=== PATIENT | male | born 1975 | race Caucasian/White ===

== ENCOUNTER 2017-02-05 11:55 | Observation (INO) | payer MEDICARE ==
[~2017-02-05] VITALS: Ht 175.3 cm; Wt 83.9 kg
--- NOTE | ~2017-02-05 | HEMODYNAMI ---
PATIENT:SMITA ROMERO MEDICAL RECORD: [id number] : 73 LOCATION:[facility] [place] [address] [id number] ADMISSION DATE: 02/05/17 Generatedon:02/06/201711:06 Patient name: SMITA ROMERO Patient #: [id number] SSN: : 1975 Date of study: 02/06/2017 Page: Of Hemodynamic Procedure Report Patient Data Patient Demographics Procedure consent was obtained First Name: SMITA Gender: Male Last Name: NICK : 1975 [facility] Initial: E Age: 41 year(s) Patient #: [id number] Race: Additional ID: [id number] Contact details Address: [address] [place] [address] [facility] State: [place] City: [place] Zip code: [address] Past Medical History Allergies Allergen Reaction Date Comments Reported Iodine 01/18/2016 Iodine 02/06/2017 Admission Admission Data Admission Date: 02/05/2017 Admission Time: 14:55 Room #: 2116 Lab Results Lab Result Date: 02/06/2017 Lab Result Time: 0:00 Biochemistry Name Units Result Min Max BUN mg/dl 9 --(*---)-- 7 18 Creatinine mg/dl 0.9 --(-*--)-- 0.6 1.3 CBC Name Units Result Min Max Hemoglobin g/dl 15 --(-*--)-- 13.5 17.5 Procedure Procedure Types Cath Procedure Diagnostic Procedure LHC LHC w/Coronaries Miscellaneous Procedures Moderate Sedation up to 15 minutes Procedure Description Procedure Date Procedure Date: 02/06/2017 Procedure Start Time: 10:52 Procedure End Time: 11:04 Procedure Staff Name Function Ronaldo Mata MD Performing Physician Maria Del Carmen Castle RN Nurse Wenceslao Guerra RT Monitor Eric Lees RT Scrub Procedure Data Cath Procedure Fluoroscopy Diagnostic fluoroscopy Total fluoroscopy Time: 1.5 time: 1.5 min min Diagnostic fluoroscopy Total fluoroscopy dose: 346 dose: 346 mGy mGy Contrast Material Contrast Material Type Amount (ml) Isovue 300 60 Entry Location Entry Primary Successful Side Size Upsize Upsize Entry Closure Succes sful Closure Location (Fr) 1 (Fr) 2 (Fr) Remarks Device Remarks Femoral Right 5 Fr Exoseal artery Diagnostic catheters Device Type Used For End Catheter Placement Cordis 5Fr JL 4.0 Left Coronary Catheter (MP) Angiography Cordis 5Fr 3DRC Catheter Right Coronary (MP) Angiography Cordis 5Fr Pigtail LV Angiography Catheter (MP) Procedure Complications No complications Procedure Medications Medication Administration Route Dosage Versed I.V. 1 mg Fentanyl I.V. 50 mcg Versed I.V. 1 mg Fentanyl I.V. 50 mcg Oxygen NC 2 l/min Heparin Flush Bag added to field 2 bags (1000units/500ml NS) Lidocaine 2% added to field 20 Versed I.V. 1 mg Fentanyl I.V. 50 mcg Versed I.V. 1 mg Fentanyl I.V. 50 mcg Hemodynamics Rest HGB: 15 (g/dl) Heart Rate: 77 (bpm) Pressure Samples Time Site Value (mmHg) Purpose Heart Use Rate(bpm) 10:59 LV 146/-6,19 EDP 86 11:00 AO 143/90(116) Pullback 87 11:00 LV 154/-2,35 Pullback 87 Gradients Valve Time Site 1 Site 2 Mean SEP/DFP Peak To Heart Use (mmHg) (sec/min) Peak Rate (mmHg) (bpm) Aortic 11:00 LV AO 13 6 11 87 154/-2,35 143/90(116) Calculations Valve P-P Mean Valve Index Valve Source Name Gradient Area Flow (cm2) Aortic 11 13 11 13 Snapshots Pre Cath Intra NCS Post Cath Vital Signs Time Heart Resp SPO2 etCO2 [id number] NIBP (mmHg) Rhythm Pain Sedatio n Rate (ipm) (%) (mmHg) (mmHg) Status Level (bpm) 10:38:22 81 19 100 0 0 147/100(124) NSR 0 (11) 10(A) , No pain 10:42:38 81 17 100 0 0 145/103(117) NSR 0 (11) 10(A) , No pain 10:46:52 90 16 100 0 0 131/92(116) NSR 0 (11) 10(A) , No pain 10:51:02 95 16 100 0 0 131/100(115) NSR 0 (11) 10(A) , No pain 10:55:12 86 16 100 0 0 135/97(121) NSR 0 (11) 10(A) , No pain 10:59:22 80 16 100 0 0 141/95(111) NSR 0 (11) 10(A) , No pain 11:02:55 89 20 100 0 0 139/91(114) NSR 0 (11) 10(A) , No pain Medications Time Medication Route Dose Verified Delivered Reason Notes Effec tiveness by by 10:33:58 Oxygen NC 2 Ronaldo Maria Del Carmen Per l/min Adolfo Castle RN physician 10:34:38 Heparin Flush added 2 Ronaldo Ronaldo used for Bag to bags Adolfo Mata MD procedure (1000units/500ml field NS) 10:34:48 Lidocaine 2% added 20ml Ronaldo Ronaldo used for to vial Adolfo Mata MD procedure field 10:47:26 Versed I.V. 1 mg Ronaldo Maria Del Carmen for Adolfo Castle RN sedation 10:47:35 Fentanyl I.V. 50 Ronaldo Maria Del Carmen for mcg Adolfo Castle RN sedation 10:49:46 Versed I.V. 1 mg Ronaldo Maria Del Carmen for Adolfo Castle RN sedation 10:49:48 Fentanyl I.V. 50 Ronaldo Maria Del Carmen for mcg Adolfo Castle RN sedation 10:52:06 Versed I.V. 1 mg Ronaldo Maria Del Carmen for Adolfo Castle RN sedation 10:52:12 Fentanyl I.V. 50 Ronaldo Maria Del Carmen for mcg Adolfo Castle RN sedation 10:55:10 Versed I.V. 1 mg Ronaldo Maria Del Carmen for Adolfo Castle RN sedation 10:55:17 Fentanyl I.V. 50 Ronaldo Maria Del Carmen for mcg Adolfo Castle RN sedation Procedure Log Time Note 10:13:20 Eric WU(R) sent for patient. Start room use. 10:13:21 Time tracking: Regular hours 10:13:26 Plan of Care:Hemodynamics will remain stable., Cardiac rhythm will remain stable., Comfort level will be maintained., Respiratory function will remain adequate., Patient/ family verbilizes understanding of procedure., Procedure tolerated without complication., Recovers from procedure without complications.. 10:32:57 Patient received from PCU to CCL 1 Alert and oriented. Tansferred to table in Supine position. 10:33:00 Warm blankets applied, and maryanne hugger turned on for patient comfort. 10:33:01 Correct patient and procedure confirmed by team. 10:33:04 Signed procedure consent form obtained from guardian. 10:33:06 ECG and BP/O2 sat monitors applied to patient. 10:33:58 Oxygen 2 l/min NC was administered by Maria Del Carmen Castle RN; Per physician; 10:34:38 Heparin Flush Bag (1000units/500ml NS) 2 bags added to field was administered by Ronaldo Mata MD; used for procedure; 10:34:48 Lidocaine 2% 20ml vial added to field was administered by Ronaldo Mata MD; used for procedure; 10:37:13 Vital chart was started 10:43:00 Baseline sample Acquired. 10:43:03 Rhythm: sinus rhythm 10:43:04 Full Disclosure recording started 10:43:15 H&P Date Dictated: 02/06/2017 Within 30 days and on chart.. 10:43:17 Pre-procedure instructions explained to patient. 10:43:18 Pre-op teaching completed and patient verbalized understanding. 10:43:19 Family in patients room. 10:43:21 Patient NPO since Midnight. 10:43:28 Patient allergic to Iodine 10:43:32 Is the patient allergic to Iodine/contrast media? Yes. 10:43:34 Was the patient premedicated? Yes 10:43:38 Is patient on blood thinner?Yes 10:43:52 plavix was on 4-10 10:43:58 Patient diabetic? No. 10:43:59 ----Pre-sedation anethsthesia assessment.---- 10:44:01 Previous problem with sedation/anesthesia? No ? 10:44:03 Snore? Yes 10:44:04 Sleep apnea? No 10:44:07 Deviated septum? No 10:44:09 Opens mouth fully? Yes 10:44:10 Sticks out tongue? Yes 10:44:12 Airway obstruction? No ? 10:44:16 Dentures? Yes out 10:44:22 Pre procedure: right dorsailis pedis pulse 1+ Palpable, but thready & weak; easily obliterated 10:44:25 Patient pain scale 0/10 ?. 10:44:45 IV patent on arrival in left forearm with 0.9% NaCl at 10ml/hr. 10:45:09 Lab Result : Creatinine 0.9 mg/dl 10:45:09 Lab Result : BUN 9 mg/dl 10:45:09 Lab Result : Hemoglobin 15 g/dl 10:46:28 Lab results completed and on chart. 10:46:32 Right groin area was prepped with chlora-prep and draped in sterile fashion 10:46:33 Alarms reviewed by R. N. 10:46:33 Sharps counted by scrub and verified by R.N. 10:46:34 --------ALL STOP TIME OUT------ 10:46:34 Final Timeout: patient, procedure, and site verified with staff and physician. All members of the team are in agreement. 10:46:36 Right groin site verified by team. 10:46:40 Physical assessment completed. ASA score P 2 - A patient with mild systemic disease as per Ronaldo Mata MD. 10:46:44 Sedation plan: IV Moderate Sedation Versed, Fentanyl 10:46:52 Use device set Femoral Dx 10:46:53 Acist Syringe opened to sterile field. 10:46:53 Bag Decanter opened to sterile field. 10:46:54 Medline Cath Pack opened to sterile field. 10:46:54 Terumo 5Fr Buffalo Sheath opened to sterile field. 10:46:54 [facility] Collin 260cm J .035 wire opened to sterile field. 10:46:55 Acist Hand Control opened to sterile field. 10:46:56 Acist Manifold opened to sterile field. 10:46:56 Diagnostic Infinity 5Fr Multipack catheter opened to sterile field. 10:46:57 Tegaderm 4 x 4 opened to sterile field. 10:47:26 Versed 1 mg I.V. was administered by Maria Del Carmen Castle RN; for sedation; 10:47:35 Fentanyl 50 mcg I.V. was administered by Maria Del Carmen Castle RN; for sedation; 10:49:46 Versed 1 mg I.V. was administered by Maria Del Carmen Castle RN; for sedation; 10:49:48 Fentanyl 50 mcg I.V. was administered by Maria Del Carmen Castle RN; for sedation; 10:52:06 Versed 1 mg I.V. was administered by Maria Del Carmen Castle RN; for sedation; 10:52:12 Fentanyl 50 mcg I.V. was administered by Maria Del Carmen Castle RN; for sedation; 10:52:53 Procedure started. 10:52:58 Local anesthetic to right femoral artery with Lidocaine 2% by Ronaldo Mata MD.INITIAL ACCESS ONLY 10:53:07 A 5 Fr sheath was inserted into the Right Femoral artery 10:53:15 Zero performed for pressure channel P1 10:53:19 Zero performed for pressure channel P1 10:53:21 Zero performed for pressure channel P1 10:53:23 Zero performed for pressure channel P1 10:53:26 Zero performed for pressure channel P1 10:53:36 Zero performed for pressure channel P1 10:55:05 A Cordis 5Fr JL 4.0 Catheter (MP) was advanced over the wire and used for Left Coronary Angiography. 10:55:09 LCA angiography performed. 10:55:10 Versed 1 mg I.V. was administered by Maria Del Carmen Castle RN; for sedation; 10:55:17 Fentanyl 50 mcg I.V. was administered by Maria Del Carmen Castle RN; for sedation; 10:56:32 Catheter removed. 10:57:32 A Cordis 5Fr 3DRC Catheter (MP) was advanced over the wire and used for Right Coronary Angiography. 10:58:00 RCA angiography performed. 10:58:01 Catheter removed. 10:58:07 A Cordis 5Fr Pigtail Catheter (MP) was advanced over the wire and used for LV Angiography. 10:59:34 LV gram done using DENNEY 10:59:35 LV hemodynamics recorded. 10:59:40 Injector settings: Ml/sec: 10, Volume: 20, 11:00:06 EF : 50 % 11:00:23 Catheter removed. 11:00:30 Contrast amount:Isovue 300 60ml. 11:01:08 Sheath removed intact; hemostasis achieved with Exoseal to the Right Femoral artery. 11:01:11 Procedure ended.(Physican Out) 11:01:47 Procedure type changed to Cath procedure, Diagnostic procedure, LHC, LHC w/Coronaries, Miscellaneous Procedures, Moderate Sedation up to 15 minutes 11:01:54 Fluoroscopy time 01.50 minutes. 11:02:03 Flurop Dose total: 346 11:02:03 Fluoroscopy dose: 346 mGy 11:02:05 Sharps counted by scrub and verified by R.N. 11:02:06 Insertion/operative site no bleeding no hematoma. 11:02:08 Post-op/insertion site Right Femoral artery dressed using a 4 x 4 and Tegaderm. 11:02:12 Post right femoral artery:stable 11:02:14 Post Procedure Pulses reassessed and unchanged 11:02:21 Post procedure: right dorsailis pedis pulse 2+ Normal; easily identifiable; not easily obliterated. 11:02:25 Post procedure rhythm: sinus rhythm 11:02:31 Post procedure instruction explained to patient.Patient verbalizes understanding. 11:03:21 Cordis 5Fr Exoseal opened to sterile field. 11:03:44 Procedure and supply charges have been captured, reviewed, submitted and are correct. 11:03:49 Procedure Complication : No complications 11:03:52 Vital chart was stopped 11:03:52 See physician's report for complete and final results. 11:04:01 Report given to PCU. 11:04:06 Patient transfered to PCU with Bed. 11:04:08 Procedure ended. 11:04:08 Full Disclosure recording stopped 11:04:13 End room use (Document Last) Device Usage Item Name Manufacture Quantity Catalog Hospital Part Current Minimal Lo t# / Number Charge Number Stock Stock Serial# Code Acist Acist 1 30044 [id number] [id number] [id number] 20 Syringe [employer] Bag Microtek 1 2002S 543103 48982 078323 5 [employer] Medline Cardinal 1 [id number] 386503 50800 270957 5 Cath Pack Health Terumo 5Fr Terumo 1 [id number] 902736 946796 057402 [address] [facility] Collin 1 893190 929918 893652 191792 30 260cm J .035 wire Acist Hand Acist 1 67268 612109 967820 555869 5 Control [employer] Inc Acist Acist 1 41855 940899 565642 091707 5 Manifold [employer] Inc Diagnostic Cardinal 1 [id number] 468264 28346 369336 30 ePartnersity Health 5Fr Multipack catheter Tegaderm 4 3M 1 1626W 941104 876630 559864 5 x 4 Cordis 5Fr Cardinal 1 692575 5 JL 4.0 Health Catheter (MP) Cordis 5Fr Cardinal 1 141062 5 3DRC Health Catheter (MP) Cordis 5Fr Cardinal 1 238156 5 Pigtail Health Catheter (MP) Cordis 5Fr Cardinal 1 EX500 698234 671434 770602 10 [facility] Health Signature Audit [place] Stage Time Signature Unsigned Intra-Procedure 02/06/2017 Wenceslao Guerra 11:06:28 AM RT(R) Signatures Monitor : Wenceslao Guerra RT Signature : Date : Time : [place] [id number] [facility] [place] [address]
[~2017-02-05 11:55] MED LIST: BAYER CHEWABLE81 MG PO; PAXIL20 MG PO; PLAVIX75 MG PO; PRAVACHOL80 MG PO; PRINIVIL20 MG PO; TYLENOL W/CODEI1 TAB PO; WELLBUTRIN75 MG PO
[2017-02-05 12:54] LABS: BASOPHILS 0.3 % (0.0-2.0); EOSINOPHILS 2.6 % (0-7); HEMATOCRIT 42.9 % (42.0-54.0); IMMATURE GRANULOCYTES 0.3 % (0-5); LYMPHOCYTES 37.6 % (15-50); MCH 32.3 pg (26.0-34.0); MCV 92.5 fL (80.0-100.0); MEAN PLATELET VOLUME 10.1 fL (7.4-10.4); MONOCYTES 7.6 % (2-11); NEUTROPHILS 51.6 % (40-80); PLATELET COUNT 239 10x3/uL (130-400); RBC 4.64 10x6/uL (4.20-6.10); RDW 12.6 % (11.5-14.5)
[2017-02-05 13:15] LABS: ALBUMIN 3.5 g/dL (3.4-5.0); ALKALINE PHOSPHATASE 64 U/L (46-116); ALT (SGPT) 20 U/L (10-68); BILIRUBIN - TOTAL 0.33 mg/dL (0.2-1.3); CALC OSMOLALITY 282 mosm/kg (275-300); CALCIUM 8.4 mg/dL (8.5-10.1); CARBON DIOXIDE 26.7 mmol/L (21.0-32.0); CHLORIDE - SERUM 107 mmol/L (98-107); CREATININE - SERUM 0.9 mg/dL (0.6-1.3); GLUCOSE 113 mg/dL (74-106); POTASSIUM - SERUM 3.4 mmol/L (3.5-5.1); PROTEIN - SERUM 6.3 g/dL (6.4-8.2); SODIUM 142 mmol/L (136-145); UREA NITROGEN 9 mg/dL (7-18); eGFR NON AFRICAN AMERICAN > 90 mL/min (90-120)
[2017-02-05 13:28] LABS: CHOL - HDL RATIO 5.6 ratio (2.3-4.9); CHOLESTEROL, TOTAL 203 mg/dL (0-200); CKMB 1.9 U/L (0.0-3.6); CREATINE KINASE 102 UL (21-232); HDL CHOLESTEROL 36 mg/dL (32-96); LDL CHOLESTEROL 114 mg/dL (0-100); LDL-HDL RATIO 3.2 ratio (1.5-3.5); TRIGLYCERIDE 268 mg/dL (30-200); TROPONIN-I 0.034 ng/mL (0.000-0.060)
[2017-02-05 18:05] VITALS: BP 116/76; BMI 27.3
--- NOTE | 2017-02-05 18:28 | NUR ---
PATIENT ADMITTED FROM ER VIA WC. WARM AND DRY. MONITOR SHOWS SBRADY @ 56. LUNGS CLEAR WITHOUT WHEEZING. ASSESSMENT, MED REC, HISTORY DONE. WILL CONTINUE TO MONITOR.
[2017-02-05 19:00] VITALS: BP 119/76
--- NOTE | 2017-02-05 19:26 | NUR ---
RESUMED CARE OF PT, LYING IN BED RESPIRATIONS EVEN AND UNLABORED ON ROOM AIR. LEFT FOREARM SALINE LOCKED. 68 SR ON TELEMETRY. FAMILY AT BEDSIDE, PLAN OF CARE DISCUSSED. CALL LIGHT IN REACH. WILL CONTINUE TO MONITOR. SEE NURSE ASSESSMENT.
[2017-02-06] VITALS: BP 113/73
--- NOTE | 2017-02-06 02:57 | NUR ---
LYING IN BED WITH EYES CLOSED, CALL LIGHT IN REACH. WILL CONTINUE TO MONITOR.
[2017-02-06 04:00] VITALS: BP 122/75
--- NOTE | 2017-02-06 06:30 | NUR ---
NO CHANGES FROM PREVIOUS ASSESSMENT, CALL LIGHT IN REACH. SOLUMEDROL 125 IVP FOR IODINE ALLERGY.
--- NOTE | 2017-02-06 07:30 | NUR ---
RECEIVED PT IN BED AAOX4 RESP UNLABORED SKIN W/D COLOR WNL NAD NOTED WILL CONTINUE TO MONITOR
[2017-02-06 08:24] VITALS: BP 117/76
[2017-02-06 10:23] VITALS: Ht 175.3 cm; Wt 83.9 kg
--- NOTE | 2017-02-06 11:30 | NUR ---
FSBS 94
--- NOTE | 2017-02-06 14:45 | NUR ---
REVIEWED DISCHARGE INSTRUCTIONS WITH PT AND MOTHER BOTH STATE UNDERSTANDING COPY GIVEN TO PT DCD SALINE LOCK TO LFA WITH 16 GA IV CATHETER WITH TIP INTACT SITE FREE OF REDNESS OR EDEMA PT DISCHARGED HOME IN STABLE CONDITION LEFT UNIT WITH ALL PERSONAL BELONGINGS VIA W/C
--- NOTE | 2017-02-07 12:24 | OP ---
PATIENT NAME: SMITA ROMERO MEDICAL RECORD: [id number] :73 LOCATION:D. D.2116 ADMISSION DATE:02/05/17 SURGEON: DWIGHT HAN M.D. DATE OF OPERATION: 02/06/2017 Catheterization Report PROCEDURES PERFORMED: 1. Selective coronary angiography. 2. Left heart catheterization with ventriculogram. INDICATION: A 41-year-old gentleman, who presents with symptoms of worsening angina and a history of coronary artery disease. EQUIPMENT USED: A 5-Belizean JL4, Apolinar right, pigtail catheter. TECHNIQUE: A 5-Belizean sheath was inserted in retrograde fashion in the right common femoral artery. Next, selective coronary angiography was performed in standard 5-Belizean JL4 and Apolinar right. Left heart catheterization performed using pigtail catheter. CORONARY ANATOMY: 1. Left main: Left main trunk is moderate in caliber. It gives rise to the LAD and circumflex. It is angiographically normal. 2. LAD: This is a moderate caliber vessel extending to the apex. It has mild irregularities throughout its course, but nothing worse than 20%. 3. Circumflex: This vessel is moderate in caliber. The mid vessel has been stented. The stent is widely patent. There is no evidence of restenosis. 4. Right coronary artery: This vessel is moderate in caliber and dominant. The proximal mid vessel has been stented. The stents are widely patent without evidence of restenosis. 5. Left ventricle: Left ventricle is normal in size and function. No wall motion abnormalities are seen. Estimated ejection fraction is 50%. IMPRESSION: 1. Widely patent stents in the right coronary artery and circumflex without evidence of restenosis. 2. Normal left ventricular function. RECOMMENDATIONS: We will continue with medical management. TRANSINT:[id number] Voice Confirmation ID: [id number] DOCUMENT ID: [id number] DWIGHT HAN M.D. at 1224 CC: [id number] DICTATION DATE: 02/06/17 1110 SOFTWARE ENGINEER KERNEL: 02/06/17 1231 DIS IN 02/06/17 [place] [address] [place] [address]
== END 2017-02-06 14:45 | disposition home or self-care (01) ==
LOC: D.ER 11:55 → OBSVTIME 14:55 → D.M2 14:55
PROVIDERS: Family Medicine; ADMIT Internal Medicine Cardiovascular Disease
DX: R07.89 Other chest pain (principal); I25.110 Atherosclerotic heart disease of native coronary artery with unstable angina pectoris; Z95.5 Presence of coronary angioplasty implant and graft; I10 Essential (primary) hypertension; E78.5 Hyperlipidemia, unspecified

== ENCOUNTER 2017-02-21 13:30 | Emergency (ER) | payer MEDICARE | END 2017-02-21 17:30 | disposition left against medical advice (07) | LOC: D.ER 13:30 | DX: R10.30 Lower abdominal pain, unspecified (principal) ==

== ENCOUNTER 2017-02-27 07:40 | Emergency (ER) | payer MEDICARE ==
[2017-02-06 10:23] VITALS: BMI 27.3
[2017-02-27 08:40] LABS: BASOPHILS 0.2 % (0-2); EOSINOPHILS 1.9 % (0-7); HEMATOCRIT 47.4 % (42.0-54.0); HEMOGLOBIN 16.6 g/dL (13.5-17.5); IMMATURE GRANULOCYTES 0.3 % (0-5); LYMPHOCYTES 40.7 % (15-50); MCH 33.3 pg (26.0-34.0); MCV 95.2 fL (80.0-100.0); MEAN PLATELET VOLUME 10.3 fL (7.4-10.4); MONOCYTES 7.5 % (2-11); NEUTROPHILS 49.4 % (40-80); PLATELET COUNT 251 10x3/uL (130-400); RBC 4.98 10x6/uL (4.20-6.10); RDW 12.8 % (11.5-14.5); WBC 5.8 10x3/uL (4.8-10.8)
[2017-02-27 08:43] LABS: APPEARANCE CLEAR (CLEAR); BACTERIA FEW /hpf (NONE SEEN); BILIRUBIN NEGATIVE (NEGATIVE); COLOR YELLOW (YELLOW); EPITHELIAL CELLS 0-5 /hpf (0-5); GLUCOSE NEGATIVE (NEGATIVE); KETONE NEGATIVE (NEGATIVE); LEUKOCYTE ESTERASE TRACE (NEGATIVE); MUCUS >1+ /lpf (NONE SEEN); NITRITE NEGATIVE (NEGATIVE); PROTEIN NEGATIVE (NEGATIVE); SPECIFIC GRAVITY 1.015 (1.005-1.020); UROBILINOGEN NORMAL (NORMAL); WHITE CELLS - URINE 0-5 /hpf (0-5)
[2017-02-27 08:53] LABS: ALBUMIN 3.4 g/dL (3.4-5.0); ALKALINE PHOSPHATASE 69 U/L (46-116); BILIRUBIN - TOTAL 0.69 mg/dL (0.2-1.3); CALC OSMOLALITY 280 mosm/kg (275-300); CALCIUM 7.8 mg/dL (8.5-10.1); CARBON DIOXIDE 32.5 mmol/L (21.0-32.0); CHLORIDE - SERUM 106 mmol/L (98-107); CREATININE - SERUM 0.2 mg/dL (0.6-1.3); GLUCOSE 77 mg/dL (74-106); POTASSIUM - SERUM 3.8 mmol/L (3.5-5.1); PROTEIN - SERUM 6.8 g/dL (6.4-8.2); SODIUM 142 mmol/L (136-145); UREA NITROGEN 10 mg/dL (7-18); eGFR NON AFRICAN AMERICAN > 90 mL/min (90-120)
[2017-02-27 08:54] LABS: ALT (SGPT) 5 U/L (10-68)
== END 2017-02-27 10:40 | disposition home or self-care (01) ==
LOC: D.ER 07:40
PROVIDERS: Emergency Medicine
DX: N39.0 Urinary tract infection, site not specified (principal); I25.10 Atherosclerotic heart disease of native coronary artery without angina pectoris; I50.9 Heart failure, unspecified; I10 Essential (primary) hypertension

== ENCOUNTER 2017-07-13 13:10 | Emergency (ER) | payer MEDICARE | END 2017-07-13 17:31 | disposition home or self-care (01) | LOC: D.ER 13:10 | DX: R19.7 Diarrhea, unspecified (principal); R11.10 Vomiting, unspecified; I50.9 Heart failure, unspecified; I10 Essential (primary) hypertension; F17.200 Nicotine dependence, unspecified, uncomplicated ==

== ENCOUNTER 2017-09-13 13:51 | Emergency (ER) | payer MEDICARE ==
[2017-02-06 10:23] VITALS: BMI 27.3
[2017-09-13 14:14] LABS: BASOPHILS 0.3 % (0-2); EOSINOPHILS 5.7 % (0-7); HEMATOCRIT 44.6 % (42.0-54.0); HEMOGLOBIN 15.3 g/dL (13.5-17.5); IMMATURE GRANULOCYTES 0.1 % (0-5); LYMPHOCYTES 30.9 % (15-50); MCHC 34.3 g/dL (31.0-37.0); MCV 96.3 fL (80.0-100.0); MEAN PLATELET VOLUME 9.8 fL (7.4-10.4); MONOCYTES 8.8 % (2-11); NEUTROPHILS 54.2 % (40-80); PLATELET COUNT 248 10x3/uL (130-400); RBC 4.63 10x6/uL (4.20-6.10); RDW 12.8 % (11.5-14.5); WBC 8.8 10x3/uL (4.8-10.8)
[2017-09-13 14:30] LABS: ALBUMIN 3.8 g/dL (3.4-5.0); ALKALINE PHOSPHATASE 64 U/L (46-116); ALT (SGPT) 46 U/L (10-68); BILIRUBIN - TOTAL 0.44 mg/dL (0.2-1.3); CALC OSMOLALITY 281 mosm/kg (275-300); CALCIUM 8.9 mg/dL (8.5-10.1); CARBON DIOXIDE 29.7 mmol/L (21.0-32.0); CHLORIDE - SERUM 104 mmol/L (98-107); CREATININE - SERUM 0.9 mg/dL (0.6-1.3); GLUCOSE 108 mg/dL (74-106); POTASSIUM - SERUM 3.8 mmol/L (3.5-5.1); SODIUM 141 mmol/L (136-145); UREA NITROGEN 13 mg/dL (7-18); eGFR NON AFRICAN AMERICAN > 90 mL/min (90-120)
[2017-09-13 14:39] LABS: CHOL - HDL RATIO 5.3 ratio (2.3-4.9); CHOLESTEROL, TOTAL 205 mg/dL (0-200); CKMB 1.7 U/L (0.0-3.6); CREATINE KINASE 154 UL (21-232); HDL CHOLESTEROL 39 mg/dL (32-96); LDL CHOLESTEROL 136 mg/dL (0-100); LDL-HDL RATIO 3.5 ratio (1.5-3.5); TRIGLYCERIDE 153 mg/dL (30-200); TROPONIN-I 0.037 ng/mL (0.000-0.060)
== END 2017-09-13 16:00 | disposition home or self-care (01) ==
LOC: D.ER 13:51
PROVIDERS: Emergency Medicine
DX: I20.8 Other forms of angina pectoris (principal); R07.9 Chest pain, unspecified; F17.200 Nicotine dependence, unspecified, uncomplicated

== ENCOUNTER 2017-09-19 14:05 | Emergency (ER) | payer MEDICARE ==
[2017-02-06 10:23] VITALS: BMI 27.3
[2017-09-19 14:45] LABS: BASOPHILS 0.2 % (0-2); EOSINOPHILS 4.3 % (0-7); HEMATOCRIT 46.1 % (42.0-54.0); IMMATURE GRANULOCYTES 0.2 % (0-5); LYMPHOCYTES 28.2 % (15-50); MCH 33.2 pg (26.0-34.0); MCHC 34.7 g/dL (31.0-37.0); MCV 95.6 fL (80.0-100.0); MONOCYTES 9.1 % (2-11); PLATELET COUNT 269 10x3/uL (130-400); RBC 4.82 10x6/uL (4.20-6.10); RDW 12.6 % (11.5-14.5); WBC 9.2 10x3/uL (4.8-10.8)
[2017-09-19 15:01] LABS: ALBUMIN 3.9 g/dL (3.4-5.0); ALKALINE PHOSPHATASE 73 U/L (46-116); ALT (SGPT) 32 U/L (10-68); CALC OSMOLALITY 280 mosm/kg (275-300); CALCIUM 9.4 mg/dL (8.5-10.1); CARBON DIOXIDE 30.6 mmol/L (21.0-32.0); CHLORIDE - SERUM 104 mmol/L (98-107); GLUCOSE 93 mg/dL (74-106); POTASSIUM - SERUM 3.7 mmol/L (3.5-5.1); PROTEIN - SERUM 7.2 g/dL (6.4-8.2); SODIUM 141 mmol/L (136-145); UREA NITROGEN 13 mg/dL (7-18); eGFR NON AFRICAN AMERICAN 87 mL/min (90-120)
[2017-09-19 15:11] LABS: CHOL - HDL RATIO 5.4 ratio (2.3-4.9); CHOLESTEROL, TOTAL 217 mg/dL (0-200); CKMB 1.3 U/L (0.0-3.6); CREATINE KINASE 131 UL (21-232); HDL CHOLESTEROL 40 mg/dL (32-96); LDL CHOLESTEROL 131 mg/dL (0-100); LDL-HDL RATIO 3.3 ratio (1.5-3.5); TRIGLYCERIDE 232 mg/dL (30-200); TROPONIN-I 0.033 ng/mL (0.000-0.060)
== END 2017-09-19 17:59 | disposition home or self-care (01) ==
LOC: D.ER 14:05
PROVIDERS: Family Medicine
DX: R07.9 Chest pain, unspecified (principal); I10 Essential (primary) hypertension; I25.10 Atherosclerotic heart disease of native coronary artery without angina pectoris

== ENCOUNTER 2017-11-18 19:57 | Emergency (ER) | payer MEDICARE ==
[2017-02-06 10:23] VITALS: BMI 27.3
[2017-11-18 20:51] LABS: BASOPHILS 0.2 % (0-2); EOSINOPHILS 5.7 % (0-7); HEMATOCRIT 46.3 % (42.0-54.0); HEMOGLOBIN 16.4 g/dL (13.5-17.5); IMMATURE GRANULOCYTES 0.2 % (0-5); LYMPHOCYTES 37.3 % (15-50); MCH 33.3 pg (26.0-34.0); MCHC 35.4 g/dL (31.0-37.0); MCV 94.1 fL (80.0-100.0); MEAN PLATELET VOLUME 10.3 fL (7.4-10.4); MONOCYTES 8.1 % (2-11); NEUTROPHILS 48.5 % (40-80); PLATELET COUNT 245 10x3/uL (130-400); RBC 4.92 10x6/uL (4.20-6.10); RDW 12.4 % (11.5-14.5); WBC 10.3 10x3/uL (4.8-10.8)
[2017-11-18 21:09] LABS: ALBUMIN 4.2 g/dL (3.4-5.0); ALKALINE PHOSPHATASE 76 U/L (46-116); ALT (SGPT) 24 U/L (10-68); CALC OSMOLALITY 284 mosm/kg (275-300); CALCIUM 9.5 mg/dL (8.5-10.1); CARBON DIOXIDE 27.3 mmol/L (21.0-32.0); CHLORIDE - SERUM 103 mmol/L (98-107); GLUCOSE 94 mg/dL (74-106); POTASSIUM - SERUM 3.5 mmol/L (3.5-5.1); PROTEIN - SERUM 7.5 g/dL (6.4-8.2); SODIUM 142 mmol/L (136-145); UREA NITROGEN 19 mg/dL (7-18); eGFR NON AFRICAN AMERICAN 87 mL/min (90-120)
[2017-11-18 21:21] LABS: CKMB 1.4 U/L (0.0-3.6); CREATINE KINASE 141 UL (21-232); TROPONIN-I 0.039 ng/mL (0.000-0.060)
== END 2017-11-19 00:06 | disposition home or self-care (01) ==
LOC: D.ER 19:57
PROVIDERS: Emergency Medicine
DX: R07.9 Chest pain, unspecified (principal); Z86.79 Personal history of other diseases of the circulatory system; I10 Essential (primary) hypertension; F17.200 Nicotine dependence, unspecified, uncomplicated

== ENCOUNTER 2018-02-23 17:25 | Emergency (ER) | payer MEDICARE ==
[2017-02-06 10:23] VITALS: BMI 27.3
[2018-02-23 18:06] LABS: APPEARANCE CLEAR (CLEAR); BILIRUBIN NEGATIVE (NEGATIVE); COLOR YELLOW (YELLOW); GLUCOSE NEGATIVE (NEGATIVE); KETONE NEGATIVE (NEGATIVE); NITRITE NEGATIVE (NEGATIVE); PROTEIN TRACE mg/dL (NEGATIVE); SPECIFIC GRAVITY 1.025 (1.005-1.020); UROBILINOGEN NORMAL (NORMAL)
[2018-02-23 18:07] LABS: WHITE CELLS - URINE 0-5 /hpf (0-5)
[2018-02-23 18:23] LABS: BASOPHILS 0.4 % (0-2); EOSINOPHILS 6.5 % (0-7); HEMATOCRIT 46.4 % (42.0-54.0); IMMATURE GRANULOCYTES 0.2 % (0-5); LYMPHOCYTES 29.4 % (15-50); MCH 33.1 pg (26.0-34.0); MCHC 34.5 g/dL (31.0-37.0); MCV 96.1 fL (80.0-100.0); MONOCYTES 8.3 % (2-11); NEUTROPHILS 55.2 % (40-80); PLATELET COUNT 230 10x3/uL (130-400); RBC 4.83 10x6/uL (4.20-6.10); RDW 13.2 % (11.5-14.5); WBC 8.3 10x3/uL (4.8-10.8)
[2018-02-23 18:40] LABS: ALBUMIN 3.9 g/dL (3.4-5.0); ALKALINE PHOSPHATASE 68 U/L (46-116); ALT (SGPT) 38 U/L (10-68); CALC OSMOLALITY 285 mosm/kg (275-300); CALCIUM 8.7 mg/dL (8.5-10.1); CARBON DIOXIDE 27.5 mmol/L (21.0-32.0); CHLORIDE - SERUM 106 mmol/L (98-107); GLUCOSE 87 mg/dL (74-106); POTASSIUM - SERUM 3.9 mmol/L (3.5-5.1); PROTEIN - SERUM 7.4 g/dL (6.4-8.2); SODIUM 143 mmol/L (136-145); UREA NITROGEN 19 mg/dL (7-18); eGFR NON AFRICAN AMERICAN 87 mL/min (90-120)
[2018-02-23 19:36] LABS: UDS - AMPHET NEGATIVE QUAL (NEGATIVE); UDS - BARB NEGATIVE QUAL (NEGATIVE); UDS - BENZO NEGATIVE QUAL (NEGATIVE); UDS - COCAINE NEGATIVE QUAL (NEGATIVE); UDS - OPIATE NEGATIVE QUAL (NEGATIVE); UDS - PCP NEGATIVE QUAL (NEGATIVE); UDS - THC NEGATIVE QUAL (NEGATIVE)
== END 2018-02-23 21:11 | disposition short-term general hospital (02) ==
LOC: D.ER 17:25
PROVIDERS: Family Medicine
DX: R45.851 Suicidal ideations (principal); F32.9 Major depressive disorder, single episode, unspecified; F41.9 Anxiety disorder, unspecified; T14.91XA Suicide attempt, initial encounter; X78.9XXA Intentional self-harm by unspecified sharp object, initial encounter; Y93.89 Activity, other specified; Y92.019 Unspecified place in single-family (private) house as the place of occurrence of the external cause; I50.9 Heart failure, unspecified; I10 Essential (primary) hypertension

== ENCOUNTER → 2018-04-21 06:59 | Outpatient (CLI) | payer MEDICARE ==
[2017-02-06 10:23] VITALS: BMI 27.3
[~2018-04-21 06:59] MED LIST changes: +ASPIRIN81 MG PO; +INVEGA6 MG/BLIST PO; +PAXIL40 MG PO; +PROTONIX40 MG PO; +RANEXA500 MG PO; +TOPROL XL25 MG PO; +TRAZODONE HCL50 MG PO
== END | disposition home or self-care (01) ==
LOC: D.MRI 06:59
DX: M54.5 Low back pain (principal)

== ENCOUNTER 2018-05-23 15:48 | Observation (INO) | payer MEDICARE ==
[~2018-05-23] VITALS: Ht 175.3 cm; Wt 84.5 kg
[~2018-05-23 15:48] MED LIST changes: -ASPIRIN81 MG PO; -INVEGA6 MG/BLIST PO; -PAXIL40 MG PO; -PROTONIX40 MG PO; -RANEXA500 MG PO; -TOPROL XL25 MG PO; -TRAZODONE HCL50 MG PO
[2018-05-23] MEDS ORDERED: PAXIL40 MG PO (15:56)
[2018-05-23] MEDS ORDERED: TOPROL XL25 MG PO (15:56)
[2018-05-23] MEDS ORDERED: INVEGA6 MG/BLIST PO (15:56)
[2018-05-23] MEDS ORDERED: TRAZODONE HCL50 MG PO (15:57)
[2018-05-23 16:31] LABS: BASOPHILS 0.2 % (0-2); EOSINOPHILS 7.2 % (0-7); HEMATOCRIT 40.7 % (42.0-54.0); HEMOGLOBIN 14.7 g/dL (13.5-17.5); IMMATURE GRANULOCYTES 0.1 % (0-5); MCH 33.3 pg (26.0-34.0); MCHC 36.1 g/dL (31.0-37.0); MCV 92.3 fL (80.0-100.0); MEAN PLATELET VOLUME 9.8 fL (7.4-10.4); MONOCYTES 10.9 % (2-11); NEUTROPHILS 54.6 % (40-80); PLATELET COUNT 234 10x3/uL (130-400); RBC 4.41 10x6/uL (4.20-6.10); RDW 12.6 % (11.5-14.5); WBC 8.9 10x3/uL (4.8-10.8)
[2018-05-23 16:47] LABS: ALBUMIN 3.7 g/dL (3.4-5.0); ALKALINE PHOSPHATASE 65 U/L (46-116); ALT (SGPT) 21 U/L (10-68); BILIRUBIN - TOTAL 0.42 mg/dL (0.2-1.3); CALC OSMOLALITY 271 mosm/kg (275-300); CALCIUM 8.4 mg/dL (8.5-10.1); CARBON DIOXIDE 28.5 mmol/L (21.0-32.0); CHLORIDE - SERUM 104 mmol/L (98-107); CREATININE - SERUM 0.9 mg/dL (0.6-1.3); GLUCOSE 85 mg/dL (74-106); POTASSIUM - SERUM 3.5 mmol/L (3.5-5.1); PROTEIN - SERUM 6.7 g/dL (6.4-8.2); SODIUM 137 mmol/L (136-145); UREA NITROGEN 10 mg/dL (7-18); eGFR NON AFRICAN AMERICAN > 90 mL/min (90-120)
[2018-05-23 16:58] LABS: CKMB 1.2 U/L (0.0-3.6); TROPONIN-I < 0.017 ng/mL (0.000-0.060)
[2018-05-23 19:12] VITALS: BP 109/75
[2018-05-23 23:09] LABS: CKMB 1.2 U/L (0.0-3.6); CREATINE KINASE 99 UL (21-232); TROPONIN-I < 0.017 ng/mL (0.000-0.060)
[2018-05-24 04:00] VITALS: BP 102/64
[2018-05-24 04:38] VITALS: BP 108/69; Ht 175.3 cm; Wt 84.5 kg
[2018-05-24 05:51] LABS: CKMB 0.9 U/L (0.0-3.6); CREATINE KINASE 77 UL (21-232); TROPONIN-I < 0.017 ng/mL (0.000-0.060)
[2018-05-24 08:55] VITALS: BP 112/74
[2018-05-24 11:46] VITALS: BP 113/73
[2018-05-24 16:02] VITALS: BP 103/68
[2018-05-24 20:15] VITALS: BP 100/65
[2018-05-25 00:05] VITALS: BP 90/52
[2018-05-25 05:25] VITALS: BP 92/55
[2018-05-25 08:46] VITALS: BP 94/62
[2018-05-25] MEDS ORDERED: RANEXA500 MG PO (09:55)
[2018-05-25] MEDS ORDERED: ASPIRIN81 MG PO (09:55)
[2018-05-25] MEDS ORDERED: PROTONIX40 MG PO (09:56)
[2018-05-25 12:06] VITALS: BP 94/82
== END 2018-05-25 13:35 | disposition home or self-care (01) ==
LOC: D.ER 15:48 → OBSVTIME 18:11 → D.EDHOLD 18:11 → D.M2 19:31
PROVIDERS: Emergency Medicine
DX: I25.10 Atherosclerotic heart disease of native coronary artery without angina pectoris (principal); Z95.5 Presence of coronary angioplasty implant and graft; I25.2 Old myocardial infarction; I11.0 Hypertensive heart disease with heart failure; I50.9 Heart failure, unspecified; F17.213 Nicotine dependence, cigarettes, with withdrawal; F79 Unspecified intellectual disabilities

== ENCOUNTER 2019-04-04 12:54 | Emergency (ER) | payer MEDICARE ==
[~2019-04-04] VITALS: Ht 175.3 cm; Wt 89.1 kg
[~2019-04-04 12:54] MED LIST changes: +ASPIRIN81 MG PO; +INVEGA6 MG/BLIST PO; +PAXIL40 MG PO; +PROTONIX40 MG PO; +RANEXA500 MG PO; +TOPROL XL25 MG PO; +TRAZODONE HCL50 MG PO
[2019-04-04 12:58] VITALS: Ht 175.3 cm; Wt 89.1 kg
[2019-04-04] MEDS ORDERED: AUGMENTIN 875-11 TAB PO (13:09)
[2019-04-04] MEDS ORDERED: CLARITIN 10 MG10 MG PO (13:09)
[2019-04-04 13:21] VITALS: BP 136/89
== END 2019-04-04 13:21 | disposition home or self-care (01) ==
LOC: D.ER 12:54
DX: J01.90 Acute sinusitis, unspecified (principal); R05 Cough; R09.89 Other specified symptoms and signs involving the circulatory and respiratory systems

== ENCOUNTER 2019-07-12 08:41 | Outpatient (CLI) | payer MEDICARE ==
[~2019-07-12] VITALS: Ht 175.3 cm; Wt 81.8 kg
--- NOTE | ~2019-07-12 | HEMODYNAMI ---
PATIENT:SMITA ROMERO MEDICAL RECORD: [id number] : 73 LOCATION:[facility] ADMISSION DATE: 07/12/19 Generatedon:07/12/201911:24 Patient name: SMITA ROMERO Patient #: [id number] SSN: : 1975 Date of study: 07/12/2019 Page: Of Hemodynamic Procedure Report Patient Data Patient Demographics Procedure consent was obtained First Name: SMITA Gender: Male Last Name: NICK : 1975 Middle Initial: E Age: 43 year(s) Patient #: [id number] Race: Additional ID: [id number] Contact details Address: [address] [place] [address] [address] State: [place] City: [place] Zip code: [address] Past Medical History Allergies Allergen Reaction Date Comments Reported Iodine 01/18/2016 Iodine 02/06/2017 IV contrast dye 07/12/2019 Admission Admission Data Admission Date: 07/12/2019 Admission Time: 8:41 Arrival Date: 07/12/2019 Arrival Time: 0:00 Admit Source: Emergency Insurance Payor: Medicare, department Medicaid [facility] #: [id number] Height (in.): 68.9 BSA: 1.97 (m2) Height (cm.): 175 BMI: 26.45 (kg/m2) Weight (lbs.): 178.58 Weight (kg.): 81 Lab Results Lab Result Date: 07/12/2019 Lab Result Time: 0:00 Biochemistry Name Units Result Min Max BUN mg/dl 13 --(--*-)-- 7 18 Creatinine mg/dl 0.8 --(-*--)-- 0.6 1.3 eGFR ml/min 90 --(*---)-- 90 120 NONAFRICAN CBC Name Units Result Min Max Hematocrit % 45 --(*---)-- 42 54 Hemoglobin g/dl 16.5 --(--*-)-- 13.5 17.5 Procedure Procedure Types Cath Procedure Diagnostic Procedure [facility] w/Coronaries FFR/IVUS FFR Initial FFR Additional Sedation Charges Moderate Sedation up to 15 minutes PCI Procedure Coronary Stent Coronary Stent Initial Procedure Description Procedure Date Procedure Date: 07/12/2019 Procedure Start Time: 10:54 Procedure End Time: 11:18 Procedure Staff Name Function Donnie Chao MD Performing Physician Keith Santos RT Monitor Lauregretta De Leon RT Scrub Jo-Ann Pina RN Nurse Eric Lees RT Legal Manager Indication Angina CAD Procedure Data Cath Procedure Fluoroscopy Diagnostic fluoroscopy Total fluoroscopy Time: 5.5 time: 5.5 min min Diagnostic fluoroscopy Total fluoroscopy dose: 696 dose: 696 mGy mGy Contrast Material Contrast Material Type Amount (ml) Isovue 300 105 Entry Location Entry Primary Successful Side Size Upsize Upsize Entry Closure Succes sful Closure Location (Fr) 1 (Fr) 2 (Fr) Remarks Device Remarks Femoral Right 5 Fr 6 Fr Exoseal artery Short Estimated blood loss: 10 ml Diagnostic catheters Device Type Used For End Catheter Placement MULTIPACK Pigtail 5 Fr Procedure catheter MULTIPACK JL 4.0 5Fr Procedure catheter MULTIPACK 3DRC 5Fr Procedure catheter Procedure Complications No complications Procedure Medications Medication Administration Route Dosage Oxygen etCO2 Nasal cannula 2 l/min Lidocaine 2% added to field 20 Heparin Flush Bag added to field 2 bags (1000units/500ml NS) 0.9% NaCl I.V. 100 ml/hr Versed I.V. 2 mg Fentanyl I.V. 100 mcg Versed I.V. 2 mg Fentanyl I.V. 100 mcg Lopressor I.V. 5 mg Heparin Bolus I.V. 4000 units Integrilin (Bolus I.V. 7.3 ml 2mg/ml) Lopressor I.V. 5 mg Hemodynamics Rest BSA: 1.97 (m2) HGB: 16.5 (g/dl) O2 Consumption: Estimated: 255.26 (ml/min) O2 Co nsumption indexed: Estimated:129.57 (ml/min/m) Heart Rate: 92 (bpm) Snapshots Pre Cath Intra NCS Post Cath Vital Signs Time Heart Resp SPO2 etCO2 NIBP (mmHg) Rhythm Pain Sedation Rate (ipm) (%) (mmHg) Status Level (bpm) 10:49:57 87 20 100 33 138/98(119) NSR 0 (11) 10(A) , No pain 10:54:04 103 18 100 33 147/93(114) NSR 0 (11) 10(A) , No pain 10:58:16 105 16 100 37.6 141/83(102) NSR 0 (11) 10(A) , No pain 11:02:28 84 15 100 32.3 134/75(97) NSR 0 (11) 10(A) , No pain 11:06:36 81 13 100 33.8 123/89(102) NSR 0 (11) 10(A) , No pain 11:10:42 83 16 100 28.5 130/83(100) NSR 0 (11) 10(A) , No pain 11:14:50 81 13 100 35.3 132/90(108) NSR 0 (11) 10(A) , No pain Medications Time Medication Route Dose Verified Delivered Reason Notes Effectiveness by by 10:50:36 Oxygen etCO2 2 Donnie [place] used for Nasal l/min Jeremie Pina RN procedure cannula 10:50:44 Lidocaine 2% added 20ml Donnie Fields for local to vial Jeremie Chao MD anesthetic field 10:50:52 Heparin Flush added 2 Donnie Donnie used for Bag to bags Jeremie Chao MD procedure (1000units/500ml field NS) 10:51:02 0.9% NaCl I.V. 100 Donnie Buffie Per physician ml/hr Jeremie Pina RN 10:53:29 Versed I.V. 2 mg Donnie Buffie for sedation Jeremie Pina RN 10:53:35 Fentanyl I.V. 100 Donnie Buffie for sedation mcg Jeremie Pina RN 10:58:28 Versed I.V. 2 mg Donnie Buffie for sedation Jeremie Pina RN 10:58:32 Fentanyl I.V. 100 Donnie Buffie for sedation mcg Jeremie Pina RN 11:00:54 Lopressor I.V. 5 mg Donniesanto Stillie Per physician Jeremie Pina RN 11:04:28 Heparin Bolus I.V. 4000 Donnie Stillie for verif ied units Jeremie Pina RN anticoagulation with dr chao 11:06:15 Integrilin I.V. 7.3 Donnie Stillie for waste d (Bolus 2mg/ml) ml Jeremie Pina RN antiplatelet 2.7 ml therapy of vial 11:09:16 Lopressor I.V. 5 mg Donnie Busch Per physician Jeremie Pina flight controls engineer Log Time Note 10:21:39 Eric Lees RT(R) sent for patient. Start room use. 10:21:40 Time tracking: Regular hours (M-F 7:00 - 5:00) 10:21:44 Plan of Care:Hemodynamics will remain stable., Cardiac rhythm will remain stable., Comfort level will be maintained., Respiratory function will remain adequate., Patient/ family verbilizes understanding of procedure., Procedure tolerated without complication., Recovers from procedure without complications.. 10:21:50 Procedure Status Urgent Heart Cath (IP). 10:34:57 Patient allergic to IV contrast dye 10:37:38 Lab Result : BUN 13 mg/dl 10:37:38 Lab Result : Creatinine 0.8 mg/dl 10:37:38 Lab Result : Hemoglobin 16.5 g/dl 10:37:38 Lab Result : eGFR NONAFRICAN 90 ml/min 10:37:38 Lab Result : Hematocrit 45 % 10:40:25 ACC Patient presents with Unstable Angina CCS Anginal Class 4--Inability to carry out any physical activity w/o angina. Angina may occur at rest. 10:40:32 ACCPatient has been prescribed/administered the following anti-anginal medication within the last 2 weeks: Beta Og 10:42:44 Patient received from ED to CCL 1 Alert and oriented. Tansferred to table in Supine position. 10:42:46 Signed procedure consent form obtained from patient. 10:42:47 Warm blankets applied, and maryanne hugger turned on for patient comfort. 10:42:48 Correct patient and procedure confirmed by team. 10:42:55 ECG and BP/O2 sat monitors applied to patient. 10:48:56 Vital chart was started 10:48:57 Baseline sample Acquired. 10:48:59 Rhythm: sinus rhythm 10:49:01 Full Disclosure recording started 10:50:31 H&P Date Dictated: 07/12/2019 Within 30 days and on chart.. 10:50:32 Pre-procedure instructions explained to patient. 10:50:33 Pre-op teaching completed and patient verbalized understanding. 10:50:36 Oxygen 2 l/min etCO2 Nasal cannula was administered by Jo-Ann Pina RN; used for procedure; 10:50:36 Family in waiting room. 10:50:38 Patient NPO since Midnight. 10:50:44 Lidocaine 2% 20ml vial added to field was administered by Donnie Chao MD; for local anesthetic; 10:50:52 Heparin Flush Bag (1000units/500ml NS) 2 bags added to field was administered by Donnie Chao MD; used for procedure; 10:50:58 IV Extension Set opened to sterile field. 10:51:02 0.9% NaCl 100 ml/hr I.V. was administered by Jo-Ann Pina RN; Per physician; 10:51:06 Is the patient allergic to Iodine/contrast media? Yes. 10:51:07 Was the patient premedicated? Yes 10:51:07 Is patient on blood thinner?Yes 10:51:09 ACC The patient was administered the following blood thiners within the last 24 hours: ACCAspirin, ACCPlavix 10:51:11 Patient diabetic? No. 10:51:15 Previous problem with sedation/anesthesia? No ? 10:51:23 Snore? No 10:51:24 Sleep apnea? No 10:51:25 Deviated septum? No 10:51:26 Opens mouth fully? Yes 10:51:27 Sticks out tongue? Yes 10:51:28 Airway obstruction? No ? 10:51:29 Dentures? No ? 10:51:32 Pre procedure: right dorsailis pedis pulse 2+ Normal; easily identifiable; not easily obliterated 10:51:44 Patient pain scale 10/10 ?. 10:52:01 IV patent on arrival in left forearm with 0.9% NaCl at [facility]. 10:52:03 Lab results completed and on chart. 10:52:05 Right groin area was prepped with chlora-prep and draped in sterile fashion 10:52:06 Alarms reviewed by R. N. 10:52:07 Sharps counted by scrub and verified by R.N. 10:52:22 Use device set Femoral Dx 10:52:23 ACIST Syringe (00361) opened to sterile field. 10:52:23 Bag Decanter (2002) opened to sterile field. 10:52:24 Medline Cath Pack ([id number]) opened to sterile field. 10:52:24 ACIST Hand Control (76579) opened to sterile field. 10:52:25 ACIST Manifold (51858) opened to sterile field. 10:52:26 Tegaderm 4 x 4 (1626W) opened to sterile field. 10:52:29 EMERALD Guide Wire (041-938) opened to sterile field. 10:52:32 SHEATH 5FR [place] (TMV650) opened to sterile field. 10:52:33 DIAGNOSTIC Multipack 5Fr catheter set ([id number]) opened to sterile field. 10::39 Physician arrived 10::39 --------ALL STOP TIME OUT------ 10:52:40 Final Timeout: patient, procedure, and site verified with staff and physician. All members of the team are in agreement. 10:52:41 Right groin site verified by team. 10:52:45 Fire Safety Assessment: A--An alcohol-based skin anteseptic being used preoperatively., C--Open oxygen or nitrous oxide is being used., D--An ESU, laser, or fiber-optic light is being used. 10:52:48 Physical assessment completed. ASA score P 2 - A patient with mild systemic disease as per Donnie Chao MD. 10:52:51 1) 90+ Normal kidney functon but urine findings or structural abnormalities or genetic trait point to kidney disease. 10:52:53 Maximum allowable contrast dose (3.7 X eGFR X 0.75)250 ml. 10:52:56 Sedation plan: IV Moderate Sedation Medication:Versed, Fentanyl 10:53:29 Versed 2 mg I.V. was administered by Jo-Ann Pina RN; for sedation; 10:53:35 Fentanyl 100 mcg I.V. was administered by Jo-Ann Pina RN; for sedation; 10:54:38 Procedure started. 10:54:40 Local anesthetic to right femoral artery with Lidocaine 2% by Donnie Chao MD.INITIAL ACCESS ONLY 10:54:46 A 5 Fr sheath was inserted into the Right Femoral artery 10:55:21 Zero performed for pressure channel P1 10:55:39 A MULTIPACK Pigtail 5 Fr catheter was advanced over the wire and used for Procedure. 10:55:56 LV gram done using DENNEY 10:56:00 Injector settings: Ml/sec: 10, Volume: 20, 10:56:01 LV hemodynamics recorded. 10:56:05 EF : 50 % 10:56:06 Catheter exchanged over wire. 10:56:11 A MULTIPACK JL 4.0 5Fr catheter was advanced over the wire and used for Procedure. 10:57:18 LCA angiography performed. 10:58:28 Versed 2 mg I.V. was administered by Jo-Ann Pina RN; for sedation; 10:58:32 Fentanyl 100 mcg I.V. was administered by Jo-Ann Pina RN; for sedation; 10:59:31 Patient Weight : 178.58 lbs 10:59:37 Patient Height : 68.9 inches 10:59:39 Admit Source: Emergency department 10:59:43 Insurance Payor : Medicare, Medicaid 11:00:54 Lopressor 5 mg I.V. was administered by Jo-Ann Pina RN; Per physician; 11:02:08 Catheter exchanged over wire. 11:02:15 A MULTIPACK 3DRC 5Fr catheter was advanced over the wire and used for Procedure. 11:02:18 RCA angiography performed. 11:02:19 Catheter removed. 11:02:58 GUIDE 6FR 3DRC SH catheter ([id number]) opened to sterile field. 11:02:58 [place] Verrata Plus pressure wire (53548U) opened to sterile field. 11:02:59 INFLATOR Merit BasixCompak (NT0187) opened to sterile field. 11:03:00 SHEATH 6FR [place] (FTD338) opened to sterile field. 11:03:08 Sheath upsized to a 6 Fr Short. 11:03:25 6 Fr 3drc sh guide catheter was inserted over the wire 11:03:28 FFR/IFR wire advanced. 11:03:49 Wire advanced across lesion. 11:03:53 mRCA lesion measured at 0.88 with IFR 11:04:28 Heparin Bolus 4000 units I.V. was administered by Jo-Ann Pina RN; for anticoagulation; verified with dr chao 11:05:49 GUIDE 6FR XB 4.0 catheter ([id number]) opened to sterile field. 11:05:53 Place stent Inflation Number: 1 A COBRA RX 3.0 X 15 Stent was prepped and advanced across the Mid RCA . The stent was deployed at 17 CHARLIE for 0:10 (min:sec) . 11:06:13 Pre PCI Site: [place] mRCA has 75% stenosis. 11:06:15 Integrilin (Bolus 2mg/ml) 7.3 ml I.V. was administered by Jo-Ann Pina RN; for antiplatelet therapy; wasted 2.7 ml of vial 11:06:37 Inflation number: 2 The stent balloon was then re-inflated across the Mid RCA to 17 CHARLIE for 0:10 (min:sec) . 11:06:40 ACC Pre-intervention ALTHEA Flow is 3. 11:06:52 Inflation number: 3 The stent balloon was then re-inflated across the Mid RCA to 15 CHARLIE for 0:10 (min:sec) . 11:07:04 Post PCI Site: [place] mRCA has 0% stenosis. 11:07:07 ACC Post-intervention ALTHEA Flow is 3. 11:07:51 Stent catheter was removed intact over wire. 11:07:53 Wire removed. 11:07:53 Guide catheter removed. 11:07:59 6 Fr xb 4 guide catheter was inserted over the wire 11:08:30 ACCDominant side:Left 11:08:39 FFR/IFR wire advanced. 11:09:16 Lopressor 5 mg I.V. was administered by Jo-Ann Pina RN; Per physician; 11:09:44 Wire advanced across lesion. 11:10:34 mCirc lesion measured at 0.91 with IFR 11:10:46 Wire removed. 11:10:47 Guide catheter removed. 11:10:52 EXOSEAL 6Fr (EX600) opened to sterile field. 11:11:00 Sheath removed intact; hemostasis achieved with Exoseal to the Right Femoral artery. 11:11:02 Procedure ended.(Physican Out) 11:11:33 Fluoroscopy time 05.50 minutes. 11:11:48 Fluoroscopy dose: 696 mGy 11:11:48 Flurop Dose total: 696 11:11:55 Dose Area Product 55358 mGy/cm. 11:12:56 Contrast amount:Isovue 300 105ml. 11:12:59 Maximum allowable dose exceeded? No. 11:13:00 Sharps counted by scrub and verified by R.N. 11:13:41 Insertion/operative site no bleeding no hematoma. 11:13:46 Post-op/insertion site Right Femoral artery dressed using a 4 x 4 and Tegaderm. 11:13:50 Post right femoral artery:stable, soft, clean and dry 11:13:51 Post Procedure Pulses reassessed and unchanged 11:13:53 Post-procedure physical assessment completed. ASA score P 2 - A patient with mild systemic disease as per Donnie Chao MD. 11:13:55 Post procedure rhythm: unchanged. 11:13:58 Estimated blood loss: 10 ml 11:15:13 Post procedure instruction explained to patient.Patient verbalizes understanding. 11:15:20 Procedure type changed to Cath procedure, Diagnostic procedure, LHC, LHC w/Coronaries, FFR/IVUS, FFR Initial, FFR Additional, Sedation Charges, Moderate Sedation up to 15 minutes, PCI procedure, Coronary Stent, Coronary Stent Initial 11:15:24 ACT drawn and resulted at 282 seconds. (normal therapeutic range 180-240 seconds). 11:17:51 Procedure and supply charges have been captured, reviewed, submitted and are correct. 11:17:53 Procedure Complication : No complications 11:17:56 Vital chart was stopped 11:17:56 See physician's report for complete and final results. 11:17:58 Report given to Pre/Post Procedure Room. 11:18:01 Patient transfered to Pre/Post Procedure Room with Stretcher. 11:18:02 Procedure ended. 11:18:02 Full Disclosure recording stopped 11:18:08 ACC-PCI Only Patient was given prescriptions, or instructed by Donnie Chao MD to start/continue the following medications upon discharge: Aspirin, Plavix 11:18:09 End room use (Document Last) 11:20:17 Arrival Date: 07/12/2019 12:00:00 AM 11:21:03 Indication : Angina 11:21:07 Indication : CAD Intervention Summary Intervention Notes Time ActionType Lesion and Equipment Action# Pressure Duration Attributes Used 11:05:53 Place stent Mid RCA COBRA RX 1 17 00:10 3.0 X 15 Stent 11:06:37 Reinflate Mid RCA COBRA RX 2 17 00:10 stent 3.0 X 15 balloon Stent 11:06:52 Reinflate Mid RCA COBRA RX 3 15 00:10 stent 3.0 X 15 balloon Stent Device Usage Item Name Manufacture Quantity Catalog Hospital Part Current Minimal Lot# / Number Charge Number Stock Stock Serial# Code IV [facility] Hospira 37185-07 [id number] 50535 [id number] 5 Set ACIST Syringe Acist 1 89747 885253 122085 841210 20 (79025) Medical Systems Inc Bag Decanter Microtek 1 2001S 940635 07574 210805 5 (2001S) Medical Inc. Medline Cath Medline 1 [id number] 698870 00519 419523 5 Pack ([id number]) ACIST Hand Acist 1 67424 568252 096511 983970 5 Control Medical (35475) Systems Inc ACIST Manifold Acist 1 27883 263088 726256 051835 5 (08801) Medical Systems Inc Tegaderm 4 x 4 3M 1 1626W 951905 815540 219390 5 (1626W) EMERALD Guide Cardinal 1 502-455 567182 929104 869411 5 Wire (502-455) Health SHEATH 5FR Terumo 1 UPU351 016566 144262 519762 5 [place] (KAS353) DIAGNOSTIC Cardinal 1 BG6937 610589 08039 793372 30 Multipack 5Fr Health catheter set (LK5284) MULTIPACK Cardinal 1 263380 5 Pigtail 5 Fr Health catheter MULTIPACK JL Cardinal 1 210324 5 4.0 5Fr Health catheter MULTIPACK 3DRC Cardinal 1 277805 5 5Fr catheter Health GUIDE 6FR 3DRC Medtronic 1 [id number] 398277 978801 762231 1 SH catheter ([id number]) [place] 1 32931B 845932 739515101 844429 5 Verrata Plus pressure wire (19164L) INFLATOR Merit Merit 1 UI5334 939409 903270 268531 15 BasixCompak Medical (UG4532) SHEATH 6FR Terumo 1 UQR496 556411 283734 653352 40 [place] (ERZ744) COBRA RX 3.0 X Celonova 1 228-70-50201 194677 [id number] 244790 6 [id number] 15 stent Biosciences (343-18-79619) EXOSEAL 6Fr Cardinal 1 EX600 489722 034506 593058 10 (EX600) Health GUIDE 6FR XB Cardinal 1 87785651 095083 708333 194320 2 4.0 catheter Health ([id number]) Signature Audit [place] [facility] Time Signature Unsigned Intra-Procedure 07/12/2019 Keith Akinser 11:24:01 AM RT(R) Signatures Performing Physician : Signature : Donnie Chao MD Date : Time : Monitor : Keith Santos RT Signature : Date : Time : Nurse : Jo-Ann Pina RN Signature : Date : Time : [place] [id number] [place] [address]
[~2019-07-12 08:41] MED LIST changes: +AUGMENTIN 875-11 TAB PO; +CLARITIN 10 MG10 MG PO
[2019-07-12 08:43] VITALS: Ht 175.3 cm; Wt 81.8 kg
[2019-07-12] MEDS ORDERED: NITROSTAT0.4 MG SL (08:45)
[2019-07-12 09:16] LABS: APTT 32.5 SECONDS (22.8-39.4); BASOPHILS 0.5 % (0-2); EOSINOPHILS 4.8 % (0-7); HEMOGLOBIN 16.5 g/dL (13.5-17.5); IMMATURE GRANULOCYTES 0.2 % (0-5); INR 0.99 (0.85-1.17); MCH 33.2 pg (26.0-34.0); MCHC 36.7 g/dL (31.0-37.0); MCV 90.5 fL (80.0-100.0); MEAN PLATELET VOLUME 9.9 fL (7.4-10.4); MONOCYTES 10.2 % (2-11); NEUTROPHILS 43.3 % (40-80); PLATELET COUNT 227 10x3/uL (130-400); PROTIME 12.6 SECONDS (11.6-15.0); RBC 4.97 10x6/uL (4.20-6.10); RDW 12.5 % (11.5-14.5); WBC 6.2 10x3/uL (4.8-10.8)
[2019-07-12 09:21] LABS: ALKALINE PHOSPHATASE 66 U/L (46-116); ALT (SGPT) 21 U/L (10-68); BILIRUBIN - TOTAL 0.68 mg/dL (0.2-1.3); CALC OSMOLALITY 278 mosm/kg (275-300); CALCIUM 8.7 mg/dL (8.5-10.1); CHLORIDE - SERUM 105 mmol/L (98-107); CREATININE - SERUM 0.8 mg/dL (0.6-1.3); GLUCOSE 93 mg/dL (74-106); POTASSIUM - SERUM 4.2 mmol/L (3.5-5.1); PROTEIN - SERUM 7.4 g/dL (6.4-8.2); SODIUM 140 mmol/L (136-145); UREA NITROGEN 13 mg/dL (7-18); eGFR NON AFRICAN AMERICAN > 90 mL/min (90-120)
[2019-07-12 09:32] LABS: CREATINE KINASE 98 UL (21-232)
[2019-07-12 09:36] LABS: TROPONIN-I < 0.017 ng/mL (0.000-0.060)
[2019-07-12 10:30] VITALS: BP 126/85
--- NOTE | 2019-07-12 11:49 | NUR ---
DR CORTEZ HAS ROUNDED. PT DENIES ANY C/O. DRESSING CDI, VSS. RESP WITH EASE.
--- NOTE | 2019-07-12 12:53 | NUR ---
1205 PT DENIES ANY C/O. DRESSING IS CDI, PEDAL PULSES PALPABLE. VSS, CALL LIGHT IN REACH. HOB IS FLAT.
--- NOTE | 2019-07-12 12:54 | NUR ---
1215 NSR, RATE IS 68, BP IS 117/86. DRESSING CDI RIGHT GROIN, PEDAL PULSES PALPABLE. PT ALERT AND DENIES ANY C/O.
--- NOTE | 2019-07-12 12:55 | NUR ---
1245 FAMILY AT BEDSIDE, SANDWICH AND PO FLUIDS SERVED. PT IS ALERT AND DENIES ANY C/O. DRESSING CDI, PULSES PALPABLE. NSR, RATE 72.
[2019-07-12] MEDS ORDERED: PLAVIX75 MG PO (12:58)
--- NOTE | 2019-07-12 13:11 | NUR ---
PT LLOYD SANDWICH WITH NO C/O NAUSEA. DRESSING IS CDI, PEDAL PULSES PALPABLE. VSS. HOB IS FLAT, VSS.
--- NOTE | 2019-07-12 13:55 | NUR ---
DRESSING CDI, PEDAL PULSES PALPABLE. PT IS ALERT AND DENIES ANY C/O. VSS, FAMILY AT BEDSIDE, CALL LIGHT IN REACH.
--- NOTE | 2019-07-12 14:16 | NUR ---
HOB IS FLAT, DRESSING CDI, PEDAL PULSES PALPABLE. PT IS ALERT AND DENIES ANY C/O. FAMILY AT BEDSIDE. VSS, CALL LIGHT IN REACH.
--- NOTE | 2019-07-12 14:48 | NUR ---
PLAVIX PRESCRIPTION CALLED IN TO [facility] ON [facility] PER PT REQUEST. PT AND PT'S MOTHER VERBALIZE UNDERSTADING TO PICK THIS MED UP AND PT TO START IT TOMORROW. HOB ELEVATED AND DRESSING REMAINS CDI.
--- NOTE | 2019-07-12 14:56 | NUR ---
DC INSTRUCTIONS REVIEWED WITH PT AND HIS MOTHER WHO BOTH VERBALIZE UNDERSTANDING. DRESSING REMAINS CDI RIGHT GROIN, PEDAL PULSES PALPABLE. PT ALERT AND DENIES ANY C/O. PT AND MOTHER VERBALIZE UNDERSTADNING TO INSTALLATION ENGINEER PLAVIX PRESCRIPTION AND PT TO START THIS MEDICATION TOMORROW.
--- NOTE | 2019-07-12 15:22 | NUR ---
IV HS BEEN DC'D WITH CATH INTACT AND PT DRESSING FOR DC WITH ASSIST. PT IS ALERT AND DENIES ANY C/O. DRESSING CDI TO RIGHT GROIN, PEDAL PULSES PALPABLE.
--- NOTE | 2019-07-12 16:22 | NUR ---
1540 PT ESCORTED TO WHEELCHAIR TO [facility] FOR RIDE HOME. PT'S MOTHER IS WITH HIM. PT HAS ALL PERSONAL BELONGINGS AND DC INSTRUCTIONS AT TIME OF DC TO HOME. PT IS ALERT AND DENIES ANY C/O.
--- NOTE | 2019-07-13 10:10 | CN ---
PATIENT NAME:SMITA ROMERO MEDICAL RECORD: [id number] : 73 LOCATION:D.CAT ADMIT DATE: ACCOUNT: [id number] CONSULTING PHYSICIAN: CARLTON CORTEZ MD REFERRING PHYSICIAN: CARLTON CORTEZ MD DATE OF CONSULTATION: 07/12/2019 ADMITTING DIAGNOSES: 1. Unstable angina. 2. Coronary artery disease. 3. Previous percutaneous transluminal coronary angioplasty stent. 4. Hypertension. 5. Gastroesophageal reflux disease. 6. Hyperlipidemia. 7. Family history of coronary artery disease. HISTORY OF PRESENT ILLNESS: Mr. Romero presents with unstable anginal symptomatology, started having chest discomfort this morning, quite severe. He has had multiple sublingual nitros, discomfort resolves; however, it is back now, it is worsening, it is 6/10. He has taken his metoprolol this morning along with multiple sublingual nitros. His heart rates in the 60s. Systolic blood pressure is 110-120, His troponin is normal. His EKG is with no acute ST-T abnormalities. PHYSICAL EXAMINATION: CONSTITUTIONAL/GENERAL APPEARANCE: Well nourished, well developed, appears stated age. EYES: Lids and conjunctivae noninjected. No discharge. No pallor. ENT: Lips within normal limit. No cyanosis. No pallor. NECK: Carotid arteries, bilateral normal upstroke. No bruits. No thrills. No jugular venous pressure or distention. CERVICAL LYMPH NODES: Nontender. Nonenlarged. THYROID: Not enlarged. No nodules. CARDIOVASCULAR: Precordial exam, nondisplaced. No heaves or pericardial thrills. Rate and rhythm, regular. Heart sounds, normal S1, normal S2. No S3, no gallop, no rub. Systolic murmur, not heard. Diastolic murmur, not heard. RESPIRATORY: Respiratory effort, unlabored. Normal curvature. No thoracic deformity. No chest wall tenderness. Percussion, resonant. Auscultation, clear. No wheezes, no rales, no rhonchi. ABDOMEN: Soft, nondistended, nontender. No abdominal pain, no vomiting and normal appetite. MUSCULOSKELETAL: No joint tenderness, normal gait, normal tone. SKIN: Warm and dry. OVERALL IMPRESSION: Continued angina, worsening actually after multiple sublingual nitros, just like that of his previous angina. Last cardiac intervention was 2 years ago. He has a high likelihood of this progressing to acute coronary syndrome, non-Q-wave myocardial infarction, especially with the escalating pain just like that of his previous angina. We will proceed with coronary angiography. Further care depends upon findings of the angiography. TRANSINT:[id number] Voice Confirmation ID: [id number] DOCUMENT ID: [id number] CONSULT REPORT [id number] SMITA ROMERO JEFFREY MD at 1010 CC: [id number] DICTATION DATE: 07/12/19 1013 TOOL LAPPER HAND: 07/12/19 1154 DEP CLI 07/12/19 [facility] [address] [place] [address]
--- NOTE | 2019-07-13 10:10 | OP ---
PATIENT NAME: SMITA ROMERO MEDICAL RECORD: [id number] :73 LOCATION:D.CAT ADMISSION DATE: SURGEON: CARLTON CORTEZ MD DATE OF OPERATION: 07/12/2019 PROCEDURES: 1. PTCA stent RCA. 2. IFR RCA. 3. IFR left circumflex. 4. Left heart catheterization. 5. Selective coronary angiography. 6. Left ventriculogram. INDICATION: Unstable angina. PROCEDURE IN DETAIL: After informed consent was obtained and after a detailed description of risks, benefits as well as alternative therapies, the patient elected to proceed with angiogram and angioplasty. The right femoral area was prepped and draped in normal sterile fashion. Right femoral artery was cannulated via modified Seldinger technique with placement of 6-Chinese sheath. All catheters exchanged through this sheath. FINDINGS: The left ventriculogram was performed in standard 30-degree DENNEY view reveals preserved ejection fraction at 50%. SELECTIVE CORONARY ANGIOGRAPHY: 1. Left main is with no significant angiographic disease. 2. Left anterior descending has moderate irregularities, but no flow-limiting stenosis. 3. The left circumflex has previously placed stent, questionable area of in-stent restenosis; however, IFR was normal. 4. Right coronary artery has previously placed stent. There is an area of at least 70% in-stent restenosis in the proximal mid vessel. IFR was abnormal at 0.88. PTCA STENT OF THE RCA: The stent used was a 3.0 x 15 mm Cobra. Result was 0% residual stenosis. OVERALL IMPRESSION: Successful percutaneous transluminal coronary angioplasty stent of the right coronary artery going from 70% initial stenosis to 0% residual. TRANSINT:[id number] Voice Confirmation ID: [id number] DOCUMENT ID: [id number] CARLTON CORTEZ MD at 1010 CC: [id number] DICTATION DATE: 07/12/19 1146 7TH GRADE TEACHER: 07/12/19 1226 [facility] CLI 07/12/19 [place] [id number]
== END 2019-07-12 15:40 | disposition home or self-care (01) ==
LOC: D.ER 08:41 → D.CATH 08:41 → EDSTATUS 14:15 → D.CATH 15:40
PROVIDERS: Family Medicine; ATTEND Internal Medicine Interventional Cardiology
DX: I25.110 Atherosclerotic heart disease of native coronary artery with unstable angina pectoris (principal); I10 Essential (primary) hypertension; K21.9 Gastro-esophageal reflux disease without esophagitis; E78.5 Hyperlipidemia, unspecified

== ENCOUNTER 2019-11-07 15:44 | Emergency (ER) | payer MEDICARE, MEDICAID ==
[~2019-11-07] VITALS: Ht 175.3 cm; Wt 81.8 kg
[~2019-11-07 15:44] MED LIST changes: +NITROSTAT0.4 MG SL
[2019-11-07 15:57] VITALS: Ht 175.3 cm; Wt 81.8 kg
[2019-11-07 16:32] LABS: APPEARANCE CLEAR (CLEAR); BILIRUBIN NEGATIVE (NEGATIVE); COLOR YELLOW (YELLOW); GLUCOSE NEGATIVE (NEGATIVE); KETONE NEGATIVE (NEGATIVE); NITRITE NEGATIVE (NEGATIVE); PROTEIN NEGATIVE (NEGATIVE); UROBILINOGEN NORMAL (NORMAL)
[2019-11-07 16:35] LABS: UDS - AMPHET NEGATIVE QUAL (NEGATIVE); UDS - BARB NEGATIVE QUAL (NEGATIVE); UDS - BENZO NEGATIVE QUAL (NEGATIVE); UDS - COCAINE NEGATIVE QUAL (NEGATIVE); UDS - OPIATE NEGATIVE QUAL (NEGATIVE); UDS - PCP NEGATIVE QUAL (NEGATIVE); UDS - THC NEGATIVE QUAL (NEGATIVE)
--- NOTE | 2019-11-07 17:35 | NUR ---
According to the Suicide Assessment screen the patient requires a 1:1 observation. Suicide flyer provided as well as a safety plan.
[2019-11-07 17:36] LABS: BASOPHILS 0.4 % (0-2); EOSINOPHILS 7.1 % (0-7); HEMOGLOBIN 15.6 g/dL (13.5-17.5); IMMATURE GRANULOCYTES 0.2 % (0-5); LYMPHOCYTES 31.5 % (15-50); MCH 33.7 pg (26.0-34.0); MCHC 35.5 g/dL (31.0-37.0); MEAN PLATELET VOLUME 9.4 fL (7.4-10.4); MONOCYTES 9.1 % (2-11); NEUTROPHILS 51.7 % (40-80); RBC 4.63 10x6/uL (4.20-6.10); RDW 12.4 % (11.5-14.5); WBC 9.3 10x3/uL (4.8-10.8)
[2019-11-07 17:41] LABS: PLATELET COUNT 281 10x3/uL (130-400)
[2019-11-07 17:47] LABS: CALC OSMOLALITY 279 mosm/kg (275-300); CALCIUM 8.7 mg/dL (8.5-10.1); CARBON DIOXIDE 30.5 mmol/L (21.0-32.0); CHLORIDE - SERUM 102 mmol/L (98-107); CREATININE - SERUM 0.9 mg/dL (0.6-1.3); GLUCOSE 104 mg/dL (74-106); POTASSIUM - SERUM 3.6 mmol/L (3.5-5.1); SODIUM 140 mmol/L (136-145); UREA NITROGEN 15 mg/dL (7-18); eGFR NON AFRICAN AMERICAN > 90 mL/min (90-120)
[2019-11-07 17:52] LABS: ALBUMIN 3.7 g/dL (3.4-5.0); ALKALINE PHOSPHATASE 63 U/L (46-116); ALT (SGPT) 28 U/L (10-68); BILIRUBIN - TOTAL 0.28 mg/dL (0.2-1.3); MAGNESIUM - SERUM 2.1 mg/dL (1.8-2.4); PROTEIN - SERUM 6.9 g/dL (6.4-8.2)
[2019-11-07 20:54] VITALS: BP 132/84
== END 2019-11-07 21:01 ==
LOC: D.ER 15:44
PROVIDERS: Emergency Medicine
DX: R45.851 Suicidal ideations (principal); R44.0 Auditory hallucinations; Z91.14 Patient's other noncompliance with medication regimen; F20.9 Schizophrenia, unspecified; I10 Essential (primary) hypertension; E78.5 Hyperlipidemia, unspecified; Z72.0 Tobacco use; K21.9 Gastro-esophageal reflux disease without esophagitis

== ENCOUNTER 2019-11-23 09:15 | Emergency (ER) | payer MEDICARE, MEDICAID ==
[~2019-11-23] VITALS: Ht 175.3 cm; Wt 81.8 kg
[2019-11-23 09:18] VITALS: Ht 175.3 cm; Wt 81.8 kg
[2019-11-23 09:39] LABS: BASOPHILS 0.4 % (0-2); EOSINOPHILS 1.6 % (0-7); HEMATOCRIT 44.5 % (42.0-54.0); HEMOGLOBIN 15.4 g/dL (13.5-17.5); IMMATURE GRANULOCYTES 0.1 % (0-5); LYMPHOCYTES 21.3 % (15-50); MCH 33.1 pg (26.0-34.0); MCHC 34.6 g/dL (31.0-37.0); MCV 95.7 fL (80.0-100.0); MEAN PLATELET VOLUME 9.5 fL (7.4-10.4); MONOCYTES 4.8 % (2-11); NEUTROPHILS 71.8 % (40-80); PLATELET COUNT 287 10x3/uL (130-400); RBC 4.65 10x6/uL (4.20-6.10); RDW 12.4 % (11.5-14.5); WBC 8.1 10x3/uL (4.8-10.8)
[2019-11-23 09:54] LABS: CALC OSMOLALITY 287 mosm/kg (275-300); CALCIUM 8.9 mg/dL (8.5-10.1); CARBON DIOXIDE 28.5 mmol/L (21.0-32.0); CHLORIDE - SERUM 106 mmol/L (98-107); CREATININE - SERUM 0.8 mg/dL (0.6-1.3); GLUCOSE 101 mg/dL (74-106); POTASSIUM - SERUM 4.4 mmol/L (3.5-5.1); SODIUM 144 mmol/L (136-145); UREA NITROGEN 16 mg/dL (7-18); eGFR NON AFRICAN AMERICAN > 90 mL/min (90-120)
[2019-11-23 10:00] LABS: ALKALINE PHOSPHATASE 63 U/L (30-120); ALT (SGPT) 28 U/L (10-68); AMYLASE - SERUM 25 U/L (25-115); BILIRUBIN - TOTAL 0.52 mg/dL (0.2-1.3); LIPASE 64 U/L (73-393); PROTEIN - SERUM 7.7 g/dL (6.4-8.2)
[2019-11-23 11:43] LABS: APPEARANCE HAZY (CLEAR); BILIRUBIN NEGATIVE (NEGATIVE); COLOR YELLOW (YELLOW); GLUCOSE NEGATIVE (NEGATIVE); KETONE SMALL mg/dL (NEGATIVE); NITRITE NEGATIVE (NEGATIVE); PROTEIN TRACE mg/dL (NEGATIVE); UROBILINOGEN NORMAL (NORMAL)
[2019-11-23 11:45] LABS: BACTERIA FEW /hpf (NEGATIVE); EPITHELIAL CELLS 0-5 /hpf (0-5); MUCUS >1+ /lpf (NONE SEEN); RED CELLS - URINE 0-5 /hpf (0-5); SPERMATOZOA PRESENT /hpf (NONE SEEN); WHITE CELLS - URINE 0-5 /hpf (NEGATIVE)
[2019-11-23] MEDS ORDERED: ZOFRAN ODT4 MG/UDTAB PO (12:10)
[2019-11-23 12:24] VITALS: BP 129/88
== END 2019-11-23 12:24 | disposition home or self-care (01) ==
LOC: D.ER 09:15
PROVIDERS: Family Medicine
DX: R11.10 Vomiting, unspecified (principal); I10 Essential (primary) hypertension; E78.5 Hyperlipidemia, unspecified; Z72.0 Tobacco use; K21.9 Gastro-esophageal reflux disease without esophagitis; R51 Headache

== ENCOUNTER 2020-01-06 08:49 | Emergency (ER) | payer MEDICARE, MEDICAID ==
[~2020-01-06] VITALS: Ht 175.3 cm; Wt 81.8 kg
[~2020-01-06 08:49] MED LIST changes: +ZOFRAN ODT4 MG/UDTAB PO
[2020-01-06 08:52] VITALS: Ht 175.3 cm; Wt 81.8 kg
--- NOTE | 2020-01-06 09:10 | NUR ---
According to the suicide assessment the patient rates low for suicide. At this time he does not need a 1:1 observation. Provide suicide resource flyer.
[2020-01-06 09:24] LABS: HEMATOCRIT 45.2 % (42.0-54.0); HEMOGLOBIN 16.1 g/dL (13.5-17.5); MCHC 35.6 g/dL (31.0-37.0); MCV 92.6 fL (80.0-100.0); MEAN PLATELET VOLUME 9.7 fL (7.4-10.4); PLATELET COUNT 229 10x3/uL (130-400); RBC 4.88 10x6/uL (4.20-6.10); RDW 12.5 % (11.5-14.5); WBC 6.3 10x3/uL (4.8-10.8)
[2020-01-06 09:34] LABS: CALC OSMOLALITY 272 mosm/kg (275-300); CALCIUM 8.8 mg/dL (8.5-10.1); CHLORIDE - SERUM 102 mmol/L (98-107); GLUCOSE 107 mg/dL (74-106); POTASSIUM - SERUM 3.9 mmol/L (3.5-5.1); SODIUM 136 mmol/L (136-145); UREA NITROGEN 15 mg/dL (7-18); eGFR NON AFRICAN AMERICAN 86 mL/min (90-120)
[2020-01-06 09:39] LABS: AMORPHOUS SEDIMENT <1+ /lpf (NONE SEEN); BACTERIA FEW /hpf (NEGATIVE); BILIRUBIN NEGATIVE (NEGATIVE); EPITHELIAL CELLS RARE /hpf (0-5); GLUCOSE NEGATIVE (NEGATIVE); HYALINE CAST RARE /lpf (NONE SEEN); KETONE MODERATE mg/dL (NEGATIVE); NITRITE NEGATIVE (NEGATIVE); RED CELLS - URINE 0-5 /hpf (0-5); UROBILINOGEN 4 mg/dL (NORMAL); WHITE CELLS - URINE RARE /hpf (NEGATIVE)
[2020-01-06 09:43] LABS: ALKALINE PHOSPHATASE 63 U/L (30-120); ALT (SGPT) 28 U/L (10-68); AMYLASE - SERUM 29 U/L (25-115); BILIRUBIN - TOTAL 0.55 mg/dL (0.2-1.3); LIPASE 72 U/L (73-393); PROTEIN - SERUM 7.6 g/dL (6.4-8.2); TROPONIN-I 0.034 ng/mL (0.000-0.060)
[2020-01-06 09:52] LABS: ANISOCYTOSIS OCC; EOSINOPHILS 1 % (0-7); LYMPHOCYTES 21 % (15-50); MONOCYTES 17 % (2-11); NEUTROPHILS 59 % (40-80); PLATELET ESTIMATE NORMAL
[2020-01-06] MEDS ORDERED: NORVASC5 MG PO (10:26)
[2020-01-06] MEDS ORDERED: HALDOL5 MG PO (10:27)
[2020-01-06] MEDS ORDERED: TOFRANIL25 MG PO (10:27)
[2020-01-06] MEDS ORDERED: BENZTROPINE MESY2 MG PO (10:27)
[2020-01-06] MEDS ORDERED: PRAVACHOL40 MG PO (10:28)
[2020-01-06] MEDS ORDERED: TAMIFLU75 MG PO (10:33)
[2020-01-06] MEDS ORDERED: PHENERGAN25 M1 PO (10:33)
[2020-01-06 11:54] VITALS: BP 118/81
== END 2020-01-06 12:00 | disposition home or self-care (01) ==
LOC: D.ER 08:49
PROVIDERS: Emergency Medicine
DX: E86.0 Dehydration (principal); J09.X2 Influenza due to identified novel influenza A virus with other respiratory manifestations; I10 Essential (primary) hypertension; Z95.5 Presence of coronary angioplasty implant and graft; E78.5 Hyperlipidemia, unspecified; K21.9 Gastro-esophageal reflux disease without esophagitis

== ENCOUNTER 2020-02-19 18:33 | Emergency (ER) | payer MEDICARE, MEDICAID ==
[~2020-02-19] VITALS: Ht 175.3 cm; Wt 102.3 kg
[~2020-02-19 18:33] MED LIST changes: +BENZTROPINE MESY2 MG PO; +HALDOL5 MG PO; +NORVASC5 MG PO; +PHENERGAN25 M1 PO; +PRAVACHOL40 MG PO; +TAMIFLU75 MG PO; +TOFRANIL25 MG PO
[2020-02-19 18:41] VITALS: Ht 175.3 cm; Wt 102.3 kg
[2020-02-19 19:01] LABS: BILIRUBIN NEGATIVE (NEGATIVE); GLUCOSE NEGATIVE (NEGATIVE); KETONE NEGATIVE (NEGATIVE); NITRITE NEGATIVE (NEGATIVE); SPECIFIC GRAVITY 1.015 (1.005-1.020); UROBILINOGEN NORMAL (NORMAL)
[2020-02-19 19:05] LABS: UDS - AMPHET NEGATIVE QUAL (NEGATIVE); UDS - BARB NEGATIVE QUAL (NEGATIVE); UDS - BENZO NEGATIVE QUAL (NEGATIVE); UDS - COCAINE NEGATIVE QUAL (NEGATIVE); UDS - OPIATE NEGATIVE QUAL (NEGATIVE); UDS - PCP NEGATIVE QUAL (NEGATIVE); UDS - THC NEGATIVE QUAL (NEGATIVE)
[2020-02-19 19:06] LABS: AMORPHOUS SEDIMENT >1+ /lpf (NONE SEEN); BACTERIA MODERATE /hpf (NEGATIVE); EPITHELIAL CELLS NSEEN /hpf (0-5); RED CELLS - URINE NONE SEEN /hpf (0-5); WHITE CELLS - URINE 0-5 /hpf (NEGATIVE)
[2020-02-19 19:06] LABS: BASOPHILS 0.6 % (0-2); EOSINOPHILS 4.2 % (0-7); HEMATOCRIT 44.4 % (42.0-54.0); HEMOGLOBIN 15.2 g/dL (13.5-17.5); IMMATURE GRANULOCYTES 0.1 % (0-5); LYMPHOCYTES 38.7 % (15-50); MCH 32.3 pg (26.0-34.0); MCHC 34.2 g/dL (31.0-37.0); MCV 94.3 fL (80.0-100.0); MEAN PLATELET VOLUME 9.4 fL (7.4-10.4); NEUTROPHILS 47.4 % (40-80); RBC 4.71 10x6/uL (4.20-6.10); RDW 12.7 % (11.5-14.5)
[2020-02-19 19:09] LABS: PLATELET COUNT 304 10x3/uL (130-400)
[2020-02-19 19:14] LABS: CALC OSMOLALITY 279 mosm/kg (275-300); CALCIUM 9.3 mg/dL (8.5-10.1); CARBON DIOXIDE 30.1 mmol/L (21.0-32.0); CHLORIDE - SERUM 104 mmol/L (98-107); GLUCOSE 93 mg/dL (74-106); POTASSIUM - SERUM 3.4 mmol/L (3.5-5.1); SODIUM 141 mmol/L (136-145); UREA NITROGEN 10 mg/dL (7-18); eGFR NON AFRICAN AMERICAN 86 mL/min (90-120)
[2020-02-19 19:19] LABS: ALBUMIN 3.6 g/dL (3.4-5.0); ALKALINE PHOSPHATASE 68 U/L (30-120); ALT (SGPT) 28 U/L (10-68); BILIRUBIN - TOTAL 0.29 mg/dL (0.2-1.3); PROTEIN - SERUM 7.2 g/dL (6.4-8.2)
--- NOTE | 2020-02-19 19:19 | NUR ---
NOTIFIED CHARGE NURSE AND ATTENDING OF ASSESSMENT RESULTS. DR. ROSS NOTIFIED OF BEHAVIOR AND ASSESSMENT RESULTS. PT IS A LOW RISK PER DR. ROSS. DR. ROSS STATES TO GIVE PT RESOURCES AT TIME OF DISCHARGE. NO FURTHER ORDERS AT THIS TIME. RESOURCES REVIEWED WITH PT AND HE VERBALIZED UNDERSTANDING.
[2020-02-19] MEDS ORDERED: BAYER CHEWABLE81 MG PO (19:57)
[2020-02-19] MEDS ORDERED: PAXIL20 MG PO (19:58)
[2020-02-19] MEDS ORDERED: INVEGA 3 MG ER T3 MG (19:58)
[2020-02-19] MEDS ORDERED: TRAZODONE HCL150 MG PO (19:58)
[2020-02-19] MEDS ORDERED: LOPRESSOR25 MG PO (19:59)
[2020-02-19 20:22] VITALS: BP 142/95
== END 2020-02-19 22:59 ==
LOC: D.ER 18:33
PROVIDERS: Emergency Medicine
DX: R45.851 Suicidal ideations (principal); Z91.14 Patient's other noncompliance with medication regimen; I10 Essential (primary) hypertension; K21.9 Gastro-esophageal reflux disease without esophagitis; Z72.0 Tobacco use; R44.0 Auditory hallucinations

== ENCOUNTER 2020-03-10 17:43 | Emergency (ER) | payer MEDICARE, MEDICAID ==
[~2020-03-10] VITALS: Ht 175.3 cm; Wt 84.5 kg
[~2020-03-10 17:43] MED LIST changes: +INVEGA 3 MG ER T3 MG; +LOPRESSOR25 MG PO; +TRAZODONE HCL150 MG PO
[2020-03-10 17:48] VITALS: Ht 175.3 cm; Wt 84.5 kg
[2020-03-10 18:38] LABS: BASOPHILS 0.2 % (0-2); EOSINOPHILS 0.6 % (0-7); HEMATOCRIT 47.1 % (42.0-54.0); HEMOGLOBIN 16.1 g/dL (13.5-17.5); IMMATURE GRANULOCYTES 0.2 % (0-5); LYMPHOCYTES 16.8 % (15-50); MCH 31.7 pg (26.0-34.0); MCHC 34.2 g/dL (31.0-37.0); MCV 92.7 fL (80.0-100.0); MEAN PLATELET VOLUME 9.6 fL (7.4-10.4); MONOCYTES 12.6 % (2-11); NEUTROPHILS 69.6 % (40-80); PLATELET COUNT 310 10x3/uL (130-400); RBC 5.08 10x6/uL (4.20-6.10); WBC 12.3 10x3/uL (4.8-10.8)
[2020-03-10 18:39] LABS: UDS - AMPHET NEGATIVE QUAL (NEGATIVE); UDS - BARB NEGATIVE QUAL (NEGATIVE); UDS - BENZO NEGATIVE QUAL (NEGATIVE); UDS - COCAINE NEGATIVE QUAL (NEGATIVE); UDS - OPIATE NEGATIVE QUAL (NEGATIVE); UDS - PCP NEGATIVE QUAL (NEGATIVE); UDS - THC NEGATIVE QUAL (NEGATIVE)
[2020-03-10 18:41] LABS: BILIRUBIN NEGATIVE (NEGATIVE); GLUCOSE NEGATIVE (NEGATIVE); KETONE MODERATE mg/dL (NEGATIVE); NITRITE NEGATIVE (NEGATIVE); RED CELLS - URINE 0-5 /hpf (0-5); SPECIFIC GRAVITY 1.025 (1.005-1.020); UROBILINOGEN NORMAL (NORMAL)
[2020-03-10 18:42] LABS: BACTERIA MODERATE /hpf (NEGATIVE)
[2020-03-10 18:45] LABS: CALC OSMOLALITY 279 mosm/kg (275-300); CALCIUM 9.2 mg/dL (8.5-10.1); CARBON DIOXIDE 26.4 mmol/L (21.0-32.0); CHLORIDE - SERUM 104 mmol/L (98-107); GLUCOSE 100 mg/dL (74-106); POTASSIUM - SERUM 3.4 mmol/L (3.5-5.1); SODIUM 140 mmol/L (136-145); UREA NITROGEN 16 mg/dL (7-18); eGFR NON AFRICAN AMERICAN 86 mL/min (90-120)
[2020-03-10 18:52] LABS: ALBUMIN 4.2 g/dL (3.4-5.0); ALKALINE PHOSPHATASE 77 U/L (30-120); ALT (SGPT) 23 U/L (10-68); AMYLASE - SERUM 20 U/L (25-115); BILIRUBIN - TOTAL 0.52 mg/dL (0.2-1.3); LIPASE 50 U/L (73-393); PROTEIN - SERUM 7.9 g/dL (6.4-8.2)
[2020-03-10] MEDS ORDERED: OMNICEF300 MG PO (20:26)
[2020-03-10 20:48] VITALS: BP 147/97
== END 2020-03-10 20:48 | disposition home or self-care (01) ==
LOC: D.ER 17:43
PROVIDERS: Family Medicine
DX: N39.0 Urinary tract infection, site not specified (principal); I10 Essential (primary) hypertension; K21.9 Gastro-esophageal reflux disease without esophagitis; Z72.0 Tobacco use; R30.0 Dysuria; R33.9 Retention of urine, unspecified; R19.7 Diarrhea, unspecified

== ENCOUNTER 2020-03-12 00:27 | Inpatient (IN) | payer MEDICARE, MEDICAID ==
--- NOTE | 2020-03-11 23:30 | NUR ---
INSERTED WASHBURN CATHETOR PER T.O FOR ACCURATE I/O. PT TOLERATED WELL WITH NO C/O OF PAIN OR S/S OF PAIN. 18F WASHBURN CATHEOTOR WAS INSERTED AND YELLOW URINE DRAINIG. SEQURED WASHBURN TO UPPER LEG AND HUNG BELOW BLADDER TO GRAVITY. VSS. BED LEFT LOW,SIDE RAISLX2,CALL LIGHT WITHIN REACH.
[2020-03-12] VITALS (17 sets, daily range): BP systolic 117–149; BP diastolic 71–108; BMI 27.0
[~2020-03-12] VITALS: Ht 175.3 cm; Wt 81.5 kg
[~2020-03-12 00:27] MED LIST changes: +OMNICEF300 MG PO
[2020-03-12 01:01] LABS: CALC OSMOLALITY 284 mosm/kg (275-300); CALCIUM 8.6 mg/dL (8.5-10.1); CARBON DIOXIDE 23.3 mmol/L (21.0-32.0); CHLORIDE - SERUM 106 mmol/L (98-107); CREATININE - SERUM 1.1 mg/dL (0.6-1.3); GLUCOSE 123 mg/dL (74-106); POTASSIUM - SERUM 4.2 mmol/L (3.5-5.1); SODIUM 142 mmol/L (136-145); UREA NITROGEN 15 mg/dL (7-18); eGFR NON AFRICAN AMERICAN 77 mL/min (90-120)
[2020-03-12 01:02] LABS: BASOPHILS 0.1 % (0-2); EOSINOPHILS 0.1 % (0-7); HEMATOCRIT 46.6 % (42.0-54.0); IMMATURE GRANULOCYTES 0.2 % (0-5); MCH 31.6 pg (26.0-34.0); MCHC 34.3 g/dL (31.0-37.0); MCV 91.9 fL (80.0-100.0); MEAN PLATELET VOLUME 9.7 fL (7.4-10.4); MONOCYTES 10.9 % (2-11); NEUTROPHILS 77.7 % (40-80); PLATELET COUNT 309 10x3/uL (130-400); RBC 5.07 10x6/uL (4.20-6.10); RDW 13.2 % (11.5-14.5); WBC 14.8 10x3/uL (4.8-10.8)
[2020-03-12 01:07] LABS: ALBUMIN 4.2 g/dL (3.4-5.0); ALKALINE PHOSPHATASE 78 U/L (30-120); ALT (SGPT) 36 U/L (10-68); BILIRUBIN - TOTAL 0.61 mg/dL (0.2-1.3); PROTEIN - SERUM 7.9 g/dL (6.4-8.2)
--- NOTE | 2020-03-12 01:37 | NUR ---
PT STATES HE IS UNABLE TO PRODUCE URINE OR STOOL AT THIS TIME.
[2020-03-12 02:40] LABS: BILIRUBIN NEGATIVE (NEGATIVE); GLUCOSE NEGATIVE (NEGATIVE); KETONE LARGE mg/dL (NEGATIVE); NITRITE NEGATIVE (NEGATIVE); SPECIFIC GRAVITY 1.025 (1.005-1.020); UROBILINOGEN NORMAL (NORMAL)
[2020-03-12 02:41] LABS: RED CELLS - URINE 0-5 /hpf (0-5); WHITE CELLS - URINE 0-5 /hpf (NEGATIVE)
[2020-03-12] MEDS ORDERED: ZPAK PO (05:37)
--- NOTE | 2020-03-12 06:00 | NUR ---
AT 0545 IN PATIENT ROOM. WASHBURN CATHETER REMOVED WITH [facility] INTACT. EXPLAINED TO PT HE WOULD BE DISCHARGED AND INQUIRED HOW HE WOULD BE GOING HOME. PT STATES HE WOULD NEED TO TAKE A CAB BUT HAD NO MONEY. COULD NOT FURNISH CONTACT INFORMATION TO GET IN TOUCH WITH NEXT OF KIN. EXPLAINED TO PT I WOULD BE BACK IN WITH DISCHARGE PAPERWORK. EXPLAINED I WOULD ASSIST HIM IN GETTING DRESSED AND HE SHOULD STAY IN THE BED UNTIL I RETURNED. RETURNED TO PT ROOM AT 0600 TO FIND PT LAYING ON LEFT SIDE IN FLOOR BY DOOR. PT HAD RETRIEVED PANTS THAT WERE ON CHAIR AND HAD PANTS AROUND ANKLES. P/W LACERATION TO LEFT EYE BROW AND ALSO C/O RIGHT KNEE PAIN. DENIES LOSS OF CONSCIOUSNESS.
--- NOTE | 2020-03-12 07:00 | NUR ---
ADULT PROTECTIVE SERVICES CONTACTED ABOUT POSSIBLE PATIENT NEGLECT AT THE REQUEST OF DR. LOERA. INFORMATION GIVEN TO CLINICAL PSYCHIATRIST "NATY." CLINICAL PSYCHIATRIST STATED CASE NUMBERS WERE NOT ASSIGNED UNTIL CASE WAS INVESTIGATED AND COULD NOT GIVE CASE NUMBER AT THIS TIME.
--- NOTE | 2020-03-12 07:15 | NUR ---
PT RESTING SUPINE IN BED, BED ALARM ATTACHED TO GOWN , SIDE RAILS UP X 2. LEFT EYE SWOLLEN . CALL LIGHT IN REACH OF PT.
--- NOTE | 2020-03-12 07:40 | NUR ---
ENTERED PT ROOM TO FIND PATIENT IN FLOOR. PT HAD LOWERED SIDE RAIL AND REMOVED BED ALARM. PT ASSISTED BACK INTO BED. PT DENIES NEW FROM FALL. BED ALARM REATTACHED, SIDE RAILS UP X2. PT TRANSPORTED TO CT AT THIS TIME AND UPON RETURN FROM CT IS BEING PLACED IN ROOM 17 ACROSS FROM NURSES STATION DUE TO PT NOT BEING COMPLIANT WITH STAYING IN THE BED.
--- NOTE | 2020-03-12 07:52 | NUR ---
PT RETURNED FROM CT AT THIS TIME. SIDERAILS UPX2. BED ALARM ATTACHED TO PATIENT. PT IN EYESITE OF NURSES STATION. RESPIRATIONS ARE EVEN AND UNLABORED. WILL CONTINUE TO MONITOR.
--- NOTE | 2020-03-12 08:15 | NUR ---
PT LAYING IN BED. RESPIRATIONS ARE EVEN AND UNLABORED. SIDERAILS UP X2, BED ALARM ATTACHED. PT IN EYESITE OF NURSES STATION. WILL CONTINUE TO MONITOR.
--- NOTE | 2020-03-12 08:30 | NUR ---
PT LAYING IN BED. RESPIRATIONS ARE EVEN AND UNLABORED. NO DISTRESS NOTED. SIDERAILS UP X2, BED ALARM ATTACHED TO PATIENT. PT IN DIRECT EYESITE OF NURSES STATION. WILL CONTINUE TO MONITOR.
--- NOTE | 2020-03-12 08:44 | NUR ---
PT LAYING IN BED. RESPIRATIONS ARE EVEN AND UNLABORED. NO DISTRESS NOTED. PT SIDE RAILS UP X2, BED ALARM ATTACHED TO PATIENT. WILL CONTINUE TO MONITOR. PT IN DIRECT EYESITE OF NURSES STATION.
--- NOTE | 2020-03-12 09:00 | NUR ---
PT LAYING IN BED. RESPIRATIONS ARE EVEN AND UNLABORED. NO DISTRESS NOTED. PT SIDERAILS UP X2 AND BED ALARM ATTACHED TO PATIENT. PT IN DIRECT EYESITE OF NURSES STATION. WILL CONTINUE TO MONITOR.
--- NOTE | 2020-03-12 09:15 | NUR ---
PT LAYING IN BED. RESPIRATIONS ARE EVEN AND UNLABORED. NO DISTRESS NOTED. BED ALARM ATTACHED TO PATIENT. SIDERAILS UP X2. PT IN DIRECT EYESITE OF NURSES STATION.
--- NOTE | 2020-03-12 09:34 | NUR ---
PT LAYING IN BED. RESPIRATIONS ARE EVEN AND UNLABORED. NO DISTRESS NOTED. BED ALARM ATTACHED TO PATIENT. PT IN DIRECT EYESITE OF NURSES STATION. WILL CONTINUE TO MONITOR.
--- NOTE | 2020-03-12 09:57 | NUR ---
PT LAYING IN BED. RESPIRATIONS ARE EVEN AND UNLABORED. NO DISTRESS NOTED. PT BED ALARM ATTACHED TO PATIENT, AND SIDERAILS UP X2. PT IN DIRECT EYESITE OF NURSES STATION. WILL CONTINUE TO MONITOR.
--- NOTE | 2020-03-12 10:06 | NUR ---
PT ATTEMPTING TO SIT UP IN BED, BUT IS EASILY REDIRECTED TO LAY DOWN. BED ALARM ATTACHED TO PATIENT, SIDE RAILS UP X2.
[2020-03-12 12:39] LABS: CKMB 9.3 U/L (0.0-3.6)
[2020-03-12 12:40] LABS: CREATINE KINASE 5614 UL (21-232)
[2020-03-12 12:41] LABS: TROPONIN-I 0.142 ng/mL (0.000-0.060)
--- NOTE | 2020-03-12 14:10 | NUR ---
1030 PT ARRIVED IN ICU VIA STRECHER FROM ED AFTER REPORT RECIEVED,, PT IS SOMEWHAT LETHARGIC BUT APPROPRIATE IN RESPONSES.. THERE IS A LACERATION ABOVE HIS LEFT EYE ... EDGES ARE APPROXIMATED WITH DURABOND.. A COMPLETE CHG BATH GIVEN WHILE PATIENT IS ON STRECHER THEN PATIENT ABLE TO MOVE SELF TO ICU BED.. THERE IS A SALINE LOCK LEFT FOREARM.. PT PLACED IN CONTACT ISOLATION FOR REPORTS OF BEDBUGS SEEN ON PATIENT IN THE ED..HR IS SR WITH PVCs 1100 DR MALDONADO IN TO SEE PATIENT UPDATE IS GIVEN.. 1130 DR VELASQUEZ IN TO SEE PATIENT.. UPDATE GIVEN..PATIENT REMAINS LETHARGIC BUT EASILY ROUSED.. 1230 WITHOUT CHANGES.. LAB DRAWN.. 1300 TROPONIN LEVEL 0.142 CALLED.. IV FLUID HUNG PER E DEC 1399 DR MALDONADO IN UNIT AND UPDATED ON TROPONIN AND EKG PT CONITNUES WITH PVCs.. CONSULT ORDERED AND CARDIOLOGY CALLED ..DR HERNANDEZ HAS CALLED AND UPDATE GIVEN TO MILAGROS WHO IS LISTED CONTACT ON ED FACESHEET.. PAPERS AND 1400
--- NOTE | 2020-03-12 15:35 | NUR ---
1500 RATE CHANGE ON PIV FLUID TO 100CC
--- NOTE | 2020-03-12 17:50 | NUR ---
1600 INCONTINENT OF URINE.. PARTIAL BATH AND LINEN CHANGE DONE.. PT REMAINS UNCHANGED DR MALDONADO PAGED FOR BP.. PT STATES HE IS NOT HUNGRY FOR DINNER 1744 DR MALDONADO CALLED AGAIN .. ORDERS RECIEVED TO RESTART HOME BP MEDS..
--- NOTE | 2020-03-12 18:29 | NUR ---
1820 BP MEDS GIVEN WITH SIPS H2O SWALLOWED WITHOUT DIFFICULTY
[2020-03-12 18:40] LABS: CKMB 6.3 U/L (0.0-3.6)
[2020-03-12 18:43] LABS: CREATINE KINASE 4751 UL (21-232); TROPONIN-I 0.128 ng/mL (0.000-0.060)
--- NOTE | 2020-03-12 20:20 | NUR ---
RECIVED REPORT FROM JR TEAGUE. PT IS RESTING IN BED WITH EYES CLOSED. WHEN CALLING HIS NAME A COUPLE TIMES HE OPENS EYES AND LOOKS AT ME. HE DOES NOT VERBALY RESPONDE WHEN ASKED ANY QUESTION. HE ONLY WOULD OPEN EYES FOR A FEW SECONDS THEN CLOSE THEM AGAIN. HIS VITAL SIGNS ARE STABLE. HR IS NS C OCCASIONAL PVC'S. CARDIOLOGY IS AWARE OF THIS. WILL PERFORM FULL ASSESSMENT AND DOC IN FLOW SHEET. BED IS LOW,SIDE RAILSX2,CALL LIGHT WITHIN REACH. BED ALARM IS ON.[facility]
--- NOTE | 2020-03-12 22:00 | NUR ---
TALKED WITH ABOUT PT STATUS. HE T.O TO GET HEAD CT WITHOUT IF HIS CONDITION DETERIATES. AND IF BP STAYS ABOVE 150/95 TO CONSULT CARDIOLOGY. T.O READ BACK CORRECT.
--- NOTE | 2020-03-12 22:50 | NUR ---
PT IS RESTING IN BED WITH EYES CLOSED. WHEN CALLING NAME HE OPENS EYES, I ASK HIM IF HE WILL TALK TO ME AND HE SAYS"YEAA". HE FALLOWS COMMANDS TO SQUEEZ MY HANDS AND MOVE LEGS&FEET. I ASKED HIM IF HE WAS IN ANY PAIN HE VOICED"NO". VSS. PERFORMING RE-ASSESSMENT AND WILL DOC IN FLOW SHEET. BED IS LOW,SIDE RAILSX2,CALL LIGHT WITHIN REACH. BED ALARM IS ON
[2020-03-12 23:58] LABS: CKMB 3.7 U/L (0.0-3.6)
[2020-03-13] VITALS (22 sets, daily range): BP systolic 108–175; BP diastolic 70–112; Ht 175.3 cm; Wt 81.5 kg
[2020-03-13] LABS: CREATINE KINASE 3474 UL (21-232); TROPONIN-I 0.129 ng/mL (0.000-0.060)
--- NOTE | 2020-03-13 02:00 | NUR ---
PT IS RESTING IN BED WITH EYES CLOSED. VSS. BED IS LOW,SIDE RAILSX2,CALL LIGHT WITHIN REACH. BED ALARM IS ON
--- NOTE | 2020-03-13 04:06 | NUR ---
PT IS RESTING IN BED WITH EYES CLOSED. VSS. BED IS LOW,SIDE RAILSX2,CALL LIGHT WITHIN RECH. WILL CONTINUE TO MONITOR
[2020-03-13 06:11] LABS: BASOPHILS 0.3 % (0-2); EOSINOPHILS 1.6 % (0-7); HEMOGLOBIN 13.9 g/dL (13.5-17.5); IMMATURE GRANULOCYTES 0.2 % (0-5); LYMPHOCYTES 17.6 % (15-50); MCH 31.5 pg (26.0-34.0); MCHC 33.1 g/dL (31.0-37.0); MEAN PLATELET VOLUME 9.9 fL (7.4-10.4); MONOCYTES 10.3 % (2-11); PLATELET COUNT 249 10x3/uL (130-400); RBC 4.41 10x6/uL (4.20-6.10); RDW 13.2 % (11.5-14.5)
[2020-03-13 06:34] LABS: MCV 95.2 fL (80.0-100.0)
[2020-03-13 06:46] LABS: ALKALINE PHOSPHATASE 61 U/L (30-120); ALT (SGPT) 32 U/L (10-68); BILIRUBIN - TOTAL 1.06 mg/dL (0.2-1.3); CALCIUM 8.1 mg/dL (8.5-10.1); CARBON DIOXIDE 23.3 mmol/L (21.0-32.0); CHLORIDE - SERUM 107 mmol/L (98-107); CKMB 1.9 U/L (0.0-3.6); PROTEIN - SERUM 6.1 g/dL (6.4-8.2); SODIUM 141 mmol/L (136-145)
[2020-03-13 06:51] LABS: ALBUMIN 3.1 g/dL (3.4-5.0); CALC OSMOLALITY 277 mosm/kg (275-300); CREATINE KINASE 2394 UL (21-232); CREATININE - SERUM 0.8 mg/dL (0.6-1.3); GLUCOSE 70 mg/dL (74-106); POTASSIUM - SERUM 3.3 mmol/L (3.5-5.1); TROPONIN-I 0.089 ng/mL (0.000-0.060); UREA NITROGEN 9 mg/dL (7-18); eGFR NON AFRICAN AMERICAN > 90 mL/min (90-120)
--- NOTE | 2020-03-13 08:11 | NUR ---
0700 BEDSIDE REPORT RECEIVED FROM YOLIE RN RESTING QUIETLY WITH EYES CLOSED STATES HE KNOWS HE IS IN THE HOSPITAL SERUM POTASSIUM 3.3 INITIATED K+ REPLACEMENT PER ELECTROLYTE PROTOCOL ASSESSMENT COMPLETE REMAINS NPO PER ORDER BED ALARM ON PT ROOM CLOSE TO NURSING STATION
--- NOTE | 2020-03-13 10:06 | NUR ---
0900 REPOSITIONED IN BED FALLS BACK TO SLEEP
--- NOTE | 2020-03-13 10:45 | NUR ---
1030 DR DAN ROUNDING ON PATIENT
--- NOTE | 2020-03-13 13:21 | CN ---
PATIENT NAME:SMITA ROMERO MEDICAL RECORD: [id number] : 73 LOCATION:[facility].2304 ADMIT DATE: 03/12/20 ACCOUNT: [id number] CONSULTING PHYSICIAN: ALBINA ROSS MD REFERRING PHYSICIAN: LUIS ALBERTO CUELLO MD DATE OF CONSULTATION: 03/12/2020 IDENTIFYING DATA: The patient is 44 years old and he is admitted to the hospital secondary to mental status changes. CHIEF COMPLAINT: Flank pain. HISTORY OF PRESENT ILLNESS: The patient presented to the Emergency Room quite confused. He was diagnosed with a urinary tract infection, but said he did not have the money to buy his antibiotic. He has been admitted to the hospital and actually has fallen and fractured his left orbit. He currently is quite sedated and not providing any useful information. Given his list of medications, it is clear that he is likely suffering from a chronic mental illness. The pharmacology is consistent with schizophrenia, although that is purely a provisional diagnosis at this time. ASSESSMENT: Schizophrenia. PLAN: The patient will have his neuroleptics held at this point. He is sedated and not responsive. He is not capable of caring for himself and should not be allowed to leave the hospital against medical advice at this point. I will reassess him tomorrow and make further determinations and initiate a pharmacologic regimen. In the interim, supportive care is appropriate and I will order p.r.n. Geodon and Ativan in the event that he becomes awake and agitated between now and when I can see him again. TRANSINT:[id number] Voice Confirmation ID: [id number] DOCUMENT ID: [id number] ALBINA ROSS MD at 1321 CC: [id number] DICTATION DATE: 03/12/20 1117 GENERAL PARTNER: 03/12/20 1238 ADM IN [facility] [address] [place] [address]
--- NOTE | 2020-03-13 13:35 | NUR ---
1200 [facility] COMPLETE ORDERED SERUM POTASSIUM FOR 1400
--- NOTE | 2020-03-13 17:34 | MORECARE ---
CASE MANAGEMENT DISCHARGE SUMMARY PATIENT: SMITA ROMERO UNIT: [id number] ADM DATE: 03/12/20 AGE: 44 : 73 SEX: M ROOM/BED: D.2304 AUTHOR: MARY ALCOCER PHYSICIAN: REFERRING PHYSICIAN: LUIS ALBERTO CUELLO MD DATE OF SERVICE: 03/13/20 Discharge Plan Patient Name: SMITA ROMERO [facility] [facility] 1975 Planned Disposition: Anticipated Discharge Date: Discharge Date: Expected LOS: Initial Reviewer: [email or web address] Initial Review Date: 03/12/2020 Generated: 03/13/20 6:33 pm Comments DCP- Discharge Planning Updated by [email or web address]: Joanne Mckeon on 03/13/20 4:[address] Patient resting when CM rounded. CM will come back later for d/c planning assessment. CM will continue to follow and assist as needed with discharge planning/ needs. DCPIA - Discharge Planning Initial Assessment Updated by [email or web address]: Joanne Mckeon on 03/13/20 5:28 pm * Is the patient Alert and Oriented? No * How many steps to enter\exit or inside your home? Patient Name: SMITA ROMERO Page [id number] at 1734 All edits/amendments must be made on the electronic document DICTATION DATE: 03/13/201733 PUSHER RUNNER: FADY 03/13/20 1734 RPT#: [id number] DC DATE: STATUS: ADM IN [facility] [address] [place] [address] END OF REPORT
--- NOTE | 2020-03-13 19:00 | NUR ---
REPORT RECEIVED. PT RESTING IN BED, DISORIENTED TO TIME AND SITUATION. REORIENTED NEEDED. PIV IN LT FOREARM, SEE IV FLOWSHEET. WILL CONTINUE TO MONITOR.
--- NOTE | 2020-03-13 21:00 | NUR ---
PT RESTING IN BED, LETHARGIC AT THIS TIME
--- NOTE | 2020-03-13 23:00 | NUR ---
REASSESSMENT COMPLETED, SEE FLOWSHEET
[2020-03-14] VITALS (20 sets, daily range): BP systolic 104–159; BP diastolic 63–104
--- NOTE | 2020-03-14 01:00 | NUR ---
PT RESTING IN BED, NO ACUTE DISTRESS NOTED.
--- NOTE | 2020-03-14 03:00 | NUR ---
REASSESSMENT COMPLETED, SEE FLOWSHEET. PT STILL LETHARGIC
--- NOTE | 2020-03-14 05:00 | NUR ---
PT RESTING IN BED, NO ACUTE DISTRESS NOTED.
--- NOTE | 2020-03-14 13:18 | PN ---
PATIENT:SMITA ROMERO MEDICAL RECORD: [id number] LOCATION:[facility].230 ADMISSION DATE: 03/12/20 PROGRESS NOTE DATE OF SERVICE: 03/13/2020 SUBJECTIVE: The patient's case was discussed with staff. He has no new complaint. OBJECTIVE: The patient is delusional, but cooperative. He denies that he would seek to harm himself. He is much more alert and awake. ASSESSMENT: Schizophrenia. PLAN: The patient will be given Zyprexa for its antipsychotic effects. I recommend inpatient psychiatric care at [facility] once medically stabilized. He is agreeable to this and has been a patient there in the past. TRANSINT:[id number] Voice Confirmation ID: [id number] DOCUMENT ID: [id number] ALBINA ROSS MD at 1318 CC: [id number] DICTATION DATE: 03/13/20 1510 FAMILY PARTNER: 03/13/20 2213 ADM IN [facility] [address] [place] [address]
--- NOTE | 2020-03-14 13:41 | NUR ---
0700 BEDSIDE REPORT RECEIVED FROM SUELLEN RUFFIN RN AWAKE AND ALERT WITH CONFUSION TO TIME AND SITUATION ORIENTED PT ASSESSMENT COMPLETE
--- NOTE | 2020-03-14 13:55 | NUR ---
0900 APPETITE GOOD LARGE INCONTINENT LOOSE BM NOTED CHG BATH COMPLETE D/C WASHBURN DTV
--- NOTE | 2020-03-14 14:01 | NUR ---
1100 PT UP IN CHAIR WITH CALL LIGHT, URINAL, AND WATER ON TRAY WITHIN REACH WATCHING TV INSTRUCTED WHERE THE NURSE CALL BUTTON AND TO NOT GET OUT OF BED
--- NOTE | 2020-03-14 14:13 | NUR ---
1200 FOUND SITTING DOWN ON ON FLOOR IN ROOM ASSESSED FOR INJURIES DENIES SHE IS HURT
--- NOTE | 2020-03-14 14:15 | NUR ---
1230 STATED HE WAS GOING TO GET A SODA ASSIST X 2 TO WALK PATIENT BACK TO BED NOTIFIED DR DNA. BRODY NOTIFIED ASSISTANT CREDIT MANAGER JESSE. MAKE UNSUCCESSFUL ATTEMPTS TO NOTIFY HIS MOTHER WHOM HE RESIDES WITH.
--- NOTE | 2020-03-14 14:18 | NUR ---
1300 REPEATED TRYS TO CCONTACT HIS MOTHER BED ALASHERRI GOES OFF. FOUND PATIENT SITTING UP ON BEDSIDE ASSISTED TO SUPINE REORIENTED PATIENT TO CALL LIGHT
--- NOTE | 2020-03-14 14:21 | NUR ---
1301 EKG DONE NOTIFIED ANN MARIE. NEW ORDER FOR ECHO NOTED
--- NOTE | 2020-03-14 16:38 | NUR ---
1400 ATIVAN PO GIVEN
--- NOTE | 2020-03-14 16:39 | NUR ---
1511 GEODON 20 MG IM GIVEN FOR AGITATION, UNCOOPERATIVE
--- NOTE | 2020-03-14 16:41 | NUR ---
1606 CALLED SULLY JESUS WITH CARDIOLOGY HEART RATE UP TO 134 BP 163/104
--- NOTE | 2020-03-14 17:19 | NUR ---
1645 LANOXIN 0.5MG IV GIVEN STARTED CARDIZEM GTT AT 5GM/HOUR
--- NOTE | 2020-03-14 17:22 | NUR ---
1700 SITTING UP IN BED EATING DINNER HEART RATE DROPPED TO 97
--- NOTE | 2020-03-14 17:25 | NUR ---
1705 REINSERTED WASHBURN CLEAR YELLOW DRAINAGE NOTED
[2020-03-15] VITALS (22 sets, daily range): BP systolic 110–155; BP diastolic 70–101
--- NOTE | 2020-03-15 07:15 | NUR ---
REPORT RECEIVED. ON CONTACT PRECAUTIONS FOR BED BUGS. PT IS CONFUSED. HE HAS A WASHBURN. PIV WITH NS AND CARDIZEM INFUSING. PT IS IN SOFT WRIST RESTRAINTS. VSS. WILL CONTINUE TO MONITOR.
--- NOTE | 2020-03-15 07:32 | NUR ---
Nutrition follow-up: Diet: REgular Per nurse pt is eating 100% of meals +BM-loose Wt: 189# RDN following.
--- NOTE | 2020-03-15 09:45 | NUR ---
PT RESTING QUIETLY. AM MEDS GIVEN WITH NO PROBLEMS PER ZAHIDA MARTINEZ. VSS. WILL CONTINUE TO MONITOR.
--- NOTE | 2020-03-15 11:30 | NUR ---
PT RESTING QUIETLY. VSS. WILL CONTINUE TO MONITOR.
--- NOTE | 2020-03-15 13:35 | PN ---
PATIENT:SMITA ROMERO MEDICAL RECORD: [id number] LOCATION:[facility].230 ADMISSION DATE: 03/12/20 PROGRESS NOTE DATE OF SERVICE: 03/14/2020 SUBJECTIVE: The patient's case was discussed with staff. He has no new complaint. OBJECTIVE: The patient is delusional and disorganized. He denies that he would want to harm himself or others. ASSESSMENT: Schizophrenia. PLAN: Current medicines have been reviewed. I am going to start him on Depakote for mood stabilization. He will be monitored for clinical changes associated with its use. He is unable to support his weight and walk for reasons that are unclear. There is no obvious neurologic reason for this and my suspicion is that it is psychiatric in nature. Once medically stabilized, cleared from medical and neurologic standpoint, I still think it is appropriate for him to be transitioned to inpatient psychiatric care. TRANSINT:[id number] Voice Confirmation ID: [id number] DOCUMENT ID: [id number] ALBINA ROSS MD at 1335 CC: [id number] DICTATION DATE: 03/14/20 1532 SMALL MACHINE BINDERY OPERATOR: 03/15/20 0011 ADM IN [facility] [address] [place] [address]
--- NOTE | 2020-03-15 13:44 | NUR ---
IV RESITED TO LEFT HAND. FLUIDS AND CARDIZEM RESTARTED. PT IN RESTRAINTS.
--- NOTE | 2020-03-15 15:01 | NUR ---
OT NOTE: PT NOW IN RESTRAINTS.. REMAINS VERY CONFUSED. NURSING REPORTS SEVERAL FALLS DURING FRONT END LOADER DRIVER. WILL ASSESS PT AT LATER DATE WHEN CONFUSION IMPROVES. TYLER PUGA, OTR/L
--- NOTE | 2020-03-15 19:00 | NUR ---
ASSESSMENT COMPLETED.SEE FLOWSHEETS FOR ALL FINDINGS. PT AWAKE AND ALERT TO NAME, CONFUSED TO PLACE, TIME AND SITUATION. REORIENTED. CONT AFIB ON MONITOR, WITH HR AT 92BPM. LUNG SOUNDS DIMINISHED TO LLB, UNLABORED ON 2L VIA NC. PPP. HOB UP. SIDE RAILS UP. CONT ISOLATION PER PROTOCOL. CALL LIGHT IN REACH. CONT TO MONITOR.
--- NOTE | 2020-03-15 19:15 | MORECARE ---
CASE MANAGEMENT DISCHARGE SUMMARY PATIENT: SMITA ROMERO UNIT: [id number] ADM DATE: 03/12/20 AGE: 44 : 73 SEX: M ROOM/BED: D.2304 AUTHOR: MARY ALCOCER PHYSICIAN: REFERRING PHYSICIAN: LUIS ALBERTO CUELLO MD DATE OF SERVICE: 03/15/20 Discharge Plan Patient Name: SMITA ROMERO [facility] : 1975 Planned Disposition: Psych facility Anticipated Discharge Date: Discharge Date: Expected LOS: Initial Reviewer: [email or web address] Initial Review Date: 03/12/2020 Generated: 03/15/20 8:15 pm DCP- Discharge Planning Updated by HANNA: Joanne Mckeon on 03/13/20 4:[address] Patient resting when CM rounded. CM will come back later for d/c planning assessment. CM will continue to follow and assist as needed with discharge planning/ needs. DCPIA - Discharge Planning Initial Assessment Updated by HANNA: Joanne Mckeon on 03/13/20 5:28 pm * Is the patient Alert and Oriented? No * How many steps to enter\exit or inside your home? Last DP export: 03/13/20 4:34 p Patient Name: SMITA ROMERO Page [id number] at 191 All edits/amendments must be made on the electronic document DICTATION DATE: 03/15/201914 TENON MACHINE OPERATOR: FADY 03/15/201914 RPT#: [id number] DC DATE: STATUS: ADM IN [facility] [address] [place] [address] END OF REPORT
--- NOTE | 2020-03-15 19:22 | MORECARE ---
CASE MANAGEMENT DISCHARGE SUMMARY PATIENT: SMITA ROMERO UNIT: [id number] ADM DATE: 03/12/20 AGE: 44 : 73 SEX: M ROOM/BED: D.2304 AUTHOR: MARY ALCOCER PHYSICIAN: REFERRING PHYSICIAN: LUIS ALBERTO CUELLO MD DATE OF SERVICE: 03/15/20 Discharge Plan Patient Name: SMITA ROMERO Facility: [facility]:[place] : 1975 Planned Disposition: Psych facility Anticipated Discharge Date: Discharge Date: Expected LOS: Initial Reviewer: [email or web address] Initial Review Date: 03/12/2020 Generated: 03/15/20 8:21 pm DCP- Discharge Planning Updated by [email or web address]: Joanne Mckeon on 03/13/20 4:[address] Patient resting when CM rounded. CM will come back later for d/c planning assessment. CM will continue to follow and assist as needed with discharge planning/ needs. DCPIA - Discharge Planning Initial Assessment Updated by [email or web address]: Joanne Mckeon on 03/15/20 7:17 pm * Is the patient Alert and Oriented? No * How many steps to enter\exit or inside your home? * PCP Clayton Byrd CNP * [facility] * Preadmission Environment Home with Family * ADLs Independent * Equipment None * List name and contact numbers for known caregivers / representatives who currently or will assist patient after discharge: Lillian Romero - mother - [phone] Aiyana Martinez - girlfriend - [phone] * Verbal permission to speak to the caregivers and representatives has been obtained from the patient. Yes * Community resources currently utilized None * Additional services required to return to the preadmission environment? No * Can the patient safely return to the preadmission environment? Yes * Has this patient been hospitalized within the prior 30 days at any hospital? No Last DP export: 03/15/20 6:15 p Patient Name: SMITA ROMERO Page 14876 at 1922 All edits/amendments must be made on the electronic document DICTATION DATE: 03/15/201920 SPONGE HOOKER: DM 03/15/201920 RPT#: [id number] DC DATE: STATUS: ADM IN [facility] [address] [place] [address] END OF REPORT
--- NOTE | 2020-03-15 19:40 | MORECARE ---
CASE MANAGEMENT DISCHARGE SUMMARY PATIENT: SMITA ROMERO UNIT: [id number] ADM DATE: 03/12/20 AGE: 44 : 73 SEX: M ROOM/BED: D.2304 AUTHOR: LEODAN,DOC PHYSICIAN: REFERRING PHYSICIAN: LUIS ALBERTO CUELLO MD DATE OF SERVICE: 03/15/20 Discharge Plan Patient Name: SMITA ROMERO Facility: [facility]:[place] : 1975 Planned Disposition: Psych facility Anticipated Discharge Date: Discharge Date: Expected LOS: Initial Reviewer: [email or web address] Initial Review Date: 03/12/2020 Generated: 03/15/20 8:40 pm Comments DCP- Discharge Planning Updated by [email or web address]: Joanne Mckeon on 03/15/20 6:[address] Patient Name: SMITA ROMERO Admission Status: ER Accout number: [id number] Admission Date: 03-12-2020 : 1975 Admission Diagnosis:METABOLIC ENCEPHALOPATHY Attending: LUIS ALBERTO CUELLO Current LOS: 3 Anticipated DC Date: Planned Disposition: Psych facility Primary Insurance: [facility] [employer] Discharge Planning Comments: CM met with patient at bedside after explaining CM role and obtaining verbal consent. Patient lives at home with his mother (Lillian) where he is independent with his care and plans to return there upon discharge. Patient is difficult to speak with he doesn't talk in sentences just a word at a time. CM called and spoke with patient's mother Lillian. Lillian stated that the patient lives with her CM discussed availability / needs of home health and medical equipment. Patient doesn't have any medical equipment or home health services. [facility] has been notified and has called wanting to speak to patient Agatha [phone] and fax records [phone]. CM will continue to follow and assist as needed with discharge planning / needs. Production Assembly Operator: Joanne Mckeon Appended by Joanne Mckeon on 03/15/2020 19:37 CDT: [facility] is recommending inpatient psych when medically stable DCP- Discharge Planning Updated by [email or web address]: Joanne Mckeon on 03/13/20 4:[address] Patient resting when CM rounded. CM will come back later for d/c planning assessment. CM will continue to follow and assist as needed with discharge planning/ needs. DCPIA - Discharge Planning Initial Assessment Updated by [email or web address]: Joanne Mckeon on 03/15/20 7:17 pm * Is the patient Alert and Oriented? No * How many steps to enter\exit or inside your home? * PCP Clayton Byrd, HAT FORMING MACHINE OPERATOR * [facility] * Preadmission Environment Home with Family * ADLs Independent * Equipment None * List name and contact numbers for known caregivers / representatives who currently or will assist patient after discharge: Lillian Romero - mother - [phone] Aiyana Martinez - girlfriend - [phone] * Verbal permission to speak to the caregivers and representatives has been obtained from the patient. Yes * Community resources currently utilized None * Additional services required to return to the preadmission environment? No * Can the patient safely return to the preadmission environment? Yes * Has this patient been hospitalized within the prior 30 days at any hospital? No External Providers External Provider: OTHER-OTHER Next Contact Date: Service Request Date: Service Type: Resolution: Reviewer: Comments: Last DP export: 03/15/20 6:22 p Patient Name: SMITA ROMERO Page 62476 at 1940 All edits/amendments must be made on the electronic document DICTATION DATE: 03/15/201939 RADIO FREQUENCY ENGINEER: FADY 03/15/201939 RPT#: [id number] DC DATE: STATUS: ADM IN [facility] [address] [place] [address] END OF REPORT
--- NOTE | 2020-03-15 21:00 | NUR ---
SCHEDULED MEDS GIVEN PER ORDER. PT LLOYD WELL. NO SIGN OF DISTRESS. VSS.
--- NOTE | 2020-03-15 23:00 | NUR ---
REASSESSMENT COMPLETED. SEE FLOWSHEETS. NO ACUTE CHANGES NOTED IN PT'S STATUS AT THIS TIME. VSS. NO NEEDS COMPLAINTS. CPOC.
[2020-03-16] VITALS (13 sets, daily range): BP systolic 91–120; BP diastolic 57–83
--- NOTE | 2020-03-16 01:00 | NUR ---
PT RESTING QUIELTY WITHOUT DISTRESS. VSS
--- NOTE | 2020-03-16 03:00 | NUR ---
REASSESSMENT COMPLETED. SEE FLOWSHEETS FOR ALL FINDINGS. NO ACUTE CHANGES NOTED IN PT'S STATUS AT THIS TIME. VSS. CPOC.
[2020-03-16 04:15] LABS: BASOPHILS 0.3 % (0-2); EOSINOPHILS 4.3 % (0-7); HEMATOCRIT 41.6 % (42.0-54.0); HEMOGLOBIN 14.4 g/dL (13.5-17.5); IMMATURE GRANULOCYTES 0.3 % (0-5); LYMPHOCYTES 31.3 % (15-50); MCH 31.9 pg (26.0-34.0); MCHC 34.6 g/dL (31.0-37.0); MCV 92.2 fL (80.0-100.0); NEUTROPHILS 53.8 % (40-80); PLATELET COUNT 266 10x3/uL (130-400); RBC 4.51 10x6/uL (4.20-6.10); RDW 12.6 % (11.5-14.5); WBC 7.3 10x3/uL (4.8-10.8)
--- NOTE | 2020-03-16 04:15 | NUR ---
I&O COMPLETED TO CHART.
[2020-03-16 04:42] LABS: CALC OSMOLALITY 276 mosm/kg (275-300); CALCIUM 8.5 mg/dL (8.5-10.1); CARBON DIOXIDE 26.3 mmol/L (21.0-32.0); CHLORIDE - SERUM 106 mmol/L (98-107); CREATININE - SERUM 0.7 mg/dL (0.6-1.3); GLUCOSE 87 mg/dL (74-106); POTASSIUM - SERUM 3.6 mmol/L (3.5-5.1); SODIUM 139 mmol/L (136-145); UREA NITROGEN 12 mg/dL (7-18); eGFR NON AFRICAN AMERICAN > 90 mL/min (90-120)
--- NOTE | 2020-03-16 05:00 | NUR ---
PT TRYING TO GET OOB, REORIENTED. CONT SOFT WRIST RESTRAINTS FOR PT'S STAFETY. CONT TO MONITOR.
--- NOTE | 2020-03-16 08:04 | EC ---
PATIENT:SMITA ROMERO DATE OF SERVICE: 03/12/20 SEX: M MEDICAL RECORD: [id number] DATE OF : [birth year] LOCATION:[facility] D230 AGE OF PATIENT: 44 ADMISSION DATE: 03/12/20 REFERRING PHYSICIAN: INTERPRETING PHYSICIAN: NIYA KAUR MD ECHOCARDIOGRAM REPORT ECHO CHARGES 4 ECHO COMPLETE Date: 03/14/20 CLINICAL DIAGNOSIS: A-FIB ECHOCARDIOGRAPHIC MEASUREMENTS (adult normal given) AC root (d.<3.7cm) 3.9 cm LV Septum d (<1.2 cm> 1.4 cm Valve Excursion 2.4 cm LV Septum (systole) 2.2 cm Left Atria (s.<4.0cm> 3.3 cm LVPW d(<1.2cm) 1.3 cm RV (d.<2.3cm) 1.7 cm LVPW (sytole) 1.7 cm LV diastole(<5.6CM) 5.9 cm MV E-F(>70mm/sec) cm LV systole 4.2 cm LVOT Diameter 2.1 cm MV exc.(>10mm) cm Est.ejection fraction (50-75%) % DOPPLER: LVIT cm/sec A 56.0 cm/sec E 68.0 cm/sec LA cm/sec RVSP mmHg LVOT 90.0 cm/sec AOP1/2T m/s Asc. Ao 123 cm/sec RVOT 87.0 cm/sec RA cm/sec PA 94.0 cm/sec AV Gradient Peak 6.1 mmHg AV Mean 3.2 mmHg AV Area 2.3 cm MV Gradient Peak 2.5 mmHg MV Mean 1.4 mmHg MV Area cm COMMENTS: Rigger Apprentice: Shelly DUNAWAYOE Manager Mba: 3 Dr. Robledo TAPE# PACS Pericardial Effusion N DATE OF SERVICE: Adequate 2D, color flow imaging, spectral Doppler, and M-Mode LVH is present. LV internal dimension is mildly dilated at 5.9 cm. LV global hypokinetic with reduced EF, estimated EF 40% to 45%. Aortic valve is tricuspid. No evidence of stenosis by Doppler interrogation. Left atrium is normal at 3.3 cm. Mitral valve shows no prolapse. Mild MR. Right-sided chambers are grossly normal. Trace TR. ECHOCARDIOGRAM REPORT [id number] SMITA ROMERO TRANSINT:[id number] Voice Confirmation ID: [id number] DOCUMENT ID: [id number] NIYA KAUR MD at 0804 CC: [id number] DICTATION DATE: 03/14/201626 FIBERGLASS BOAT ASSEMBLY SUPERVISOR: 03/15/20 0150 ADM IN [facility] [address] [place] [address]
[2020-03-16] MEDS ORDERED: CARDIZEM60 MG PO (12:32)
--- NOTE | 2020-03-16 12:49 | MORECARE ---
CASE MANAGEMENT DISCHARGE SUMMARY PATIENT: SMITA ROMERO UNIT: [id number] ADM DATE: 03/12/20 AGE: 44 : [birth year] SEX: M ROOM/BED: D.2304 AUTHOR: LEODAN,DOC PHYSICIAN: REFERRING PHYSICIAN: LUIS ALBERTO CUELLO MD DATE OF SERVICE: 03/16/20 Discharge Plan Patient Name: SMITA ROMERO Facility: [facility]:[place] : 1975 Planned Disposition: Psych facility Anticipated Discharge Date: Discharge Date: Expected LOS: Initial Reviewer: [id number] Initial Review Date: 03/12/2020 Generated: 03/16/20 1:48 pm Comments DCP- Discharge Planning Updated by [email or web address]: Joselin Parker on 03/16/20 11:[address] Patient Name: SMITA ORMERO Admission Status: ER Accout number: [id number] Admission Date: 03-12-2020 : 1975 Admission Diagnosis:METABOLIC ENCEPHALOPATHY Attending: LUIS ALBERTO CUELLO Current LOS: 4 Anticipated DC Date: Planned Disposition: Psych facility Primary Insurance: [facility] MEDICARE SOLUTIONS Discharge Planning Comments: REFERRAL FAXED TO [facility] AT FAX [phone], I SPOKE WITH CASIMIRO AT [phone] WITH [facility] ADMIT. WAITING SUPERVISOR FORMING AND TEMPERING BACK TO SEE IF THEY ARE GOING TO ACCEPT PATIENT. Product Manufacturing Professional: Joselin Parker DCP- Discharge Planning Updated by [email or web address]: Joanne Mckeon on 03/15/20 6:[address] Patient Name: SMITA ROMERO Admission Status: ER Accout number: [id number] Admission Date: 03-12-2020 : 1975 Admission Diagnosis:METABOLIC ENCEPHALOPATHY Attending: LUIS ALBERTO CUELLO Current LOS: 3 Anticipated DC Date: Planned Disposition: Psych facility Primary Insurance: [facility] MEDICARE SOLUTIONS Discharge Planning Comments: CM met with patient at bedside after explaining CM role and obtaining verbal consent. Patient lives at home with his mother (Lillian) where he is independent with his care and plans to return there upon discharge. Patient is difficult to speak with he doesn't talk in sentences just a word at a time. CM called and spoke with patient's mother Lillian. Lillian stated that the patient lives with her CM discussed availability / needs of home health and medical equipment. Patient doesn't have any medical equipment or home health services. [facility] has been notified and has called wanting to speak to patient Agatha [phone] and fax records [phone]. CM will continue to follow and assist as needed with discharge planning / needs. Product Manufacturing Professional: Joanne Mckeon Appended by Joanne Mckeon on 03/15/2020 19:37 CDT: Salma is recommending inpatient psych when medically stable DCP- Discharge Planning Updated by [email or web address]: Joanne Mckeon on 03/13/20 4:[address] Patient resting when CM rounded. CM will come back later for d/c planning assessment. CM will continue to follow and assist as needed with discharge planning/ needs. DCPIA - Discharge Planning Initial Assessment Updated by [email or web address]: Joanne Mckeon on 03/15/20 7:17 pm * Is the patient Alert and Oriented? No * How many steps to enter\exit or inside your home? * PCP Clayton Byrd CNP * [facility] * Preadmission Environment Home with Family * ADLs Independent * Equipment None * List name and contact numbers for known caregivers / representatives who currently or will assist patient after discharge: Lillian Romero - mother - [phone] Aiyana Martinez - girlfriend - [phone] * Verbal permission to speak to the caregivers and representatives has been obtained from the patient. Yes * Community resources currently utilized None * Additional services required to return to the preadmission environment? No * Can the patient safely return to the preadmission environment? Yes * Has this patient been hospitalized within the prior 30 days at any hospital? No External Providers External Provider: [facility] (Inpt Adult Psych) Next Contact Date: Service Request Date: Service Type: Resolution: Reviewer: Comments: Last DP export: 03/15/20 6:40 p Patient Name: SMITA ROMERO Page 72370 at 1240 All edits/amendments must be made on the electronic document DICTATION DATE: 03/16/20 6215 BEAM PRESS OPERATOR: FADY 03/16/20 1249 RPT#: [id number] DC DATE: STATUS: ADM IN [facility] [address] [place] [address] END OF REPORT
--- NOTE | 2020-03-16 14:01 | PN ---
PATIENT:SMITA ROMERO MEDICAL RECORD: [id number] LOCATION:[facility].230 ADMISSION DATE: 03/12/20 PROGRESS NOTE DATE OF SERVICE: 03/15/2020 SUBJECTIVE: The patient's case was discussed with staff. He has no new complaint. OBJECTIVE: The patient seems somewhat worse today. He is very disorganized and has been pulling his IV out. ASSESSMENT: Schizophrenia. PLAN: Current psychoactive medicines have been reviewed and will be maintained. Long-term prognosis is guarded. TRANSINT:[id number] Voice Confirmation ID: [id number] DOCUMENT ID: [id number] ALBINA ROSS MD at 1401 CC: [id number] DICTATION DATE: 03/15/20 1515 SCIENCE INTERPRETER: 03/16/20 0105 ADM IN [place] [id number] [place] [id number]
--- NOTE | 2020-03-16 14:19 | MORECARE ---
CASE MANAGEMENT DISCHARGE SUMMARY PATIENT: SMITA ROMERO UNIT: [id number] ADM DATE: 03/12/20 AGE: 44 : [birth year] SEX: M ROOM/BED: D.2304 AUTHOR: LEODAN,DOC PHYSICIAN: REFERRING PHYSICIAN: LUIS ALBERTO CUELLO MD DATE OF SERVICE: 03/16/20 Discharge Plan Patient Name: SMITA ROMERO Facility: [facility]:[place] : 1975 Planned Disposition: Psych facility Anticipated Discharge Date: Discharge Date: Expected LOS: Initial Reviewer: [id number] Initial Review Date: 03/12/2020 Generated: 03/16/20 3:18 pm Comments DCP- Discharge Planning Updated by [email or web address]: Joselin Parker on 03/16/20 11:[address] Patient Name: SMITA ROMERO Admission Status: ER Accout number: [id number] Admission Date: 03-12-2020 : 1975 Admission Diagnosis:METABOLIC ENCEPHALOPATHY Attending: LUIS ALBERTO CUELLO Current LOS: 4 Anticipated DC Date: Planned Disposition: Psych facility Primary Insurance: [facility] MEDICARE SOLUTIONS Discharge Planning Comments: REFERRAL FAXED TO [facility] AT FAX [phone], I SPOKE WITH CASIMIRO AT [phone] WITH [facility] ADMIT. WAITING BOUFFANT CURTAIN MACHINE TENDER BACK TO SEE IF THEY ARE GOING TO ACCEPT PATIENT. Appeals Referee: Joselin Parker DCP- Discharge Planning Updated by [email or web address]: Joanne Mckeon on 03/15/20 6:[address] Patient Name: SMITA ROMERO Admission Status: ER Accout number: [id number] Admission Date: 03-12-2020 : 1975 Admission Diagnosis:METABOLIC ENCEPHALOPATHY Attending: LUIS ALBERTO CUELLO Current LOS: 3 Anticipated DC Date: Planned Disposition: Psych facility Primary Insurance: [facility] MEDIC[facility] SOLUTIONS Discharge Planning Comments: CM met with patient at bedside after explaining CM role and obtaining verbal consent. Patient lives at home with his mother (Lillian) where he is independent with his care and plans to return there upon discharge. Patient is difficult to speak with he doesn't talk in sentences just a word at a time. CM called and spoke with patient's mother Lillian. Lillian stated that the patient lives with her CM discussed availability / needs of home health and medical equipment. Patient doesn't have any medical equipment or home health services. [facility] has been notified and has called wanting to speak to patient Agatha [phone] and fax records [phone]. CM will continue to follow and assist as needed with discharge planning / needs. Appeals Referee: Joanne Mckeon Appended by Joanne Mckeon on 03/15/2020 19:37 CDT: Salma is recommending inpatient psych when medically stable DCP- Discharge Planning Updated by [email or web address]: Joanne Mckeon on 03/13/20 4:[address] Patient resting when CM rounded. CM will come back later for d/c planning assessment. CM will continue to follow and assist as needed with discharge planning/ needs. DCPIA - Discharge Planning Initial Assessment Updated by [email or web address]: Joanne Mckeon on 03/15/20 7:17 pm * Is the patient Alert and Oriented? No * How many steps to enter\exit or inside your home? * PCP Clayton Byrd CNP * [facility] * Preadmission Environment Home with Family * ADLs Independent * Equipment None * List name and contact numbers for known caregivers / representatives who currently or will assist patient after discharge: Lillian Romero - mother - [phone] Aiyana Martinez - girlfriend - [phone] * Verbal permission to speak to the caregivers and representatives has been obtained from the patient. Yes * Community resources currently utilized None * Additional services required to return to the preadmission environment? No * Can the patient safely return to the preadmission environment? Yes * Has this patient been hospitalized within the prior 30 days at any hospital? No External Providers External Provider: [facility] Next Contact Date: Service Request Date: Service Type: Resolution: Reviewer: Comments: Last DP export: 03/16/20 11:49 a Patient Name: SMITA ROMERO Page 66434 at 1419 All edits/amendments must be made on the electronic document DICTATION DATE: 03/16/201417 CENTREX RADIO OPERATOR: FADY 03/16/201417 RPT#: [id number] DC DATE: STATUS: ADM IN [facility] [address] [place] [address] END OF REPORT
--- NOTE | 2020-03-16 14:27 | MORECARE ---
CASE MANAGEMENT DISCHARGE SUMMARY PATIENT: SMITA ROMERO UNIT: [id number] ADM DATE: 03/12/20 AGE: 44 : [birth year] SEX: M ROOM/BED: D.2304 AUTHOR: LEODANDOC PHYSICIAN: REFERRING PHYSICIAN: LUIS ALBERTO CUELLO MD DATE OF SERVICE: 03/16/20 Discharge Plan Patient Name: SMITA ROMERO [facility] [facility] 1975 Planned Disposition: Psych facility Anticipated Discharge Date: Discharge Date: Expected LOS: Initial Reviewer: [id number] Initial Review Date: 03/12/2020 Generated: 03/16/20 3:27 pm Comments DCP- Discharge Planning Updated by [email or web address]: Joselin Parker on 03/16/20 1:[address] Patient Name: SMITA ROMERO Admission Status: ER Accout number: [id number] Admission Date: 03-12-2020 : 1975 Admission Diagnosis:METABOLIC ENCEPHALOPATHY Attending: LUIS ALBERTO CULELO Current LOS: 4 Anticipated DC Date: Planned Disposition: Psych facility Primary Insurance: [facility] MEDICARE SOLUTIONS Discharge Planning Comments: I SPOKE WITH CASIMIRO AT [facility] AND THEY HAVE DECLINCED PATIENT FOR ADMISSION. I CALLED [facility] AND THEY ARE NOW WORKIN ON FINDING PLACEMENT. I CALLED CHANEL HANNA AND LET HER KNOW. Fabrication And Assembly Supervisor: Joselin Parker DCP- Discharge Planning Updated by [id number]: Joselin Parker on 03/16/20 11:[address] Patient Name: SMITA ROMERO Admission Status: ER Accout number: [id number] Admission Date: 03-12-2020 : 1975 Admission Diagnosis:METABOLIC ENCEPHALOPATHY Attending: LUIS ALBERTO CUELLO Current LOS: 4 Anticipated DC Date: Planned Disposition: Psych facility Primary Insurance: [facility] MEDICARE SOLUTIONS Discharge Planning Comments: REFERRAL FAXED TO [facility] AT FAX [phone], I SPOKE WITH CASIMIRO AT [phone] WITH [facility] ADMIT. WAITING MANAGER APPLICATION BACK TO SEE IF THEY ARE GOING TO ACCEPT PATIENT. Fabrication And Assembly Supervisor: Joselin Parker DCP- Discharge Planning Updated by [email or web address]: Joanne Mckeon on 03/15/20 6:[address] Patient Name: SMITA ROMERO Admission Status: ER Accout number: [id number] Admission Date: 03-12-2020 : 1975 Admission Diagnosis:METABOLIC ENCEPHALOPATHY Attending: LUIS ALBERTO CUELLO Current LOS: 3 Anticipated DC Date: Planned Disposition: Psych facility Primary Insurance: [facility] MEDICARE SOLUTIONS Discharge Planning Comments: CM met with patient at bedside after explaining CM role and obtaining verbal consent. Patient lives at home with his mother (Lillian) where he is independent with his care and plans to return there upon discharge. Patient is difficult to speak with he doesn't talk in sentences just a word at a time. CM called and spoke with patient's mother Lillian. Lillian stated that the patient lives with her CM discussed availability / needs of home health and medical equipment. Patient doesn't have any medical equipment or home health services. [facility] has been [facility] and has called wanting to speak to patient Agatha [phone] and fax records [phone]. CM will continue to follow and assist as needed with discharge planning / needs. Fabrication And Assembly Supervisor: Joanne Mckeon Appended by Joanne Mckeon on 03/15/2020 19:37 CDT: Salma is recommending inpatient psych when medically stable DCP- Discharge Planning Updated by [email or web address]: Joanne Mckeon on 03/13/20 4:[address] Patient resting when CM rounded. CM will come back later for d/c planning assessment. CM will continue to follow and assist as needed with discharge planning/ needs. DCPIA - Discharge Planning Initial Assessment Updated by [email or web address]: Joanne Mckeon on 03/15/20 7:17 pm * Is the patient Alert and Oriented? No * How many steps to enter\exit or inside your home? * PCP Clayton Byrd CNP * [facility] * Preadmission Environment Home with Family * ADLs Independent * Equipment None * List name and contact numbers for known caregivers / representatives who currently or will assist patient after discharge: Lillian Romero - mother - [phone] Aiyana Martinez - girlfriend - [phone] * Verbal permission to speak to the caregivers and representatives has been obtained from the patient. Yes * Community resources currently utilized None * Additional services required to return to the preadmission environment? No * Can the patient safely return to the preadmission environment? Yes * Has this patient been hospitalized within the prior 30 days at any hospital? No Last DP export: 03/16/20 1:19 p Patient Name: SMITA ROMERO Page 62678 at 1427 All edits/amendments must be made on the electronic document DICTATION DATE: 03/16/201426 CHILD CARE CENTER ADMINISTRATOR: FADY 03/16/201426 RPT#: [id number] DC DATE: STATUS: ADM IN [facility] [address] [place] [address] END OF REPORT
[2020-03-17] VITALS (7 sets, daily range): BP systolic 118–141; BP diastolic 69–97
[2020-03-17 03:45] LABS: BASOPHILS 0.2 % (0-2); EOSINOPHILS 1.6 % (0-7); HEMATOCRIT 44.7 % (42.0-54.0); HEMOGLOBIN 15.8 g/dL (13.5-17.5); IMMATURE GRANULOCYTES 0.3 % (0-5); LYMPHOCYTES 11.2 % (15-50); MCH 31.9 pg (26.0-34.0); MCHC 35.3 g/dL (31.0-37.0); MEAN PLATELET VOLUME 9.4 fL (7.4-10.4); MONOCYTES 8.6 % (2-11); NEUTROPHILS 78.1 % (40-80); PLATELET COUNT 284 10x3/uL (130-400); RBC 4.96 10x6/uL (4.20-6.10); RDW 12.4 % (11.5-14.5)
[2020-03-17 03:59] LABS: MCV 90.1 fL (80.0-100.0)
[2020-03-17 04:04] LABS: CALC OSMOLALITY 279 mosm/kg (275-300); CALCIUM 9.1 mg/dL (8.5-10.1); CARBON DIOXIDE 28.4 mmol/L (21.0-32.0); CHLORIDE - SERUM 102 mmol/L (98-107); GLUCOSE 101 mg/dL (74-106); POTASSIUM - SERUM 3.8 mmol/L (3.5-5.1); SODIUM 140 mmol/L (136-145); UREA NITROGEN 14 mg/dL (7-18)
[2020-03-17 04:23] LABS: CREATININE - SERUM 0.9 mg/dL (0.6-1.3); eGFR NON AFRICAN AMERICAN > 90 mL/min (90-120)
--- NOTE | 2020-03-17 09:29 | NUR ---
Nutrition follow-up: Pt eating breakfast; visitor at bedside. Pt requesting assistance with O@ sensor on finger. Nurse notified Diet: Regular PO intake 100% of most meals Labs reviewed WT: 189# RDN following.
--- NOTE | 2020-03-17 16:21 | MORECARE ---
CASE MANAGEMENT DISCHARGE SUMMARY PATIENT: SMITA ROMERO UNIT: [id number] ADM DATE: 03/12/20 AGE: 44 : [birth year] SEX: M ROOM/BED: D.2304 AUTHOR: LEODANDOC PHYSICIAN: REFERRING PHYSICIAN: LUIS ALBERTO CUELLO MD DATE OF SERVICE: 03/17/20 Discharge Plan Patient Name: SMITA ROMERO [facility] : 1975 Planned Disposition: Psych facility Anticipated Discharge Date: Discharge Date: Expected LOS: Initial Reviewer: [id number] Initial Review Date: 03/12/2020 Generated: 03/17/20 5:20 pm Comments DCP- Discharge Planning Updated by [email or web address]: Joselin Parker on 03/16/20 1:[address] Patient Name: SMITA ROMERO Admission Status: ER Accout number: [id number] Admission Date: 03-12-2020 : 1975 Admission Diagnosis:METABOLIC ENCEPHALOPATHY Attending: LUIS ALBERTO CUELLO Current LOS: 4 Anticipated DC Date: Planned Disposition: Psych facility Primary Insurance: [facility] MEDICARE SOLUTIONS Discharge Planning Comments: I SPOKE WITH CASIMIRO AT [facility] AND THEY HAVE DECLINCED PATIENT FOR ADMISSION. I CALLED [facility] AND THEY ARE NOW WORKIN ON FINDING PLACEMENT. I CALLED CHANEL HANNA AND LET HER KNOW. Branch Operations Coordinator: Joselin Parker DCP- Discharge Planning Updated by [email or web address]: Joselin Parker on 03/16/20 11:[address] Patient Name: SMITA ROMERO Admission Status: ER Accout number: [id number] Admission Date: 03-12-2020 : 1975 Admission Diagnosis:METABOLIC ENCEPHALOPATHY Attending: LUIS ALBERTO CUELLO Current LOS: 4 Anticipated DC Date: Planned Disposition: Psych facility Primary Insurance: [facility] MEDICARE SOLUTIONS Discharge Planning Comments: REFERRAL FAXED TO [facility] AT FAX [phone], I SPOKE WITH CASIMIRO AT [phone] WITH [facility] ADMIT. WAITING REGIONAL EHS MANAGER BACK TO SEE IF THEY ARE GOING TO ACCEPT PATIENT. Branch Operations Coordinator: Joselin Parker DCP- Discharge Planning Updated by [email or web address]: Joanne Mckeon on 03/15/20 6:[address] Patient Name: SMITA ROMERO Admission Status: ER Accout number: [id number] Admission Date: 03-12-2020 : 1975 Admission Diagnosis:METABOLIC ENCEPHALOPATHY Attending: LUIS ALBERTO CUELLO Current LOS: 3 Anticipated DC Date: Planned Disposition: Psych facility Primary Insurance: [facility] MEDICARE SOLUTIONS Discharge Planning Comments: CM met with patient at bedside after explaining CM role and obtaining verbal consent. Patient lives at home with his mother (Lillian) where he is independent with his care and plans to return there upon discharge. Patient is difficult to speak with he doesn't talk in sentences just a word at a time. CM called and spoke with patient's mother Lillian. Lillian stated that the patient lives with her CM discussed availability / needs of home health and medical equipment. Patient doesn't have any medical equipment or home health services. [facility] has been notified and has called wanting to speak to patient Agatha [phone] and fax records [phone]. CM will continue to follow and assist as needed with discharge planning / needs. Branch Operations Coordinator: Joanne Mckeon Appended by Joanne Mckeon on 03/15/2020 19:37 CDT: Salma is recommending inpatient psych when medically stable DCP- Discharge Planning Updated by [email or web address]: Joanne Mckeon on 03/13/20 4:[address] Patient resting when CM rounded. CM will come back later for d/c planning assessment. CM will continue to follow and assist as needed with discharge planning/ needs. DCPIA - Discharge Planning Initial Assessment Updated by [email or web address]: Joanne Mckeon on 03/15/20 7:17 pm * Is the patient Alert and Oriented? No * How many steps to enter\exit or inside your home? * PCP Clayton Byrd CNP * [facility] * Preadmission Environment Home with Family * ADLs Independent * Equipment None * List name and contact numbers for known caregivers / representatives who currently or will assist patient after discharge: Lillian Romero - mother - [phone] Aiyana Martinez - girlfriend - [phone] * Verbal permission to speak to the caregivers and representatives has been obtained from the patient. Yes * Community resources currently utilized None * Additional services required to return to the preadmission environment? No * Can the patient safely return to the preadmission environment? Yes * Has this patient been hospitalized within the prior 30 days at any hospital? No External Providers External Provider: [facility] Next Contact Date: Service Request Date: Service Type: Resolution: Reviewer: Comments: Last DP export: 03/16/20 1:27 p Patient Name: SMITA ROMERO Page 85104 at 1621 All edits/amendments must be made on the electronic document DICTATION DATE: 03/17/201619 CREDIT REVIEW MANAGER: DM 03/17/201619 RPT#: [id number] DC DATE: STATUS: ADM IN [facility] [address] [place] [address] END OF REPORT
--- NOTE | 2020-03-17 19:21 | NUR ---
REPORT RECEIVED AND ROUNDING COMPLETE. PATIENT LAYING IN BED, ALERT AND CONFUSED, UNSURE OF PLACE, TIME AND SITUATION. PATIENT HAS RECENT FALLS, BED ALARM IS ON AND FUNCTIONING CORRECTLY. PATIENT HAS A LEFT HAND WITH FLUIDS RUNNING, PIV SHOWS NO S/SX OF INFILRATION OR INFECTION. PATIENT HAS A WASHBURN CATH WITH SCAT AMOUNT OF URINE ON BAG. PATIENT IS ON ISO FOR BED BUGS AND NEEDS A BATH BUT REFUSES AT THIS TIME. PATIENT SHOWS NO S/SX OF DISTRESS, CALL LIGHT WITHIN REACH AND BED IN LOWEST LOCKED POSTITON.
--- NOTE | 2020-03-17 21:00 | NUR ---
PATIENT LAYING IN BED IN LOW FOWLERS, ABLE TO TAKE MEDS WHOLE WITH NO PROBLEMS. ASKED TO SIT ON BED TORRES BUT UNABLE TO HAVE A BOWLE MOVEMENT, PATIENT STATES HE WILL TRY AGAIN LATER. CALL LIGHT WITHIN REACHA BED IN LOWEST LOCKED POSITION WITH BED ALARM ON.
--- NOTE | 2020-03-17 23:10 | NUR ---
ASSISTED PATIENT TO BSC, PATIENT UNABLE TO HAVE A BOWEL MOVEMENT. WHILE ALEXIAT WAS OUT OF BED I DID A COMPLETE BED CHANGE AND GAVE AMANTENT A COMPLETE BATH AND CHANGED GOWN AND CLEAN SOCKS. ASSISTED PATIENT BACK TO BED. NO DISTRESS NOTED AT THIS TIME. CALL LIGHT WITHIN REACH AND BED IN LOWEST LOCKED POSITION.
--- NOTE | 2020-03-18 00:54 | NUR ---
PATIENT LAYING IN BED EYES CLOSED, BREATHING EVEN AND UNLABORED, NO DISTRESS NOTED. BED IN LOWEST LOCKED POSITION. CALL LIGHT WIHTIN REACH AND BED IN LOWEST LOCKED POSITION.
[2020-03-18 03:15] VITALS: BP 125/69
--- NOTE | 2020-03-18 03:30 | NUR ---
RESUMED CARE OF PT PT RESTING QUIETLY VSS CPOC WILL MONITOR
[2020-03-18 03:40] LABS: BASOPHILS 0.2 % (0-2); HEMATOCRIT 42.5 % (42.0-54.0); HEMOGLOBIN 14.9 g/dL (13.5-17.5); IMMATURE GRANULOCYTES 0.1 % (0-5); LYMPHOCYTES 25.2 % (15-50); MCH 32.2 pg (26.0-34.0); MCHC 35.1 g/dL (31.0-37.0); MCV 91.8 fL (80.0-100.0); MEAN PLATELET VOLUME 9.7 fL (7.4-10.4); MONOCYTES 9.2 % (2-11); NEUTROPHILS 63.3 % (40-80); PLATELET COUNT 288 10x3/uL (130-400); RBC 4.63 10x6/uL (4.20-6.10); RDW 12.6 % (11.5-14.5); WBC 9.4 10x3/uL (4.8-10.8)
[2020-03-18 03:55] LABS: CALC OSMOLALITY 281 mosm/kg (275-300); CALCIUM 8.7 mg/dL (8.5-10.1); CARBON DIOXIDE 29.2 mmol/L (21.0-32.0); CHLORIDE - SERUM 105 mmol/L (98-107); CREATININE - SERUM 0.9 mg/dL (0.6-1.3); GLUCOSE 103 mg/dL (74-106); POTASSIUM - SERUM 3.7 mmol/L (3.5-5.1); SODIUM 140 mmol/L (136-145); eGFR NON AFRICAN AMERICAN > 90 mL/min (90-120)
[2020-03-18 03:59] LABS: UREA NITROGEN 21 mg/dL (7-18)
--- NOTE | 2020-03-18 04:36 | NUR ---
HERNAN NURSE WITH [facility] CALLING UPDATE GIVEN
--- NOTE | 2020-03-18 05:02 | NUR ---
HERNAN NURSE AT [facility] [place] CALLED BACK PT HAS BEEN DENIED PLACEMENT
[2020-03-18 07:00] VITALS: BP 127/79
--- NOTE | 2020-03-18 08:00 | NUR ---
AWAKE, TIRES TO TALK DIFFICULTY UNDERSTANDING SPEECH. KEEPS ASKING NURSE PERSONAL QUESTIONS. SKIN WARM AND DRY. IV LEFT HAND WITHOUT REDNESS OR SWELLING. MONITOR ATRIAL FIB FLUTTER. IRREGULAR. WASHBURN CATH PATENT DRAINING CLEAR YOLIE URINE. BREAKFAST TRAY SERVED
--- NOTE | 2020-03-18 10:00 | NUR ---
ATE WELL FOR BREAKFAST. FEEDS SELF. PO MEDS TAKEN WITHOUT DIFFICULTY. IV RETAPED. CONTINUES TO ASK THE SAME QUESTIONS REPEATLY. NO DISTRESS
[2020-03-18 10:55] VITALS: BP 101/76
--- NOTE | 2020-03-18 11:13 | NUR ---
STANDING AT BEDSIDE. REINFORECED NOT TO GET UP WITHOUT NURSE. REINSTRUCTED ON USING NURSE CALL LIGHT. MILK PROVIDED
--- NOTE | 2020-03-18 13:00 | NUR ---
CALLED TRANSFER CENTER REGARDING PLACEMENT IN PSYCH PLACEMENT, STATES THAT PATIENT HAS BEEN DECLINE BY 9 DIFFERENT FACILITIES AND THEY PROBABLY HAVE EXALTED THEIR RESOURCES. DR. DAN HERE NOTIFIED. ORDERS RECEIVED FOR REHAB CONSULT
--- NOTE | 2020-03-18 14:13 | MORECARE ---
CASE MANAGEMENT DISCHARGE SUMMARY PATIENT: SMITA ROMERO UNIT: [id number] ADM DATE: 03/12/20 AGE: 44 : [birth year] SEX: M ROOM/BED: D.2304 AUTHOR: LEODAN,DOC PHYSICIAN: REFERRING PHYSICIAN: LUIS ALBERTO CUELLO MD DATE OF SERVICE: 03/18/20 Discharge Plan Patient Name: SMITA ROMERO [facility] [facility] 1975 Planned Disposition: Psych facility Anticipated Discharge Date: Discharge Date: Expected LOS: Initial Reviewer: [id number] Initial Review Date: 03/12/2020 Generated: 03/18/20 3:13 pm DCP- Discharge Planning Updated by [email or web address]: Joselin Parker on 03/16/20 1:[address] Patient Name: SMITA ROMERO Admission Status: ER Accout number: [id number] Admission Date: 03-12-2020 : 1975 Admission Diagnosis:METABOLIC ENCEPHALOPATHY Attending: LUIS ALBERTO CUELLO Current LOS: 4 Anticipated DC Date: Planned Disposition: Psych facility Primary Insurance: [facility] MEDICARE SOLUTIONS Discharge Planning Comments: I SPOKE WITH CASIMIRO AT [facility] AND THEY HAVE DECLINCED PATIENT FOR ADMISSION. I CALLED OUR TRANSFER CENTER AND THEY ARE NOW WORKIN ON FINDING PLACEMENT. I CALLED CHANEL HANNA AND LET HER KNOW. Sewing Machines Salesperson: Joselin Parker DCP- Discharge Planning Updated by [email or web address]: Joselin Parker on 03/16/20 11:[address] Patient Name: SMITA ROMERO Admission Status: ER Accout number: [id number] Admission Date: 03-12-2020 : 1975 Admission Diagnosis:METABOLIC ENCEPHALOPATHY Attending: LUIS ALBERTO CUELLO Current LOS: 4 Anticipated DC Date: Planned Disposition: Psych facility Primary Insurance: [facility] MEDICARE SOLUTIONS Discharge Planning Comments: REFERRAL FAXED TO [facility] AT FAX [phone], I SPOKE WITH CASIMIRO AT [phone] WITH [facility] ADMIT. WAITING STAFF PHYSICAL THERAPIST BACK TO SEE IF THEY ARE GOING TO ACCEPT PATIENT. Sewing Machines Salesperson: Joselin Parker DCP- Discharge Planning Updated by [email or web address]: Joanne Mckeon on 03/15/20 6:[address] Patient Name: SMITA ROMERO Admission Status: ER Accout number: [id number] Admission Date: 03-12-2020 : 1975 Admission Diagnosis:METABOLIC ENCEPHALOPATHY Attending: LUIS ALBERTO CUELLO Current LOS: 3 Anticipated DC Date: Planned Disposition: Psych facility Primary Insurance: [facility] MEDICARE SOLUTIONS Discharge Planning Comments: CM met with patient at bedside after explaining CM role and obtaining verbal consent. Patient lives at home with his mother (Lillian) where he is independent with his care and plans to return there upon discharge. Patient is difficult to speak with he doesn't talk in sentences just a word at a time. CM called and spoke with patient's mother Lillian. Lillian stated that the patient lives with her CM discussed availability / needs of home health and medical equipment. Patient doesn't have any medical equipment or home health services. [facility] has been notified and has called wanting to speak to patient Agatha [phone] and fax records [phone]. CM will continue to follow and assist as needed with discharge planning / needs. Sewing Machines Salesperson: Joanne Mckeon Appended by Joanne Mckeon on 03/15/2020 19:37 CDT: Salma is recommending inpatient psych when medically stable DCP- Discharge Planning Updated by [email or web address]: Joanne Mckeon on 03/13/20 4:[address] Patient resting when CM rounded. CM will come back later for d/c planning assessment. CM will continue to follow and assist as needed with discharge planning/ needs. DCPIA - Discharge Planning Initial Assessment Updated by [id number]: Joanne Mckeon on 03/15/20 7:17 pm * Is the patient Alert and Oriented? No * How many steps to enter\exit or inside your home? * PCP Clayton Byrd CNP * [facility] * Preadmission Environment Home with Family * ADLs Independent * Equipment None * List name and contact numbers for known caregivers / representatives who currently or will assist patient after discharge: Lillian Romero - mother - [phone] Aiyana Martinez - girlfriend - [phone] * Verbal permission to speak to the caregivers and representatives has been obtained from the patient. Yes * Community resources currently utilized None * Additional services required to return to the preadmission environment? No * Can the patient safely return to the preadmission environment? Yes * Has this patient been hospitalized within the prior 30 days at any hospital? No Last DP export: 03/17/20 3:21 p Patient Name: SMITA ROMERO Page 73474 at 1413 All edits/amendments must be made on the electronic document DICTATION DATE: 03/18/201412 INSPECTOR OUTSIDE PRODUCTION: FADY 03/18/201412 RPT#: [id number] DC DATE: STATUS: ADM IN [facility] [address] [place] [address] END OF REPORT
[2020-03-18 15:00] VITALS: BP 102/75
--- NOTE | 2020-03-18 17:00 | NUR ---
DINNER TRAY SERVED ATE FEW BITES. THIS DIFFICULTY TO UNDERSTAND, SPEECH GARBLED. WASHBURN CATH PATENT. IV LEAKING. DC'D IV. WATCHING TV. PATIENT STILL SOME RESTLESSNESS AFTER ATIVAN.
[2020-03-18 19:00] VITALS: BP 114/83
--- NOTE | 2020-03-18 19:00 | NUR ---
PT AWAKE ALERT MILD ANXIOUS LEGS OVER BED RAILS REORIENTED AND INFORMED NOT TO GET UP WITH OUT ASSIST AND ASKED IF HE REMEMBERED FALLING AND HURTING EYE UNABLE TO UNDERSTAND SPEECH AND SOMETIMES PT NONVERBAL DOESNT ANSWER ANYTHING. PARTIAL LINEN CHANGE PT HAD FOOD ON SHEETS AND GOWN CM READING SR HAS TRANSFER ORDERS AWAITING PLACEMENT
--- NOTE | 2020-03-18 19:15 | NUR ---
PT HAS DROPPED TWO SODA CANS AND A CUP OF WATER IN FLOOR WITH BEDSIDE TABLE WITHIN REACH AGITATED BUT NOT AGGRESSIVE MEDICATED WITH PRN ATIVAN PO WILL MONITOR
[2020-03-18 20:00] VITALS: BP 126/91
--- NOTE | 2020-03-18 20:15 | NUR ---
BED ALARM SOUNDING PT LEGS OFF SIDE OF BED ASSISTED BACK IN BED AND INFORMED AGAIN ABOUT FALL RISK
[2020-03-19] VITALS (8 sets, daily range): BP systolic 101–129; BP diastolic 55–96
--- NOTE | 2020-03-19 01:00 | NUR ---
RESTING EYES CLOSED CPOC
--- NOTE | 2020-03-19 03:15 | NUR ---
LAV HERE FOR AM LABS
[2020-03-19 03:47] LABS: BASOPHILS 0.5 % (0-2); EOSINOPHILS 3.8 % (0-7); HEMOGLOBIN 15.6 g/dL (13.5-17.5); IMMATURE GRANULOCYTES 0.1 % (0-5); LYMPHOCYTES 37.9 % (15-50); MCH 31.9 pg (26.0-34.0); MCHC 34.7 g/dL (31.0-37.0); MEAN PLATELET VOLUME 9.9 fL (7.4-10.4); MONOCYTES 13.8 % (2-11); NEUTROPHILS 43.9 % (40-80); PLATELET COUNT 272 10x3/uL (130-400); RBC 4.89 10x6/uL (4.20-6.10); RDW 12.6 % (11.5-14.5); WBC 7.4 10x3/uL (4.8-10.8)
[2020-03-19 03:55] LABS: CALC OSMOLALITY 279 mosm/kg (275-300); CALCIUM 9.1 mg/dL (8.5-10.1); CARBON DIOXIDE 27.7 mmol/L (21.0-32.0); CHLORIDE - SERUM 103 mmol/L (98-107); CREATININE - SERUM 0.8 mg/dL (0.6-1.3); GLUCOSE 95 mg/dL (74-106); POTASSIUM - SERUM 3.6 mmol/L (3.5-5.1); SODIUM 139 mmol/L (136-145); UREA NITROGEN 17 mg/dL (7-18); eGFR NON AFRICAN AMERICAN > 90 mL/min (90-120)
--- NOTE | 2020-03-19 08:03 | NUR ---
AWAKE REORIENTATED TO TIME AND PLACE. WASHBURN CATH PATENT AND DRAINING CLEAR YELLOW URINE. HEAD OF BED ELEVATED 30 DEGREES. NO DISTRESS MONITOR SR. SPEECH STILL GARBLED. CAN UNDERSTAND SOME WORDS SPOKEN. DIET SERVED AND SET UP. LIKES ORANGE SLICE ON TRAY. DRINKS MILK DURING DAY. NO DISTRESS. WANTS TO GO HOME TODAY
--- NOTE | 2020-03-19 09:00 | NUR ---
PATIENT ALL OVER BED, TAKING EVERYTHING APART, TRYING TO GET OU OF BED. PO MEDS TAKEN, HAS TO BE WATCHES TO TRYING TO SET OF BED. APPLE SAUCES GIVEN TO HELP PATIENT SWALLOW PILLS. SPEECH STILL GARBLED.
--- NOTE | 2020-03-19 12:00 | NUR ---
UP ON BSC WITH ASSISTANCES OF 2 NURSES. PATIENT COULD NOT STAND OR AMBULATE. TOTAL SUPPORT TO GET UP OUT OF BED. WU BOWER DC'Aneta. URINAL AT BEDSIDE. ATE FEW BITES OF CHIPS, CHICKEN SALAD FOR LUNCH. DRINKS PLENTY OF MILK.
--- NOTE | 2020-03-19 15:00 | NUR ---
RESTING COMFORTABLY RIGHT NOW
--- NOTE | 2020-03-19 16:30 | NUR ---
DINNER TRAY SERVED EATING HAMBURGER.
--- NOTE | 2020-03-19 17:24 | NUR ---
RESTING COMFORTABLY RIGHT NOW. HAS TRIED TO GET UP OUT OF BED SEVERAL TIMES. FAIRLY COOPERATIVE TO RETURN. PHYSICAL THERAPY HERE STATES AMBULATION PROBLEM IS COGNITIVE NOT HIS STRENGTH.
--- NOTE | 2020-03-19 18:00 | NUR ---
incont of urine. pull up applied. clean linen to bed
[2020-03-20 03:00] VITALS: BP 116/72
--- NOTE | 2020-03-20 03:00 | NUR ---
PT RESTING QUIETLY WITH EYES CLOSED CPOC
[2020-03-20 03:49] LABS: BASOPHILS 0.3 % (0-2); EOSINOPHILS 3.3 % (0-7); HEMATOCRIT 45.4 % (42.0-54.0); HEMOGLOBIN 15.6 g/dL (13.5-17.5); IMMATURE GRANULOCYTES 0.3 % (0-5); LYMPHOCYTES 28.5 % (15-50); MCH 31.5 pg (26.0-34.0); MCHC 34.4 g/dL (31.0-37.0); MCV 91.5 fL (80.0-100.0); MEAN PLATELET VOLUME 9.9 fL (7.4-10.4); MONOCYTES 11.3 % (2-11); NEUTROPHILS 56.3 % (40-80); PLATELET COUNT 298 10x3/uL (130-400); RBC 4.96 10x6/uL (4.20-6.10); RDW 12.6 % (11.5-14.5); WBC 6.6 10x3/uL (4.8-10.8)
[2020-03-20 04:02] LABS: CALC OSMOLALITY 279 mosm/kg (275-300); CALCIUM 9.4 mg/dL (8.5-10.1); CARBON DIOXIDE 28.7 mmol/L (21.0-32.0); CHLORIDE - SERUM 103 mmol/L (98-107); CREATININE - SERUM 0.8 mg/dL (0.6-1.3); GLUCOSE 97 mg/dL (74-106); POTASSIUM - SERUM 3.8 mmol/L (3.5-5.1); SODIUM 139 mmol/L (136-145); UREA NITROGEN 18 mg/dL (7-18); eGFR NON AFRICAN AMERICAN > 90 mL/min (90-120)
[2020-03-20 05:00] VITALS: BP 129/91
--- NOTE | 2020-03-20 05:30 | NUR ---
COMPLETE LINEN CHANGE INCONTINENT OF URINE
[2020-03-20 07:00] VITALS: BP 124/77
--- NOTE | 2020-03-20 07:00 | NUR ---
PT REPORT RECEIVED FROM IN SERVICE EDUCATOR NURSE. NO ACUTE SIGNS OF DISTRESS NOTED. SHIFT ASSESSMENT COMPLETED. WILL CONTINUE TO MONITOR
[2020-03-20 08:26] VITALS: BP 129/91
--- NOTE | 2020-03-20 08:57 | NUR ---
Nutrition follow-up: Diet: Regular PO intake ~50% average of meals Labs reviewed Wt: 180# Will continue to prvide food choices and honor food preferences RDN following.
--- NOTE | 2020-03-20 09:10 | NUR ---
PT TRIED GETTING UP OUT OF BED. BED ALARM WENT OFF. PT REORIENTED AND BACK IN BED. WILL CONTINUE TO MONITOR
--- NOTE | 2020-03-20 10:39 | NUR ---
PT INCONTINENT. CLEANED UP AND GIVEN CHG BATH. NEW BRIEF PLACED ON PT. WILL CONTINUE TO MONITOR
[2020-03-20 11:00] VITALS: BP 106/86
--- NOTE | 2020-03-20 12:00 | NUR ---
PT RESTING IN BED. NO COMPLAINTS NOTED AT THIS TIME. PHYSICAL THERAPY IN ROOM.
--- NOTE | 2020-03-20 12:04 | PN ---
PATIENT:SMITA ROMERO MEDICAL RECORD: [id number] LOCATION:[facility] ADMISSION DATE: 03/12/20 PROGRESS NOTE DATE OF SERVICE: 03/16/2020 SUBJECTIVE: The patient's case was discussed with staff. He has no new complaint. OBJECTIVE: The patient is paranoid and delusional. He has a history of chronic mental illness. ASSESSMENT: Schizophrenia. PLAN: The patient is in need of inpatient psychiatric care. His prognosis is somewhat guarded. TRANSINT:[id number] Voice Confirmation ID: [id number] DOCUMENT ID: [id number] ALBINA ROSS MD at 1204 CC: [id number] DICTATION DATE: 03/16/20 1556 [facility] ATTENDANT: 03/16/20 1752 ADM IN [place] [address] [place] [address]
--- NOTE | 2020-03-20 13:20 | NUR ---
PT RESTING IN BED. AROUSES EASILY. WILL CONTINUE TO MONITOR
--- NOTE | 2020-03-20 13:24 | NUR ---
OT NOTE: ATTEMPTED EVAL TODAY, HOWEVER, PT EXTREMELY LETHARGIC. DID NOT AROUSE TO NAME , SHAKING , OR STERNAL RUB.. WILL ATTEMPT AGIAN LATER. TYLER PUGA, OTR/L
[2020-03-20 15:00] VITALS: BP 101/62
--- NOTE | 2020-03-20 15:00 | NUR ---
PT RESTING IN BED. VITAL SIGNS OBTAINED. WILL CONTINUE TO MONITOR
--- NOTE | 2020-03-20 16:14 | MORECARE ---
CASE MANAGEMENT DISCHARGE SUMMARY PATIENT: SMITA ROMERO UNIT: [id number] ADM DATE: 03/12/20 AGE: 44 : [birth year] SEX: M ROOM/BED: D.2304 AUTHOR: LEODAN,DOC PHYSICIAN: REFERRING PHYSICIAN: LUIS ALBERTO CUELLO MD DATE OF SERVICE: 03/20/20 Discharge Plan Patient Name: SMITA ROMERO Facility: [facility]:[place] : 1975 Planned Disposition: Psych facility Anticipated Discharge Date: Discharge Date: Expected LOS: Initial Reviewer: [id number] Initial Review Date: 03/12/2020 Generated: 03/20/20 5:13 pm Comments DCP- Discharge Planning Updated by [email or web address]: Joanne Mckeon on 03/20/20 3:[address] LATE ENTRY 03/18/20 FAXED UPDATED PACKET TO TRANSFER CENTER FOR PLACEMENT TO [facility]. DCP- Discharge Planning Updated by [email or web address]: Joselin Parker on 03/16/20 1:[address] Patient Name: SMITA ROMERO Admission Status: ER Accout number: [id number] Admission Date: 03-12-2020 : 1975 Admission Diagnosis:METABOLIC ENCEPHALOPATHY Attending: LUIS ALBERTO CUELLO Current LOS: 4 Anticipated DC Date: Planned Disposition: Psych facility Primary Insurance: [facility] MEDICARE SOLUTIONS Discharge Planning Comments: I SPOKE WITH CASIMIRO AT [facility] AND THEY HAVE DECLINCED PATIENT FOR ADMISSION. I CALLED OUR TRANSFER CENTER AND THEY ARE NOW WORKIN ON FINDING PLACEMENT. I CALLED CHANEL HANNA AND LET HER KNOW. Financial Services Internship: Joselin Parker DCP- Discharge Planning Updated by [email or web address]: Joselin Parker on 03/16/20 11:[address] Patient Name: SMITA ROMERO Admission Status: ER Accout number: [id number] Admission Date: 03-12-2020 : 1975 Admission Diagnosis:METABOLIC ENCEPHALOPATHY Attending: LUIS ALBERTO CUELLO Current LOS: 4 Anticipated DC Date: Planned Disposition: Psych facility Primary Insurance: [facility] MEDICARE SOLUTIONS Discharge Planning Comments: REFERRAL FAXED TO [facility] AT FAX [phone], I SPOKE WITH CASIMIRO AT [phone] WITH [facility] ADMIT. WAITING CUT AND PRINT MACHINE OPERATOR BACK TO SEE IF THEY ARE GOING TO ACCEPT PATIENT. Financial Services Internship: Joselin Parker DCP- Discharge Planning Updated by [email or web address]: Joanne Mckeon on 03/15/20 6:[address] Patient Name: SMITA ROMERO Admission Status: ER Accout number: [id number] Admission Date: 03-12-2020 : 1975 Admission Diagnosis:METABOLIC ENCEPHALOPATHY Attending: LUIS ALBERTO CUELLO Current LOS: 3 Anticipated DC Date: Planned Disposition: Psych facility Primary Insurance: [facility] MEDICARE SOLUTIONS Discharge Planning Comments: CM met with patient at bedside after explaining CM role and obtaining verbal consent. Patient lives at home with his mother (Lillian) where he is independent with his care and plans to return there upon discharge. Patient is difficult to speak with he doesn't talk in sentences just a word at a time. CM called and spoke with patient's mother Lillian. Lillian stated that the patient lives with her CM discussed availability / needs of home health and medical equipment. Patient doesn't have any medical equipment or home health services. [facility] has been notified and has called wanting to speak to patient Agatha [phone] and fax records [phone]. CM will continue to follow and assist as needed with discharge planning / needs. Financial Services Internship: Joanne Mckeon Appended by Joanne Mckeon on 03/15/2020 19:37 CDT: Salma is recommending inpatient psych when medically stable DCP- Discharge Planning Updated by [email or web address]: Joanne Mckeon on 03/13/20 4:[address] Patient resting when CM rounded. CM will come back later for d/c planning assessment. CM will continue to follow and assist as needed with discharge planning/ needs. DCPIA - Discharge Planning Initial Assessment Updated by [email or web address]: Joanne Mckeon on 03/15/20 7:17 pm * Is the patient Alert and Oriented? No * How many steps to enter\exit or inside your home? * PCP Clayton Byrd CNP * [facility] * Preadmission Environment Home with Family * ADLs Independent * Equipment None * List name and contact numbers for known caregivers / representatives who currently or will assist patient after discharge: Lillian Romero - mother - [phone] Aiyana Martinez - girlfriend - [phone] * Verbal permission to speak to the caregivers and representatives has been obtained from the patient. Yes * Community resources currently utilized None * Additional services required to return to the preadmission environment? No * Can the patient safely return to the preadmission environment? Yes * Has this patient been hospitalized within the prior 30 days at any hospital? No Last DP export: 03/18/20 1:13 p Patient Name: SMITA ROMERO Page [id number] at 1614 All edits/amendments must be made on the electronic document DICTATION DATE: 03/20/20 161 HR MANAGER: FADY 03/20/20 161 RPT#: [id number] DC DATE: STATUS: ADM IN [facility] [address] [place] [address] END OF REPORT
--- NOTE | 2020-03-20 17:00 | NUR ---
PT RESTING IN BED. DINNER TRAY PROVIDED. WILL CONTINUE TO MONTIOR
--- NOTE | 2020-03-20 19:30 | NUR ---
PT AWAKE, CONFUSED, PULLS OFF TELEMETRY AND B/P CUFF, ATTEMPTS TO CLIMB OUT OF BED FREQUENTLY, REDIRECTED PER STAFF, BED ALARM IN USE
[2020-03-21 03:48] LABS: BASOPHILS 0.2 % (0-2); EOSINOPHILS 3.4 % (0-7); HEMATOCRIT 45.8 % (42.0-54.0); HEMOGLOBIN 15.9 g/dL (13.5-17.5); IMMATURE GRANULOCYTES 0.2 % (0-5); LYMPHOCYTES 39.5 % (15-50); MCH 31.9 pg (26.0-34.0); MCHC 34.7 g/dL (31.0-37.0); MEAN PLATELET VOLUME 9.8 fL (7.4-10.4); NEUTROPHILS 44.7 % (40-80); PLATELET COUNT 320 10x3/uL (130-400); RBC 4.98 10x6/uL (4.20-6.10); RDW 12.5 % (11.5-14.5)
[2020-03-21 04:19] LABS: ALBUMIN 3.6 g/dL (3.4-5.0); ALKALINE PHOSPHATASE 56 U/L (30-120); ALT (SGPT) 26 U/L (10-68); BILIRUBIN - TOTAL 0.65 mg/dL (0.2-1.3); CALC OSMOLALITY 278 mosm/kg (275-300); CALCIUM 9.4 mg/dL (8.5-10.1); CARBON DIOXIDE 28.7 mmol/L (21.0-32.0); CHLORIDE - SERUM 102 mmol/L (98-107); CREATININE - SERUM 0.9 mg/dL (0.6-1.3); GLUCOSE 96 mg/dL (74-106); POTASSIUM - SERUM 3.8 mmol/L (3.5-5.1); PROTEIN - SERUM 7.4 g/dL (6.4-8.2); SODIUM 138 mmol/L (136-145); UREA NITROGEN 20 mg/dL (7-18); eGFR NON AFRICAN AMERICAN > 90 mL/min (90-120)
[2020-03-21 04:40] VITALS: BP 106/85
--- NOTE | 2020-03-21 08:52 | MORECARE ---
CASE MANAGEMENT DISCHARGE SUMMARY PATIENT: SMITA ROMERO UNIT: [id number] ADM DATE: 03/12/20 AGE: 44 : [birth year] SEX: M ROOM/BED: D.2304 AUTHOR: MARY ALCOCER PHYSICIAN: REFERRING PHYSICIAN: LUIS ALBERTO CUELLO MD DATE OF SERVICE: 03/21/20 Discharge Plan Patient Name: SMITA ROMERO Facility: [facility]:[place] : 1975 Planned Disposition: Psych facility Anticipated Discharge Date: 03/16/20 Discharge Date: Expected LOS: 4 Initial Reviewer: [email or web address] Initial Review Date: 03/12/2020 Generated: 03/21/20 9:52 am Comments DCP- Discharge Planning Updated by [email or web address]: Joanne Mckeon on 03/20/20 3:[address] LATE ENTRY 03/18/20 FAXED UPDATED PACKET TO TRANSFER CENTER FOR PLACEMENT TO [facility]. DCP- Discharge Planning Updated by [id number]: Joselin Parker on 03/16/20 1:[address] Patient Name: SMITA ROMERO Admission Status: ER Accout number: [id number] Admission Date: 03-12-2020 : 1975 Admission Diagnosis:METABOLIC ENCEPHALOPATHY Attending: LUIS ALBERTO CUELLO Current LOS: 4 Anticipated DC Date: Planned Disposition: Psych facility Primary Insurance: [facility] MEDICARE SOLUTIONS Discharge Planning Comments: I SPOKE WITH CASIMIRO AT [facility] AND THEY HAVE DECLINCED PATIENT FOR ADMISSION. I CALLED OUR TRANSFER CENTER AND THEY ARE NOW WORKIN ON FINDING PLACEMENT. I CALLED CHANEL HANNA AND LET HER KNOW. Reeling Machine Operator: Joselin Parker DCP- Discharge Planning Updated by [email or web address]: Joselin Parker on 03/16/20 11:[address] Patient Name: SMITA ROMERO Admission Status: ER Accout number: [id number] Admission Date: 03-12-2020 : 1975 Admission Diagnosis:METABOLIC ENCEPHALOPATHY Attending: LUIS ALBERTO CUELLO Current LOS: 4 Anticipated DC Date: Planned Disposition: Psych facility Primary Insurance: [facility] MEDICARE SOLUTIONS Discharge Planning Comments: REFERRAL FAXED TO [facility] AT FAX [phone], I SPOKE WITH CASIMIRO AT [phone] WITH [facility] ADMIT. WAITING URBAN REDEVELOPMENT SPECIALIST BACK TO SEE IF THEY ARE GOING TO ACCEPT PATIENT. Reeling Machine Operator: Joselin Parker DCP- Discharge Planning Updated by [email or web address]: Joanne Mckeon on 03/15/20 6:[address] Patient Name: SMITA ROMERO Admission Status: ER Accout number: [id number] Admission Date: 03-12-2020 : 1975 Admission Diagnosis:METABOLIC ENCEPHALOPATHY Attending: LUIS ALBERTO CUELLO Current LOS: 3 Anticipated DC Date: Planned Disposition: Psych facility Primary Insurance: [facility] MEDIC[employer] SOLUTIONS Discharge Planning Comments: CM met with patient at bedside after explaining CM role and obtaining verbal consent. Patient lives at home with his mother (Lillian) where he is independent with his care and plans to return there upon discharge. Patient is difficult to speak with he doesn't talk in sentences just a word at a time. CM called and spoke with patient's mother Lillian. Lillian stated that the patient lives with her CM discussed availability / needs of home health and medical equipment. Patient doesn't have any medical equipment or home health services. [facility] has been notified and has called wanting to speak to patient Agatha [phone] and fax records [phone]. CM will continue to follow and assist as needed with discharge planning / needs. Reeling Machine Operator: Joanne Mckeon Appended by Joanne Mckeon on 03/15/2020 19:37 CDT: Salma is recommending inpatient psych when medically stable DCP- Discharge Planning Updated by [email or web address]: Joanne Mckeon on 03/13/20 4:[address] Patient resting when CM rounded. CM will come back later for d/c planning assessment. CM will continue to follow and assist as needed with discharge planning/ needs. DCPIA - Discharge Planning Initial Assessment Updated by [email or web address]: Joanne Mckeon on 03/15/20 7:17 pm * Is the patient Alert and Oriented? No * How many steps to enter\exit or inside your home? * PCP Clayton Byrd CNP * [facility] * Preadmission Environment Home with Family * ADLs Independent * Equipment None * List name and contact numbers for known caregivers / representatives who currently or will assist patient after discharge: Lillian Romero - mother - [phone] Aiyana Martinez - girlfriend - [phone] * Verbal permission to speak to the caregivers and representatives has been obtained from the patient. Yes * Community resources currently utilized None * Additional services required to return to the preadmission environment? No * Can the patient safely return to the preadmission environment? Yes * Has this patient been hospitalized within the prior 30 days at any hospital? No Last DP export: 03/20/20 3:14 p Patient Name: SMITA ROMERO Page 33635 at 0852 All edits/amendments must be made on the electronic document DICTATION DATE: 03/21/20851 RECOVERY ADVOCATE: FADY 03/21/20851 RPT#: [id number] DC DATE: STATUS: ADM IN [facility] [address] [place] [address] END OF REPORT
--- NOTE | 2020-03-21 11:04 | NUR ---
0700 REPORT RECIEVED AND CARE ASSUMED OF PATIENT.. SEE SHIFT ASSESMENT FOR FINDINGS... 0800 BREAKFAST SERVED AND PT IS FEEDING SELF.. 0900 PHYSICAL THERAPY IN AND ASSISTED PATIENT TO CHAIR AT THE BEDSIDE.. 1000 CONTINUES OOB IN THE CHAIR..
--- NOTE | 2020-03-21 15:00 | PN ---
PATIENT:SMITA ROMERO MEDICAL RECORD: [id number] LOCATION:[facility].230 ADMISSION DATE: 03/12/20 PROGRESS NOTE DATE OF SERVICE: 03/20/2020 SUBJECTIVE: The patient's case was discussed with staff. He has no new complaint. OBJECTIVE: The patient is much better organized. He has limited insight about his situation, but no thoughts of self-harm and denies psychotic symptoms. ASSESSMENT: Schizophrenia. PLAN: The patient has improved over the past 4 days. I do not believe he currently needs inpatient psychiatric care and he may be transitioned out of the hospital when medically stable. He absolutely does need outpatient psychiatric care. He should be maintained on his current medications and should have a Depakote level checked within the next week or two at the most. TRANSINT:[id number] Voice Confirmation ID: [id number] DOCUMENT ID: [id number] ALBINA ROSS MD at 1500 CC: [id number] DICTATION DATE: 03/20/20 1447 HEAD ANIMAL TRAINER: 03/20/20 2201 ADM IN [facility] [address] [place] [address]
--- NOTE | 2020-03-21 15:08 | NUR ---
1130 LUNCH SERVED AND PT REMAINS IN CHAIR WITH ALARM ON .. FEEDING SELF.. 1200 ASSISTED TO THE BSC.. 1215 PT ASSISTED BACK TO BED .. 1330 SLEEPING AT THIS TIME.. 1500 MEDS GIVEN.. WITHOUT CHANGES IN STAUS.. PT WILL NOT LEAVE MONITORING EQUIPMENT ON ..
--- NOTE | 2020-03-21 16:50 | NUR ---
1630 PT BECOMING INCREASING RESTLESS.. NOT WANTING TO STAY IN CHAIR OR BED.. GEODON GIVEN IM 20MG
--- NOTE | 2020-03-21 17:18 | NUR ---
OT NOTE: PT COMPLETED BED MOB TASKS WITH MIN A. PT COMPLETED HAND HYGIENE WITH SETUP. [phone] THANK YOU,FRANCISCA TERAN
[2020-03-21 19:00] VITALS: BP 88/69
--- NOTE | 2020-03-21 19:30 | NUR ---
PT SLEEPING WITH NO DISTRESS NOTED, ASSESSMENT COMPLETED, VITALS STABLE
[2020-03-21 23:00] VITALS: BP 96/59
--- NOTE | 2020-03-21 23:00 | NUR ---
PT REMAINS ASLEEP WITH NO CHANGES, WILL CONT TO MONITOR
--- NOTE | 2020-03-22 02:15 | NUR ---
PT AROUSES EASILY MWITH NO C/O, RETURNS TO SLEEP QUICKLY
[2020-03-22 03:00] VITALS: BP 111/77
[2020-03-22 03:45] LABS: BASOPHILS 0.3 % (0-2); EOSINOPHILS 2.2 % (0-7); HEMATOCRIT 44.2 % (42.0-54.0); HEMOGLOBIN 15.1 g/dL (13.5-17.5); IMMATURE GRANULOCYTES 0.3 % (0-5); LYMPHOCYTES 29.2 % (15-50); MCH 31.7 pg (26.0-34.0); MCHC 34.2 g/dL (31.0-37.0); MCV 92.9 fL (80.0-100.0); MEAN PLATELET VOLUME 9.9 fL (7.4-10.4); MONOCYTES 14.7 % (2-11); NEUTROPHILS 53.3 % (40-80); PLATELET COUNT 302 10x3/uL (130-400); RBC 4.76 10x6/uL (4.20-6.10); RDW 12.6 % (11.5-14.5); WBC 7.4 10x3/uL (4.8-10.8)
[2020-03-22 03:58] LABS: ALBUMIN 3.5 g/dL (3.4-5.0); ALKALINE PHOSPHATASE 57 U/L (30-120); ALT (SGPT) 23 U/L (10-68); BILIRUBIN - TOTAL 0.58 mg/dL (0.2-1.3); CALC OSMOLALITY 281 mosm/kg (275-300); CALCIUM 9.2 mg/dL (8.5-10.1); CARBON DIOXIDE 28.4 mmol/L (21.0-32.0); CHLORIDE - SERUM 104 mmol/L (98-107); CREATININE - SERUM 0.9 mg/dL (0.6-1.3); GLUCOSE 96 mg/dL (74-106); POTASSIUM - SERUM 3.6 mmol/L (3.5-5.1); PROTEIN - SERUM 6.9 g/dL (6.4-8.2); SODIUM 140 mmol/L (136-145); UREA NITROGEN 22 mg/dL (7-18); eGFR NON AFRICAN AMERICAN > 90 mL/min (90-120)
[2020-03-22 07:00] VITALS: BP 123/95
--- NOTE | 2020-03-22 07:00 | NUR ---
REC'D REPORT AND RESUMED CARE, AAO VSS, DENIES PAIN, ASSESSMENT COMPLETED, CALL LIGHT IN US, SPEECH GARBLED/MUFFLED, CONTACT ISOLATION IN USE
--- NOTE | 2020-03-22 08:25 | MORECARE ---
CASE MANAGEMENT DISCHARGE SUMMARY PATIENT: SMITA ROMERO UNIT: [id number] ADM DATE: 03/12/20 AGE: 44 : [birth year] SEX: M ROOM/BED: D.2304 AUTHOR: LEODAN,DOC PHYSICIAN: REFERRING PHYSICIAN: LUIS ALBERTO CUELLO MD DATE OF SERVICE: 03/22/20 Discharge Plan Patient Name: SMITA ROMERO Facility: [facility]:[place] : 1975 Planned Disposition: Psych facility Anticipated Discharge Date: 03/16/20 Discharge Date: Expected LOS: 4 Initial Reviewer: [id number] Initial Review Date: 03/12/2020 Generated: 03/22/20 9:25 am Comments DCP- Discharge Planning Updated by [email or web address]: Lana Magdaleno on 03/22/20 7:[address] Per Willie with [facility], the patient has been declined by every Psych facility. [facility] was notified on 03/18 that no further placement was required. DCP- Discharge Planning Updated by [email or web address]: Joanne Mckeon on 03/20/20 3:[address] LATE ENTRY 03/18/20 FAXED UPDATED PACKET TO [facility]ER C[facility] FOR PLACEMENT TO PSYCH FACILITY. DCP- Discharge Planning Updated by [email or web address]: Joselin Parker on 03/16/20 1:[address] Patient Name: SMITA ROMERO Admission Status: ER Accout number: [id number] Admission Date: 03-12-2020 : 1975 Admission Diagnosis:METABOLIC ENCEPHALOPATHY Attending: LUIS ALBERTO CUELLO Current LOS: 4 Anticipated DC Date: Planned Disposition: Psych facility Primary Insurance: [facility] MEDICARE SOLUTIONS Discharge Planning Comments: I SPOKE WITH CASIMIRO GONZALEZ [facility] AND THEY HAVE DECLINCED PATIENT FOR ADMISSION. I CALLED OUR TRANSFER CENTER AND THEY ARE NOW WORKIN ON FINDING PLACEMENT. I CALLED CHANEL HANNA AND LET HER KNOW. Service Correspondent: Joselin Parker DCP- Discharge Planning Updated by [email or web address]: Joselin Parker on 03/16/20 11:[address] Patient Name: SMITA ROMERO Admission Status: ER Accout number: [id number] Admission Date: 03-12-2020 : 1975 Admission Diagnosis:METABOLIC ENCEPHALOPATHY Attending: LUIS ALBERTO CUELLO Current LOS: 4 Anticipated DC Date: Planned Disposition: Psych facility Primary Insurance: [facility] MEDICARE SOLUTIONS Discharge Planning Comments: REFERRAL FAXED TO [facility] AT FAX [phone], I SPOKE WITH CASIMIRO AT [phone] WITH [facility] ADMIT. WAITING ORIENTOR BACK TO SEE IF THEY ARE GOING TO ACCEPT PATIENT. Service Correspondent: Joselin Parker DCP- Discharge Planning Updated by [id number]: Joanne Mckeon on 03/15/20 6:[address] Patient Name: SMITA ROMERO Admission Status: ER Accout number: [id number] Admission Date: 03-12-2020 : 1975 Admission Diagnosis:METABOLIC ENCEPHALOPATHY Attending: LUIS ALBERTO CUELLO Current LOS: 3 Anticipated DC Date: Planned Disposition: Psych facility Primary Insurance: [facility] MEDICARE SOLUTIONS Discharge Planning Comments: CM met with patient at bedside after explaining CM role and obtaining verbal consent. Patient lives at home with his mother (Lillian) where he is independent with his care and plans to return there upon discharge. Patient is difficult to speak with he doesn't talk in sentences just a word at a time. CM called and spoke with patient's mother Lillian. Lillian stated that the patient lives with her CM discussed availability / needs of home health and medical equipment. Patient doesn't have any medical equipment or home health services. [facility] has been notified and has called wanting to speak to patient Agatha [phone] and fax records [phone]. CM will continue to follow and assist as needed with discharge planning / needs. Service Correspondent: Joanne Mckeon Appended by Joanne Mckeon on 03/15/2020 19:37 CDT: Salma is recommending inpatient psych when medically stable DCP- Discharge Planning Updated by [email or web address]: Joanne Mckeon on 03/13/20 4:[address] Patient resting when CM rounded. CM will come back later for d/c planning assessment. CM will continue to follow and assist as needed with discharge planning/ needs. DCPIA - Discharge Planning Initial Assessment Updated by [email or web address]: Joanne Mckeon on 03/15/20 7:17 pm * Is the patient Alert and Oriented? No * How many steps to enter\exit or inside your home? * PCP Clayton Byrd, FR[place]N * [facility] * Preadmission Environment Home with Family * ADLs Independent * Equipment None * List name and contact numbers for known caregivers / representatives who currently or will assist patient after discharge: Lillian Romero - mother - [phone] Aiyana Martinez - girlfriend - [phone] * Verbal permission to speak to the caregivers and representatives has been obtained from the patient. Yes * Community resources currently utilized None * Additional services required to return to the preadmission environment? No * Can the patient safely return to the preadmission environment? Yes * Has this patient been hospitalized within the prior 30 days at any hospital? No Last DP export: 03/21/20 7:52 a Patient Name: SMITA ROMERO Page 48258 at 0825 All edits/amendments must be made on the electronic document DICTATION DATE: 03/22/20824 FILM PROJECTOR OPERATOR: FADY 03/22/20824 RPT#: [id number] DC DATE: STATUS: ADM IN [facility] [address] [place] [address] END OF REPORT
--- NOTE | 2020-03-22 08:49 | NUR ---
Nutrition follow-up: Diet: Regular PO intake ~50-75% of meals Pt is very restless per nursing Labs reviewed Wt: 171# Will continue to provide food choices and honor all food preferences RDN following.
[2020-03-22 11:00] VITALS: BP 105/88
--- NOTE | 2020-03-22 13:15 | NUR ---
TRANSFER FROM BED, UP TO CHAIR, WITH STAND BY ASSIST, CHAIR ALARM IN PLACE, CALL LIGHT IN USE, UNSTEADY GAIT
--- NOTE | 2020-03-22 13:37 | NUR ---
PT TO BEDSIDE FOR EVAL AND TREATMENT, AMBULATED PATIENT AROUND ICU WITH STANDBY ASSIST X2, TOLERATED WITHOUT DIFFICULTY, BACK TO CHAIR, CHAIR ALARM MITZI ZAMBRANO PER REQUEST
[2020-03-22 15:00] VITALS: BP 119/81
--- NOTE | 2020-03-22 17:10 | NUR ---
OT NOTE: PT COMPLETED SIT TO STAND WITH CGA.PT COMPLETED ADL MOB WITH RW REQUIRED MIN A/CGA. PT COMPLETED UE AROM WITH FUNCTIONAL WALKER MANAGEMENT. PT COMPLETED FACE HYGIENE WITH SETUP. PT IS UNABLE TO MAINTAIN ATTENTION TO TASK WITH WALKER MANAGEMENT. PT REQUIRED CONSTANT CUES FOR HAND PLACEMENT FOR INCREASED SAFETY. PT EXHIBITED A LATERAL R LEAN WHEN NOT USING WALKER. [phone] THANK YOU,FRANCISCA TERAN
--- NOTE | 2020-03-22 18:17 | MORECARE ---
CASE MANAGEMENT DISCHARGE SUMMARY PATIENT: SMITA ROMERO UNIT: [id number] ADM DATE: 03/12/20 AGE: 44 : [birth year] SEX: M ROOM/BED: D.2304 AUTHOR: LEODAN,DOC PHYSICIAN: REFERRING PHYSICIAN: LUIS ALBERTO CUELLO MD DATE OF SERVICE: 03/22/20 Discharge Plan Patient Name: SMITA ROMERO Facility: [facility]:[place] : 1975 Planned Disposition: Psych facility Anticipated Discharge Date: 03/16/20 Discharge Date: Expected LOS: 4 Initial Reviewer: [email or web address] Initial Review Date: 03/12/2020 Generated: 03/22/20 7:17 pm Comments DCP- Discharge Planning Updated by [id number]: Joanne Mckeon on 03/22/20 5:[address] [facility] has approved that patient can have outpatient psych care and does no longer need inpatient placement. has called Agatha with [facility] and left message to call CM. If patient needs SNF placement then he will need JOSE before placement and we will need family to complete CHRIS. CM will continue to follow and assist as needed with discharge planning / needs. DCP- Discharge Planning Updated by [email or web address]: Lana Magdaleno on 03/22/20 7:[address] Per Willie with [facility], the patient has been declined by every Psych facility. Savita was notified on 03/18 that no further placement was required. DCP- Discharge Planning Updated by [id number]: Joanne Mckeon on 03/20/20 3:[address] LATE ENTRY 03/18/20 FAXED UPDATED PACKET TO [facility]ER [facility] FOR PLACEMENT TO PSYCH FACILITY. DCP- Discharge Planning Updated by [id number]: Joselin Parker on 03/16/20 1:[address] Patient Name: SMITA ROMERO Admission Status: ER Accout number: [id number] Admission Date: 03-12-2020 : 1975 Admission Diagnosis:METABOLIC ENCEPHALOPATHY Attending: LUIS ALBERTO CUELLO Current LOS: 4 Anticipated DC Date: Planned Disposition: Psych facility Primary Insurance: [facility] MEDICARE SOLUTIONS Discharge Planning Comments: I SPOKE WITH CASIMIRO GONZALEZ [facility] AND THEY HAVE DECLINCED PATIENT FOR ADMISSION. I CALLED OUR TRANSFER CENTER AND THEY ARE NOW WORKIN ON FINDING PLACEMENT. I CALLED [facility] AGATHA AND LET HER KNOW. Cash On Delivery Clerk: Joselin Parker DCP- Discharge Planning Updated by [email or web address]: Joselin Parker on 03/16/20 11:[address] Patient Name: SMITA ROMERO Admission Status: ER Accout number: [id number] Admission Date: 03-12-2020 : 1975 Admission Diagnosis:METABOLIC ENCEPHALOPATHY Attending: LUIS ALBERTO CUELLO Current LOS: 4 Anticipated DC Date: Planned Disposition: Psych facility Primary Insurance: [facility] MEDICARE SOLUTIONS Discharge Planning Comments: REFERRAL FAXED TO [facility] AT FAX [phone], I SPOKE WITH CASIMIRO AT [phone] WITH [facility] ADMIT. WAITING DIRECTOR OF FLIGHT OPERATIONS BACK TO SEE IF THEY ARE GOING TO ACCEPT PATIENT. Cash On Delivery Clerk: Joselin Parker DCP- Discharge Planning Updated by [email or web address]: Joanne Mckeon on 03/15/20 6:[address] Patient Name: SMITA ROMERO Admission Status: ER Accout number: [id number] Admission Date: 03-12-2020 : 1975 Admission Diagnosis:METABOLIC ENCEPHALOPATHY Attending: LUIS ALBERTO CUELLO Current LOS: 3 Anticipated DC Date: Planned Disposition: Psych facility Primary Insurance: [facility] MEDICARE SOLUTIONS Discharge Planning Comments: CM met with patient at bedside after explaining CM role and obtaining verbal consent. Patient lives at home with his mother (Lillian) where he is independent with his care and plans to return there upon discharge. Patient is difficult to speak with he doesn't talk in sentences just a word at a time. CM called and spoke with patient's mother Lillian. Lillian stated that the patient lives with her CM discussed availability / needs of home health and medical equipment. Patient doesn't have any medical equipment or home health services. [facility] has been notified and has called wanting to speak to patient Agatha [phone] and fax records [phone]. CM will continue to follow and assist as needed with discharge planning / needs. Cash On Delivery Clerk: Joanne Mckeon Appended by Joanne Mckeon on 03/15/2020 19:37 CDT: Salma is recommending inpatient psych when medically stable DCP- Discharge Planning Updated by [email or web address]: Joanne Mckeon on 03/13/20 4:[address] Patient resting when CM rounded. CM will come back later for d/c planning assessment. CM will continue to follow and assist as needed with discharge planning/ needs. DCPIA - Discharge Planning Initial Assessment Updated by [email or web address]: Joanne Mckeon on 03/15/20 7:17 pm * Is the patient Alert and Oriented? No * How many steps to enter\exit or inside your home? * PCP Clayton Byrd, FR[place]N * [facility] * Preadmission Environment Home with Family * ADLs Independent * Equipment None * List name and contact numbers for known caregivers / representatives who currently or will assist patient after discharge: Lillian Romero - mother - [phone] Aiyana Martinez - girlfriend - [phone] * Verbal permission to speak to the caregivers and representatives has been obtained from the patient. Yes * Community resources currently utilized None * Additional services required to return to the preadmission environment? No * Can the patient safely return to the preadmission environment? Yes * Has this patient been hospitalized within the prior 30 days at any hospital? No Last DP export: 03/22/20 7:25 a Patient Name: SMITA ROMERO Page 92222 at 1817 All edits/amendments must be made on the electronic document DICTATION DATE: 03/22/201816 NURSING UNIT MANAGER: FADY 03/22/201816 RPT#: [id number] DC DATE: STATUS: ADM IN [facility] [address] [place] [address] END OF REPORT
[2020-03-22 19:00] VITALS: BP 122/94
[2020-03-22 23:00] VITALS: BP 130/95
[2020-03-23 03:00] VITALS: BP 130/100
[2020-03-23 05:38] LABS: BASOPHILS 0.1 % (0-2); EOSINOPHILS 2.2 % (0-7); HEMATOCRIT 42.1 % (42.0-54.0); HEMOGLOBIN 14.3 g/dL (13.5-17.5); IMMATURE GRANULOCYTES 0.4 % (0-5); LYMPHOCYTES 30.3 % (15-50); MCH 31.8 pg (26.0-34.0); MCV 93.6 fL (80.0-100.0); MEAN PLATELET VOLUME 10.1 fL (7.4-10.4); MONOCYTES 10.8 % (2-11); NEUTROPHILS 56.2 % (40-80); PLATELET COUNT 273 10x3/uL (130-400); RDW 12.6 % (11.5-14.5); WBC 8.3 10x3/uL (4.8-10.8)
[2020-03-23 05:57] LABS: ALBUMIN 3.7 g/dL (3.4-5.0); ALKALINE PHOSPHATASE 51 U/L (30-120); ALT (SGPT) 28 U/L (10-68); CALC OSMOLALITY 278 mosm/kg (275-300); CALCIUM 9.6 mg/dL (8.5-10.1); CARBON DIOXIDE 30.4 mmol/L (21.0-32.0); CHLORIDE - SERUM 102 mmol/L (98-107); CREATININE - SERUM 0.8 mg/dL (0.6-1.3); GLUCOSE 95 mg/dL (74-106); PROTEIN - SERUM 7.3 g/dL (6.4-8.2); SODIUM 138 mmol/L (136-145); UREA NITROGEN 21 mg/dL (7-18); eGFR NON AFRICAN AMERICAN > 90 mL/min (90-120)
--- NOTE | 2020-03-23 06:30 | NUR ---
CHG BATH AND LINEN CHANGE PROVIDED.
[2020-03-23 07:00] VITALS: BP 130/95
--- NOTE | 2020-03-23 07:00 | NUR ---
REC'D REPORT AND RESUMED CARE, SLEEPING, AROUSES TO TACTILE STIMULI, LETHARGIC WITH GARBLED SPEECH, VSS, CALL LIGHT IN REACH, SELF REPOSITIONS, NO NEEDS AT THIS TIME
--- NOTE | 2020-03-23 10:00 | NUR ---
MORNING MEDS GIVEN, TOLERATED WITHOUT DIFFICULTY
[2020-03-23 11:00] VITALS: BP 125/90
--- NOTE | 2020-03-23 11:00 | NUR ---
SLEEPING WITH NO SIGNS OF DISTRESS, AROUSABLE TO TACTILE STIMULI
--- NOTE | 2020-03-23 14:39 | CN ---
PATIENT NAME:SMITA ROMERO MEDICAL RECORD: [id number] : [birth year] LOCATION:VLADD.2304 ADMIT DATE: 03/12/20 ACCOUNT: [id number] CONSULTING PHYSICIAN: ALBINA ROSS MD REFERRING PHYSICIAN: LUIS ALBERTO CUELLO MD DATE OF CONSULTATION: 03/22/2020 Psychiatry Consultation HOSPITAL COURSE: Mr. Romero was seen on 03/20/2020. At that time, I assessed him as having improved and no longer needing inpatient mental health care and requested that he be referred to outpatient mental health services when he is discharged. Today, I was reconsulted for the purpose of placement. If there was some other question that I needed to address other than the one that was addressed 2 days ago, I would be happy to do so, please contact me and clarify. TRANSINT:[id number] Voice Confirmation ID: [id number] DOCUMENT ID: [id number] ALBINA ROSS MD at 1439 CC: [id number] DICTATION DATE: 03/22/20 1731 AND RESCUE FIRE FIGHTER CRASH FIRE: 03/23/20 0304 ADM IN [facility] [address] [place] [address]
--- NOTE | 2020-03-23 14:46 | NUR ---
AWAKE AND EATING ELVI CRACKERS AND CHOCOLATE MILK, VSS, DENIES PAIN, NO OTHER NEEDS A THIS TIME
[2020-03-23 15:00] VITALS: BP 130/87
--- NOTE | 2020-03-23 19:05 | MORECARE ---
CASE MANAGEMENT DISCHARGE SUMMARY PATIENT: SMITA ROMERO UNIT: [id number] ADM DATE: 03/12/20 AGE: 44 : [birth year] SEX: M ROOM/BED: D.2304 AUTHOR: LEODAN,DOC PHYSICIAN: REFERRING PHYSICIAN: LUIS ALBERTO CUELLO MD DATE OF SERVICE: 03/23/20 Discharge Plan Patient Name: SMITA ROMERO Facility: [facility]:[place] : 1975 Planned Disposition: Psych facility Anticipated Discharge Date: 03/16/20 Discharge Date: Expected LOS: 4 Initial Reviewer: [email or web address] Initial Review Date: 03/12/2020 Generated: 03/23/20 8:05 pm Comments DCP- Discharge Planning Updated by [email or web address]: Joanne Mckeon on 03/23/20 6:[address] CM called and spoke with Agatha with [facility] [phone]. She stated that it sounds like the patient needs rehab before returning to the home. She stated that she needed to talk to the patient on the phone again but would call back later to speak to him. Agatha also stated that the patient's landlord Efren Luther [phone] was the patient's payee (CM asked to clarify meaning the landlord oversees patient's money) CM called and spoke with patient's mother Lillian Romero [phone] about rehab in SNF . CHRIS completed for no preference in SNF. CM has completed JOSE for placement awaiting physician signature to send in. CM will send referrals in am to SNF. CM will continue to follow and assist as needed with discharge planning / needs. DCP- Discharge Planning Updated by [id number]: Joanne Mckeon on 03/22/20 5:[address] Psych has approved that patient can have outpatient psych care and does no longer need inpatient placement. MARY has called Agatha with [facility] and left message to call CM. If patient needs SNF placement then he will need JOSE before placement and we will need family to complete CHRIS. CM will continue to follow and assist as needed with discharge planning / needs. DCP- Discharge Planning Updated by [id number]: Lana Magdaleno on 03/22/20 7:[address] Per Willie with [facility], the patient has been declined by every Psych facility. States [facility] was notified on 03/18 that no further placement was required. DCP- Discharge Planning Updated by [email or web address]: Joanne Mckeon on 03/20/20 3:[address] LATE ENTRY 03/18/20 FAXED UPDATED PACKET TO TRANSFER CENTER FOR PLACEMENT TO [facility]. DCP- Discharge Planning Updated by [email or web address]: Joselin Parker on 03/16/20 1:[address] Patient Name: SMITA ROMERO Admission Status: ER Accout number: [id number] Admission Date: 03-12-2020 : 1975 Admission Diagnosis:METABOLIC ENCEPHALOPATHY Attending: LUIS ALBERTO CUELLO Current LOS: 4 Anticipated DC Date: Planned Disposition: [facility] facility Primary Insurance: [facility] MEDICARE SOLUTIONS Discharge Planning Comments: I SPOKE WITH CASIMIRO AT [facility] AND THEY HAVE DECLINCED PATIENT FOR ADMISSION. I CALLED OUR TRANSFER CENTER AND THEY ARE NOW WORKIN ON FINDING PLACEMENT. I CALLED CHANEL HANNA AND LET HER KNOW. Paper Products Machine Operator: Joselin Parker DCP- Discharge Planning Updated by [id number]: Joselin Parker on 03/16/20 11:[address] Patient Name: SMITA ROMERO Admission Status: ER Accout number: [id number] Admission Date: 03-12-2020 : 1975 Admission Diagnosis:METABOLIC ENCEPHALOPATHY Attending: LUIS ALBERTO CUELLO Current LOS: 4 Anticipated DC Date: Planned Disposition: [facility] facility Primary Insurance: [facility] MEDICARE SOLUTIONS Discharge Planning Comments: REFERRAL FAXED TO [facility] AT FAX [phone], I SPOKE WITH CASIMIRO AT [phone] WITH [facility] ADMIT. WAITING AIR BRUSH ARTIST BACK TO SEE IF THEY ARE GOING TO ACCEPT PATIENT. Paper Products Machine Operator: Joselin Parker DCP- Discharge Planning Updated by [id number]: Joanne Mckeon on 03/15/20 6:[address] Patient Name: SMITA ROMERO Admission Status: ER Accout number: [id number] Admission Date: 03-12-2020 : 1975 Admission Diagnosis:METABOLIC ENCEPHALOPATHY Attending: LUIS ALBERTO CUELLO Current LOS: 3 Anticipated DC Date: Planned Disposition: [facility] facility Primary Insurance: [facility] MEDICARE SOLUTIONS Discharge Planning Comments: CM met with patient at bedside after explaining CM role and obtaining verbal consent. Patient lives at home with his mother (Lillian) where he is independent with his care and plans to return there upon discharge. Patient is difficult to speak with he doesn't talk in sentences just a word at a time. CM called and spoke with patient's mother Lillian. Lillian stated that the patient lives with her CM discussed availability / needs of home health and medical equipment. Patient doesn't have any medical equipment or home health services. [facility] has been notified and has called wanting to speak to patient Agatha [phone] and fax records [phone]. CM will continue to follow and assist as needed with discharge planning / needs. Paper Products Machine Operator: Joanne Mckeon Appended by Joanne Mckeon on 03/15/2020 19:37 CDT: Salma is recommending inpatient psych when medically stable DCP- Discharge Planning Updated by [id number]: Joanne Mckeon on 03/13/20 4:[address] Patient resting when CM rounded. CM will come back later for d/c planning assessment. CM will continue to follow and assist as needed with discharge planning/ needs. DCPIA - Discharge Planning Initial Assessment Updated by [email or web address]: Joanne Mckeon on 03/15/20 7:17 pm * Is the patient Alert and Oriented? No * How many steps to enter\exit or inside your home? * PCP Clayton Byrd CNP * [facility] * Preadmission Environment Home with Family * ADLs Independent * Equipment None * List name and contact numbers for known caregivers / representatives who currently or will assist patient after discharge: Lillian Romero - mother - [phone] Aiyana Martinez - girlfriend - [phone] * Verbal permission to speak to the caregivers and representatives has been obtained from the patient. Yes * Community resources currently utilized None * Additional services required to return to the preadmission environment? No * Can the patient safely return to the preadmission environment? Yes * Has this patient been hospitalized within the prior 30 days at any hospital? No Last DP export: 03/22/20 5:17 p Patient Name: SMITA ROMERO Page 07885 at 1905 All edits/amendments must be made on the electronic document DICTATION DATE: 03/23/201904 LAUNDRY HELPER: FADY 03/23/201904 RPT#: [id number] DC DATE: STATUS: ADM IN [facility] [address] [place] [address] END OF REPORT
--- NOTE | 2020-03-23 19:39 | NUR ---
finished getting report and rounded on pt removed silver lira from bed and assessed pt was able to comunicate that he was comfortable and did not have any needs at this time bed low and locked sr x3
--- NOTE | 2020-03-23 20:08 | NUR ---
PT UP TO BEDSIDE NO ALARM WENT OFF ASSISTED PT BACK TO BED AND INSURED ALARM IS WORKING PROPERLY CHANGED BEDDING AND GOWN AT THIS TIME PT AQUIREDE NO INJURY BED ALARM IS FUNCTIONING NOW AND IN ON POSITION
[2020-03-23 20:20] VITALS: BP 85/61
--- NOTE | 2020-03-23 20:49 | NUR ---
RECHECK BP 109/73
--- NOTE | 2020-03-23 21:57 | NUR ---
PT IS RESTLESS IM UNABLE TO UNDERSTAND SPEACH MOST TIMES DID ASSERTAIN ONCE "HOW IS YOUR " I ASKED PT DO YOU KNOW ME...HIS RESPONSE WAS NOT UNDERSTOOD ASSISTED WITH COMFORT AND WATER
[2020-03-23 22:36] VITALS: BP 108/72
--- NOTE | 2020-03-23 22:38 | NUR ---
CONTINUES TO BE RESTLESS AND I CAN NOT UNDERSTAND HIS SPEACH CARISSA EXPLAINED TO PT TO REST AT THIS TIME
--- NOTE | 2020-03-23 22:46 | NUR ---
ASSISTED PT UP TO BED SIDE AND WITH URINAL
--- NOTE | 2020-03-23 23:18 | NUR ---
PT EXTREMELY RESTLESS AND DISCONECTING LINES PT RESPONDED YES TO WOULD YOU LIKE SOMETHING TO RELAX GEODON IM GIVEN
--- NOTE | 2020-03-23 23:52 | NUR ---
CONTINUES TO BE RESTLESS CLEANED PT KNOW INCONTINANT OF URINE FULL BED CHANGE UP TO CHAIR DURING PROCESS PTSS GAIT IS VERY UNSTEADY WITH OBVIOUS BALANCE ISSUES BACK TO BED WITH OUT INCIDENT
[2020-03-24] VITALS (11 sets, daily range): BP systolic 83–125; BP diastolic 53–85
--- NOTE | 2020-03-24 00:22 | NUR ---
RESTING NOW WITH EYES CLOSED
--- NOTE | 2020-03-24 01:01 | NUR ---
RESTING VERY QUIETLY WITH EYES CLOSED RESP DOWN TO 17 93% ON ROOM AIR BED LOW AND LOCKED WITH BED ALARM ON
--- NOTE | 2020-03-24 02:06 | NUR ---
CONINUES TO REST BP DOWN SOME BUT RESP ARE WNL SPO2 95% BED LOW AND LOCKED
--- NOTE | 2020-03-24 02:39 | NUR ---
I have reviewed this patient and I concur with the Shift Assessment completed by the Licensed Practical Nurse today this shift.
--- NOTE | 2020-03-24 03:04 | NUR ---
CONT TO BE SEDATED FROM GEODON BUT VS STABLE
[2020-03-24 04:15] LABS: ALBUMIN 3.3 g/dL (3.4-5.0); ALKALINE PHOSPHATASE 48 U/L (30-120); ALT (SGPT) 26 U/L (10-68); BILIRUBIN - TOTAL 0.39 mg/dL (0.2-1.3); CALC OSMOLALITY 280 mosm/kg (275-300); CALCIUM 9.1 mg/dL (8.5-10.1); CHLORIDE - SERUM 104 mmol/L (98-107); CREATININE - SERUM 1.1 mg/dL (0.6-1.3); GLUCOSE 105 mg/dL (74-106); POTASSIUM - SERUM 4.1 mmol/L (3.5-5.1); PROTEIN - SERUM 6.6 g/dL (6.4-8.2); SODIUM 139 mmol/L (136-145); UREA NITROGEN 21 mg/dL (7-18); eGFR NON AFRICAN AMERICAN 77 mL/min (90-120)
[2020-03-24 04:24] LABS: BASOPHILS 0.1 % (0-2); EOSINOPHILS 2.3 % (0-7); HEMOGLOBIN 13.7 g/dL (13.5-17.5); IMMATURE GRANULOCYTES 0.3 % (0-5); LYMPHOCYTES 32.5 % (15-50); MCH 31.8 pg (26.0-34.0); MCHC 33.4 g/dL (31.0-37.0); MCV 95.1 fL (80.0-100.0); MEAN PLATELET VOLUME 10.4 fL (7.4-10.4); MONOCYTES 11.6 % (2-11); NEUTROPHILS 53.2 % (40-80); PLATELET COUNT 287 10x3/uL (130-400); RBC 4.31 10x6/uL (4.20-6.10); RDW 12.5 % (11.5-14.5); WBC 7.9 10x3/uL (4.8-10.8)
--- NOTE | 2020-03-24 05:13 | NUR ---
PT IS STIRING SOME AT THIS TIME BUT REMAINS SEDATED VS WNL
--- NOTE | 2020-03-24 05:36 | NUR ---
PT AROUSES ENOUGH TO WAVE AT ME FROM BED
--- NOTE | 2020-03-24 06:23 | NUR ---
PT IS AWAKE AND ALERT MILK PER PT REQUEST GIVEN
--- NOTE | 2020-03-24 07:00 | NUR ---
REC'D REPORT AND RESUMED CARE, SITTING UP BED RESTING QUIETLY, VSS, DENIES PAIN, ASSESSMENT COMPLETE PER FLOWSHEET, NO ACUTE CHANGE FROM PREVIOUS
--- NOTE | 2020-03-24 07:13 | NUR ---
PT BATHED AND CLEANED OF STOOL
--- NOTE | 2020-03-24 07:45 | NUR ---
BREAKFAST TRAY TO BEDSIDE, ASSIST WITH SET UP, INDEPENDENT WITH EATING
--- NOTE | 2020-03-24 09:45 | NUR ---
Nutrition follow-up: Pt receiving a regular diet; awake waiting on breakfast. Pt weas aggitated last night per nursing. RDN did not visit. Labs reviewed PO intake of regular diet ~75% average of most meals Wt: 171# RDN following.
--- NOTE | 2020-03-24 11:36 | NUR ---
MORNING MEDS GIVEN PER DEC FLOWSHEET
--- NOTE | 2020-03-24 11:58 | MORECARE ---
CASE MANAGEMENT DISCHARGE SUMMARY PATIENT: SMITA ROMERO UNIT: [id number] ADM DATE: 03/12/20 AGE: 44 : 73 SEX: M ROOM/BED: D.2304 AUTHOR: LEODAN,DOC PHYSICIAN: REFERRING PHYSICIAN: LUIS ALBERTO CUELLO MD DATE OF SERVICE: 03/24/20 Discharge Plan Patient Name: SMITA ROMERO Facility: [facility]:[place] : 1975 Planned Disposition: Psych facility Anticipated Discharge Date: 03/16/20 Discharge Date: Expected LOS: 4 Initial Reviewer: [email or web address] Initial Review Date: 03/12/2020 Generated: 03/24/20 12:58 pm Comments DCP- Discharge Planning Updated by [id number]: Joanne Mckeon on 03/23/20 6:[address] CM called and spoke with Agatha with APS [phone]. She stated that it sounds like the patient needs rehab before returning to the home. She stated that she needed to talk to the patient on the phone again but would call back later to speak to him. Agatha also stated that the patient's landlord Efren Luther [phone] was the patient's payee (CM asked to clarify meaning the landlord oversees patient's money) CM called and spoke with patient's mother Lillian Romero [phone] about rehab in SNF . CHRIS completed for no preference in SNF. CM has completed JOSE for placement awaiting physician signature to send in. CM will send referrals in am to SNF. CM will continue to follow and assist as needed with discharge planning / needs. DCP- Discharge Planning Updated by [email or web address]: Joanne Mckeon on 03/22/20 5:[address] Psych has approved that patient can have outpatient psych care and does no longer need inpatient placement. MARY has called Agatha with APS and left message to call CM. If patient needs SNF placement then he will need JOSE before placement and we will need family to complete CHRIS. CM will continue to follow and assist as needed with discharge planning / needs. DCP- Discharge Planning Updated by [id number]: Lana Magdaleno on 03/22/20 7:[address] Per Willie with [facility], the patient has been declined by every Psych facility. [facility] was notified on 03/18 that no further placement was required. DCP- Discharge Planning Updated by [email or web address]: Joanne Mckeon on 03/20/20 3:[address] LATE ENTRY 03/18/20 FAXED UPDATED PACKET TO TRANSFER CENTER FOR PLACEMENT TO [facility]. DCP- Discharge Planning Updated by [id number]: Joselin Parker on 03/16/20 1:[address] Patient Name: SMITA ROMERO Admission Status: ER Accout number: [id number] Admission Date: 03-12-2020 : 1975 Admission Diagnosis:METABOLIC ENCEPHALOPATHY Attending: LUIS ALBERTO CUELLO Current LOS: 4 Anticipated DC Date: Planned Disposition: [facility] facility Primary Insurance: [facility] MEDICARE SOLUTIONS Discharge Planning Comments: I SPOKE WITH CASIMIRO AT [facility] AND THEY HAVE DECLINCED PATIENT FOR ADMISSION. I CALLED OUR TRANSFER CENTER AND THEY ARE NOW WORKIN ON FINDING PLACEMENT. I CALLED CHANEL HANNA AND LET HER KNOW. Operations Officer Trust Department: Joselin Parker DCP- Discharge Planning Updated by [id number]: Joselin Parker on 03/16/20 11:[address] Patient Name: SMITA ROMERO Admission Status: ER Accout number: [id number] Admission Date: 03-12-2020 : 1975 Admission Diagnosis:METABOLIC ENCEPHALOPATHY Attending: LUIS ALBERTO CUELLO Current LOS: 4 Anticipated DC Date: Planned Disposition: [facility] facility Primary Insurance: [facility] MEDICARE SOLUTIONS Discharge Planning Comments: REFERRAL FAXED TO [facility] AT FAX [phone], I SPOKE WITH CASIMIRO AT [phone] WITH [facility] ADMIT. WAITING CLERICAL MANAGER BACK TO SEE IF THEY ARE GOING TO ACCEPT PATIENT. Operations Officer Trust Department: Joselin Parker DCP- Discharge Planning Updated by [id number]: Joanne Mckeon on 03/15/20 6:[address] Patient Name: SMITA ROMERO Admission Status: ER Accout number: [id number] Admission Date: 03-12-2020 : 1975 Admission Diagnosis:METABOLIC ENCEPHALOPATHY Attending: LUIS ALBERTO CUELLO Current LOS: 3 Anticipated DC Date: Planned Disposition: [facility] facility Primary Insurance: [facility] MEDICARE SOLUTIONS Discharge Planning Comments: CM met with patient at bedside after explaining CM role and obtaining verbal consent. Patient lives at home with his mother (Lillian) where he is independent with his care and plans to return there upon discharge. Patient is difficult to speak with he doesn't talk in sentences just a word at a time. CM called and spoke with patient's mother Lillian. Lillian stated that the patient lives with her CM discussed availability / needs of home health and medical equipment. Patient doesn't have any medical equipment or home health services. [facility]PS has been notified and has called wanting to speak to patient Agatha [phone] and fax records [phone]. CM will continue to follow and assist as needed with discharge planning / needs. Operations Officer Trust Department: Joanne Mckeon Appended by Joanne Mckeon on 03/15/2020 19:37 CDT: Salma is recommending inpatient psych when medically stable DCP- Discharge Planning Updated by [email or web address]: Joanne Mckeon on 03/13/20 4:[address] Patient resting when CM rounded. CM will come back later for d/c planning assessment. CM will continue to follow and assist as needed with discharge planning/ needs. DCPIA - Discharge Planning Initial Assessment Updated by [id number]: Joanne Mckeon on 03/15/20 7:17 pm * Is the patient Alert and Oriented? No * How many steps to enter\exit or inside your home? * PCP Clayton Byrd CNP * [facility] * Preadmission Environment Home with Family * ADLs Independent * Equipment None * List name and contact numbers for known caregivers / representatives who currently or will assist patient after discharge: Lillian Romero - mother - [phone] Aiyana Martinez - girlfriend - [phone] * Verbal permission to speak to the caregivers and representatives has been obtained from the patient. Yes * Community resources currently utilized None * Additional services required to return to the preadmission environment? No * Can the patient safely return to the preadmission environment? Yes * Has this patient been hospitalized within the prior 30 days at any hospital? No External Providers External Provider: [facility] Next Contact Date: Service Request Date: Service Type: Resolution: Reviewer: Comments: External Provider: OWEN Lau Next Contact Date: Service Request Date: Service Type: Resolution: Reviewer: Comments: Last DP export: 03/23/20 6:05 p Patient Name: SMITA ROMERO Page 31194 at 1158 All edits/amendments must be made on the electronic document DICTATION DATE: 03/24/20 1158 ASSISTANT AUDITOR: FADY 03/24/20 1158 RPT#: [id number] DC DATE: STATUS: ADM IN [facility] [address] [place] [address] END OF REPORT
--- NOTE | 2020-03-24 14:14 | NUR ---
AMBULATED IN ICU WITH ASSIST FROM PT/OT, TOLERATED, GAIT UNSTEADY
--- NOTE | 2020-03-24 14:31 | NUR ---
OT NOTE: PT AWAKE AND ALERT THIS AFTERNOON. NURSING REPORTED THAT HE HAS BEEN SLEEPING MOST OF THE MORNING. PT PERFORMED BED MOB WITH SPV; SITTING ON EOB WITHOUT ASSIST; ATTEMPTED SPONGE BATH AND PT REQUIRED CUES FOR EACH AREA.. DID NOT INITIATE ANY PART OF TASK. ENCOURAGED TO CLEAN AND BRUSH RAHMAN, HOWEVER, HE WOULD ATTEMPT ONCE AND PUT THE BRUSH OR CLOTH DOWN. SIT TO STAND WITH MIN ASSIST; AMBULATED APPROX 115' WITH HAND HELD ASSIST X 2..PT VERY FATIGUED UPON RETURN TO ROOM.. PT DID NOT WANT TO SIT UP IN CHAIR BUT WANTED TO GO BACK TO BED. TYLER PUGA, OTR/L [phone]
--- NOTE | 2020-03-24 15:38 | MORECARE ---
CASE MANAGEMENT DISCHARGE SUMMARY PATIENT: SMITA ROMERO UNIT: [id number] ADM DATE: 03/12/20 AGE: 44 : 73 SEX: M ROOM/BED: D.2304 AUTHOR: LEODAN,DOC PHYSICIAN: REFERRING PHYSICIAN: LUIS ALBERTO CUELLO MD DATE OF SERVICE: 03/24/20 Discharge Plan Patient Name: SMITA ROMERO Facility: [facility]:[place] : 1975 Planned Disposition: Psych facility Anticipated Discharge Date: 03/16/20 Discharge Date: Expected LOS: 4 Initial Reviewer: [id number] Initial Review Date: 03/12/2020 Generated: 03/24/20 4:38 pm DCP- Discharge Planning Updated by [id number]: Joanne Mckeon on 03/23/20 6:[address] CM called and spoke with Agatha with APS [phone]. She stated that it sounds like the patient needs rehab before returning to the home. She stated that she needed to talk to the patient on the phone again but would call back later to speak to him. Agatha also stated that the patient's landlord Efren Luther [phone] was the patient's payee (CM asked to clarify meaning the landlord oversees patient's money) CM called and spoke with patient's mother Lillian Romero [phone] about rehab in SNF . CHRIS completed for no preference in SNF. CM has completed JOSE for placement awaiting physician signature to send in. CM will send referrals in am to SNF. CM will continue to follow and assist as needed with discharge planning / needs. DCP- Discharge Planning Updated by [id number]: Joanne Mckeon on 03/22/20 5:[address] Psych has approved that patient can have outpatient psych care and does no longer need inpatient placement. MARY has called Agatha with APS and left message to call CM. If patient needs SNF placement then he will need JOSE before placement and we will need family to complete HCRIS. CM will continue to follow and assist as needed with discharge planning / needs. DCP- Discharge Planning Updated by [id number]: Lana Magdaleno on 03/22/20 7:[address] Per Willie with [facility], the patient has been declined by every Psych facility. [facility] was notified on 03/18 that no further placement was required. DCP- Discharge Planning Updated by [id number]: Joanne Mckeon on 03/20/20 3:[address] LATE ENTRY 03/18/20 FAXED UPDATED PACKET TO TRANSFER CENTER FOR PLACEMENT TO [facility]. DCP- Discharge Planning Updated by [id number]: Joselin Parker on 03/16/20 1:[address] Patient Name: SMITA ROMERO Admission Status: ER Accout number: [id number] Admission Date: 03-12-2020 : 1975 Admission Diagnosis:METABOLIC ENCEPHALOPATHY Attending: LUIS ALBERTO CUELLO Current LOS: 4 Anticipated DC Date: Planned Disposition: [facility] facility Primary Insurance: [facility] MEDICARE SOLUTIONS Discharge Planning Comments: I SPOKE WITH CASIMIRO AT [facility] AND THEY HAVE DECLINCED PATIENT FOR ADMISSION. I CALLED OUR [facility] AND THEY ARE NOW WORKIN ON FINDING PLACEMENT. I CALLED CHANEL HANNA AND LET HER KNOW. Barytes Grinder: Joselin Parker DCP- Discharge Planning Updated by [id number]: Joselin Parker on 03/16/20 11:[address] Patient Name: SMITA ROMERO Admission Status: ER Accout number: [id number] Admission Date: 03-12-2020 : 1975 Admission Diagnosis:METABOLIC ENCEPHALOPATHY Attending: ULIS ALBERTO CUELLO Current LOS: 4 Anticipated DC Date: Planned Disposition: [facility] facility Primary Insurance: [facility] MEDICARE SOLUTIONS Discharge Planning Comments: REFERRAL FAXED TO [facility] AT FAX [phone], I SPOKE WITH CASIMIRO AT [phone] WITH [facility] ADMIT. WAITING MOTORBOAT OPERATOR BACK TO SEE IF THEY ARE GOING TO ACCEPT PATIENT. Barytes Grinder: Joselin Parker DCP- Discharge Planning Updated by [id number]: Joanne Mckeon on 03/15/20 6:[address] Patient Name: SMITA ROMERO Admission Status: ER Accout number: [id number] Admission Date: 03-12-2020 : 1975 Admission Diagnosis:METABOLIC ENCEPHALOPATHY Attending: LUIS ALBERTO CUELLO Current LOS: 3 Anticipated DC Date: Planned Disposition: [facility] facility Primary Insurance: [facility] MEDICARE SOLUTIONS Discharge Planning Comments: CM met with patient at bedside after explaining CM role and obtaining verbal consent. Patient lives at home with his mother (Lillian) where he is independent with his care and plans to return there upon discharge. Patient is difficult to speak with he doesn't talk in sentences just a word at a time. CM called and spoke with patient's mother Lillian. Lillian stated that the patient lives with her CM discussed availability / needs of home health and medical equipment. Patient doesn't have any medical equipment or home health services. [facility]PS has been notified and has called wanting to speak to patient Agatha [phone] and fax records [phone]. CM will continue to follow and assist as needed with discharge planning / needs. Barytes Grinder: Joanne Mcekon Appended by Joanne Mckeon on 03/15/2020 19:37 CDT: Salma is recommending inpatient psych when medically stable DCP- Discharge Planning Updated by [id number]: Joanne Mckeon on 03/13/20 4:[address] Patient resting when CM rounded. CM will come back later for d/c planning assessment. CM will continue to follow and assist as needed with discharge planning/ needs. DCPIA - Discharge Planning Initial Assessment Updated by [id number]: Joanne Mckeon on 03/15/20 7:17 pm * Is the patient Alert and Oriented? No * How many steps to enter\exit or inside your home? * PCP Clayton Byrd CNP * [facility] * Preadmission Environment Home with Family * ADLs Independent * Equipment None * List name and contact numbers for known caregivers / representatives who currently or will assist patient after discharge: Lillian Romero - mother - [phone] Aiyana Martinez - girlfriend - [phone] * Verbal permission to speak to the caregivers and representatives has been obtained from the patient. Yes * Community resources currently utilized None * Additional services required to return to the preadmission environment? No * Can the patient safely return to the preadmission environment? Yes * Has this patient been hospitalized within the prior 30 days at any hospital? No External Providers External Provider: [facility] Next Contact Date: Service Request Date: Service Type: Resolution: Reviewer: Comments: Last DP export: 03/24/20 10:58 a Patient Name: SMITA ROMERO Page 84011 at 1538 All edits/amendments must be made on the electronic document DICTATION DATE: 03/24/201537 GANG PLANK WORKMAN: FADY 03/24/201537 RPT#: [id number] DC DATE: STATUS: ADM IN [facility] [address] [place] [address] END OF REPORT
--- NOTE | 2020-03-24 15:47 | MORECARE ---
CASE MANAGEMENT DISCHARGE SUMMARY PATIENT: SMITA ROMERO UNIT: [id number] ADM DATE: 03/12/20 AGE: 44 : 73 SEX: M ROOM/BED: D.2304 AUTHOR: LEODAN,DOC PHYSICIAN: REFERRING PHYSICIAN: LUIS ALBERTO CUELLO MD DATE OF SERVICE: 03/24/20 Discharge Plan Patient Name: SMITA ROMERO Facility: [facility]:[place] : 1975 Planned Disposition: Psych facility Anticipated Discharge Date: 03/16/20 Discharge Date: Expected LOS: 4 Initial Reviewer: [id number] Initial Review Date: 03/12/2020 Generated: 03/24/20 4:47 pm Comments DCP- Discharge Planning Updated by [id number]: Joanne Mckeon on 03/24/20 2:[address] CM received JOSE approval back and sent referral to [facility] and received a call back from [facility] that they have denied the patient. CM has sent referral to [facility] and contacted Princess to let her know of the referral. CM awaiting determination from [facility]. CM will continue too follow and assist as needed with discharge planning / needs. DCP- Discharge Planning Updated by [email or web address]: Joanne Mckeon on 03/23/20 6:[address] CM called and spoke with Agatha with APS [phone]. She stated that it sounds like the patient needs rehab before returning to the home. She stated that she needed to talk to the patient on the phone again but would call back later to speak to him. Agatha also stated that the patient's landlord Efren Luther [phone] was the patient's payee (CM asked to clarify meaning the landlord oversees patient's money) CM called and spoke with patient's mother Lillian Romero [phone] about rehab in SNF . CHRIS completed for no preference in SNF. CM has completed JOSE for placement awaiting physician signature to send in. CM will send referrals in am to SNF. CM will continue to follow and assist as needed with discharge planning / needs. DCP- Discharge Planning Updated by [id number]: Joanne Mckeon on 03/22/20 5:[address] [facility] has approved that patient can have outpatient psych care and does no longer need inpatient placement. has called Agatha with APS and left message to call CM. If patient needs SNF placement then he will need JOSE before placement and we will need family to complete CHRIS. CM will continue to follow and assist as needed with discharge planning / needs. DCP- Discharge Planning Updated by [id number]: Lana Magdaleno on 03/22/20 7:[address] Per Willie with [facility], the patient has been declined by every Psych facility. [facility] was notified on 03/18 that no further placement was required. DCP- Discharge Planning Updated by [id number]: Joanne Mike on 03/20/20 3:[address] LATE ENTRY 03/18/20 FAXED UPDATED PACKET TO [facility] FOR PLACEMENT TO PSYCH FACILITY. DCP- Discharge Planning Updated by [id number]: Joselin Parker on 03/16/20 1:[address] Patient Name: SMITA ROMERO Admission Status: ER Accout number: [id number] Admission Date: 03-12-2020 : 1975 Admission Diagnosis:METABOLIC ENCEPHALOPATHY Attending: LUIS ALBERTO CUELLO Current LOS: 4 Anticipated DC Date: Planned Disposition: Psych facility Primary Insurance: [facility] MEDICARE SOLUTIONS Discharge Planning Comments: I SPOKE WITH CASIMIRO AT [facility] AND THEY HAVE DECLINCED PATIENT FOR ADMISSION. I CALLED [facility] AND THEY ARE NOW WORKIN ON FINDING PLACEMENT. I CALLED CHANEL HANNA AND LET HER KNOW. Personal Injury Specialist: Joselin Parker DCP- Discharge Planning Updated by [id number]: Joselin Parker on 03/16/20 11:[address] Patient Name: SMITA ROMERO Admission Status: ER Accout number: [id number] Admission Date: 03-12-2020 : 1975 Admission Diagnosis:METABOLIC ENCEPHALOPATHY Attending: LUIS ALBERTO CUELLO Current LOS: 4 Anticipated DC Date: Planned Disposition: Psych facility Primary Insurance: [facility] MEDIC[facility] SOLUTIONS Discharge Planning Comments: REFERRAL FA[facility]ED TO [facility] AT FAX [phone], I SPOKE WITH CASIMIRO AT [phone] WITH [facility] ADMIT. WAITING SWITCH CLEANER BACK TO SEE IF THEY ARE GOING TO ACCEPT PATIENT. Personal Injury Specialist: Joselin Parker DCP- Discharge Planning Updated by [id number]: Joanne Mckeon on 03/15/20 6:[address] Patient Name: SMITA ROMERO Admission Status: ER Accout number: [id number] Admission Date: 03-12-2020 : 1975 Admission Diagnosis:METABOLIC ENCEPHALOPATHY Attending: LUIS ALBERTO CUELLO Current LOS: 3 Anticipated DC Date: Planned Disposition: Psych facility Primary Insurance: [facility] MEDICARE SOLUTIONS Discharge Planning Comments: CM met with patient at bedside after explaining CM role and obtaining verbal consent. Patient lives at home with his mother (Lillian) where he is independent with his care and plans to return there upon discharge. Patient is difficult to speak with he doesn't talk in sentences just a word at a time. CM called and spoke with patient's mother Lillian. Lillian stated that the patient lives with her CM discussed availability / needs of home health and medical equipment. Patient doesn't have any medical equipment or home health services. [facility] has been notified and has called wanting to speak to patient Agatha [phone] and fax records [phone]. CM will continue to follow and assist as needed with discharge planning / needs. Personal Injury Specialist: Joanne Mckeon Appended by Joanne Mckeon on 03/15/2020 19:37 CDT: Salma is recommending inpatient psych when medically stable DCP- Discharge Planning Updated by [id number]: Joanne Mckeon on 03/13/20 4:[address] Patient resting when CM rounded. CM will come back later for d/c planning assessment. CM will continue to follow and assist as needed with discharge planning/ needs. DCPIA - Discharge Planning Initial Assessment Updated by [id number]: Joanne Mckeon on 03/15/20 7:17 pm * Is the patient Alert and Oriented? No * How many steps to enter\exit or inside your home? * PCP Clayton Byrd CNP * [facility] * Preadmission Environment Home with Family * ADLs Independent * Equipment None * List name and contact numbers for known caregivers / representatives who currently or will assist patient after discharge: Lillian Romero - mother - [phone] Aiyana Martinez - girlfriend - [phone] * Verbal permission to speak to the caregivers and representatives has been obtained from the patient. Yes * Community resources currently utilized None * Additional services required to return to the preadmission environment? No * Can the patient safely return to the preadmission environment? Yes * Has this patient been hospitalized within the prior 30 days at any hospital? No Last DP export: 03/24/20 2:38 p Patient Name: SMITA ROMERO Page 27618 at 1547 All edits/amendments must be made on the electronic document DICTATION DATE: 03/24/20 154 PRINTING BINDERY ASSISTANT: FADY 03/24/201546 RPT#: [id number] DC DATE: STATUS: ADM IN [address] [place] [address] END OF REPORT
--- NOTE | 2020-03-24 17:11 | NUR ---
OT NOTE: PT COMPLETED FACIAL GROOMING FOR RAHMAN. PT REQUIRED MIN A FOR HYGIENE TASKS. PT COMPLETED HAND HYGIENE WITH SETUP. [phone] THANK YOU,FRANCISCA TERAN
--- NOTE | 2020-03-24 17:42 | MORECARE ---
CASE MANAGEMENT DISCHARGE SUMMARY PATIENT: SMITA ROMERO UNIT: [id number] ADM DATE: 03/12/20 AGE: 44 : [birth year] SEX: M ROOM/BED: D.2304 AUTHOR: LEODAN,DOC PHYSICIAN: REFERRING PHYSICIAN: LUIS ALBERTO CUELLO MD DATE OF SERVICE: 03/24/20 Discharge Plan Patient Name: SMITA ROMERO Facility: [facility]:[place] : 1975 Planned Disposition: Psych facility Anticipated Discharge Date: 03/16/20 Discharge Date: Expected LOS: 4 Initial Reviewer: [email or web address] Initial Review Date: 03/12/2020 Generated: 03/24/20 6:42 pm Comments DCP- Discharge Planning Updated by [email or web address]: Joanne Mckeon on 03/24/20 4:[address] CM received a call back from Princess at [facility] and they denied the patient. CM contacted Vickie with nursing consultants and she will check with her facilities to see if she can find placement. CM faxed records and awaiting determination of acceptance. CM will continue to follow and assist as needed with discharge planning needs. DCP- Discharge Planning Updated by [id number]: Joanne Mckeon on 03/24/20 2:[address] CM received JOSE approval back and sent referral to [facility] and received a call back from [facility] that they have denied the patient. MARY has sent referral to [facility] and contacted Harned to let her know of the referral. CM awaiting determination from [facility]. CM will continue too follow and assist as needed with discharge planning / needs. DCP- Discharge Planning Updated by [email or web address]: Joanne Mckeon on 03/23/20 6:[address] CM called and spoke with Agatha with [facility] [phone]. She stated that it sounds like the patient needs rehab before returning to the home. She stated that she needed to talk to the patient on the phone again but would call back later to speak to him. Agatha also stated that the patient's landlord Efren Luther [phone] was the patient's payee (CM asked to clarify meaning the landlord oversees patient's money) CM called and spoke with patient's mother Lillian Romero [phone] about rehab in SNF . CHRIS completed for no preference in SNF. CM has completed JOSE for placement awaiting physician signature to send in. CM will send referrals in am to SNF. CM will continue to follow and assist as needed with discharge planning / needs. DCP- Discharge Planning Updated by [id number]: Joanne Mckeon on 03/22/20 5:[address] [facility] has approved that patient can have outpatient psych care and does no longer need inpatient placement. CM has called Agatha with [facility] and left message to call CM. If patient needs SNF placement then he will need JOSE before placement and we will need family to complete CHRIS. CM will continue to follow and assist as needed with discharge planning / needs. DCP- Discharge Planning Updated by [id number]: Lana Magdaleno on 03/22/20 7:[address] Per Willie with [facility], the patient has been declined by every Psych facility. Savita was notified on 03/18 that no further placement was required. DCP- Discharge Planning Updated by [id number]: Joanne Mckeon on 03/20/20 3:[address] LATE ENTRY 03/18/20 FAXED UPDATED PACKET TO [facility]SFER CENTER FOR PLACEMENT TO PSYCH FACILITY. DCP- Discharge Planning Updated by [id number]: Joselin Parker on 03/16/20 1:[address] Patient Name: SMITA ROMERO Admission Status: ER Accout number: [id number] Admission Date: 03-12-2020 : 1975 Admission Diagnosis:METABOLIC ENCEPHALOPATHY Attending: LUIS ALBERTO CUELLO Current LOS: 4 Anticipated DC Date: Planned Disposition: Psych facility Primary Insurance: [facility] [employer] Discharge Planning Comments: I SPOKE WITH CASIMIRO AT [facility] AND THEY HAVE DECLINCED PATIENT FOR ADMISSION. I CALLED OUR TRANSFER CENTER AND THEY ARE NOW WORKIN ON FINDING PLACEMENT. I CALLED [facility] AND LET HER KNOW. Insurance Commissioner: Joselin Parker DCP- Discharge Planning Updated by [email or web address]: Joselin Parker on 03/16/20 11:[address] Patient Name: SMITA ROMERO Admission Status: ER Accout number: [id number] Admission Date: 03-12-2020 : 1975 Admission Diagnosis:METABOLIC ENCEPHALOPATHY Attending: LUIS ALBERTO CUELLO Current LOS: 4 Anticipated DC Date: Planned Disposition: Psych facility Primary Insurance: [facility] [employer] Discharge Planning Comments: REFERRAL FAXED TO [facility] AT FAX [phone], I SPOKE WITH CASIMIRO AT [phone] WITH [facility] ADMIT. WAITING LABORATORY MECHANICAL TECHNICIAN BACK TO SEE IF THEY ARE GOING TO ACCEPT PATIENT. Insurance Commissioner: Joselin Parker DCP- Discharge Planning Updated by [email or web address]: Joanne Mckeon on 03/15/20 6:[address] Patient Name: SMITA ROMERO Admission Status: ER Accout number: [id number] Admission Date: 03-12-2020 : 1975 Admission Diagnosis:METABOLIC ENCEPHALOPATHY Attending: LUIS ALBERTO CUELLO Current LOS: 3 Anticipated DC Date: Planned Disposition: Psych facility Primary Insurance: [facility] [employer] Discharge Planning Comments: CM met with patient at bedside after explaining CM role and obtaining verbal consent. Patient lives at home with his mother (Lillian) where he is independent with his care and plans to return there upon discharge. Patient is difficult to speak with he doesn't talk in sentences just a word at a time. CM called and spoke with patient's mother Lillian. Lillian stated that the patient lives with her CM discussed availability / needs of home health and medical equipment. Patient doesn't have any medical equipment or home health services. [facility] has been notified and has called wanting to speak to patient Agatha [phone] and fax records [phone]. CM will continue to follow and assist as needed with discharge planning / needs. Insurance Commissioner: Joanne Mckeon Appended by Joanne Mckeon on 03/15/2020 19:37 CDT: Salma is recommending inpatient psych when medically stable DCP- Discharge Planning Updated by [email or web address]: Joanne Mckeon on 03/13/20 4:[address] Patient resting when CM rounded. CM will come back later for d/c planning assessment. CM will continue to follow and assist as needed with discharge planning/ needs. DCPIA - Discharge Planning Initial Assessment Updated by [id number]: Joanne Mckeon on 03/15/20 7:17 pm * Is the patient Alert and Oriented? No * How many steps to enter\exit or inside your home? * PCP Clayton Byrd, [place] * [facility] * Preadmission Environment Home with Family * ADLs Independent * Equipment None * List name and contact numbers for known caregivers / representatives who currently or will assist patient after discharge: Lillian Romero - mother - [phone] Aiyana Martinez - girlfriend - [phone] * Verbal permission to speak to the caregivers and representatives has been obtained from the patient. Yes * Community resources currently utilized None * Additional services required to return to the preadmission environment? No * Can the patient safely return to the preadmission environment? Yes * Has this patient been hospitalized within the prior 30 days at any hospital? No External Providers External Provider: [facility] Next Contact Date: Service Request Date: Service Type: Resolution: Reviewer: Comments: Last DP export: 03/24/20 2:47 p Patient Name: SMITA ROMERO Page 97026 at 1742 All edits/amendments must be made on the electronic document DICTATION DATE: 03/24/201741 ENVIRONMENTAL MARKETER: FADY 03/24/201741 RPT#: [id number] DC DATE: STATUS: ADM IN [facility] [address] [place] [address] END OF REPORT
--- NOTE | 2020-03-24 21:25 | NUR ---
1899-ASSESSMENT COMPLETED. BREATHING ROOM AIR. DENIES ANY NEEDS. CONFUSED TO TIME AND SITUATION. BED ALARM ON. 1923-MILAGROS BERGER, GIRLFRIEND CALLED, GAVE PASSWORD, UPDATE GIVEN. 1944-PATIENT TRYING TO GET UP WITHOUT ASSISTANCE. ASSISTED PATIENT TO BSC. PATIENT URINATED ON LEGS AND FLOOR. COMPLETE BED BATH GIVEN WITH COMPLETE LINEN CHANGE. ASSISTED BACK TO BED. BED ALARM ON. 2035-PATIENT DRINKING MILK, EATING A SANDWHICH. TOLERATED MEDICATION WITHOUT DIFFICULTY.
--- NOTE | 2020-03-24 21:28 | NUR ---
PATIENT TRYING TO GET OOB. BED ALARM STILL ON. DENIES ANY NEEDS.
--- NOTE | 2020-03-24 23:00 | NUR ---
2145-PATIENT URINATED ON FLOOR. CLEANED UP. ASSISTED TO BSC THEN ASSISTED BACK TO BED. BED ALARM ON. 2256-PATIENT TRYING TO GET OOB, REQUESTING MILK AND CORNFLAKES. GIVEN MILK PER REQUEST.
--- NOTE | 2020-03-25 01:00 | NUR ---
EYES CLOSED, INDEPENDENT WITH REPOSITIONING
[2020-03-25 03:00] VITALS: BP 110/76; BP 115/76
[2020-03-25 03:39] LABS: BASOPHILS 0.2 % (0-2); EOSINOPHILS 2.9 % (0-7); HEMATOCRIT 45.4 % (42.0-54.0); IMMATURE GRANULOCYTES 0.3 % (0-5); LYMPHOCYTES 29.7 % (15-50); MCH 31.6 pg (26.0-34.0); MCV 95.6 fL (80.0-100.0); MEAN PLATELET VOLUME 10.1 fL (7.4-10.4); MONOCYTES 11.9 % (2-11); PLATELET COUNT 306 10x3/uL (130-400); RBC 4.75 10x6/uL (4.20-6.10); RDW 12.5 % (11.5-14.5); WBC 9.1 10x3/uL (4.8-10.8)
[2020-03-25 03:58] LABS: ALBUMIN 3.4 g/dL (3.4-5.0); ALKALINE PHOSPHATASE 53 U/L (30-120); ALT (SGPT) 25 U/L (10-68); BILIRUBIN - TOTAL 0.23 mg/dL (0.2-1.3); CALC OSMOLALITY 280 mosm/kg (275-300); CALCIUM 9.7 mg/dL (8.5-10.1); CARBON DIOXIDE 30.8 mmol/L (21.0-32.0); CHLORIDE - SERUM 105 mmol/L (98-107); CREATININE - SERUM 1.1 mg/dL (0.6-1.3); GLUCOSE 106 mg/dL (74-106); MAGNESIUM - SERUM 2.3 mg/dL (1.8-2.4); PHOSPHOROUS 4.8 mg/dL (2.5-4.9); PROTEIN - SERUM 7.1 g/dL (6.4-8.2); SODIUM 140 mmol/L (136-145); UREA NITROGEN 18 mg/dL (7-18); eGFR NON AFRICAN AMERICAN 77 mL/min (90-120)
--- NOTE | 2020-03-25 05:17 | NUR ---
0300-EYES CLOSED, VSS. EASILY WAKES. 0500-WATCHING TV. DENIES ANY NEEDS. CONFUSION CONT. BED ALARM ON
--- NOTE | 2020-03-25 05:34 | NUR ---
COMPLETE BED CHANGE. SOILED LINEN
[2020-03-25 08:00] VITALS: BP 118/79
--- NOTE | 2020-03-25 08:00 | NUR ---
PATIENT GETTING UP OUT OF BED FROM BOTTOM OF BED. ALARM SET. RETURNS TO BED WITH INSTRUCTIONS. STANDING AND SITTING IN BED MUCH IMPROVED OVER LAST WEEKEND. SPEECH STILL GARBLED DIFFICULT TO UNDERSTAND BUT ABLE TO MAKE NEEDS KNOWN. COOPERATIVE BUT NEEDS FREQ REDIRECTION. BREAKFAST SERVED. FEED A FEW BITES OF EGGS. DRINKS WELL, DRANK ALL OF HIS ORANGE JUICE, AND MILK. FEW BITES OF SAUSAGE
--- NOTE | 2020-03-25 09:00 | NUR ---
UP TO BSC, VOIDED. SMALL BM
--- NOTE | 2020-03-25 11:47 | NUR ---
LUNCH SERVED AND SET UP. PATIENT CONTINUES TO TRY AND GET OUT OF BED. STANDING AT TIMES AT THE FOOT OF THE BED. COOPERATIVE WITH RETURNING TO BED. BED ALARMS ON
[2020-03-25 11:50] VITALS: BP 121/87
--- NOTE | 2020-03-25 12:19 | NUR ---
UP IN CHAIR AT BEDSIDE, UNSTEADY GAIT NOTED.
--- NOTE | 2020-03-25 12:33 | NUR ---
UP ON BEDSIDE COMMODE, SMALL BM AND VOIDED. PERINEAL CARE DONE.
--- NOTE | 2020-03-25 14:00 | NUR ---
UP IN CHAIR AT BEDSIDE. CONSTANTLY GETTING UP WILL WALK IN ROOM, CONSTANTLY BEING REMINDED TO STAY IN CHAIR. ASKED EACH TIME, WHERE HE IS GOING AND IF NEEDS TO USE THE BATHROOM. SPEECH STILL GARBLED. GAIT IS IMPROVING. FAIRLY COOPERATIVE. JUST NEEDS CONSTANT REMINDING.
--- NOTE | 2020-03-25 15:00 | NUR ---
ON BSC. LARGE FORMED STOOL. VOIDED LARGE AMOUNT. STOOD WITH FAIRLY GOOD GAIT.
[2020-03-25 15:19] VITALS: BP 125/85
--- NOTE | 2020-03-25 17:00 | NUR ---
RETURNED TO BED AFTER DINNER. AMBULATES WITH ASSISTANCES
[2020-03-25 19:00] VITALS: BP 129/87
--- NOTE | 2020-03-25 19:00 | NUR ---
PATIENT SITTING UP IN BED, DRINKING A SPRITE. PATIENT CONT TO GET UP OOB WITHOUT ASSISTANCE. BED ALARM ON. CONFUSION NOTED. ASSESSMENT COMPLETED.
--- NOTE | 2020-03-25 21:06 | NUR ---
LAYING BACK IN BED, WATCHING TV. BED ALARM ON
[2020-03-25 23:00] VITALS: BP 110/80
--- NOTE | 2020-03-25 23:00 | NUR ---
EYES CLOSED, BED ALARM ON. EASILY WAKES.
--- NOTE | 2020-03-26 01:00 | NUR ---
EYES CLOSED, INDEPENDENT WITH REPOSITIONING. VSS
[2020-03-26 03:00] VITALS: BP 115/76
--- NOTE | 2020-03-26 03:00 | NUR ---
INDEPENDENT WITH REPOSITIONING. EASILY WAKES
--- NOTE | 2020-03-26 05:00 | NUR ---
VSS. EYES CLOSED, EASILY WAKES. DENIES ANY NEEDS. CONFUSION NOTED.
[2020-03-26 06:28] LABS: BASOPHILS 0.1 % (0-2); EOSINOPHILS 4.3 % (0-7); HEMATOCRIT 42.4 % (42.0-54.0); HEMOGLOBIN 14.2 g/dL (13.5-17.5); IMMATURE GRANULOCYTES 0.5 % (0-5); LYMPHOCYTES 31.4 % (15-50); MCH 31.7 pg (26.0-34.0); MCHC 33.5 g/dL (31.0-37.0); MCV 94.6 fL (80.0-100.0); MEAN PLATELET VOLUME 10.2 fL (7.4-10.4); MONOCYTES 12.2 % (2-11); NEUTROPHILS 51.5 % (40-80); PLATELET COUNT 307 10x3/uL (130-400); RBC 4.48 10x6/uL (4.20-6.10); RDW 12.6 % (11.5-14.5); WBC 7.7 10x3/uL (4.8-10.8)
[2020-03-26 06:44] LABS: ALBUMIN 3.4 g/dL (3.4-5.0); ALKALINE PHOSPHATASE 53 U/L (30-120); ALT (SGPT) 25 U/L (10-68); BILIRUBIN - TOTAL 0.39 mg/dL (0.2-1.3); CALC OSMOLALITY 278 mosm/kg (275-300); CALCIUM 8.9 mg/dL (8.5-10.1); CARBON DIOXIDE 29.3 mmol/L (21.0-32.0); CHLORIDE - SERUM 103 mmol/L (98-107); CREATININE - SERUM 1.1 mg/dL (0.6-1.3); GLUCOSE 93 mg/dL (74-106); MAGNESIUM - SERUM 2.1 mg/dL (1.8-2.4); PHOSPHOROUS 4.6 mg/dL (2.5-4.9); SODIUM 138 mmol/L (136-145); UREA NITROGEN 21 mg/dL (7-18); eGFR NON AFRICAN AMERICAN 77 mL/min (90-120)
--- NOTE | 2020-03-26 07:00 | NUR ---
RESTING IN BED COMFORTABLY NO DISTRESS. AWAKES EASILY TO VERBAL STIMULI SKIN WARM AND DRY. UP IN CHAIR AT BEDSIDE. WITH MINIMAL ASSISTANCES. COOPERATIVE. STILL HAS SOME GARBLED SPEECH. DENIES NEED TO GO TO BATHROOM. FEEDS SELF.
[2020-03-26 07:30] VITALS: BP 114/88
--- NOTE | 2020-03-26 09:00 | NUR ---
AMBULATED IN UNIT TOLERATED WELL.
[2020-03-26 11:30] VITALS: BP 114/84
--- NOTE | 2020-03-26 11:30 | NUR ---
LUNCH SERVED. DRANK ALL OF BOOST, ATE HALF OF FOOD ON PLATE. FEEDS SELF.
--- NOTE | 2020-03-26 12:26 | NUR ---
COMPLETE HIBCLENS BATH GIVEN WITH LINEN CHANGE. PATIENT AMBULATED BACK TO BED.
--- NOTE | 2020-03-26 14:00 | NUR ---
patient standing at foot of bed with gown removed. redressed. sat on bsc voided. up in chair at bedside.
[2020-03-26 15:26] VITALS: BP 125/92
--- NOTE | 2020-03-26 15:31 | NUR ---
po meds taken without difficulty. standing at times. ernesto bed alarm on and in chair. freq. encourage patient to sit back down, offered to walk around unit, states he is tired. wanting to go home and see his mother.
--- NOTE | 2020-03-26 16:31 | NUR ---
dinner tray served. up in chair at bedside
--- NOTE | 2020-03-26 17:25 | NUR ---
ATE WELL AT DINNER, DRANK BOOST, MILKS. ON BSC THEN TO BED. GAIT UNSTEADY. WILL GET UP, NEEDS CONSTANT REMINDING TO RETURN TO BED OR CHAIR.
[2020-03-26 19:00] VITALS: BP 120/83
--- NOTE | 2020-03-26 19:00 | NUR ---
BEDSIDE REPORT RECEIVED, PT CARE ASSUMED. INTRODUCED SELF AND WROTE NAME ON BOARD. AFVSS. PT SITTING UP IN BED, WATCHING TV, AAOX2, DISORIENTED TO TIME AND SITUATION, REORIENTED. REQUESTING MILK, PROVIDED. DENIES ANY OTHER NEEDS AT THIS TIME. BED IN LOWEST, SRX3, CALL LIGHT WITHIN REACH. BED ALARM ON AND FUNCTIONING PROPERLY. WILL CTM.
--- NOTE | 2020-03-26 20:00 | NUR ---
PT SITTING UP IN BED, A&A. REQUESTING RAMON GODOY. BED IN LOWEST, SRX3, CALL LIGHT WITHIN REACH. BED ALARM ON AND FUNCTIONING. WILL CTM.
--- NOTE | 2020-03-26 21:00 | NUR ---
NIGHT TIME MEDS ADMINISTERED, PER ORDERS, TOLERATED WELL. REQUESTING MILK AND SHERBERT, PROVIDED. BED IN LOWEST, SRX3, CALL LIGHT WITHIN REACH. BED ALARM ON AND FUNCTIONING. WILL CTM.
[2020-03-26 23:00] VITALS: BP 118/77
--- NOTE | 2020-03-26 23:00 | NUR ---
ASSISTED PT TO BSC, VOIDED LARGE AMOUNT. PT CLEANED UP AND ASSISTED BACK TO BED. DENIES ANY OTHER NEEDS AT THIS TIME. BED IN LOWEST, SRX3, CALL LIGHT WITHIN REACH. BED ALARM ON AND FUNCTIONING. WILL CTM.
--- NOTE | 2020-03-27 01:00 | NUR ---
PT LYINH IN BED WITH EYES CLOSED, RR EVEN AND NONLABORED, NO S/S OF DISTRESS, AROUSES EASILY TO VOICE. INDEPENDENT WITH REPOSITIONING. BED IN LOWEST, SRX3, CALL LIGHT WITHIN REACH. BED ALARM ON AND FUNCTIONING. WILL CTM.
[2020-03-27 03:00] VITALS: BP 123/82
--- NOTE | 2020-03-27 03:00 | NUR ---
PT LYING IN BED WITH EYES CLOSED, RR EVEN AND NONLABORED, NO S/S OF DISTRESS, AROUSES EASILY TO VOICE. BED IN LOWEST, SRX3, CALL LIGHT WITHIN REACH, BED ALARM ON AND FUNCTIONING. WILL CTM.
[2020-03-27 03:49] LABS: BASOPHILS 0.2 % (0-2); HEMATOCRIT 39.7 % (42.0-54.0); HEMOGLOBIN 13.1 g/dL (13.5-17.5); IMMATURE GRANULOCYTES 0.5 % (0-5); MCH 31.3 pg (26.0-34.0); MCV 94.7 fL (80.0-100.0); MEAN PLATELET VOLUME 10.1 fL (7.4-10.4); MONOCYTES 11.4 % (2-11); NEUTROPHILS 48.9 % (40-80); PLATELET COUNT 310 10x3/uL (130-400); RBC 4.19 10x6/uL (4.20-6.10); RDW 12.4 % (11.5-14.5); WBC 8.4 10x3/uL (4.8-10.8)
[2020-03-27 04:16] LABS: ALKALINE PHOSPHATASE 47 U/L (30-120); BILIRUBIN - TOTAL 0.24 mg/dL (0.2-1.3); CALC OSMOLALITY 275 mosm/kg (275-300); CALCIUM 8.9 mg/dL (8.5-10.1); CARBON DIOXIDE 30.2 mmol/L (21.0-32.0); CHLORIDE - SERUM 103 mmol/L (98-107); GLUCOSE 101 mg/dL (74-106); POTASSIUM - SERUM 4.1 mmol/L (3.5-5.1); PROTEIN - SERUM 6.3 g/dL (6.4-8.2); SODIUM 137 mmol/L (136-145); UREA NITROGEN 19 mg/dL (7-18); eGFR NON AFRICAN AMERICAN 86 mL/min (90-120)
[2020-03-27 04:18] LABS: ALT (SGPT) 16 U/L (10-68)
[2020-03-27 07:00] VITALS: BP 114/72
--- NOTE | 2020-03-27 07:00 | NUR ---
REC'D REPORT AND RESUMED CARE, AA, ORIENTED TO SELF AND BIRTHDATE, CALM AND COOPERATIVE, ASSESSMENT COMPLETED PER FLOWSHEET, RA IN USE, NO IV PRESENT, PUT MONITOR LEADS ON, VSS, SPEECH IS GARBLED, NO ACUTE CHANGE FROM PREVIOUS ASSESSMENTS
--- NOTE | 2020-03-27 09:11 | NUR ---
BED ALARM GOING OFF, TO BEDSIDE, PATIENT GETTING UP BECAUSE HE HAD WET HIS BED, SPONGE BATH GIVEN, LINEN CHANGE COMPLETED
--- NOTE | 2020-03-27 10:44 | NUR ---
Nutrition follow-up: Diet: Regular PO intake 50-75% of meals Labs reviewed Wt: 171# Rehab soon. RDN following.
[2020-03-27 11:00] VITALS: BP 110/82; BP 112/86
--- NOTE | 2020-03-27 11:00 | NUR ---
OT AT BEDSIDE, PATIENT HAS URINATED ON FLOOR AND BED IS SOILED, SKINCARE AND BED LINENS CHANGED, TOLERATED WITHOUT DIFFICULTY, CALM AND EASILY REDIRECTED ADL EXERCISES GIVEN, PARTICIPATES ONLY PARTIAL, NO OTHER ACUTE CHANGES FROM PREVIOUS
[2020-03-27 15:00] VITALS: BP 110/82; BP 116/94
--- NOTE | 2020-03-27 15:49 | NUR ---
OT NOTE: (AM) PT COMPLETED ADL MOB WITH CGA WITH RW. PT COMPLETED LB HYGIENE WITH MOD A. (PM) PT REQUIRED MOD/MAX WITH CLOTHING MANAGEMENT. PT REQUIRED MOD/MAX A LB HYGIENE. PT COMPLETED ADL MOBILITY WITH CGA. [phone] THANK YOU, FRANCISCA TERAN
--- NOTE | 2020-03-27 18:30 | MORECARE ---
CASE MANAGEMENT DISCHARGE SUMMARY PATIENT: SMITA ROMERO UNIT: [id number] ADM DATE: 03/12/20 AGE: 44 : [birth year] SEX: M ROOM/BED: D.2304 AUTHOR: LEODAN,DOC PHYSICIAN: REFERRING PHYSICIAN: LUIS ALBERTO CUELLO MD DATE OF SERVICE: 03/27/20 Discharge Plan Patient Name: SMITA ROMERO Facility: [facility]:[place] : 1975 Planned Disposition: Psych facility Anticipated Discharge Date: 03/16/20 Discharge Date: Expected LOS: 4 Initial Reviewer: [email or web address] Initial Review Date: 03/12/2020 Generated: 03/27/20 7:30 pm Comments DCP- Discharge Planning Updated by [email or web address]: Joanne Mckeon on 03/27/20 5:[address] CM called Vickie to check status of discharge to SNF. Vickie stated that she has sent it to [place] to [facility] and will let CM know status as soon as she can. MAYR will check back again in am on status. DCP- Discharge Planning Updated by [email or web address]: Joanne Mckeon on 03/24/20 4:[address] CM received a call back from Princess at [facility] and they denied the patient. CM contacted Vickie with nursing consultants and she will check with her facilities to see if she can find placement. CM faxed records and awaiting determination of acceptance. CM will continue to follow and assist as needed with discharge planning needs. DCP- Discharge Planning Updated by [id number]: Joanne Mckeon on 03/24/20 2:[address] CM received JOSE approval back and sent referral to [facility] and received a call back from [facility] that they have denied the patient. MARY has sent referral to [facility] and contacted Princess to let her know of the referral. CM awaiting determination from [facility]. CM will continue too follow and assist as needed with discharge planning / needs. DCP- Discharge Planning Updated by [id number]: Joanne Mckeon on 03/23/20 6:[address] CM called and spoke with Agatha with [facility] [phone]. She stated that it sounds like the patient needs rehab before returning to the home. She stated that she needed to talk to the patient on the phone again but would call back later to speak to him. Agatha also stated that the patient's landlord Efren Luther [phone] was the patient's payee (CM asked to clarify meaning the landlord oversees patient's money) CM called and spoke with patient's mother Lillian Romero [phone] about rehab in SNF . CHRIS completed for no preference in SNF. CM has completed JOSE for placement awaiting physician signature to send in. CM will send referrals in am to SNF. CM will continue to follow and assist as needed with discharge planning / needs. DCP- Discharge Planning Updated by [email or web address]: Joanne Mckeon on 03/22/20 5:[address] [facility] has approved that patient can have outpatient psych care and does no longer need inpatient placement. CM has called Agatha with [facility] and left message to call CM. If patient needs SNF placement then he will need JOSE before placement and we will need family to complete CHRIS. CM will continue to follow and assist as needed with discharge planning / needs. DCP- Discharge Planning Updated by [id number]: Lana Magdaleno on 03/22/20 7:[address] Per Willie with [facility], the patient has been declined by every Psych facility. Savita was notified on 03/18 that no further placement was required. DCP- Discharge Planning Updated by [id number]: Joanne Mckeon on 03/20/20 3:[address] LATE ENTRY 03/18/20 FAXED UPDATED PACKET TO [facility]ER CENTER FOR PLACEMENT TO PSYCH FACILITY. DCP- Discharge Planning Updated by [id number]: Joselin Parker on 03/16/20 1:[address] Patient Name: SMITA ROMERO Admission Status: ER Accout number: [id number] Admission Date: 03-12-2020 : 1975 Admission Diagnosis:METABOLIC ENCEPHALOPATHY Attending: LUIS ALBERTO CUELLO Current LOS: 4 Anticipated DC Date: Planned Disposition: Psych facility Primary Insurance: [facility] [employer] Discharge Planning Comments: I SPOKE WITH CASIMIRO AT [facility] AND THEY HAVE DECLINCED PATIENT FOR ADMISSION. I CALLED OUR [facility] AND THEY ARE NOW WORKIN ON FINDING PLACEMENT. I CALLED [facility] AND LET HER KNOW. Cogeneration Technician: Joselin Elena DCP- Discharge Planning Updated by [id number]: Joselin Parker on 03/16/20 11:[address] Patient Name: SMITA ROMERO Admission Status: ER Accout number: [id number] Admission Date: 03-12-2020 : 1975 Admission Diagnosis:METABOLIC ENCEPHALOPATHY Attending: LUIS ALBERTO CUELLO Current LOS: 4 Anticipated DC Date: Planned Disposition: Psych facility Primary Insurance: [facility] [employer] Discharge Planning Comments: REFERRAL FAXED TO [facility] AT FAX [phone], I SPOKE WITH CASIMIRO AT [phone] WITH [facility] ADMIT. WAITING ELECTRICIAN MAINTENANCE BACK TO SEE IF THEY ARE GOING TO ACCEPT PATIENT. Cogeneration Technician: Joselin Parker DCP- Discharge Planning Updated by [email or web address]: Joanne Mckeon on 03/15/20 6:[address] Patient Name: SMITA ROMERO Admission Status: ER Accout number: [id number] Admission Date: 03-12-2020 : 1975 Admission Diagnosis:METABOLIC ENCEPHALOPATHY Attending: LUIS ALBERTO CUELLO Current LOS: 3 Anticipated DC Date: Planned Disposition: Psych facility Primary Insurance: [facility] [employer] Discharge Planning Comments: CM met with patient at bedside after explaining CM role and obtaining verbal consent. Patient lives at home with his mother (Lillian) where he is independent with his care and plans to return there upon discharge. Patient is difficult to speak with he doesn't talk in sentences just a word at a time. CM called and spoke with patient's mother Lillian. Lillian stated that the patient lives with her CM discussed availability / needs of home health and medical equipment. Patient doesn't have any medical equipment or home health services. [facility] has been notified and has called wanting to speak to patient Agatha [phone] and fax records [phone]. CM will continue to follow and assist as needed with discharge planning / needs. Cogeneration Technician: Joanne Mckeon Appended by Joanne Mckeon on 03/15/2020 19:37 CDT: Salma is recommending inpatient psych when medically stable DCP- Discharge Planning Updated by [email or web address]: Joanne Mckeon on 03/13/20 4:[address] Patient resting when CM rounded. CM will come back later for d/c planning assessment. CM will continue to follow and assist as needed with discharge planning/ needs. DCPIA - Discharge Planning Initial Assessment Updated by [id number]: Joanne Mckeon on 03/15/20 7:17 pm * Is the patient Alert and Oriented? No * How many steps to enter\exit or inside your home? * PCP Clayton Byrd, [place] * [facility] * Preadmission Environment Home with Family * ADLs Independent * Equipment None * List name and contact numbers for known caregivers / representatives who currently or will assist patient after discharge: Lillian Romero - mother - [phone] Aiyana Martinez - girlfriend - [phone] * Verbal permission to speak to the caregivers and representatives has been obtained from the patient. Yes * Community resources currently utilized None * Additional services required to return to the preadmission environment? No * Can the patient safely return to the preadmission environment? Yes * Has this patient been hospitalized within the prior 30 days at any hospital? No Last DP export: 03/24/20 4:42 p Patient Name: SMITA ROMERO Page 00569 at 1830 All edits/amendments must be made on the electronic document DICTATION DATE: 03/27/201829 FAITH DOCTOR: FADY 03/27/201829 RPT#: [id number] DC DATE: STATUS: ADM IN [facility] [address] [place] [address] END OF REPORT
[2020-03-27 19:00] VITALS: BP 109/83
--- NOTE | 2020-03-27 19:24 | NUR ---
PT LYING IN BED WATCHING TV. CL IN REACH. DENIES NEEDS AT THIS TIME. ALERT AND ORIENTATED X3. BED IN LOW SIDE RAILS X2. BED ALARM ON. RESP EVEN AND UNLABORED. LUNGS CLEAR. BOWEL ACTIVE X4. VITALS 109/83 MAP 893 TEMP 97.4 AXILLARY. PT URINATED 700CC IN URINAL. INCONTINENT AT TIMES. WILL CONTINUE TO MONITOR.
--- NOTE | 2020-03-27 21:00 | NUR ---
PT LYING IN BED. GF IN ROOM WITH PATIENT. DENIES NEEDS OR PAIN AT THIS TIME. BED IN LOW SIDE RAILS X2. BED ALARM ON. RESP EVEN AND UNLABORED. WCTM
[2020-03-27 23:00] VITALS: BP 117/86
--- NOTE | 2020-03-27 23:00 | NUR ---
PT SITTING UP IN BED RESTLESS AT THIS TIME. DENIES NEEDS WILL CONTINUE TO MONITOR. CL IN REACH.
--- NOTE | 2020-03-28 01:00 | NUR ---
PT RESTING QUIETLY. CL IN REACH. NO DISTRESS NOTED. WCTM
--- NOTE | 2020-03-28 03:29 | NUR ---
PT RESTING QUIETLY. CL IN REACH. NO DISTRESS NOTED. WCTM
[2020-03-28 03:47] LABS: BASOPHILS 0.3 % (0-2); HEMATOCRIT 41.2 % (42.0-54.0); HEMOGLOBIN 13.7 g/dL (13.5-17.5); IMMATURE GRANULOCYTES 0.3 % (0-5); LYMPHOCYTES 23.6 % (15-50); MCH 31.6 pg (26.0-34.0); MCHC 33.3 g/dL (31.0-37.0); MCV 95.2 fL (80.0-100.0); MONOCYTES 12.1 % (2-11); NEUTROPHILS 60.7 % (40-80); PLATELET COUNT 310 10x3/uL (130-400); RBC 4.33 10x6/uL (4.20-6.10); RDW 12.5 % (11.5-14.5); WBC 10.5 10x3/uL (4.8-10.8)
[2020-03-28 04:05] LABS: ALBUMIN 3.1 g/dL (3.4-5.0); ALKALINE PHOSPHATASE 49 U/L (30-120); BILIRUBIN - TOTAL 0.28 mg/dL (0.2-1.3); CALC OSMOLALITY 280 mosm/kg (275-300); CALCIUM 8.9 mg/dL (8.5-10.1); CARBON DIOXIDE 31.1 mmol/L (21.0-32.0); CHLORIDE - SERUM 103 mmol/L (98-107); GLUCOSE 94 mg/dL (74-106); POTASSIUM - SERUM 3.9 mmol/L (3.5-5.1); PROTEIN - SERUM 6.4 g/dL (6.4-8.2); SODIUM 140 mmol/L (136-145); UREA NITROGEN 17 mg/dL (7-18); eGFR NON AFRICAN AMERICAN 86 mL/min (90-120)
[2020-03-28 04:20] LABS: ALT (SGPT) 25 U/L (10-68)
--- NOTE | 2020-03-28 04:59 | NUR ---
PT RESTING QUIETLY. NO DISTRESS NOTED. WCTM
--- NOTE | 2020-03-28 05:34 | NUR ---
I have reviewed this patient and I concur with the Shift Assessment completed by the Licensed Practical Nurse today this shift.
[2020-03-28 07:00] VITALS: BP 108/79; BP 115/68
[2020-03-28 11:00] VITALS: BP 103/83
--- NOTE | 2020-03-28 14:47 | NUR ---
OT NOTE: (AM) PT COMPLETED SUPINE TO SIT WITH CGA. PT COMPLETED ADL MOB WITH CGA. PT COMPLETED UB HYGIENE WITH MIN A. PT REQUIRED VERBAL CUES TO SEQUENCE THE TASKS NECESSARY FOR WALKER MANAGEMENT. (PM) PT COMPLETED SUPINE TO SIT WITH SBA. PT COMPLETED SITTING BALANCE AT EOB WITH SBA. PT COMPLETED UE AROM EXS AT EOB WITH SBA. PT REQUIRED VISUAL CUES FOR INCREASED UNDERSTANDING. PT STATED HIS STOMACH AND BACK HURT. FRANCISCA NOTIFIED NURSING. [phone] THANK YOU,FRANCISCA TERAN
--- NOTE | 2020-03-28 15:00 | NUR ---
BED ALARMING, ATTETMPTING TO GET OUT OF BED, EASILY REDIRECTED BACK TO BED, CALL LIGHT IN REACH
--- NOTE | 2020-03-28 17:12 | MORECARE ---
CASE MANAGEMENT DISCHARGE SUMMARY PATIENT: SMITA ROMERO UNIT: [id number] ADM DATE: 03/12/20 AGE: 44 : [birth year] SEX: M ROOM/BED: D.2304 AUTHOR: LEODAN,DOC PHYSICIAN: REFERRING PHYSICIAN: LUIS ALBERTO CUELLO MD DATE OF SERVICE: 03/28/20 Discharge Plan Patient Name: SMITA ROMERO Facility: [facility]:[place] : 1975 Planned Disposition: Psych facility Anticipated Discharge Date: 03/16/20 Discharge Date: Expected LOS: 4 Initial Reviewer: [id number] Initial Review Date: 03/12/2020 Generated: 03/28/20 6:12 pm Comments DCP- Discharge Planning Updated by [email or web address]: Joanne Mckeon on 03/27/20 5:[address] CM called Vickie to check status of discharge to SNF. Vickie stated that she has sent it to [place] to [facility] and will let CM know status as soon as she can. MARY will check back again in am on status. DCP- Discharge Planning Updated by [email or web address]: Joanne Mckeon on 03/24/20 4:[address] CM received a call back from Princess at [facility] and they denied the patient. CM contacted Vickie with nursing consultants and she will check with her facilities to see if she can find placement. CM faxed records and awaiting determination of acceptance. CM will continue to follow and assist as needed with discharge planning needs. DCP- Discharge Planning Updated by [id number]: Joanne Mckeon on 03/24/20 2:[address] CM received JOSE approval back and sent referral to [facility] and received a call back from [facility] that they have denied the patient. MARY has sent referral to [facility] and contacted Princess to let her know of the referral. CM awaiting determination from [facility]. CM will continue too follow and assist as needed with discharge planning / needs. DCP- Discharge Planning Updated by [email or web address]: Joanne Mckeon on 03/23/20 6:[address] CM called and spoke with Agatha with [facility] [phone]. She stated that it sounds like the patient needs rehab before returning to the home. She stated that she needed to talk to the patient on the phone again but would call back later to speak to him. Agatha also stated that the patient's landlord Efren Luther [phone] was the patient's payee (CM asked to clarify meaning the landlord oversees patient's money) CM called and spoke with patient's mother Lillian Romero [phone] about rehab in SNF . CHRIS completed for no preference in SNF. CM has completed JOSE for placement awaiting physician signature to send in. CM will send referrals in am to SNF. CM will continue to follow and assist as needed with discharge planning / needs. DCP- Discharge Planning Updated by [email or web address]: Joanne Mckeon on 03/22/20 5:[address] [facility] has approved that patient can have outpatient psych care and does no longer need inpatient placement. CM has called Agatha with [facility] and left message to call CM. If patient needs SNF placement then he will need JOSE before placement and we will need family to complete CHRIS. CM will continue to follow and assist as needed with discharge planning / needs. DCP- Discharge Planning Updated by [id number]: Lana Magdaleno on 03/22/20 7:[address] Per Willie with [facility], the patient has been declined by every Psych facility. Savita was notified on 03/18 that no further placement was required. DCP- Discharge Planning Updated by [email or web address]: Joanne Mckeon on 03/20/20 3:[address] LATE ENTRY 03/18/20 FAXED UPDATED PACKET TO [facility]SFER CENTER FOR PLACEMENT TO PSYCH FACILITY. DCP- Discharge Planning Updated by [email or web address]: Joselin Parker on 03/16/20 1:[address] Patient Name: SMITA ROMERO Admission Status: ER Accout number: [id number] Admission Date: 03-12-2020 : 1975 Admission Diagnosis:METABOLIC ENCEPHALOPATHY Attending: LUIS ALBERTO CUELLO Current LOS: 4 Anticipated DC Date: Planned Disposition: Psych facility Primary Insurance: [facility] MEDIC[facility] SOLUTIONS Discharge Planning Comments: I SPOKE WITH CASIMIRO AT [facility] AND THEY HAVE DECLINCED PATIENT FOR ADMISSION. I CALLED OUR TRANSFER CENTER AND THEY ARE NOW WORKIN ON FINDING PLACEMENT. I CALLED [facility] AND LET HER KNOW. Wirer: Joselin Elena DCP- Discharge Planning Updated by [id number]: Joselin Parker on 03/16/20 11:[address] Patient Name: SMITA ROMERO Admission Status: ER Accout number: [id number] Admission Date: 03-12-2020 : 1975 Admission Diagnosis:METABOLIC ENCEPHALOPATHY Attending: LUIS ALBERTO CUELLO Current LOS: 4 Anticipated DC Date: Planned Disposition: Psych facility Primary Insurance: [facility] MEDICARE SOLUTIONS Discharge Planning Comments: REFERRAL FAXED TO [facility] AT FAX [phone], I SPOKE WITH CASIMIRO AT [phone] WITH [facility] ADMIT. WAITING WINDING MACHINE OPERATOR BACK TO SEE IF THEY ARE GOING TO ACCEPT PATIENT. Wirer: Joselin Parker DCP- Discharge Planning Updated by [email or web address]: Joanne Mckeon on 03/15/20 6:[address] Patient Name: SMITA ROMERO Admission Status: ER Accout number: [id number] Admission Date: 03-12-2020 : 1975 Admission Diagnosis:METABOLIC ENCEPHALOPATHY Attending: LUIS ALBERTO CUELLO Current LOS: 3 Anticipated DC Date: Planned Disposition: Psych facility Primary Insurance: [facility] MEDIC[employer] SOLUTIONS Discharge Planning Comments: CM met with patient at bedside after explaining CM role and obtaining verbal consent. Patient lives at home with his mother (Lillian) where he is independent with his care and plans to return there upon discharge. Patient is difficult to speak with he doesn't talk in sentences just a word at a time. CM called and spoke with patient's mother Lillian. Lillian stated that the patient lives with her CM discussed availability / needs of home health and medical equipment. Patient doesn't have any medical equipment or home health services. [facility]PS has been notified and has called wanting to speak to patient Agatha [phone] and fax records [phone]. CM will continue to follow and assist as needed with discharge planning / needs. Wirer: Joanne Mckeon Appended by Joanne Mckeon on 03/15/2020 19:37 CDT: Salma is recommending inpatient psych when medically stable DCP- Discharge Planning Updated by [id number]: Joanne Mckeon on 03/13/20 4:[address] Patient resting when CM rounded. CM will come back later for d/c planning assessment. CM will continue to follow and assist as needed with discharge planning/ needs. DCPIA - Discharge Planning Initial Assessment Updated by [email or web address]: Joanne Mckeon on 03/15/20 7:17 pm * Is the patient Alert and Oriented? No * How many steps to enter\exit or inside your home? * PCP Clayton Byrd, FR[place]N * [facility] * Preadmission Environment Home with Family * ADLs Independent * Equipment None * List name and contact numbers for known caregivers / representatives who currently or will assist patient after discharge: Lillian Romero - mother - [phone] Aiyana Martinez - girlfriend - [phone] * Verbal permission to speak to the caregivers and representatives has been obtained from the patient. Yes * Community resources currently utilized None * Additional services required to return to the preadmission environment? No * Can the patient safely return to the preadmission environment? Yes * Has this patient been hospitalized within the prior 30 days at any hospital? No External Providers External Provider: [facility] Next Contact Date: Service Request Date: Service Type: Resolution: Reviewer: Comments: Coverage Notice Reviewer: [id number] - Joanne Mckeon Notice Issued Date-Time: 03/23/2020 11:53 Notice Type: Patient Choice Letter Notice Delivered To: Family Member Relationship to Patient: Mother Optical Fabricator Name: Lillian Romero Delivery Method: PHONE - Phone Ratna Days: Prior Verbal Notification: Yes Recipient Understood Notice: Yes Recipient Signature: Med Rec Note Co-signed by Attending: Coverage Notice Comment: Last DP export: 03/27/20 5:30 pm Patient Name: SMITA ROMERO Page 19394 at 1712 All edits/amendments must be made on the electronic document DICTATION DATE: 03/28/201711 CLINICAL CYTOGENETICIST: FADY 03/28/201711 RPT#: [id number] DC DATE: STATUS: ADM IN [facility] [address] [place] [address] END OF REPORT
[2020-03-28 19:00] VITALS: BP 103/83
[2020-03-28 23:00] VITALS: BP 108/77
[2020-03-29 03:43] LABS: BASOPHILS 0.1 % (0-2); EOSINOPHILS 2.5 % (0-7); HEMATOCRIT 40.3 % (42.0-54.0); HEMOGLOBIN 13.4 g/dL (13.5-17.5); IMMATURE GRANULOCYTES 0.3 % (0-5); MCH 31.8 pg (26.0-34.0); MCHC 33.3 g/dL (31.0-37.0); MCV 95.5 fL (80.0-100.0); MEAN PLATELET VOLUME 10.1 fL (7.4-10.4); MONOCYTES 12.7 % (2-11); NEUTROPHILS 63.4 % (40-80); PLATELET COUNT 309 10x3/uL (130-400); RBC 4.22 10x6/uL (4.20-6.10); RDW 12.6 % (11.5-14.5); WBC 9.7 10x3/uL (4.8-10.8)
[2020-03-29 03:54] LABS: ALBUMIN 3.1 g/dL (3.4-5.0); ALKALINE PHOSPHATASE 57 U/L (30-120); ALT (SGPT) 22 U/L (10-68); BILIRUBIN - TOTAL 0.37 mg/dL (0.2-1.3); CALC OSMOLALITY 282 mosm/kg (275-300); CALCIUM 8.8 mg/dL (8.5-10.1); CARBON DIOXIDE 29.4 mmol/L (21.0-32.0); CHLORIDE - SERUM 104 mmol/L (98-107); GLUCOSE 97 mg/dL (74-106); POTASSIUM - SERUM 3.8 mmol/L (3.5-5.1); PROTEIN - SERUM 6.6 g/dL (6.4-8.2); SODIUM 141 mmol/L (136-145); UREA NITROGEN 19 mg/dL (7-18); eGFR NON AFRICAN AMERICAN 86 mL/min (90-120)
[2020-03-29 05:40] VITALS: BP 108/70
[2020-03-29 07:00] VITALS: BP 121/67
--- NOTE | 2020-03-29 07:00 | NUR ---
RESTING IN BED WITH NO SIGNS OF DISTRESS, DENIES PAIN, SAYS HE WANTS TO GO HOME, AWAITING TO SPEAK WITH DR CRESPO
--- NOTE | 2020-03-29 10:16 | NUR ---
Nutrition follow-up: Pt sitting up in chair. No c/o at this time Diet: Regular PO Intake ~50-75% of meals labs reviewed Wt: 170# RDN following.
[2020-03-29 11:00] VITALS: BP 113/82
--- NOTE | 2020-03-29 11:00 | NUR ---
ASSESSMENT COMPLETE, NO ACUTE CHANGE FROM PREVIOUS, WILL CONTINUE WITH POC
--- NOTE | 2020-03-29 12:19 | NUR ---
LUNCH TRAY TO BEDSIDE, ASSIST WITH SET UP INDEPENDENT WITH EATING
--- NOTE | 2020-03-29 14:56 | NUR ---
OT NOTE: PT COMPLETED BED MOB WITH SBA. PT COMPLETED ADL MOB WITH CGA. PT COMPLETED UE AROM WITH WALKER MANAGEMENT. (PM) PT COMPLETED UB HYGIENE TASKS WITH MIN A. PT COMPLETED FACE HYGIENE WITH SET UP. PT COMPLETED ADL MOB WITH CGA. PT COMPLETED EOB SITTING BALANCE WITH SBA. [phone] THANK YOU,FRANCISCA TERAN
--- NOTE | 2020-03-29 15:15 | NUR ---
MOTHER AT BEDSIDE, STATUS UPDATED AWAITING DR CRESPO TO COME AND TALK WITH MOM, ON THE PHONE TALKING WITH SISTER, WILL CONTINUE WITH POC [id number] CABLE COVERER HERE FROM FROM [facility] FOR EVAL
[2020-03-29 19:00] VITALS: BP 112/79
--- NOTE | 2020-03-29 19:10 | MORECARE ---
CASE MANAGEMENT DISCHARGE SUMMARY PATIENT: SMITA ROMERO UNIT: [id number] ADM DATE: 03/12/20 AGE: 44 : [birth year] SEX: M ROOM/BED: D.2304 AUTHOR: LEODAN,DOC PHYSICIAN: REFERRING PHYSICIAN: LUIS ALBERTO CUELLO MD DATE OF SERVICE: 03/29/20 Discharge Plan Patient Name: SMITA ROMERO Facility: [facility]:[place] : 1975 Planned Disposition: Psych facility Anticipated Discharge Date: 03/16/20 Discharge Date: Expected LOS: 4 Initial Reviewer: [email or web address] Initial Review Date: 03/12/2020 Generated: 03/29/20 8:09 pm DCP- Discharge Planning Updated by [email or web address]: Joanne Mckeon on 03/27/20 5:[address] CM called Vickie to check status of discharge to SNF. Vickie stated that she has sent it to [place] to [facility] and will let CM know status as soon as she can. MARY will check back again in am on status. DCP- Discharge Planning Updated by [email or web address]: Joanne Mckeon on 03/24/20 4:[address] CM received a call back from Princess at [facility] and they denied the patient. CM contacted Vickie with nursing consultants and she will check with her facilities to see if she can find placement. CM faxed records and awaiting determination of acceptance. CM will continue to follow and assist as needed with discharge planning needs. DCP- Discharge Planning Updated by [email or web address]: Joanne Mckeon on 03/24/20 2:[address] CM received JOSE approval back and sent referral to [facility] and received a call back from [facility] that they have denied the patient. MARY has sent referral to [facility] and contacted Princess to let her know of the referral. CM awaiting determination from [facility]. CM will continue too follow and assist as needed with discharge planning / needs. DCP- Discharge Planning Updated by [email or web address]: Joanne Mckeon on 03/23/20 6:[address] CM called and spoke with Agatha with [facility] [phone]. She stated that it sounds like the patient needs rehab before returning to the home. She stated that she needed to talk to the patient on the phone again but would call back later to speak to him. Agatha also stated that the patient's landlord Efren Luther [phone] was the patient's payee (CM asked to clarify meaning the landlord oversees patient's money) CM called and spoke with patient's mother Lillian Romero [phone] about rehab in SNF . CHRIS completed for no preference in SNF. CM has completed JOSE for placement awaiting physician signature to send in. CM will send referrals in am to SNF. CM will continue to follow and assist as needed with discharge planning / needs. DCP- Discharge Planning Updated by [id number]: Joanne Mckeon on 03/22/20 5:[address] [facility] has approved that patient can have outpatient psych care and does no longer need inpatient placement. CM has called Agatha with [facility] and left message to call CM. If patient needs SNF placement then he will need JOSE before placement and we will need family to complete CHRIS. CM will continue to follow and assist as needed with discharge planning / needs. DCP- Discharge Planning Updated by [email or web address]: Lana Magdaleno on 03/22/20 7:[address] Per Willie with [facility], the patient has been declined by every Psych facility. Savita was notified on 03/18 that no further placement was required. DCP- Discharge Planning Updated by [id number]: Joanne Mckeon on 03/20/20 3:[address] LATE ENTRY 03/18/20 FAXED UPDATED PACKET TO [facility] FOR PLACEMENT TO PSYCH FACILITY. DCP- Discharge Planning Updated by [id number]: Joselin Parker on 03/16/20 1:[address] Patient Name: SMITA ROMERO Admission Status: ER Accout number: [id number] Admission Date: 03-12-2020 : 1975 Admission Diagnosis:METABOLIC ENCEPHALOPATHY Attending: LUIS ALBERTO CUELLO Current LOS: 4 Anticipated DC Date: Planned Disposition: Psych facility Primary Insurance: [facility] [employer]IC[employer]UTIONS Discharge Planning Comments: I SPOKE WITH CASIMIRO AT [facility] AND THEY HAVE DECLINCED PATIENT FOR ADMISSION. I CALLED OUR TRANSFER [facility] AND THEY ARE NOW WORKIN ON FINDING PLACEMENT. I CALLED [facility] AND LET HER KNOW. Balling Head Tender: Joselin Parker DCP- Discharge Planning Updated by [email or web address]: Joselin Parker on 03/16/20 11:[address] Patient Name: SMITA ROMERO Admission Status: ER Accout number: [id number] Admission Date: 03-12-2020 : 1975 Admission Diagnosis:METABOLIC ENCEPHALOPATHY Attending: LUIS ALBERTO CUELLO Current LOS: 4 Anticipated DC Date: Planned Disposition: Psych facility Primary Insurance: [facility] [employer]UT[employer] Discharge Planning Comments: REFERRAL FAXED TO [facility] AT FAX [phone], I SPOKE WITH CASIMIRO AT [phone] WITH [facility] ADMIT. WAITING WEAVING LOOM OPERATOR BACK TO SEE IF THEY ARE GOING TO ACCEPT PATIENT. Balling Head Tender: Joselin Parker DCP- Discharge Planning Updated by [email or web address]: Joanne Mckeon on 03/15/20 6:[address] Patient Name: SMITA ROMERO Admission Status: ER Accout number: [id number] Admission Date: 03-12-2020 : 1975 Admission Diagnosis:METABOLIC ENCEPHALOPATHY Attending: LUIS ALBERTO CUELLO Current LOS: 3 Anticipated DC Date: Planned Disposition: Psych facility Primary Insurance: [facility] [employer] Discharge Planning Comments: CM met with patient at bedside after explaining CM role and obtaining verbal consent. Patient lives at home with his mother (Lillian) where he is independent with his care and plans to return there upon discharge. Patient is difficult to speak with he doesn't talk in sentences just a word at a time. CM called and spoke with patient's mother Lillian. Lillian stated that the patient lives with her CM discussed availability / needs of home health and medical equipment. Patient doesn't have any medical equipment or home health services. [facility] has been notified and has called wanting to speak to patient Agatha [phone] and fax records [phone]. CM will continue to follow and assist as needed with discharge planning / needs. Balling Head Tender: Joanne Mckeon Appended by Joanne Mckeon on 03/15/2020 19:37 CDT: Salma is recommending inpatient psych when medically stable DCP- Discharge Planning Updated by [email or web address]: Joanne Mckeon on 03/13/20 4:[address] Patient resting when CM rounded. CM will come back later for d/c planning assessment. CM will continue to follow and assist as needed with discharge planning/ needs. DCPIA - Discharge Planning Initial Assessment Updated by [email or web address]: Joanne Mckeon on 03/15/20 7:17 pm * Is the patient Alert and Oriented? No * How many steps to enter\exit or inside your home? * PCP Clayton Byrd, [place] * [facility] * Preadmission Environment Home with Family * ADLs Independent * Equipment None * List name and contact numbers for known caregivers / representatives who currently or will assist patient after discharge: Lililan Romero - mother - [phone] Aiyana Martinez - girlfriend - [phone] * Verbal permission to speak to the caregivers and representatives has been obtained from the patient. Yes * Community resources currently utilized None * Additional services required to return to the preadmission environment? No * Can the patient safely return to the preadmission environment? Yes * Has this patient been hospitalized within the prior 30 days at any hospital? No Coverage Notice Reviewer: [id number] - Joanne Mckeon Notice Issued Date-Time: 03/23/2020 11:53 Notice Type: Patient Choice Letter Notice Delivered To: Family Member Relationship to Patient: Mother Weld Fitter Name: Lillian Romero Delivery Method: PHONE - Phone Ratna Days: Prior Verbal Notification: Yes Recipient Understood Notice: Yes Recipient Signature: Med Rec Note Co-signed by Attending: Coverage Notice Comment: Last DP export: 03/28/20 4:12 pm Patient Name: SMITA ROMERO Page 77074 at 1910 All edits/amendments must be made on the electronic document DICTATION DATE: 03/29/201908 AUTO TECH: FADY 03/29/201908 RPT#: [id number] [place] DATE: STATUS: ADM IN [facility] [address] [place] [address] END OF REPORT
--- NOTE | 2020-03-29 19:20 | NUR ---
SHIFT ASSESSMENT COMPLETE. NO DISTRESS NOTED AT THIS TIME. PATIENT RETURNED TO BED. CALL LIGHT WITHIN REACH, BED IN LOW POSITION, AND WILL CONTINUE TO MONITOR.
--- NOTE | 2020-03-29 19:23 | MORECARE ---
CASE MANAGEMENT DISCHARGE SUMMARY PATIENT: SMITA ROMERO UNIT: [id number] ADM DATE: 03/12/20 AGE: 44 : [birth year] SEX: M ROOM/BED: D.2304 AUTHOR: LEODAN,DOC PHYSICIAN: REFERRING PHYSICIAN: LUIS ALBERTO CUELLO MD DATE OF SERVICE: 03/29/20 Discharge Plan Patient Name: SMITA ROMERO Facility: [facility]:[place] : 1975 Planned Disposition: Psych facility Anticipated Discharge Date: 03/16/20 Discharge Date: Expected LOS: 4 Initial Reviewer: [email or web address] Initial Review Date: 03/12/2020 Generated: 03/29/20 8:22 pm Comments DCP- Discharge Planning Updated by [id number]: Joanne Mckeon on 03/29/20 6:[address] CM spoke with Mahad @ [facility] this am and he requested COVID test within the last five days. Mahad came out and evaluated patient this afternoon. COVID results sent to facility this evening. Probable discharge . DCP- Discharge Planning Updated by [id number]: Joanne Mckeon on 03/27/20 5:[address] CM called Vickie to check status of discharge to SNF. Vickie stated that she has sent it to Bryan to [facility] and will let CM know status as soon as she can. CM will check back again in am on status. DCP- Discharge Planning Updated by [id number]: Joanne Mckeon on 03/24/20 4:[address] CM received a call back from Princess at [facility] and they denied the patient. CM contacted Vickie with nursing consultants and she will check with her facilities to see if she can find placement. CM faxed records and awaiting determination of acceptance. CM will continue to follow and assist as needed with discharge planning needs. DCP- Discharge Planning Updated by [id number]: Joanne Mckeon on 03/24/20 2:[address] CM received JOSE approval back and sent referral to [facility] and received a call back from [facility] that they have denied the patient. MARY has sent referral to [facility] and contacted Princess to let her know of the referral. CM awaiting determination from [facility]. CM will continue too follow and assist as needed with discharge planning / needs. DCP- Discharge Planning Updated by [email or web address]: Joanne Mckeon on 03/23/20 6:[address] CM called and spoke with Agatha with [facility] [phone]. She stated that it sounds like the patient needs rehab before returning to the home. She stated that she needed to talk to the patient on the phone again but would call back later to speak to him. Agatha also stated that the patient's landlord Efren Luther [phone] was the patient's payee (CM asked to clarify meaning the landlord oversees patient's money) CM called and spoke with patient's mother Lillian Romero [phone] about rehab in SNF . CHRIS completed for no preference in SNF. CM has completed JOSE for placement awaiting physician signature to send in. CM will send referrals in am to SNF. CM will continue to follow and assist as needed with discharge planning / needs. DCP- Discharge Planning Updated by [id number]: Joanne Mckeon on 03/22/20 5:[address] [facility] has approved that patient can have outpatient psych care and does no longer need inpatient placement. CM has called Agatha with [facility] and left message to call CM. If patient needs SNF placement then he will need JOSE before placement and we will need family to complete CHRIS. CM will continue to follow and assist as needed with discharge planning / needs. DCP- Discharge Planning Updated by [id number]: Lana Magdaleno on 03/22/20 7:[address] Per Willie with [facility], the patient has been declined by every Psych facility. Savita was notified on 03/18 that no further placement was required. DCP- Discharge Planning Updated by [id number]: Joanne Mckeon on 03/20/20 3:[address] LATE ENTRY 03/18/20 FAXED UPDATED PACKET TO [facility]SFER CENTER FOR PLACEMENT TO PSYCH FACILITY. DCP- Discharge Planning Updated by [id number]: Joselin Parker on 03/16/20 1:[address] Patient Name: SMITA ROMERO Admission Status: ER Accout number: [id number] Admission Date: 03-12-2020 : 1975 Admission Diagnosis:METABOLIC ENCEPHALOPATHY Attending: LUIS ALBERTO CUELLO Current LOS: 4 Anticipated DC Date: Planned Disposition: Psych facility Primary Insurance: [facility] MEDIC[facility] SOLUTIONS Discharge Planning Comments: I SPOKE WITH CASIMIRO AT [facility] AND THEY HAVE DECLINCED PATIENT FOR ADMISSION. I CALLED OUR TRANSFER CENTER AND THEY ARE NOW WORKIN ON FINDING PLACEMENT. I CALLED [facility]PS AGATHA AND LET HER KNOW. Welding Machine Operator Gas Metal Arc: Joselin Parker DCP- Discharge Planning Updated by [email or web address]: Joselin Parker on 03/16/20 11:[address] Patient Name: SMITA ROMERO Admission Status: ER Accout number: [id number] Admission Date: 03-12-2020 : 1975 Admission Diagnosis:METABOLIC ENCEPHALOPATHY Attending: LUIS ALBERTO CUELLO Current LOS: 4 Anticipated DC Date: Planned Disposition: Psych facility Primary Insurance: [facility] MEDICARE SOLUTIONS Discharge Planning Comments: [facility] FAX [phone], I SPOKE WITH CASIMIRO AT [phone] WITH [facility] ADMIT. WAITING AIR TRAFFIC INSTRUCTOR BACK TO SEE IF THEY ARE GOING TO ACCEPT PATIENT. Welding Machine Operator Gas Metal Arc: Joselin Parker DCP- Discharge Planning Updated by [id number]: Joanne Mckeon on 03/15/20 6:[address] Patient Name: SMITA ROMERO Admission Status: ER Accout number: [id number] Admission Date: 03-12-2020 : 1975 Admission Diagnosis:METABOLIC ENCEPHALOPATHY Attending: LUIS ALBERTO CUELLO Current LOS: 3 Anticipated DC Date: Planned Disposition: Psych facility Primary Insurance: [facility] MEDICARE SOLUTIONS Discharge Planning Comments: CM met with patient at bedside after explaining CM role and obtaining verbal consent. Patient lives at home with his mother (Lillian) where he is independent with his care and plans to return there upon discharge. Patient is difficult to speak with he doesn't talk in sentences just a word at a time. CM called and spoke with patient's mother Lillian. Lillian stated that the patient lives with her CM discussed availability / needs of home health and medical equipment. Patient doesn't have any medical equipment or home health services. [facility] has been notified and has called wanting to speak to patient Agatha [phone] and fax records [phone]. CM will continue to follow and assist as needed with discharge planning / needs. Welding Machine Operator Gas Metal Arc: Joanne Mckeon Appended by Joanne Mckeon on 03/15/2020 19:37 CDT: Salma is recommending inpatient psych when medically stable DCP- Discharge Planning Updated by REILLY Mckeon on 03/13/20 4:[address] Patient resting when CM rounded. CM will come back later for d/c planning assessment. CM will continue to follow and assist as needed with discharge planning/ needs. DCPIA - Discharge Planning Initial Assessment Updated by REILLY Mckeon on 03/15/20 7:17 pm * Is the patient Alert and Oriented? No * How many steps to enter\exit or inside your home? * PCP Clayton Byrd CNP * [facility]acy [facility] * Preadmission Environment Home with Family * ADLs Independent * Equipment None * List name and contact numbers for known caregivers / representatives who currently or will assist patient after discharge: Lillian Romero - mother - [phone] Aiyana Martinez - girlfriend - [phone] * Verbal permission to speak to the caregivers and representatives has been obtained from the patient. Yes * Community resources currently utilized None * Additional services required to return to the preadmission environment? No * Can the patient safely return to the preadmission environment? Yes * Has this patient been hospitalized within the prior 30 days at any hospital? No Coverage Notice Reviewer: [id number] Lynn Mckeon Notice Issued Date-Time: 03/23/2020 11:53 Notice Type: Patient Choice Letter Notice Delivered To: Family Member Relationship to Patient: Mother Professor Of Sport Management Name: Lillian Romero Delivery Method: PHONE - Phone Ratna Days: Prior Verbal Notification: Yes Recipient Understood Notice: Yes Recipient Signature: Med Rec Note Co-signed by Attending: Coverage Notice Comment: Last DP export: 03/29/20 6:10 pm Patient Name: SMITA ROMERO Page 20916 at 1923 All edits/amendments must be made on the electronic document DICTATION DATE: 03/29/201921 COATING LINE WORKER: FADY 03/29/201921 RPT#: [id number] DC DATE: STATUS: ADM IN [facility] [address] [facility] [place] [address] END OF REPORT
--- NOTE | 2020-03-29 20:00 | NUR ---
ASSISTED PATIENT BACK TO BED AND ENCOURAGED TO USE CALL LIGHT PRIOR TO STANDING.
--- NOTE | 2020-03-29 20:23 | NUR ---
PATIENT REQUESTING CHOCOLATE ICE CREAM AND ORANGE JUICE. FOOD GIVEN. CALL LIGHT WITHIN REACH, BED IN LOW POSITION, AND WILL CONTINUE TO MONITOR.
--- NOTE | 2020-03-29 21:00 | NUR ---
PATIENT SITTING ON BEDSIDE. PATIENT REQUESTING COKE. COKE GIVEN.
--- NOTE | 2020-03-29 23:33 | NUR ---
PATIENT SLEEPING AT THIS TIME. CALL LIGHT WITHIN REACH, BED IN LOW POSITION, AND WILL CONTINUE TO MONITOR. NO CHANGES FROM PREVIOUS ASSESSMENT.
--- NOTE | 2020-03-29 23:59 | NUR ---
PATIENT SLEEPING NO DISTRESS NOTED.
[2020-03-30 03:44] LABS: BASOPHILS 0.2 % (0-2); EOSINOPHILS 1.9 % (0-7); HEMATOCRIT 40.8 % (42.0-54.0); HEMOGLOBIN 13.7 g/dL (13.5-17.5); IMMATURE GRANULOCYTES 0.2 % (0-5); LYMPHOCYTES 23.9 % (15-50); MCH 31.8 pg (26.0-34.0); MCHC 33.6 g/dL (31.0-37.0); MCV 94.7 fL (80.0-100.0); MONOCYTES 11.1 % (2-11); NEUTROPHILS 62.7 % (40-80); PLATELET COUNT 311 10x3/uL (130-400); RBC 4.31 10x6/uL (4.20-6.10); RDW 12.3 % (11.5-14.5); WBC 10.6 10x3/uL (4.8-10.8)
[2020-03-30 04:06] LABS: ALBUMIN 3.3 g/dL (3.4-5.0); ALKALINE PHOSPHATASE 61 U/L (30-120); ALT (SGPT) 26 U/L (10-68); BILIRUBIN - TOTAL 0.36 mg/dL (0.2-1.3); CALC OSMOLALITY 280 mosm/kg (275-300); CALCIUM 8.8 mg/dL (8.5-10.1); CARBON DIOXIDE 29.5 mmol/L (21.0-32.0); CHLORIDE - SERUM 103 mmol/L (98-107); GLUCOSE 102 mg/dL (74-106); POTASSIUM - SERUM 3.9 mmol/L (3.5-5.1); PROTEIN - SERUM 6.9 g/dL (6.4-8.2); SODIUM 140 mmol/L (136-145); UREA NITROGEN 18 mg/dL (7-18); eGFR NON AFRICAN AMERICAN 86 mL/min (90-120)
[2020-03-30 07:00] VITALS: BP 115/78
--- NOTE | 2020-03-30 07:15 | NUR ---
REPORT RECEIVED. PT CONFUSED. LAYING IN BED. PT HAS NO IVS. HE IS INCONTINENT. IS WEARING BRIEFS. HAS TRANSFER ORDERS. NO COMPLAINTS OR NEEDS AT THIS TIME. SET UP BREAKFAST FOR PT. BED ALARM ON. WILL CONTINUE TO MONITOR.
--- NOTE | 2020-03-30 08:34 | NUR ---
PT DIDN'T EAT MUCH OF HIS BREAKFAST. DRANK BOOST. TOOK MEDICATIONS WITH NO PROBLEMS. REPOSITIONED IN BED. CALL LIGHT IN REACH. INSTRUCTED PT NOT TO GET UP, TO CALL IF HE NEEDED ANYTHING. WILL CONTINUE TO MONITOR.
--- NOTE | 2020-03-30 09:15 | NUR ---
PHYSICAL THERAPY WORKING WITH PT.
--- NOTE | 2020-03-30 10:14 | MORECARE ---
CASE MANAGEMENT DISCHARGE SUMMARY PATIENT: SMITA ROMERO UNIT: [id number] ADM DATE: 03/12/20 AGE: 44 : [birth year] SEX: M ROOM/BED: D.2304 AUTHOR: LEODAN,DOC PHYSICIAN: REFERRING PHYSICIAN: LUIS ALBERTO CUELLO MD DATE OF SERVICE: 03/30/20 Discharge Plan Patient Name: SMITA ROMERO Facility: [facility]:[place] : 1975 Planned Disposition: Psych facility Anticipated Discharge Date: 03/16/20 Discharge Date: Expected LOS: 4 Initial Reviewer: [id number] Initial Review Date: 03/12/2020 Generated: 03/30/20 11:14 am Comments DCP- Discharge Planning Updated by [id number]: Joanne Mckeon on 03/29/20 6:[address] CM spoke with Mahad @ [facility] this am and he requested COVID test within the last five days. Mahad came out and evaluated patient this afternoon. COVID results sent to facility this evening. Probable discharge . DCP- Discharge Planning Updated by [id number]: Joanne Mckeon on 03/27/20 5:[address] CM called Vickie to check status of discharge to SNF. Vickie stated that she has sent it to Bryan to [facility] and will let CM know status as soon as she can. CM will check back again in am on status. DCP- Discharge Planning Updated by [id number]: Joanne Mckeon on 03/24/20 4:[address] CM received a call back from Princess at [facility] and they denied the patient. CM contacted Vickie with nursing consultants and she will check with her facilities to see if she can find placement. CM faxed records and awaiting determination of acceptance. CM will continue to follow and assist as needed with discharge planning needs. DCP- Discharge Planning Updated by [id number]: Joanne Mckeon on 03/24/20 2:[address] CM received JOSE approval back and sent referral to [facility] and received a call back from [facility] that they have denied the patient. MARY has sent referral to [facility] and contacted Princess to let her know of the referral. CM awaiting determination from [facility]. CM will continue too follow and assist as needed with discharge planning / needs. DCP- Discharge Planning Updated by [id number]: Joanne Mckeon on 03/23/20 6:[address] CM called and spoke with Agatha with [facility] [phone]. She stated that it sounds like the patient needs rehab before returning to the home. She stated that she needed to talk to the patient on the phone again but would call back later to speak to him. Agatha also stated that the patient's landlord Efren Luther [phone] was the patient's payee (CM asked to clarify meaning the landlord oversees patient's money) CM called and spoke with patient's mother Lillian Romero [phone] about rehab in SNF . CHRIS completed for no preference in SNF. CM has completed JOSE for placement awaiting physician signature to send in. CM will send referrals in am to SNF. CM will continue to follow and assist as needed with discharge planning / needs. DCP- Discharge Planning Updated by [id number]: Joanne Mckeon on 03/22/20 5:[address] [facility] has approved that patient can have outpatient psych care and does no longer need inpatient placement. CM has called Agatha with [facility] and left message to call CM. If patient needs SNF placement then he will need JOSE before placement and we will need family to complete CHRIS. CM will continue to follow and assist as needed with discharge planning / needs. DCP- Discharge Planning Updated by [id number]: Lana Magdaleno on 03/22/20 7:[address] Per Willie with [facility], the patient has been declined by every Psych facility. Savita was notified on 03/18 that no further placement was required. DCP- Discharge Planning Updated by [email or web address]: Joanne Mckeon on 03/20/20 3:[address] LATE ENTRY 03/18/20 FAXED UPDATED PACKET TO [facility] FOR PLACEMENT TO PSYCH FACILITY. DCP- Discharge Planning Updated by [email or web address]: Joselin Parker on 03/16/20 1:[address] Patient Name: SMITA ROMERO Admission Status: ER Accout number: [id number] Admission Date: 03-12-2020 : 1975 Admission Diagnosis:METABOLIC ENCEPHALOPATHY Attending: LUIS ALBERTO CUELLO Current LOS: 4 Anticipated DC Date: Planned Disposition: Psych facility Primary Insurance: [facility] MEDICARE SOLUTIONS Discharge Planning Comments: I SPOKE WITH CASIMIRO AT [facility] AND THEY HAVE DECLINCED PATIENT FOR ADMISSION. I CALLED OUR [facility] AND THEY ARE NOW WORKIN ON FINDING PLACEMENT. I CALLED [facility]PS AGATHA AND LET HER KNOW. Marine Equipment Design Engineer: Joselin Parker DCP- Discharge Planning Updated by [id number]: Joselin Parker on 03/16/20 11:[address] Patient Name: SMITA ROMERO Admission Status: ER Accout number: [id number] Admission Date: 03-12-2020 : 1975 Admission Diagnosis:METABOLIC ENCEPHALOPATHY Attending: LUIS ALBERTO CUELLO Current LOS: 4 Anticipated DC Date: Planned Disposition: Psych facility Primary Insurance: [facility] MEDIC[employer] SOLUTIONS Discharge Planning Comments: REFERRAL FAXED TO [facility] AT FAX [phone], I SPOKE WITH CASIMIRO AT [phone] WITH [facility] ADMIT. WAITING CLINICAL STAFF ANESTHESIOLOGIST BACK TO SEE IF THEY ARE GOING TO ACCEPT PATIENT. Marine Equipment Design Engineer: Joslein Parker DCP- Discharge Planning Updated by [id number]: Joanne Mckeon on 03/15/20 6:[address] Patient Name: SMITA ROMERO Admission Status: ER Accout number: [id number] Admission Date: 03-12-2020 : 1975 Admission Diagnosis:METABOLIC ENCEPHALOPATHY Attending: LUIS ALBERTO CUELLO Current LOS: 3 Anticipated DC Date: Planned Disposition: Psych facility Primary Insurance: [facility] [employer] SOLUTIONS Discharge Planning Comments: CM met with patient at bedside after explaining CM role and obtaining verbal consent. Patient lives at home with his mother (Lillian) where he is independent with his care and plans to return there upon discharge. Patient is difficult to speak with he doesn't talk in sentences just a word at a time. CM called and spoke with patient's mother Lillian. Lillian stated that the patient lives with her CM discussed availability / needs of home health and medical equipment. Patient doesn't have any medical equipment or home health services. [facility] has been notified and has called wanting to speak to patient Agatha [phone] and fax records [phone]. CM will continue to follow and assist as needed with discharge planning / needs. Marine Equipment Design Engineer: Joanne Mckeon Appended by Joanne Mckeon on 03/15/2020 19:37 CDT: Salma is recommending inpatient psych when medically stable DCP- Discharge Planning Updated by REILLY Mckeon on 03/13/20 4:[address] Patient resting when CM rounded. CM will come back later for d/c planning assessment. CM will continue to follow and assist as needed with discharge planning/ needs. DCPIA - Discharge Planning Initial Assessment Updated by REILLY Mckeon on 03/15/20 7:17 pm * Is the patient Alert and Oriented? No * How many steps to enter\exit or inside your home? * PCP Clayton Byrd CNP * [facility]acy [facility] * Preadmission Environment Home with Family * ADLs Independent * Equipment None * List name and contact numbers for known caregivers / representatives who currently or will assist patient after discharge: Lillian Romero - mother - [phone] Aiyana Martinez - girlfriend - [phone] * Verbal permission to speak to the caregivers and representatives has been obtained from the patient. Yes * Community resources currently utilized None * Additional services required to return to the preadmission environment? No * Can the patient safely return to the preadmission environment? Yes * Has this patient been hospitalized within the prior 30 days at any hospital? No Coverage Notice Reviewer: [id number] Lynn Mckeon Notice Issued Date-Time: 03/23/2020 11:53 Notice Type: Patient Choice Letter Notice Delivered To: Family Member Relationship to Patient: Mother Proposal Consultant Name: Lillian Romero Delivery Method: PHONE - Phone Ratna Days: Prior Verbal Notification: Yes Recipient Understood Notice: Yes Recipient Signature: Med Rec Note Co-signed by Attending: Coverage Notice Comment: Last DP export: 03/29/20 6:23 pm Patient Name: SMITA ROMERO Page 61162 at 1014 All edits/amendments must be made on the electronic document DICTATION DATE: 03/30/20 1014 TANK BUILDER AND ERECTOR: FADY 03/30/20 1014 RPT#: [id number] DC DATE: STATUS: ADM IN [facility] [address] [place] [address] END OF REPORT
[2020-03-30 11:00] VITALS: BP 110/81
--- NOTE | 2020-03-30 11:30 | NUR ---
PT RESTING QUIETLY. BED ALARM ON. WILL CONTINUE TO MONITOR.
--- NOTE | 2020-03-30 12:20 | NUR ---
OT NOTE: PT COMPLETED SUPINE TO SIT WITH CGA. PT COMPLETED ADL MOB WITH CGA. PT COMPLETED LB HYGIENE WITH MIN/MOD A. 830-9 THANK YOU,FRANCISCA TERAN
[2020-03-30 15:00] VITALS: BP 104/79
--- NOTE | 2020-03-30 19:20 | NUR ---
SHIFT ASSESSMENT COMPLETE. PATIENT UP OUT OF BED; ENCOURAGED TO RETURN TO BED AND CALL FOR ASSISTANCE. CALL LIGHT WITHIN REACH, BED IN LOW POSITION, AND WILL CONTINUE TO MONITOR.
--- NOTE | 2020-03-30 19:30 | NUR ---
RECEIVED CARE OF PT, ASSESSMENT PER FLOWSHEET. PT AWAKE AND SITTING UP IN BED, SPEECH IS SOFT AND GARBLED-ONLY ABLE TO UNDERSTAND EVERY FEW WORDS OF PT VERBALIZATIONS. ORANGE JUICE PROVIDED PER REQUEST, BED LOW, ALARM ON, CALL LIGHT IN REACH.
--- NOTE | 2020-03-30 20:12 | MORECARE ---
CASE MANAGEMENT DISCHARGE SUMMARY PATIENT: SMITA ROMERO UNIT: [id number] ADM DATE: 03/12/20 AGE: 44 : [birth year] SEX: M ROOM/BED: D.2304 AUTHOR: LEODAN,DOC PHYSICIAN: REFERRING PHYSICIAN: LUIS ALBERTO CUELLO MD DATE OF SERVICE: 03/30/20 Discharge Plan Patient Name: SMITA ROMERO Facility: [facility]:[place] : 1975 Planned Disposition: Psych facility Anticipated Discharge Date: 03/16/20 Discharge Date: Expected LOS: 4 Initial Reviewer: [id number] Initial Review Date: 03/12/2020 Generated: 03/30/20 9:12 pm Comments DCP- Discharge Planning Updated by [id number]: Joanne Mckeon on 03/30/20 7:[address] CM refaxed CoVid results this am. Attempted to contact Mahad with [facility] several times today to find out status of admission. Spoke with Mahad late this afternoon and he stated they was still awaiting auth from [facility]. He stated that they should be able to admit patient in am. CM will continue to follow and assist as needed with discharge planning/ needs. DCP- Discharge Planning Updated by [id number]: Joanne Mckeon on 03/29/20 6:[address] CM spoke with Mahad @ [facility] this am and he requested COVID test within the last five days. Mahad came out and evaluated patient this afternoon. COVID results sent to facility this evening. Probable discharge . DCP- Discharge Planning Updated by [id number]: Joanne Mckeon on 03/27/20 5:[address] CM called Vickie to check status of discharge to SNF. Vickie stated that she has sent it to [place] to [facility] and will let CM know status as soon as she can. CM will check back again in am on status. DCP- Discharge Planning Updated by [email or web address]: Joanne Mckeon on 03/24/20 4:[address] CM received a call back from Princess at [facility] and they denied the patient. CM contacted Vickie with nursing consultants and she will check with her facilities to see if she can find placement. CM faxed records and awaiting determination of acceptance. CM will continue to follow and assist as needed with discharge planning needs. DCP- Discharge Planning Updated by [email or web address]: Joanne Mckeon on 03/24/20 2:[address] CM received JOSE approval back and sent referral to [facility] and received a call back from [facility] that they have denied the patient. CM has sent referral to [facility] and contacted Princess to let her know of the referral. CM awaiting determination from [facility]. CM will continue too follow and assist as needed with discharge planning / needs. DCP- Discharge Planning Updated by [id number]: Joanne Mckeon on 03/23/20 6:[address] CM called and spoke with Agatha with [facility] [phone]. She stated that it sounds like the patient needs rehab before returning to the home. She stated that she needed to talk to the patient on the phone again but would call back later to speak to him. Agatha also stated that the patient's landlord Efren Luther [phone] was the patient's payee (CM asked to clarify meaning the landlord oversees patient's money) MARY called and spoke with patient's mother Lillian Romero [phone] about rehab in SNF . CHRIS completed for no preference in SNF. CM has completed JOSE for placement awaiting physician signature to send in. CM will send referrals in am to SNF. CM will continue to follow and assist as needed with discharge planning / needs. DCP- Discharge Planning Updated by [id number]: Joanne Mckeon on 03/22/20 5:[address] Psych has approved that patient can have outpatient psych care and does no longer need inpatient placement. MARY has called Agatha with [facility] and left message to call CM. If patient needs SNF placement then he will need JOSE before placement and we will need family to complete CHRIS. CM will continue to follow and assist as needed with discharge planning / needs. DCP- Discharge Planning Updated by [email or web address]: Lana Magdaleno on 03/22/20 7:[address] Per [facility] with [facility], the patient has been declined by every Psych facility. [facility] was notified on 03/18 that no further placement was required. DCP- Discharge Planning Updated by [id number]: Joanne Mckeon on 03/20/20 3:[address] LATE ENTRY 03/18/20 FAXED UPDATED PACKET TO [facility] FOR PLACEMENT TO PSYCH FACILITY. DCP- Discharge Planning Updated by [email or web address]: Joselin Parker on 03/16/20 1:[address] Patient Name: SMITA ROMERO Admission Status: ER Accout number: [id number] Admission Date: 03-12-2020 : 1975 Admission Diagnosis:METABOLIC ENCEPHALOPATHY Attending: LUIS ALBERTO CUELLO Current LOS: 4 Anticipated DC Date: Planned Disposition: Psych facility Primary Insurance: [facility] MEDICARE SOLUTIONS Discharge Planning Comments: I SPOKE WITH CASIMIRO AT [facility] AND THEY HAVE DECLINCED PATIENT FOR ADMISSION. I CALLED OUR [facility] AND THEY ARE NOW WORKIN ON FINDING PLACEMENT. I CALLED CHANEL HANNA AND LET HER KNOW. Sponge Maker: Joselin Parker DCP- Discharge Planning Updated by [email or web address]: Joselin Parker on 03/16/20 11:[address] Patient Name: SMITA ROMERO Admission Status: ER Accout number: [id number] Admission Date: 03-12-2020 : 1975 Admission Diagnosis:METABOLIC ENCEPHALOPATHY Attending: LUIS ALBERTO CUELLO Current LOS: 4 Anticipated DC Date: Planned Disposition: Psych facility Primary Insurance: [facility] MEDICARE SOLUTIONS Discharge Planning Comments: [facility] [phone], I SPOKE WITH CASIMIRO AT [phone] WITH [facility] ADMIT. WAITING MANUFACTURERS AGENT BACK TO SEE IF THEY ARE GOING TO ACCEPT PATIENT. Sponge Maker: Joselin Parker DCP- Discharge Planning Updated by [id number]: Joanne Mckeon on 03/15/20 6:[address] Patient Name: SMITA ROMERO Admission Status: ER Accout number: [id number] Admission Date: 03-12-2020 : 1975 Admission Diagnosis:METABOLIC ENCEPHALOPATHY Attending: LUIS ALBERTO CUELLO Current LOS: 3 Anticipated DC Date: Planned Disposition: Psych facility Primary Insurance: [facility] MEDICARE SOLUTIONS Discharge Planning Comments: CM met with patient at bedside after explaining CM role and obtaining verbal consent. Patient lives at home with his mother (Lillian) where he is independent with his care and plans to return there upon discharge. Patient is difficult to speak with he doesn't talk in sentences just a word at a time. CM called and spoke with patient's mother Lillian. Lillian stated that the patient lives with her CM discussed availability / needs of home health and medical equipment. Patient doesn't have any medical equipment or home health services. [facility] has been notified and has called wanting to speak to patient Agatha [phone] and fax records [phone]. CM will continue to follow and assist as needed with discharge planning / needs. Sponge Maker: Joanne Mckeon Appended by Joanne Mckeon on 03/15/2020 19:37 CDT: Salma is recommending inpatient psych when medically stable DCP- Discharge Planning Updated by [id number] Mckeon on 03/13/20 4:[address] Patient resting when CM rounded. CM will come back later for d/c planning assessment. CM will continue to follow and assist as needed with discharge planning/ needs. DCPIA - Discharge Planning Initial Assessment Updated by HANNA: Joanne Mckeon on 03/15/20 7:17 pm * Is the patient Alert and Oriented? No * How many steps to enter\exit or inside your home? * PCP Clayton Byrd CNP * [facility]acy [facility] * Preadmission Environment Home with Family * ADLs Independent * Equipment None * List name and contact numbers for known caregivers / representatives who currently or will assist patient after discharge: Lillian Romero - mother - [phone] Aiyana Martinez - girlfriend - [phone] * Verbal permission to speak to the caregivers and representatives has been obtained from the patient. Yes * Community resources currently utilized None * Additional services required to return to the preadmission environment? No * Can the patient safely return to the preadmission environment? Yes * Has this patient been hospitalized within the prior 30 days at any hospital? No Coverage Notice Reviewer: [id number] Lynn Mckeon Notice Issued Date-Time: 03/23/2020 11:53 Notice Type: Patient Choice Letter Notice Delivered To: Family Member Relationship to Patient: Mother Cutting Inspector Name: Lillian Romero Delivery Method: PHONE - Phone Ratna Days: Prior Verbal Notification: Yes Recipient Understood Notice: Yes Recipient Signature: Med Rec Note Co-signed by Attending: Coverage Notice Comment: Last DP export: 03/30/20 9:14 am Patient Name: SMITA ROMERO Page [id number] at 2012 All edits/amendments must be made on the electronic document DICTATION DATE: 03/30/202011 UTILITY SALES REPRESENTATIVE: FADY 03/30/202011 RPT#: [id number] DC DATE: STATUS: ADM IN [facility] [address] [place] [address] END OF REPORT
--- NOTE | 2020-03-30 21:10 | NUR ---
PATIENT OUT AT DESK; ENCOURAGED TO RETURN TO ROOM/BED. PATIENT DIRECTED EASILY TO ROOM AND BED WITH MINIMAL ASSIST. CALL LIGHT WITHIN REACH, BED IN LOW POSITION, AND WILL CONTINUE TO MONITOR.
--- NOTE | 2020-03-30 23:18 | NUR ---
PATIENT UP AT FOOT OF BED. ENCOURAGED PATIENT BACK TO BED. [facility] AND PATIENT BACK TO BED WITHOUT ASSIST.
--- NOTE | 2020-03-31 01:00 | NUR ---
PATIENT SLEEPING WITH NO CHANGES FROM PREVIOUS ASSESSMENT. CALL LIGHT WITHIN REACH, BED IN LOW POSITION, WILL CONTINUE TO MONITOR.
--- NOTE | 2020-03-31 03:00 | NUR ---
PATIENT SLEEPING WITH NO CHANGES IN CONDITION. CALL LIGHT WITHIN REACH, BED IN LOW POSITION, AND WILL CONTINUE TO MONITOR.
--- NOTE | 2020-03-31 05:00 | NUR ---
PATIENT AWAKE NO CHANGES IN CONDITION. CALL LIGHT WITHIN REACH, BED IN LOW POSITION, AND WILL CONTINUE TO MONITOR.
[2020-03-31 06:00] VITALS: BP 127/86
--- NOTE | 2020-03-31 07:33 | NUR ---
PT RECEIVED AWAKE AND ALERT SITTING UP IN BED. POSSIBLE DC TO NH TODAY PER REPORT.
--- NOTE | 2020-03-31 07:40 | NUR ---
Nutrition follow-up: Diet: regular PO intake has decreased a little; drinking [employer] reviewed Possible discharge today RDN following
[2020-03-31 08:37] VITALS: BP 127/86
--- NOTE | 2020-03-31 09:07 | NUR ---
PT ASLEEP IN BED.
--- NOTE | 2020-03-31 11:00 | NUR ---
PT SLEEPING QUIETLY IN BED.
--- NOTE | 2020-03-31 11:28 | MORECARE ---
CASE MANAGEMENT DISCHARGE SUMMARY PATIENT: SMITA ROMERO UNIT: [id number] ADM DATE: 03/12/20 AGE: 44 : 73 SEX: M ROOM/BED: D.2304 AUTHOR: LEODAN,DOC PHYSICIAN: REFERRING PHYSICIAN: LUIS ALBERTO CUELLO MD DATE OF SERVICE: 03/31/20 Discharge Plan Patient Name: SMITA ROMERO Facility: [facility]:[place] : 1975 Planned Disposition: Psych facility Anticipated Discharge Date: 03/16/20 Discharge Date: Expected LOS: 4 Initial Reviewer: [id number] Initial Review Date: 03/12/2020 Generated: 03/31/20 12:27 pm Comments DCP- Discharge Planning Updated by [id number]: Erlinda Gomez on 03/31/20 10:[address] CM SPOKE BEER AT [email or web address] MEDICARE SOLUTIONS. SHE CONFIRMED DENIAL. NO FORMAL DENIAL WILL BE SENT UNTIL PEER TO PEER REVIEW HAS BEEN COMPLETED IF ATTENDING DESIRES AN APPEAL. APPEAL MUST BE COMPLETED PRIOR TO FRIDAY APRIL 03, 2020 AT 1500 EST. CM SPOKE Diony ANDUJAR IN ICU AND PROVIDED DECISION AND CONTACT [facility] FOR PEER TO PEER. CON WILL CALL DR CRESPO. DCP- Discharge Planning Updated by [id number]: Joanne Mckeon on 03/30/20 7:[address] CM refaxed CoVid results this am. Attempted to contact Mahad with [facility] several times today to find out status of admission. Spoke with Mahad late this afternoon and he stated they was still awaiting auth from [facility]. He stated that they should be able to admit patient in am. CM will continue to follow and assist as needed with discharge planning/ needs. DCP- Discharge Planning Updated by [id number]: Joanne Mckeon on 03/29/20 6:[address] CM spoke with Mahad @ [facility] this am and he requested COVID test within the last five days. Mahad came out and evaluated patient this afternoon. COVID results sent to facility this evening. Probable discharge . DCP- Discharge Planning Updated by [id number]: Joanne Mckeon on 03/27/20 5:[address] CM called Vickie to check status of discharge to SNF. Vickie stated that she has sent it to [place] to qasimal and will let CM know status as soon as she can. CM will check back again in am on status. DCP- Discharge Planning Updated by [id number]: Joanne Mckeon on 03/24/20 4:[address] CM received a call back from Princess at [facility] and they denied the patient. CM contacted Vickie with nursing consultants and she will check with her facilities to see if she can find placement. CM faxed records and awaiting determination of acceptance. CM will continue to follow and assist as needed with discharge planning needs. DCP- Discharge Planning Updated by [id number]: Joanne Mckeon on 03/24/20 2:[address] CM received JOSE approval back and sent referral to [facility] and received a call back from [facility] that they have denied the patient. CM has sent referral to [facility] and contacted [place] to let her know of the referral. CM awaiting determination from [facility]. CM will continue too follow and assist as needed with discharge planning / needs. DCP- Discharge Planning Updated by [id number]: Joanne Mckeon on 03/23/20 6:[address] CM called and spoke with Agatha with [facility] [phone]. She stated that it sounds like the patient needs rehab before returning to the home. She stated that she needed to talk to the patient on the phone again but would call back later to speak to him. Agatha also stated that the patient's landlord Efren Luther [phone] was the patient's payee (CM asked to clarify meaning the landlord oversees patient's money) CM called and spoke with patient's mother Lillian Romero [phone] about rehab in SNF . CHRIS completed for no preference in SNF. MARY has completed JOSE for placement awaiting physician signature to send in. CM will send referrals in am to SNF. CM will continue to follow and assist as needed with discharge planning / needs. DCP- Discharge Planning Updated by [id number]: Joanne Mckeon on 03/22/20 5:[address] Psych has approved that patient can have outpatient psych care and does no longer need inpatient placement. MARY has called Agatha with [facility] and left message to call CM. If patient needs SNF placement then he will need JOSE before placement and we will need family to complete CHRIS. CM will continue to follow and assist as needed with discharge planning / needs. DCP- Discharge Planning Updated by [id number]: Lana Magdaleno on 03/22/20 7:[address] Per Willie with [facility], the patient has been declined by every Psych facility. States [facility] was notified on 03/18 that no further placement was required. DCP- Discharge Planning Updated by [id number]: Joanne Mckeon on 03/20/20 3:[address] LATE ENTRY 03/18/20 FAXED UPDATED PACKET TO [facility] FOR PLACEMENT TO [facility]. DCP- Discharge Planning Updated by [id number]: Joselin Parker on 03/16/20 1:[address] Patient Name: SMITA ROMERO Admission Status: ER Accout number: [id number] Admission Date: 03-12-2020 : 1975 Admission Diagnosis:METABOLIC ENCEPHALOPATHY Attending: LUIS ALBERTO CUELLO Current LOS: 4 Anticipated DC Date: Planned Disposition: [facility] facility Primary Insurance: [facility] MEDICARE SOLUTIONS Discharge Planning Comments: I SPOKE WITH CASIMIRO AT [facility] AND THEY HAVE DECLINCED PATIENT FOR ADMISSION. I CALLED [facility] AND THEY ARE NOW WORKIN ON FINDING PLACEMENT. I CALLED CHANEL HANNA AND LET HER KNOW. Faculty Physician: Joselin Parker DCP- Discharge Planning Updated by [id number]: Joselin Parker on 03/16/20 11:[address] Patient Name: SMITA ROMERO Admission Status: ER Accout number: [id number] Admission Date: 03-12-2020 : 1975 Admission Diagnosis:METABOLIC ENCEPHALOPATHY Attending: LUIS ALBERTO CUELLO Current LOS: 4 Anticipated DC Date: Planned Disposition: [facility] facility Primary Insurance: [facility] MEDICARE SOLUTIONS Discharge Planning Comments: REFERRAL FAXED TO [facility] AT FAX [phone], I SPOKE WITH CASIMIRO AT [phone] WITH [facility] ADMIT. WAITING SEX THERAPIST BACK TO SEE IF THEY ARE GOING TO ACCEPT PATIENT. Faculty Physician: Joselin Parker DCP- Discharge Planning Updated by [id number]: Joanne Mckeon on 03/15/20 6:[address] Patient Name: SMITA ROMERO Admission Status: ER Accout number: [id number] Admission Date: 03-12-2020 : 1975 Admission Diagnosis:METABOLIC ENCEPHALOPATHY Attending: LUIS ALBERTO CUELLO Current LOS: 3 Anticipated DC Date: Planned Disposition: Psych facility Primary Insurance: [facility] MEDICARE SOLUTIONS Discharge Planning Comments: CM met with patient at bedside after explaining CM role and obtaining verbal consent. Patient lives at home with his mother (Lillian) where he is independent with his care and plans to return there upon discharge. Patient is difficult to speak with he doesn't talk in sentences just a word at a time. CM called and spoke with patient's mother Lillian. Lillian stated that the patient lives with her CM discussed availability / needs of home health and medical equipment. Patient doesn't have any medical equipment or home health services. [facility] has been notified and has called wanting to speak to patient Agatha [phone] and fax records [phone]. CM will continue to follow and assist as needed with discharge planning / needs. Faculty Physician: Joanne Mckeon Appended by Joanne Mckeon on 03/15/2020 19:37 CDT: Salma is recommending inpatient psych when medically stable DCP- Discharge Planning Updated by [id number]: Joanne Mckeon on 03/13/20 4:[address] Patient resting when CM rounded. CM will come back later for d/c planning assessment. CM will continue to follow and assist as needed with discharge planning/ needs. DCPIA - Discharge Planning Initial Assessment Updated by [id number]: Joanne Mckeon on 03/15/20 7:17 pm * Is the patient Alert and Oriented? No * How many steps to enter\exit or inside your home? * PCP Clayton Byrd CNP * [facility]acy [facility] * Preadmission Environment Home with Family * ADLs Independent * Equipment None * List name and contact numbers for known caregivers / representatives who currently or will assist patient after discharge: Lillian Romero - mother - [phone] Aiyana Martinez - girlfriend - [phone] * Verbal permission to speak to the caregivers and representatives has been obtained from the patient. Yes * Community resources currently utilized None * Additional services required to return to the preadmission environment? No * Can the patient safely return to the preadmission environment? Yes * Has this patient been hospitalized within the prior 30 days at any hospital? No Coverage Notice Reviewer: [id number] Lynn Mckeon Notice Issued Date-Time: 03/23/2020 11:53 Notice Type: Patient Choice Letter Notice Delivered To: Family Member Relationship to Patient: Mother Staffing Manager Name: Lillian Romero Delivery Method: PHONE - Phone Ratna Days: Prior Verbal Notification: Yes Recipient Understood Notice: Yes Recipient Signature: Med Rec Note Co-signed by Attending: Coverage Notice Comment: Last DP export: 03/30/20 7:12 pm Patient Name: SMITA ROMERO Page 00704 at 1128 All edits/amendments must be made on the electronic document DICTATION DATE: 03/31/201126 PLATE PAINTER: FADY 03/31/201126 RPT#: [id number] DC DATE: STATUS: ADM IN [facility] [address] [place] [address] END OF REPORT
--- NOTE | 2020-03-31 12:08 | MORECARE ---
CASE MANAGEMENT DISCHARGE SUMMARY PATIENT: SMITA ROMERO UNIT: [id number] ADM DATE: 03/12/20 AGE: 44 : [birth year] SEX: M ROOM/BED: D.2304 AUTHOR: LEODAN,DOC PHYSICIAN: REFERRING PHYSICIAN: LUIS ALBERTO CUELLO MD DATE OF SERVICE: 03/31/20 Discharge Plan Patient Name: SMITA ROMERO Facility: [facility]:[place] : 1975 Planned Disposition: Psych facility Anticipated Discharge Date: 03/16/20 Discharge Date: Expected LOS: 4 Initial Reviewer: [id number] Initial Review Date: 03/12/2020 Generated: 03/31/20 1:07 pm Comments DCP- Discharge Planning Updated by [id number]: Erlinda Gomez on 03/31/20 11:[address] REC CB FROM CON, CHARGE NURSE. DR LEAVITT STATES SHE WILL DISCHARGE THE PATIENT HIS INSURER HAS DENIED SKILLED SERVICES. CM NOTES AGATHA WITH APS IS ALSO FOLLOWING THIS PATIENT. TC TO AGATHA. LEFT VOICE MAIL MESSAGE. PATIENT'S MOTHER IS ALSO ASSISTING WITH DISCHARGE. TC TO THE MOTHER AND NO ANSWER. TC TO LEO, SINTERING PRESS OPERATOR TO DISCUSS ABOVE. TC TO ADVISE CON OF PENDING CALLS AND VERFICATION OF PLAN WITH APS AND MOTHER. DCP- Discharge Planning Updated by [id number]: Erlinda Gomez on 03/31/20 10:[address] CM SPOKE BERE AT [facility] MEDICARE SOLUTIONS. SHE CONFIRMED DENIAL. NO FORMAL DENIAL WILL BE SENT UNTIL PEER TO PEER REVIEW HAS BEEN COMPLETED IF ATTENDING DESIRES AN APPEAL. APPEAL MUST BE COMPLETED PRIOR TO FRIDAY APRIL 03, 2020 AT 1500 EST. MARY SPOKE Canelo/ CON IN ICU AND PROVIDED DECISION AND CONTACT INOATION FOR PEER TO PEER. CNO WILL CALL DR CRESPO. DCP- Discharge Planning Updated by [id number]: Joanne Mckeon on 03/30/20 7:[address] CM refaxed CoVid results this am. Attempted to contact Mahad with [facility] several times today to find out status of admission. Spoke with Mahad late this afternoon and he stated they was still awaiting auth from [facility]. He stated that they should be able to admit patient in am. CM will continue to follow and assist as needed with discharge planning/ needs. DCP- Discharge Planning Updated by [id number]: Joanne Mckeon on 03/29/20 6:[address] CM spoke with Mahad @ [facility] this am and he requested COVID test within the last five days. Mahad came out and evaluated patient this afternoon. COVID results sent to facility this evening. Probable discharge . DCP- Discharge Planning Updated by [id number]: Joanne Mckeon on 03/27/20 5:[address] CM called Vickie to check status of discharge to SNF. Vickie stated that she has sent it to [facility] to [facility] and will let CM know status as soon as she can. CM will check back again in am on status. DCP- Discharge Planning Updated by [id number]: Joanne Mckeon on 03/24/20 4:[address] CM received a call back from Princess at [facility] and they denied the patient. CM contacted Vickie with nursing consultants and she will check with her facilities to see if she can find placement. CM faxed records and awaiting determination of acceptance. CM will continue to follow and assist as needed with discharge planning needs. DCP- Discharge Planning Updated by [id number]: Joanne Mckeon on 03/24/20 2:[address] CM received JOSE approval back and sent referral to [facility] and received a call back from [facility] that they have denied the patient. CM has sent referral to [facility] and contacted Princess to let her know of the referral. CM awaiting determination from [facility]. CM will continue too follow and assist as needed with discharge planning / needs. DCP- Discharge Planning Updated by [id number]: Joanne Mkceon on 03/23/20 6:[address] CM called and spoke with Agatha with [facility]PS [phone]. She stated that it sounds like the patient needs rehab before returning to the home. She stated that she needed to talk to the patient on the phone again but would call back later to speak to him. Agatha also stated that the patient's landlord Efren Luther [phone] was the patient's payee (CM asked to clarify meaning the landlord oversees patient's money) CM called and spoke with patient's mother Lillian Romero [phone] about rehab in SNF . CHRIS completed for no preference in SNF. CM has completed JOSE for placement awaiting physician signature to send in. CM will send referrals in am to SNF. CM will continue to follow and assist as needed with discharge planning / needs. DCP- Discharge Planning Updated by [id number]: Joanne Mckeon on 03/22/20 5:[address] [facility] has approved that patient can have outpatient psych care and does no longer need inpatient placement. CM has called Agatha with [facility] and left message to call CM. If patient needs SNF placement then he will need JOSE before placement and we will need family to complete CHRIS. CM will continue to follow and assist as needed with discharge planning / needs. DCP- Discharge Planning Updated by [id number]: Lana Magdaleno on 03/22/20 7:[address] Per Willie with [facility], the patient has been declined by every Psych facility. Savita was notified on 03/18 that no further placement was required. DCP- Discharge Planning Updated by [id number]: Joanne Mckeon on 03/20/20 3:[address] LATE ENTRY 03/18/20 FAXED UPDATED PACKET TO [facility]ER CENTER FOR PLACEMENT TO PSYCH FACILITY. DCP- Discharge Planning Updated by [id number]: Joselin Parker on 03/16/20 1:[address] Patient Name: SMITA ROMERO Admission Status: ER Accout number: [id number] Admission Date: 03-12-2020 : 1975 Admission Diagnosis:METABOLIC ENCEPHALOPATHY Attending: LUIS ALBERTO CUELLO Current LOS: 4 Anticipated DC Date: Planned Disposition: Psych facility Primary Insurance: [facility] MEDICARE SOLUTIONS Discharge Planning Comments: I SPOKE WITH CASIMIRO AT [facility] AND THEY HAVE DECLINCED PATIENT FOR ADMISSION. I CALLED OUR TRANSFER CENTER AND THEY ARE NOW WORKIN ON FINDING PLACEMENT. I CALLED [facility] AND LET HER KNOW. Heel Gouger: Joselin Parker DCP- Discharge Planning Updated by [id number]: Joselin Parker on 03/16/20 11:[address] Patient Name: SMITA ROMERO Admission Status: ER Accout number: [id number] Admission Date: 03-12-2020 : 1975 Admission Diagnosis:METABOLIC ENCEPHALOPATHY Attending: LUIS ALBERTO CUELLO Current LOS: 4 Anticipated DC Date: Planned Disposition: Psych facility Primary Insurance: [facility] MEDICARE SOLUTIONS Discharge Planning Comments: REFERRAL FAXED TO [facility] AT FAX [phone], I SPOKE WITH CASIMIRO AT [phone] WITH [facility] ADMIT. WAITING MORTGAGE LOAN FUNDER BACK TO SEE IF THEY ARE GOING TO ACCEPT PATIENT. Heel Gouger: Joselin Parker DCP- Discharge Planning Updated by [id number]: Joanne Mckeon on 03/15/20 6:[address] Patient Name: SMITA ROMERO Admission Status: ER Accout number: [id number] Admission Date: 03-12-2020 : 1975 Admission Diagnosis:METABOLIC ENCEPHALOPATHY Attending: LUIS ALBERTO CUELLO Current LOS: 3 Anticipated DC Date: Planned Disposition: Psych facility Primary Insurance: [facility] MEDICARE SOLUTIONS Discharge Planning Comments: CM met with patient at bedside after explaining CM role and obtaining verbal consent. Patient lives at home with his mother (Lillian) where he is independent with his care and plans to return there upon discharge. Patient is difficult to speak with he doesn't talk in sentences just a word at a time. CM called and spoke with patient's mother Lillian. Lillian stated that the patient lives with her CM discussed availability / needs of home health and medical equipment. Patient doesn't have any medical equipment or home health services. [facility] has been notified and has called wanting to speak to patient Agatha [phone] and fax records [phone]. CM will continue to follow and assist as needed with discharge planning / needs. Heel Gouger: Joanne Mckeon Appended by Joanne Mckeon on 03/15/2020 19:37 CDT: Salma is recommending inpatient psych when medically stable DCP- Discharge Planning Updated by [id number]: Joanne Mckeon on 03/13/20 4:[address] Patient resting when CM rounded. CM will come back later for d/c planning assessment. CM will continue to follow and assist as needed with discharge planning/ needs. DCPIA - Discharge Planning Initial Assessment Updated by [id number]: Joanne Mckeon on 03/15/20 7:17 pm * Is the patient Alert and Oriented? No * How many steps to enter\exit or inside your home? * PCP Clayton Byrd, [facility] * [facility] * Preadmission Environment Home with Family * ADLs Independent * Equipment None * List name and contact numbers for known caregivers / representatives who currently or will assist patient after discharge: Lillian Romero - mother - [phone] Aiyana Martinez - girlfriend - [phone] * Verbal permission to speak to the caregivers and representatives has been obtained from the patient. Yes * Community resources currently utilized None * Additional services required to return to the preadmission environment? No * Can the patient safely return to the preadmission environment? Yes * Has this patient been hospitalized within the prior 30 days at any hospital? No Coverage Notice Reviewer: [id number] Lynn Mckeon Notice Issued Date-Time: 03/23/2020 11:53 Notice Type: Patient Choice Letter Notice Delivered To: Family Member Relationship to Patient: Mother Dairy Inspector Name: Lillian Romero Delivery Method: PHONE - Phone Ratna Days: Prior Verbal Notification: Yes Recipient Understood Notice: Yes Recipient Signature: Med Rec Note Co-signed by Attending: Coverage Notice Comment: Last DP export: 03/31/20 10:28 am Patient Name: SMITA ROMERO Page 66020 at 1208 All edits/amendments must be made on the electronic document DICTATION DATE: 03/31/20 1208 SUTURE GAUGER: FADY 03/31/20 1208 RPT#: [id number] DC DATE: STATUS: ADM IN [facility] [address] [place] [address] END OF REPORT
--- NOTE | 2020-03-31 13:01 | NUR ---
PT STILL SLEEPING QUIETLY. REPORTED TO NOT HAVE SLEPT MUCH LAST NIGHT.
--- NOTE | 2020-03-31 13:35 | NUR ---
PT AWAKE NOW AND EATING LUNCH.
--- NOTE | 2020-03-31 16:37 | NUR ---
PT SITTING UP IN BED EATING DINNER.
--- NOTE | 2020-03-31 19:11 | MORECARE ---
CASE MANAGEMENT DISCHARGE SUMMARY PATIENT: SMITA ROMERO UNIT: [id number] ADM DATE: 03/12/20 AGE: 44 : [birth year] SEX: M ROOM/BED: D.2304 AUTHOR: LEODAN,DOC PHYSICIAN: REFERRING PHYSICIAN: LUIS ALBERTO CUELLO MD DATE OF SERVICE: 03/31/20 Discharge Plan Patient Name: SMITA ROMERO Facility: [facility]:[place] : 1975 Planned Disposition: Psych facility Anticipated Discharge Date: 03/16/20 Discharge Date: Expected LOS: 4 Initial Reviewer: [id number] Initial Review Date: 03/12/2020 Generated: 03/31/20 8:10 pm Comments DCP- Discharge Planning Updated by [id number]: Erlinda Gomez on 03/31/20 6:[address] LATE ENTRY CM TELEPHONED AND LEFT MESSAGE FOR APS WORKER TO CLARIFY IF AGATHA HAD SPOKEN WITH THE PATIENT AND THE STATUS OF APS INTERVENTION FOR DISCHARGE. NO CALL BACK OF 1629. 1430 CM TELEPHONED THE LANDLORD TO VERIFY IF PATIENT COULD RETURN TO HIS RESIDENCE. THE PATIENT LIVES WITH HIS MOTHER. HE STATES THEY ARE BOTH MENTALLY CHALLENGED. THE LANDLORD ASSIST THEM. HE HAS NOT KNOWN THE PATIENT TO EVER HAVE HOME HEALTH. HE HAS NOT KNOWN PATIENT TO HAVE ANY COMMUNITY SERVICS. HE WILL HAVE TO CHECK RESIDENCE FOR RETURN TO HOME. HE CAN MANAGED SERVICES CONSULTANT PATIENT AT DISCHARGE. NURSE REPORTS THE PATIENT WILL HAVE TO FOLLOW UP WITH HIS PCP OR SEE DR CRESPO IN THE OFFICE POST DISCHARGE AND SHE WILL F/U REGARDING HOME HEALTH REFERRAL. CM FOLLOWING TO DETERMINE APS STATUS AND FACILITATE A SAFE DISCHARGE. DCP- Discharge Planning Updated by [id number]: Erlinda Gomez on 03/31/20 11:[address] REC CB FROM CON, CHARGE NURSE. DR LEAVITT STATES SHE WILL DISCHARGE THE PATIENT HIS INSURER HAS DENIED SKILLED SERVICES. MARY NOTES AGATHA WITH APS IS ALSO FOLLOWING THIS PATIENT. TC TO AGATHA. LEFT VOICE MAIL MESSAGE. PATIENT'S MOTHER IS ALSO ASSISTING WITH DISCHARGE. TC TO THE MOTHER AND NO ANSWER. TC TO LEO, INSTRUCTOR DRAMATIC ARTS TO DISCUSS ABOVE. TC TO ADVISE CON OF PENDING CALLS AND VERFICATION OF PLAN WITH APS AND MOTHER. DCP- Discharge Planning Updated by [id number]: Erlinda Gomez on 03/31/20 10:[address] CM SPOKE BERE AT [facility] MEDICARE SOLUTIONS. SHE CONFIRMED DENIAL. NO FORMAL DENIAL WILL BE SENT UNTIL PEER TO PEER REVIEW HAS BEEN COMPLETED IF ATTENDING DESIRES AN APPEAL. APPEAL MUST BE COMPLETED PRIOR TO FRIDAY APRIL 03, 2020 AT 1500 EST. CM SPOKE Canelo/ CON IN ICU AND PROVIDED DECISION AND CONTACT INOATION FOR PEER TO PEER. CON WILL CALL DR CRESPO. DCP- Discharge Planning Updated by [id number]: Joanne Mckeon on 03/30/20 7:[address] CM refaxed CoVid results this am. Attempted to contact Mahad with [facility] several times today to find out status of admission. Spoke with Mahad late this afternoon and he stated they was still awaiting auth from [facility]. He stated that they should be able to admit patient in am. CM will continue to follow and assist as needed with discharge planning/ needs. DCP- Discharge Planning Updated by [id number]: Joanne Mckeon on 03/29/20 6:[address] CM spoke with Mahad @ [facility] this am and he requested COVID test within the last five days. Mahad came out and evaluated patient this afternoon. COVID results sent to facility this evening. Probable discharge . DCP- Discharge Planning Updated by [id number]: Joanne Mckeon on 03/27/20 5:[address] CM called Vickie to check status of discharge to SNF. Vickie stated that she has sent it to [facility] to [facility] and will let CM know status as soon as she can. CM will check back again in am on status. DCP- Discharge Planning Updated by [id number]: Joanne Mckeon on 03/24/20 4:[address] CM received a call back from Princess at [facility] and they denied the patient. CM contacted Vickie with nursing consultants and she will check with her facilities to see if she can find placement. CM faxed records and awaiting determination of acceptance. CM will continue to follow and assist as needed with discharge planning needs. DCP- Discharge Planning Updated by [id number]: Joanne Mckeon on 03/24/20 2:[address] CM received JOSE approval back and sent referral to [facility] and received a call back from [facility] that they have denied the patient. CM has sent referral to [facility] and contacted Princess to let her know of the referral. CM awaiting determination from [facility]. CM will continue too follow and assist as needed with discharge planning / needs. DCP- Discharge Planning Updated by [id number]: Joanne Mckeon on 03/23/20 6:[address] CM called and spoke with Agatha with [facility] [phone]. She stated that it sounds like the patient needs rehab before returning to the home. She stated that she needed to talk to the patient on the phone again but would call back later to speak to him. Agatha also stated that the patient's landlord Efren Luther [phone] was the patient's payee (CM asked to clarify meaning the landlord oversees patient's money) CM called and spoke with patient's mother Lillian Romero [phone] about rehab in SNF . CHRIS completed for no preference in SNF. CM has completed JOSE for placement awaiting physician signature to send in. CM will send referrals in am to SNF. CM will continue to follow and assist as needed with discharge planning / needs. DCP- Discharge Planning Updated by [id number]: Joanne Mckeon on 03/22/20 5:[address] [facility] has approved that patient can have outpatient psych care and does no longer need inpatient placement. CM has called Agatha with [facility] and left message to call CM. If patient needs SNF placement then he will need JOSE before placement and we will need family to complete CHRIS. CM will continue to follow and assist as needed with discharge planning / needs. DCP- Discharge Planning Updated by [id number]: Lana Magdaleno on 03/22/20 7:[address] Per Willie with [facility], the patient has been declined by every Psych facility. Sav[facility] was notified on 03/18 that no further placement was required. DCP- Discharge Planning Updated by [id number]: Joanne Mckeon on 03/20/20 3:[address] LATE ENTRY 03/18/20 FAXED UPDATED PACKET TO [facility] C[facility] FOR PLACEMENT TO PSYCH FACILITY. DCP- Discharge Planning Updated by [id number]: Joselin Parker on 03/16/20 1:[address] Patient Name: SMITA ROMERO Admission Status: ER Accout number: [id number] Admission Date: 03-12-2020 : 1975 Admission Diagnosis:METABOLIC ENCEPHALOPATHY Attending: LUIS ALBERTO CUELLO Current LOS: 4 Anticipated DC Date: Planned Disposition: Psych facility Primary Insurance: [facility] MEDICARE SOLUTIONS Discharge Planning Comments: I SPOKE WITH CASIMIRO AT [facility] AND THEY HAVE DECLINCED PATIENT FOR ADMISSION. I CALLED OUR TRANSFER CENTER AND THEY ARE NOW WORKIN ON FINDING PLACEMENT. I CALLED CHANEL HANNA AND LET HER KNOW. Can Filling Machine Operator: Joselin Parker DCP- Discharge Planning Updated by [id number]: Joselin Parker on 03/16/20 11:[address] Patient Name: SMITA ROMERO Admission Status: ER Accout number: [id number] Admission Date: 03-12-2020 : 1975 Admission Diagnosis:METABOLIC ENCEPHALOPATHY Attending: LUIS ALBERTO CUELLO Current LOS: 4 Anticipated DC Date: Planned Disposition: Psych facility Primary Insurance: [facility] MEDICARE SOLUTIONS Discharge Planning Comments: REFERRAL FAXED TO [facility] AT FAX [phone], I SPOKE WITH CASIMIRO AT [phone] WITH [facility] ADMIT. WAITING DIRECTOR OF DISTANCE LEARNING BACK TO SEE IF THEY ARE GOING TO ACCEPT PATIENT. Can Filling Machine Operator: Joselin Parker DCP- Discharge Planning Updated by [id number]: Joanne Mckeon on 03/15/20 6:[address] Patient Name: SMITA ROMERO Admission Status: ER Accout number: [id number] Admission Date: 03-12-2020 : 1975 Admission Diagnosis:METABOLIC ENCEPHALOPATHY Attending: LUIS ALBERTO CUELLO Current LOS: 3 Anticipated DC Date: Planned Disposition: [facility] facility Primary Insurance: [facility] MEDICARE SOLUTIONS Discharge Planning Comments: CM met with patient at bedside after explaining CM role and obtaining verbal consent. Patient lives at home with his mother (Lillian) where he is independent with his care and plans to return there upon discharge. Patient is difficult to speak with he doesn't talk in sentences just a word at a time. CM called and spoke with patient's mother Lillian. Lillian stated that the patient lives with her CM discussed availability / needs of home health and medical equipment. Patient doesn't have any medical equipment or home health services. [facility] has been notified and has called wanting to speak to patient Agatha [phone] and fax records [phone]. CM will continue to follow and assist as needed with discharge planning / needs. Can Filling Machine Operator: Joanne Mckeon Appended by Joanne Mckeon on 03/15/2020 19:37 CDT: Salma is recommending inpatient psych when medically stable DCP- Discharge Planning Updated by [email or web address] Mckeon on 03/13/20 4:[address] Patient resting when CM rounded. CM will come back later for d/c planning assessment. CM will continue to follow and assist as needed with discharge planning/ needs. DCPIA - Discharge Planning Initial Assessment Updated by HANNA: Joanne Mckeon on 03/15/20 7:17 pm * Is the patient Alert and Oriented? No * How many steps to enter\exit or inside your home? * PCP Clayton Byrd, [place] * [facility]acy [facility] * Preadmission Environment Home with Family * ADLs Independent * Equipment None * List name and contact numbers for known caregivers / representatives who currently or will assist patient after discharge: Lillian Romero - mother - [phone] Aiyana Martinez - girlfriend - [phone] * Verbal permission to speak to the caregivers and representatives has been obtained from the patient. Yes * Community resources currently utilized None * Additional services required to return to the preadmission environment? No * Can the patient safely return to the preadmission environment? Yes * Has this patient been hospitalized within the prior 30 days at any hospital? No Coverage Notice Reviewer: [id number] - Joanne Mckeon Notice Issued Date-Time: 03/23/2020 11:53 Notice Type: Patient Choice Letter Notice Delivered To: Family Member Relationship to Patient: Mother Manager Scheduling Name: Lillian Romero Delivery Method: PHONE - Phone Ratna Days: Prior Verbal Notification: Yes Recipient Understood Notice: Yes Recipient Signature: Med Rec Note Co-signed by Attending: Coverage Notice Comment: Last DP export: 03/31/20 11:08 am Patient Name: SMITA ROMERO Page 67211 at 1911 All edits/amendments must be made on the electronic document DICTATION DATE: 03/31/201909 [employer] SALESPERSON: FADY 03/31/201909 RPT#: [id number] DC DATE: STATUS: ADM IN [facility] [address] [place] [address] END OF REPORT
[2020-03-31 20:00] VITALS: BP 117/85
--- NOTE | 2020-03-31 21:05 | NUR ---
NO VISITORS PRESENT AT THIS TIME, PT SITTING UP IN BED WATCHING TV IN NO APPARENT DISTRESS.
--- NOTE | 2020-03-31 23:32 | NUR ---
PT RESTING IN BED WITH EYES CLOSED, BREATHING EVEN AND UNLABORED, CONT POC.
[2020-04-01 03:49] LABS: ALKALINE PHOSPHATASE 60 U/L (30-120); ALT (SGPT) 22 U/L (10-68); BILIRUBIN - TOTAL 0.26 mg/dL (0.2-1.3); CALC OSMOLALITY 283 mosm/kg (275-300); CALCIUM 8.6 mg/dL (8.5-10.1); CHLORIDE - SERUM 107 mmol/L (98-107); CREATININE - SERUM 0.9 mg/dL (0.6-1.3); GLUCOSE 94 mg/dL (74-106); POTASSIUM - SERUM 3.9 mmol/L (3.5-5.1); PROTEIN - SERUM 6.8 g/dL (6.4-8.2); SODIUM 142 mmol/L (136-145); UREA NITROGEN 16 mg/dL (7-18); eGFR NON AFRICAN AMERICAN > 90 mL/min (90-120)
--- NOTE | 2020-04-01 03:50 | NUR ---
PT RESTING IN BED WITH EYES CLOSED, BREATHING EVEN AND UNLABORED, CONT TO MONITOR, BED LOW AND ALARM ON.
[2020-04-01 03:52] LABS: BASOPHILS 0.2 % (0-2); EOSINOPHILS 4.1 % (0-7); HEMATOCRIT 40.8 % (42.0-54.0); HEMOGLOBIN 13.5 g/dL (13.5-17.5); IMMATURE GRANULOCYTES 0.1 % (0-5); LYMPHOCYTES 26.8 % (15-50); MCH 31.7 pg (26.0-34.0); MCHC 33.1 g/dL (31.0-37.0); MCV 95.8 fL (80.0-100.0); MEAN PLATELET VOLUME 10.2 fL (7.4-10.4); MONOCYTES 11.8 % (2-11); PLATELET COUNT 351 10x3/uL (130-400); RBC 4.26 10x6/uL (4.20-6.10); RDW 12.6 % (11.5-14.5); WBC 9.4 10x3/uL (4.8-10.8)
--- NOTE | 2020-04-01 05:10 | NUR ---
AM LABS REVIEWED, NOTHING TO TREAT PER ELECTROLYTE PROTOCOL.
[2020-04-01 07:00] VITALS: BP 107/87
--- NOTE | 2020-04-01 07:49 | NUR ---
LYING IN BED WATCHING TV AT THIS TIME. VSS. NO ACUTE DISTRESS NOTED. PT ABLE TO ASWER ORIENTATION QUESTIONS APPROPRIATELY. VSS. BED ALARM ON. WILL CONTINUE PLAN OF CARE. CALL LIGHT AND PERSONAL ITEMS IN REACH.
--- NOTE | 2020-04-01 09:48 | NUR ---
AWAKE SITTING ON SIDE OF BED AT THIS TIME. VSS. NO ACUTE DISTRESS NOTED. CALL LIGHT AND PERSONAL ITEMS IN REACH. SPOKE WITH PTS FAMILY AFTER CALL IN CODE VERIFIED. UPDATES PROVIDED. NO ACUTE DISTRESS NOTED. WILL CONTINUE PLAN OF CARE.
[2020-04-01 11:00] VITALS: BP 111/85
--- NOTE | 2020-04-01 11:33 | NUR ---
UP IN BED WATCHING TV AT THIS TIME. VSS. NO ACUTE DISTRESS NOTED. WILL CONTINUE PLAN OF CARE.
--- NOTE | 2020-04-01 12:21 | NUR ---
ATTEMPTED TO CONTACT PTS APS CONTACT INDIVIDUAL, CYNDI, AT [phone]. CALL WENT STRAIGHT TO VOICEMAIL, NO RING NOTED WHEN CALLED, VOICEMAIL LEFT FOR HER TO CALL BACK. WAITING ON CALLBACK.
--- NOTE | 2020-04-01 13:48 | NUR ---
ATTEMPTED TO CALL PTS APS CONTACT AGAIN (CYNDI) AT [phone]. NUMBER WENT STRAIGHT TO VOICEMAIL, CALLED THE EMERGENCY CONTACT NUMBER PROVIDED FROM CYNDI'S VOICEMAIL WHICH IS AND SPOKE WITH EDNA WHO STATED CYNDI IS NOT HOSPICE EDUCATOR THIS WEEKEND, BUT SHE COULD LEAVE A MESSAGE FOR CYNDI TO CALL BACK BUT MIGHT NOT BE UNTIL FRIDAY. WAITING FOR CALLBACK.
--- NOTE | 2020-04-01 14:37 | NUR ---
CHG BATH PROVIDED AT THIS TIME. TOTAL LINEN CHANGE PROVIDED. VSS. WILL CONTINUE PLAN OF CARE.
[2020-04-01 15:00] VITALS: BP 107/78
--- NOTE | 2020-04-01 16:40 | NUR ---
UP IN BED WATCHING TV AT THIS TIME. VSS. NO ACUTE DISTRESS NOTED. WILL CONTINUE PLAN OF CARE.
--- NOTE | 2020-04-01 18:02 | NUR ---
NO ACUTE DISTRESS NOTED. NO CHANGE. VSS. CALL LIGHT AND PERSONAL ITEMS IN REACH. PT DENIES ANY NEEDS. INDEPENDENT IN BED. WILL CONTINUE PLAN OF CARE.
[2020-04-01 19:00] VITALS: BP 104/70
--- NOTE | 2020-04-01 19:00 | NUR ---
ASSESSMENT COMPLETED. BREATHING ON ROOM AIR. CONFUSION NOTED. TRYING TO GET OOB. BED ALARM ON
--- NOTE | 2020-04-01 21:00 | NUR ---
PATIENT CONT TO GET OOB. ASSISTED TO CHAIR WITH CHAIR ALARM BUT PATIENT KEPT GETTING UP WELL. ASSISTED TO WHEELCHAIR WITH CHAIR ALARM AND LET PATIENT AT DOOR OF ROOM WITH PUDDING AND DRINK. PATIENT SAT THERE FOR APPOX 45 MINS BEFORE ASKING TO RETURN TO BED. BED ALARM ON. DENIES ANY NEEDS.
[2020-04-01 23:00] VITALS: BP 123/85
--- NOTE | 2020-04-01 23:00 | NUR ---
EYES CLOSED, EASILY WAKES, BED ALARM ON. INDEPENDENT WITH REPOSITIONING
--- NOTE | 2020-04-02 01:00 | NUR ---
EYES CLOSED, INDPENDENT WITH REPOSITIONING.
[2020-04-02 03:00] VITALS: BP 118/83
--- NOTE | 2020-04-02 03:00 | NUR ---
INDEPENDENT WITH REPOSITIONING. EYES CLOSED, EASILY WAKES.
--- NOTE | 2020-04-02 05:00 | NUR ---
VSS. BED ALARM ON. NO CHANGES
--- NOTE | 2020-04-02 06:15 | NUR ---
CHG BATH WITH COMPLETE LINEN CHANGE
[2020-04-02 07:00] VITALS: BP 114/73
--- NOTE | 2020-04-02 07:42 | NUR ---
LYING IN BED WATCHING TV AT THIS TIME. VSS. NO ACUTE DISTRESS NOTED. BREAKFAST TRAY BROUGHT TO PT AND IS AT PTS BEDSIDE TABLE. PT DENIES ANY NEEDS. ABLE TO ANSWER ALL ORIENTATION QUESTIONS APPROPRIATELY. WILL CONTINUE PLAN OF CARE.
--- NOTE | 2020-04-02 09:01 | NUR ---
UP IN BED EATING BREAKFAST AT THIS TIME. VSS. NO ACUTE DISTRESS NOTED. WILL CONTNIUE PLAN OF CARE.
[2020-04-02 11:00] VITALS: BP 115/74
--- NOTE | 2020-04-02 11:43 | NUR ---
ASSISTED TO TOILET VIA STAND BY ASSIST. INCONTINENT VOID NOTED. TOTAL LINEN CHANGE PROVIDED. PT PROVIDED OWN DANNY CARE. PT DENIES ANY NEEDS. VSS. WILL CONTINUE PLAN OF CARE.
--- NOTE | 2020-04-02 13:13 | NUR ---
SPOKE WITH PTS MOTHER AFTER CALL IN CODE VERIFIED. UPDATES PROVIDED. VSS. NO ACUTE DISTRESS NOTED. WILL CONTIUE PLAN OF CARE.
--- NOTE | 2020-04-02 13:58 | NUR ---
PER DR LEAVITT, JOSE CONSULT FOR DR RUIZ.
--- NOTE | 2020-04-02 14:12 | NUR ---
NOTED DR STODDARD CONSULTED AROUND DATE OF PTS ADMISSION AND HAD NO DOCCUMENTATION SEEN REGARDING PHYSICIAN HAD BEEN NOTIFIED. DR STODDARD PAGED AT THIS TIME.
--- NOTE | 2020-04-02 14:28 | NUR ---
DR STODDARD NOTIFIED OF CONSULT, STATED WILL BE BY TOMORROW MORNING TO SEE PT.
[2020-04-02 15:00] VITALS: BP 119/72
--- NOTE | 2020-04-02 16:34 | NUR ---
INCONTINENT VOID NOTED. TOTAL LINEN CHANGE PROVIDED. PT PERFORMED OWN DANNY CARE. VSS. NO ACUTE DISTRESS NOTED. WILL CONTINUE PLAN OF CARE.
--- NOTE | 2020-04-02 18:06 | NUR ---
NO ACUTE DISTRESS NOTED. VSS. CALL LIGHT IN REACH. BED ALARM ON. WILL CONTINUE PLAN OF CARE.
[2020-04-02 19:00] VITALS: BP 115/84
--- NOTE | 2020-04-02 19:00 | NUR ---
ASSESSMENT COMPLETED. BED ALARM ON. DENIES ANY NEEDS. CONFUSION CONT
--- NOTE | 2020-04-02 21:00 | NUR ---
TOLERATED MEDICINE WITHOUT DIFFICULTY. DROPPED COKE ON BED, COMPLETE LINEN CHANGE. PATIENT BACK IN BED AND BED ALARM ON.
[2020-04-02 23:00] VITALS: BP 121/78
--- NOTE | 2020-04-02 23:00 | NUR ---
PATIENT TRYING TO GET OOB. BED ALARM ON. ASSISTED BACK TO BED.
--- NOTE | 2020-04-03 01:00 | NUR ---
EYES CLOSED, BED ALARM ON. INDEPENDENT WITH REPOSITIONING
[2020-04-03 03:00] VITALS: BP 114/82
--- NOTE | 2020-04-03 03:08 | NUR ---
EYES CLOSED, NO CHANGES. BED ALARM ON
[2020-04-03 05:14] LABS: BASOPHILS 0.2 % (0-2); HEMATOCRIT 41.2 % (42.0-54.0); HEMOGLOBIN 13.6 g/dL (13.5-17.5); IMMATURE GRANULOCYTES 0.3 % (0-5); LYMPHOCYTES 27.8 % (15-50); MCH 31.2 pg (26.0-34.0); MCV 94.5 fL (80.0-100.0); MEAN PLATELET VOLUME 9.8 fL (7.4-10.4); MONOCYTES 13.2 % (2-11); NEUTROPHILS 55.5 % (40-80); PLATELET COUNT 363 10x3/uL (130-400); RBC 4.36 10x6/uL (4.20-6.10); RDW 12.5 % (11.5-14.5); WBC 9.8 10x3/uL (4.8-10.8)
--- NOTE | 2020-04-03 05:35 | NUR ---
CHG BATH WITH LINEN CHANGE. PATIENT DRINKING APPLE JUICE
[2020-04-03 05:51] LABS: ALBUMIN 3.1 g/dL (3.4-5.0); ALKALINE PHOSPHATASE 64 U/L (30-120); ALT (SGPT) 24 U/L (10-68); BILIRUBIN - TOTAL 0.37 mg/dL (0.2-1.3); CALC OSMOLALITY 282 mosm/kg (275-300); CALCIUM 8.4 mg/dL (8.5-10.1); CARBON DIOXIDE 29.4 mmol/L (21.0-32.0); CHLORIDE - SERUM 105 mmol/L (98-107); GLUCOSE 92 mg/dL (74-106); MAGNESIUM - SERUM 2.2 mg/dL (1.8-2.4); PHOSPHOROUS 3.5 mg/dL (2.5-4.9); POTASSIUM - SERUM 3.7 mmol/L (3.5-5.1); PROTEIN - SERUM 6.8 g/dL (6.4-8.2); SODIUM 141 mmol/L (136-145); UREA NITROGEN 17 mg/dL (7-18); eGFR NON AFRICAN AMERICAN 86 mL/min (90-120)
[2020-04-03 07:00] VITALS: BP 109/88
--- NOTE | 2020-04-03 08:39 | NUR ---
CYNDI FROM [facility] CALLED, OK TO GO HOME, NO HOLD FROM [facility], LET HER KNOW WHEN HE GOES HOME
--- NOTE | 2020-04-03 09:53 | NUR ---
Nutrition follow-up: Diet: REgular PO intake ~50% of meals Labs reviewed Wt: 180# +BM RDN following.
[2020-04-03 11:00] VITALS: BP 93/77
--- NOTE | 2020-04-03 11:15 | NUR ---
PT LYING IN BED AWAKE, NO NEEDS NOTED, WILL CON'T TO MONITOR
--- NOTE | 2020-04-03 12:23 | NUR ---
SPOKE WITH GRACE PETERSEN ABOUT PT GOING TO [facility], HE IS OK WITH THAT POC
--- NOTE | 2020-04-03 12:48 | MORECARE ---
CASE MANAGEMENT DISCHARGE SUMMARY PATIENT: SMITA ROMERO UNIT: [id number] ADM DATE: 03/12/20 AGE: 44 : 73 SEX: M ROOM/BED: D.2304 AUTHOR: LEODAN,DOC PHYSICIAN: REFERRING PHYSICIAN: LUIS ALBERTO CUELLO MD DATE OF SERVICE: 04/03/20 Discharge Plan Patient Name: SMITA ROMERO Facility: [facility]:[place] : 1975 Planned Disposition: Psych facility Anticipated Discharge Date: 03/16/20 Discharge Date: Expected LOS: 4 Initial Reviewer: [email or web address] Initial Review Date: 03/12/2020 Generated: 04/03/20 1:47 pm Comments DCP- Discharge Planning Updated by [email or web address]: Lana Magdaleno on 04/03/20 11:[address] Per Agatha, with [facility], there is no open case for this patient. CM was contacted by Mahad Gonzalez ([facility]) and states that the facility can accept that patient today, to a Medicaid custodial bed. Nursing contacted the patient's POA, regarding same and he is in agreement. Nurse is to call report to called to [phone]. CM notified patient's nurse and MD. DCP- Discharge Planning Updated by [email or web address]: Erlinda Gomez on 03/31/20 6:[address] LATE ENTRY CM TELEPHONED AND LEFT MESSAGE FOR APS WORKER TO CLARIFY IF AGATHA HAD SPOKEN WITH THE PATIENT AND THE STATUS OF APS INTERVENTION FOR DISCHARGE. NO CALL BACK OF 1629. 1430 CM TELEPHONED THE LANDLORD TO VERIFY IF PATIENT COULD RETURN TO HIS RESIDENCE. THE PATIENT LIVES WITH HIS MOTHER. HE STATES THEY ARE BOTH MENTALLY CHALLENGED. THE LANDLORD ASSIST THEM. HE HAS NOT KNOWN THE PATIENT TO EVER HAVE HOME HEALTH. HE HAS NOT KNOWN PATIENT TO HAVE ANY COMMUNITY SERVICS. HE WILL HAVE TO CHECK RESIDENCE FOR RETURN TO HOME. HE CAN PSYCHOMETRICIAN PATIENT AT DISCHARGE. NURSE REPORTS THE PATIENT WILL HAVE TO FOLLOW UP WITH HIS PCP OR SEE DR CRESPO IN THE OFFICE POST DISCHARGE AND SHE WILL F/U REGARDING HOME HEALTH REFERRAL. CM FOLLOWING TO DETERMINE APS STATUS AND FACILITATE A SAFE DISCHARGE. DCP- Discharge Planning Updated by [id number]: Erlinda Gomez on 03/31/20 11:[address] REC CB FROM CON, CHARGE NURSE. DR LEAVITT STATES SHE WILL DISCHARGE THE PATIENT HIS INSURER HAS DENIED SKILLED SERVICES. CM NOTES AGATHA WITH [facility] IS ALSO FOLLOWING THIS PATIENT. TC TO AGATHA. LEFT VOICE MAIL MESSAGE. PATIENT'S MOTHER IS ALSO ASSISTING WITH DISCHARGE. TC TO THE MOTHER AND NO ANSWER. TC TO LEO, HUNTING AND FISHING GUIDE TO DISCUSS ABOVE. TC TO ADVISE CON OF PENDING CALLS AND VERFICATION OF PLAN WITH APS AND MOTHER. DCP- Discharge Planning Updated by [id number]: Erlinda Gomez on 03/31/20 10:[address] CM SPOKE BERE AT [facility] [employer]. SHE CONFIRMED DENIAL. NO FORMAL DENIAL WILL BE SENT UNTIL PEER TO PEER REVIEW HAS BEEN COMPLETED IF ATTENDING DESIRES AN APPEAL. APPEAL MUST BE COMPLETED PRIOR TO FRIDAY APRIL 03, 2020 AT 1500 EST. CM SPOKE Canelo/ CON IN ICU AND PROVIDED DECISION AND CONTACT INORMATION FOR PEER TO PEER. CON WILL CALL DR CRESPO. DCP- Discharge Planning Updated by [id number]: Joanne Mckeon on 03/30/20 7:[address] CM refaxed CoVid results this am. Attempted to contact Mahad with [facility] several times today to find out status of admission. Spoke with Mahad late this afternoon and he stated they was still awaiting auth from [facility]. He stated that they should be able to admit patient in am. CM will continue to follow and assist as needed with discharge planning/ needs. DCP- Discharge Planning Updated by [id number]: Joanne Mckeon on 03/29/20 6:[address] CM spoke with Mahad @ [facility] this am and he requested COVID test within the last five days. Mahad came out and evaluated patient this afternoon. COVID results sent to facility this evening. Probable discharge . DCP- Discharge Planning Updated by [id number]: Joanne Mckeon on 03/27/20 5:[address] CM called Vickie to check status of discharge to SNF. Vickie stated that she has sent it to [facility] and will let CM know status as soon as she can. CM will check back again in am on status. DCP- Discharge Planning Updated by [id number]: Joanne Mckeon on 03/24/20 4:[address] CM received a call back from Princess at [facility] and they denied the patient. CM contacted Vickie with nursing consultants and she will check with her facilities to see if she can find placement. CM faxed records and awaiting determination of acceptance. CM will continue to follow and assist as needed with discharge planning needs. DCP- Discharge Planning Updated by [email or web address]: Joanne Mckeon on 03/24/20 2:[address] CM received JOSE approval back and sent referral to [facility] [place] and received a call back from [facility] that they have denied the patient. CM has sent referral to [facility] and contacted Princess to let her know of the referral. CM awaiting determination from [facility]. CM will continue too follow and assist as needed with discharge planning / needs. DCP- Discharge Planning Updated by [id number]: Joanne Mckeon on 03/23/20 6:[address] CM called and spoke with Agatha with [facility] [phone]. She stated that it sounds like the patient needs rehab before returning to the home. She stated that she needed to talk to the patient on the phone again but would call back later to speak to him. Agatha also stated that the patient's landlord Efren Luther [phone] was the patient's payee (CM asked to clarify meaning the landlord oversees patient's money) CM called and spoke with patient's mother Lillian Romero [phone] about rehab in SNF . CHRIS completed for no preference in SNF. CM has completed JOSE for placement awaiting physician signature to send in. CM will send referrals in am to SNF. CM will continue to follow and assist as needed with discharge planning / needs. DCP- Discharge Planning Updated by [id number]: Joanne Mckeon on 03/22/20 5:[address] Psych has approved that patient can have outpatient psych care and does no longer need inpatient placement. MARY has called Agatha with [facility] and left message to call CM. If patient needs SNF placement then he will need JOSE before placement and we will need family to complete CHRIS. CM will continue to follow and assist as needed with discharge planning / needs. DCP- Discharge Planning Updated by [id number]: Lana Magdaleno on 03/22/20 7:[address] Per Willie with [facility], the patient has been declined by every Psych facility. Savita was notified on 03/18 that no further placement was required. DCP- Discharge Planning Updated by [email or web address]: Joanne Mckeon on 03/20/20 3:[address] LATE ENTRY 03/18/20 FAXED UPDATED PACKET TO [facility] FOR PLACEMENT TO [facility]. DCP- Discharge Planning Updated by [id number]: Joselin Parker on 03/16/20 1:[address] Patient Name: SMITA ROMERO Admission Status: ER Accout number: [id number] Admission Date: 03-12-2020 : 1975 Admission Diagnosis:METABOLIC ENCEPHALOPATHY Attending: LUIS ALBERTO CUELLO Current LOS: 4 Anticipated DC Date: Planned Disposition: [facility] facility Primary Insurance: [facility] [employer] Discharge Planning Comments: I SPOKE WITH CASIMIRO AT [facility] AND THEY HAVE DECLINCED PATIENT FOR ADMISSION. I CALLED OUR [facility]SF[facility] AND THEY ARE NOW WORKIN ON FINDING PLACEMENT. I CALLED CHANEL HANNA AND LET HER KNOW. Heavy Equipment Field Mechanic: Joselin Parker DCP- Discharge Planning Updated by [email or web address]: Joselin Parker on 03/16/20 11:[address] Patient Name: SMITA ROMERO Admission Status: ER Accout number: [id number] Admission Date: 03-12-2020 : 1975 Admission Diagnosis:METABOLIC ENCEPHALOPATHY Attending: LUIS ALBERTO CUELLO Current LOS: 4 Anticipated DC Date: Planned Disposition: [facility] facility Primary Insurance: [facility] [employer] Discharge Planning Comments: REFERRAL FAXED TO [facility] AT FAX [phone], I SPOKE WITH CASIMIRO AT [phone] WITH [facility] ADMIT. WAITING [employer]AM[employer]ER BACK TO SEE IF THEY ARE GOING TO ACCEPT PATIENT. Heavy Equipment Field Mechanic: Joselin Parker DCP- Discharge Planning Updated by [id number]: Joanne Mckeon on 03/15/20 6:[address] Patient Name: SMITA ROMERO Admission Status: ER Accout number: [id number] Admission Date: 03-12-2020 : 1975 Admission Diagnosis:METABOLIC ENCEPHALOPATHY Attending: LUIS ALBERTO CUELLO Current LOS: 3 Anticipated DC Date: Planned Disposition: Psych facility Primary Insurance: [facility] [employer] Discharge Planning Comments: CM met with patient at bedside after explaining CM role and obtaining verbal consent. Patient lives at home with his mother (Lillian) where he is independent with his care and plans to return there upon discharge. Patient is difficult to speak with he doesn't talk in sentences just a word at a time. CM called and spoke with patient's mother Lillian. Lillian stated that the patient lives with her CM discussed availability / needs of home health and medical equipment. Patient doesn't have any medical equipment or home health services. [facility] has been notified and has called wanting to speak to patient Agatha [phone] and fax records [phone]. CM will continue to follow and assist as needed with discharge planning / needs. Heavy Equipment Field Mechanic: Joanne Mckeon Appended by Joanne Mckeon on 03/15/2020 19:37 CDT: Salma is recommending inpatient psych when medically stable DCP- Discharge Planning Updated by [email or web address] Mckeon on 03/13/20 4:[address] Patient resting when CM rounded. CM will come back later for d/c planning assessment. CM will continue to follow and assist as needed with discharge planning/ needs. DCPIA - Discharge Planning Initial Assessment Updated by [email or web address] Mckeon on 03/15/20 7:17 pm * Is the patient Alert and Oriented? No * How many steps to enter\exit or inside your home? * PCP Clayton Byrd, [place] * [facility]acy [facility] * Preadmission Environment Home with Family * ADLs Independent * Equipment None * List name and contact numbers for known caregivers / representatives who currently or will assist patient after discharge: Lillian Romero - mother - [phone] Aiyana Martinez - girlfriend - [phone] * Verbal permission to speak to the caregivers and representatives has been obtained from the patient. Yes * Community resources currently utilized None * Additional services required to return to the preadmission environment? No * Can the patient safely return to the preadmission environment? Yes * Has this patient been hospitalized within the prior 30 days at any hospital? No Coverage Notice Reviewer: [id number] - Joanne Mckeon Notice Issued Date-Time: 03/23/2020 11:53 Notice Type: Patient Choice Letter Notice Delivered To: Family Member Relationship to Patient: Mother Core Blower Operator Name: Lillian Romero Delivery Method: PHONE - Phone Ratna Days: Prior Verbal Notification: Yes Recipient Understood Notice: Yes Recipient Signature: Med Rec Note Co-signed by Attending: Coverage Notice Comment: Last DP export: 03/31/20 6:11 pm Patient Name: SMITA ROMERO Page [id number] at 1248 All edits/amendments must be made on the electronic document DICTATION DATE: 04/03/20 1247 DATABASE DEVELOPER: FADY 04/03/20 1247 RPT#: [id number] DC DATE: STATUS: ADM IN [facility] [address] [place] [address] END OF REPORT
--- NOTE | 2020-04-03 12:55 | MORECARE ---
CASE MANAGEMENT DISCHARGE SUMMARY PATIENT: SMITA ROMERO UNIT: [id number] ADM DATE: 03/12/20 AGE: 44 : [birth year] SEX: M ROOM/BED: D.2304 AUTHOR: LEODAN,DOC PHYSICIAN: REFERRING PHYSICIAN: LUIS ALBERTO CUELLO MD DATE OF SERVICE: 04/03/20 Discharge Plan Patient Name: SMITA ROMERO Facility: [facility]:[place] : 1975 Planned Disposition: Nursing Facility PAULINO Cert Anticipated Discharge Date: 03/16/20 Discharge Date: Expected LOS: 4 Initial Reviewer: [id number] Initial Review Date: 03/12/2020 Generated: 04/03/20 1:55 pm Comments DCP- Discharge Planning Updated by [email or web address]: Lana Magdaleno on 04/03/20 11:[address] Per Agatha, with APS, there is no open case for this patient. CM was contacted by Mahad Gonzalez ([facility]) and states that the facility can accept that patient today, to a Medicaid correction bed. Nursing contacted the patient's POA, regarding same and he is in agreement. Nurse is to call report to called to [phone]. CM notified patient's nurse and MD. DCP- Discharge Planning Updated by [id number]: Erlinda Gomez on 03/31/20 6:[address] LATE ENTRY CM TELEPHONED AND LEFT MESSAGE FOR APS WORKER TO CLARIFY IF AGATHA HAD SPOKEN WITH THE PATIENT AND THE STATUS OF APS INTERVENTION FOR DISCHARGE. NO CALL BACK OF 1629. 1430 CM TELEPHONED THE LANDLORD TO VERIFY IF PATIENT COULD RETURN TO HIS RESIDENCE. THE PATIENT LIVES WITH HIS MOTHER. HE STATES THEY ARE BOTH MENTALLY CHALLENGED. THE LANDLORD ASSIST THEM. HE HAS NOT KNOWN THE PATIENT TO EVER HAVE HOME HEALTH. HE HAS NOT KNOWN PATIENT TO HAVE ANY COMMUNITY SERVICS. HE WILL HAVE TO CHECK RESIDENCE FOR RETURN TO HOME. 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 NURSE REPORTS THE PATIENT WILL HAVE TO FOLLOW UP WITH HIS PCP OR SEE DR CRESPO IN THE OFFICE POST DISCHARGE AND SHE WILL F/U REGARDING HOME HEALTH REFERRAL. CM FOLLOWING TO DETERMINE APS STATUS AND FACILITATE A SAFE DISCHARGE. DCP- Discharge Planning Updated by [id number]: Erlinda Gomez on 03/31/20 11:[address] REC CB FROM CON, CHARGE NURSE. DR LEAVITT STATES SHE WILL DISCHARGE THE PATIENT HIS INSURER HAS DENIED SKILLED SERVICES. CM NOTES AGATHA WITH APS IS ALSO FOLLOWING THIS PATIENT. TC TO AGATHA. LEFT VOICE MAIL MESSAGE. PATIENT'S MOTHER IS ALSO ASSISTING WITH DISCHARGE. TC TO THE MOTHER AND NO ANSWER. TC TO LEO, INDIAN BLANKET WEAVER TO DISCUSS ABOVE. TC TO ADVISE CON OF PENDING CALLS AND VERFICATION OF PLAN WITH APS AND MOTHER. DCP- Discharge Planning Updated by [email or web address]: Erlinda Gomez on 03/31/20 10:[address] CM SPOKE BERE AT [facility] MEDICARE SOLUTIONS. SHE CONFIRMED DENIAL. NO FORMAL DENIAL WILL BE SENT UNTIL PEER TO PEER REVIEW HAS BEEN COMPLETED IF ATTENDING DESIRES AN APPEAL. APPEAL MUST BE COMPLETED PRIOR TO FRIDAY APRIL 03, 2020 AT 1500 EST. CM SPOKE Canelo/ CON IN ICU AND PROVIDED DECISION AND CONTACT [facility] FOR PEER TO PEER. CON WILL CALL DR CRESPO. DCP- Discharge Planning Updated by [id number]: Joanne Mckeon on 03/30/20 7:[address] CM refaxed CoVid results this am. Attempted to contact Mahad with [facility] several times today to find out status of admission. Spoke with Mahad late this afternoon and he stated they was still awaiting auth from [facility]. He stated that they should be able to admit patient in am. CM will continue to follow and assist as needed with discharge planning/ needs. DCP- Discharge Planning Updated by [id number]: Joanne Mckeon on 03/29/20 6:[address] CM spoke with Mahad @ [facility] this am and he requested COVID test within the last five days. Mahad came out and evaluated patient this afternoon. COVID results sent to facility this evening. Probable discharge . DCP- Discharge Planning Updated by [email or web address]: Joanne Mckeon on 03/27/20 5:[address] CM called Vickie to check status of discharge to SNF. Vickie stated that she has sent it to Bryan to qasimal and will let CM know status as soon as she can. CM will check back again in am on status. DCP- Discharge Planning Updated by [id number]: Joanne Mckeon on 03/24/20 4:[address] CM received a call back from Princess at [facility] and they denied the patient. CM contacted Vickie with nursing consultants and she will check with her facilities to see if she can find placement. CM faxed records and awaiting determination of acceptance. CM will continue to follow and assist as needed with discharge planning needs. DCP- Discharge Planning Updated by [id number]: Joanne Mike on 03/24/20 2:[address] CM received JOSE approval back and sent referral to [facility] and received a call back from [facility] that they have denied the patient. CM has sent referral to [facility] and contacted [place] to let her know of the referral. CM awaiting determination from [facility]. CM will continue too follow and assist as needed with discharge planning / needs. DCP- Discharge Planning Updated by [id number]: Joanne Mckeon on 03/23/20 6:[address] CM called and spoke with Agatha with APS [phone]. She stated that it sounds like the patient needs rehab before returning to the home. She stated that she needed to talk to the patient on the phone again but would call back later to speak to him. Agatha also stated that the patient's landlord Efren Kumartiago [phone] was the patient's payee (CM asked to clarify meaning the landlord oversees patient's money) CM called and spoke with patient's mother Lillian Romero [phone] about rehab in SNF . CHRIS completed for no preference in SNF. CM has completed JOSE for placement awaiting physician signature to send in. CM will send referrals in am to SNF. CM will continue to follow and assist as needed with discharge planning / needs. DCP- Discharge Planning Updated by [id number]: Joanne Mckeon on 03/22/20 5:[address] Psych has approved that patient can have outpatient psych care and does no longer need inpatient placement. MARY has called Agatha with APS and left message to call CM. If patient needs SNF placement then he will need JOSE before placement and we will need family to complete CHRIS. CM will continue to follow and assist as needed with discharge planning / needs. DCP- Discharge Planning Updated by [email or web address]: Lana Magdaleno on 03/22/20 7:[address] Per Willie with [facility], the patient has been declined by every Psych facility. Savita was notified on 03/18 that no further placement was required. DCP- Discharge Planning Updated by [id number]: Joanne Mckeon on 03/20/20 3:[address] LATE ENTRY 03/18/20 FAXED UPDATED PACKET TO TRANSFER CENTER FOR PLACEMENT TO [facility]. DCP- Discharge Planning Updated by [id number]: Joselin Parker on 03/16/20 1:[address] Patient Name: SMITA ROMERO Admission Status: ER Accout number: [id number] Admission Date: 03-12-2020 : 1975 Admission Diagnosis:METABOLIC ENCEPHALOPATHY Attending: LUIS ALBERTO CUELLO Current LOS: 4 Anticipated DC Date: Planned Disposition: [facility] facility Primary Insurance: [facility] MEDICARE SOLUTIONS Discharge Planning Comments: I SPOKE WITH CASIMIRO AT [facility] AND THEY HAVE DECLINCED PATIENT FOR ADMISSION. I CALLED OUR TRANSFER CENTER AND THEY ARE NOW WORKIN ON FINDING PLACEMENT. I CALLED CHANEL HANNA AND LET HER KNOW. Teasel Setter: Joselin Parker DCP- Discharge Planning Updated by [id number]: Joselin Parker on 03/16/20 11:[address] Patient Name: SMITA ROMERO Admission Status: ER Accout number: [id number] Admission Date: 03-12-2020 : 1975 Admission Diagnosis:METABOLIC ENCEPHALOPATHY Attending: LUIS ALBERTO CUELLO Current LOS: 4 Anticipated DC Date: Planned Disposition: [facility] facility Primary Insurance: [facility] MEDICARE SOLUTIONS Discharge Planning Comments: REFERRAL FAXED TO [facility] AT FAX [phone], I SPOKE WITH CASIMIRO AT [phone] WITH [facility] ADMIT. WAITING STUDIO MODEL BACK TO SEE IF THEY ARE GOING TO ACCEPT PATIENT. Teasel Setter: Joselin Parker DCP- Discharge Planning Updated by [id number]: Joanne Mckeon on 03/15/20 6:[address] Patient Name: SMITA ROMERO Admission Status: ER Accout number: [id number] Admission Date: 03-12-2020 : 1975 Admission Diagnosis:METABOLIC ENCEPHALOPATHY Attending: LUIS ALBERTO CUELLO Current LOS: 3 Anticipated DC Date: Planned Disposition: [facility] facility Primary Insurance: [facility] MEDICARE SOLUTIONS Discharge Planning Comments: CM met with patient at bedside after explaining CM role and obtaining verbal consent. Patient lives at home with his mother (Lillian) where he is independent with his care and plans to return there upon discharge. Patient is difficult to speak with he doesn't talk in sentences just a word at a time. CM called and spoke with patient's mother Lillian. Lillian stated that the patient lives with her CM discussed availability / needs of home health and medical equipment. Patient doesn't have any medical equipment or home health services. APS has been notified and has called wanting to speak to patient Agatha [phone] and fax records [phone]. CM will continue to follow and assist as needed with discharge planning / needs. Teasel Setter: Joanne Mckeon Appended by Joanne Mckeon on 03/15/2020 19:37 CDT: Salma is recommending inpatient psych when medically stable DCP- Discharge Planning Updated by [id number] Mckeon on 03/13/20 4:[address] Patient resting when CM rounded. CM will come back later for d/c planning assessment. CM will continue to follow and assist as needed with discharge planning/ needs. DCPIA - Discharge Planning Initial Assessment Updated by [email or web address] Mckeon on 03/15/20 7:17 pm * Is the patient Alert and Oriented? No * How many steps to enter\exit or inside your home? * PCP Clayton Byrd, [place] * [facility]acy [facility] * Preadmission Environment Home with Family * ADLs Independent * Equipment None * List name and contact numbers for known caregivers / representatives who currently or will assist patient after discharge: Lillian Romero - mother - [phone] Aiyana Martinez - girlfriend - [phone] * Verbal permission to speak to the caregivers and representatives has been obtained from the patient. Yes * Community resources currently utilized None * Additional services required to return to the preadmission environment? No * Can the patient safely return to the preadmission environment? Yes * Has this patient been hospitalized within the prior 30 days at any hospital? No Coverage Notice Reviewer: [id number] Lynn Mckeon Notice Issued Date-Time: 03/23/2020 11:53 Notice Type: Patient Choice Letter Notice Delivered To: Family Member Relationship to Patient: Mother Rip Machine Operator Name: Lillian Romero Delivery Method: PHONE - Phone Ratna Days: Prior Verbal Notification: Yes Recipient Understood Notice: Yes Recipient Signature: Med Rec Note Co-signed by Attending: Coverage Notice Comment: Last DP export: 03/31/20 6:11 pm Patient Name: SMITA ROMERO Page 16538 at 1255 All edits/amendments must be made on the electronic document DICTATION DATE: 04/03/20 1255 REGIONAL REFRIGERATED CDL TRUCK DRIVER: FADY 04/03/20 1255 RPT#: [id number] DC DATE: STATUS: ADM IN [facility] [address] [place] [address] END OF REPORT
--- NOTE | 2020-04-03 14:00 | NUR ---
PT UPTO BSC, 100CC UOP
--- NOTE | 2020-04-03 15:06 | NUR ---
OT NOTE: PT COMPLETED ADL MOB WITH CGA. PT COMPLETED SIT TO STAND WITH SBA. PT COMPLETED UB HYGIENE WITH SET UP AND CUES. [phone] THANK YOU,FRANCISCA TERAN
--- NOTE | 2020-04-03 16:02 | MORECARE ---
CASE MANAGEMENT DISCHARGE SUMMARY PATIENT: SMITA ROMERO UNIT: [id number] ADM DATE: 03/12/20 AGE: 44 : [birth year] SEX: M ROOM/BED: D.2304 AUTHOR: LEODAN,DOC PHYSICIAN: REFERRING PHYSICIAN: LUIS ALBERTO CUELLO MD DATE OF SERVICE: 04/03/20 Discharge Plan Patient Name: SMITA ROMERO Facility: [facility]:[place] : 1975 Planned Disposition: Nursing Facility PAULINO Cert Anticipated Discharge Date: 03/16/20 Discharge Date: Expected LOS: 4 Initial Reviewer: [id number] Initial Review Date: 03/12/2020 Generated: 04/03/20 5:02 pm Comments DCP- Discharge Planning Updated by [id number]: Lana Magdaleno on 04/03/20 3:[address] CM left a VM for Mahad Gonzalez, inquiring about patient's evaluation. Await CB. Per Agatha, with APS, there is no open case for this patient. CM was contacted by Mahad Gonzalez ([facility]) and states that the facility can accept that patient today, to a Medicaid jail bed. Nursing contacted the patient's POA, regarding same and he is in agreement. Nurse is to call report to called to [phone]. CM notified patient's nurse and MD. DCP- Discharge Planning Updated by [id number]: Erlinda Gomez on 03/31/20 6:[address] LATE ENTRY CM TELEPHONED AND LEFT MESSAGE FOR APS WORKER TO CLARIFY IF AGATHA HAD SPOKEN WITH THE PATIENT AND THE STATUS OF APS INTERVENTION FOR DISCHARGE. NO CALL BACK OF 0. 1430 CM TELEPHONED THE LANDLORD TO VERIFY IF PATIENT COULD RETURN TO HIS RESIDENCE. THE PATIENT LIVES WITH HIS MOTHER. HE STATES THEY ARE BOTH MENTALLY CHALLENGED. THE LANDLORD ASSIST THEM. HE HAS NOT KNOWN THE PATIENT TO EVER HAVE HOME HEALTH. HE HAS NOT KNOWN PATIENT TO HAVE ANY COMMUNITY SERVICS. HE WILL HAVE TO CHECK RESIDENCE FOR RETURN TO HOME. 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 NURSE REPORTS THE PATIENT WILL HAVE TO FOLLOW UP WITH HIS PCP OR SEE DR CRESPO IN THE OFFICE POST DISCHARGE AND SHE WILL F/U REGARDING HOME HEALTH REFERRAL. CM FOLLOWING TO DETERMINE APS STATUS AND FACILITATE A SAFE DISCHARGE. DCP- Discharge Planning Updated by [id number]: Erlinda Gomez on 03/31/20 11:[address] REC CB FROM CON, CHARGE NURSE. DR LEAVITT STATES SHE WILL DISCHARGE THE PATIENT HIS INSURER HAS DENIED SKILLED SERVICES. CM NOTES AGATHA WITH APS IS ALSO FOLLOWING THIS PATIENT. TC TO AGATHA. LEFT VOICE MAIL MESSAGE. PATIENT'S MOTHER IS ALSO ASSISTING WITH DISCHARGE. TC TO THE MOTHER AND NO ANSWER. TC TO LEO, MAINTENANCE CARPENTER TO DISCUSS ABOVE. TC TO ADVISE CON OF PENDING CALLS AND VERFICATION OF PLAN WITH APS AND MOTHER. DCP- Discharge Planning Updated by [id number]: Erlinda Gomez on 03/31/20 10:[address] CM SPOKE [facility] AT [facility]. SHE CONFIRMED DENIAL. NO FORMAL DENIAL WILL BE SENT UNTIL PEER TO PEER REVIEW HAS BEEN COMPLETED IF ATTENDING DESIRES AN APPEAL. APPEAL MUST BE COMPLETED PRIOR TO FRIDAY APRIL 03, 2020 AT 1500 EST. CM SPOKE Canelo/ CON IN ICU AND PROVIDED DECISION AND CONTACT [facility] FOR PEER TO PEER. CON WILL CALL DR CRESPO. DCP- Discharge Planning Updated by [id number]: Joanne Mckeon on 03/30/20 7:[address] CM refaxed CoVid results this am. Attempted to contact Mahad with [facility] several times today to find out status of admission. Spoke with Mahad late this afternoon and he stated they was still awaiting auth from [facility]. He stated that they should be able to admit patient in am. CM will continue to follow and assist as needed with discharge planning/ needs. DCP- Discharge Planning Updated by [id number]: Joanne Mckeon on 03/29/20 6:[address] CM spoke with Mahad @ [facility] this am and he requested COVID test within the last five days. Mahad came out and evaluated patient this afternoon. COVID results sent to facility this evening. Probable discharge . DCP- Discharge Planning Updated by [id number]: Joanne Mckeon on 03/27/20 5:[address] CM called Vickie to check status of discharge to SNF. Vickie stated that she has sent it to Bryan to [facility] and will let CM know status as soon as she can. CM will check back again in am on status. DCP- Discharge Planning Updated by [id number]: Joanne Mckeon on 03/24/20 4:[address] CM received a call back from Princess at [facility] and they denied the patient. MARY contacted Vickie with nursing consultants and she will check with her facilities to see if she can find placement. CM faxed records and awaiting determination of acceptance. CM will continue to follow and assist as needed with discharge planning needs. DCP- Discharge Planning Updated by [email or web address]: Joanne Mckeon on 03/24/20 2:[address] CM received JOSE approval back and sent referral to [facility] and received a call back from [facility] that they have denied the patient. CM has sent referral to [facility] and contacted [place] to let her know of the referral. CM awaiting determination from [facility]. CM will continue too follow and assist as needed with discharge planning / needs. DCP- Discharge Planning Updated by [id number]: Joanne Mckeon on 03/23/20 6:[address] CM called and spoke with Agatha with APS [phone]. She stated that it sounds like the patient needs rehab before returning to the home. She stated that she needed to talk to the patient on the phone again but would call back later to speak to him. Agatha also stated that the patient's landlord Efren Luther [phone] was the patient's payee (CM asked to clarify meaning the landlord oversees patient's money) CM called and spoke with patient's mother Lillian Romero [phone] about rehab in SNF . CHRIS completed for no preference in SNF. CM has completed JOSE for placement awaiting physician signature to send in. CM will send referrals in am to SNF. CM will continue to follow and assist as needed with discharge planning / needs. DCP- Discharge Planning Updated by [id number]: Joanne Mckeon on 03/22/20 5:[address] Psych has approved that patient can have outpatient psych care and does no longer need inpatient placement. MARY has called Agatha with APS and left message to call CM. If patient needs SNF placement then he will need JOSE before placement and we will need family to complete CHRIS. CM will continue to follow and assist as needed with discharge planning / needs. DCP- Discharge Planning Updated by [id number]: Lana Yanglroy on 03/22/20 7:[address] Per Willie with [facility], the patient has been declined by every Psych facility. States Barney was notified on 03/18 that no further placement was required. DCP- Discharge Planning Updated by [id number]: Joanne Mckeon on 03/20/20 3:[address] LATE ENTRY 03/18/20 FAXED UPDATED PACKET TO TRANSFER CENTER FOR PLACEMENT TO [facility]. DCP- Discharge Planning Updated by [id number]: Joselin Parker on 03/16/20 1:[address] Patient Name: SMITA ROMERO Admission Status: ER Accout number: [id number] Admission Date: 03-12-2020 : 1975 Admission Diagnosis:METABOLIC ENCEPHALOPATHY Attending: LUIS ALBERTO CUELLO Current LOS: 4 Anticipated DC Date: Planned Disposition: [facility] facility Primary Insurance: [facility] MEDICARE SOLUTIONS Discharge Planning Comments: I SPOKE WITH CASIMIRO AT [facility] AND THEY HAVE DECLINCED PATIENT FOR ADMISSION. I CALLED OUR [facility] AND THEY ARE NOW WORKIN ON FINDING PLACEMENT. I CALLED CHANEL HANNA AND LET HER KNOW. Aegis Console Operator Track: Joselin Parker DCP- Discharge Planning Updated by [id number]: Joselin Parker on 03/16/20 11:[address] Patient Name: SMITA ROMERO Admission Status: ER Accout number: [id number] Admission Date: 03-12-2020 : 1975 Admission Diagnosis:METABOLIC ENCEPHALOPATHY Attending: LUIS ALBERTO CUELLO Current LOS: 4 Anticipated DC Date: Planned Disposition: [facility] facility Primary Insurance: [facility] MEDICARE SOLUTIONS Discharge Planning Comments: REFERRAL FAXED TO [facility] AT FAX [phone], I SPOKE WITH CASIMIRO AT [phone] WITH [facility] ADMIT. WAITING TABLE COVER FOLDER BACK TO SEE IF THEY ARE GOING TO ACCEPT PATIENT. Aegis Console Operator Track: Joselin Parker DCP- Discharge Planning Updated by [id number]: Joanne Mckeon on 03/15/20 6:[address] Patient Name: SMITA ROMERO Admission Status: ER Accout number: [id number] Admission Date: 03-12-2020 : 1975 Admission Diagnosis:METABOLIC ENCEPHALOPATHY Attending: LUIS ALBERTO CUELLO Current LOS: 3 Anticipated DC Date: Planned Disposition: Psych facility Primary Insurance: [facility] MEDICARE SOLUTIONS Discharge Planning Comments: CM met with patient at bedside after explaining CM role and obtaining verbal consent. Patient lives at home with his mother (Lillian) where he is independent with his care and plans to return there upon discharge. Patient is difficult to speak with he doesn't talk in sentences just a word at a time. CM called and spoke with patient's mother Lillian. Lillian stated that the patient lives with her CM discussed availability / needs of home health and medical equipment. Patient doesn't have any medical equipment or home health services. APS has been notified and has called wanting to speak to patient Agatha [phone] and fax records [phone]. CM will continue to follow and assist as needed with discharge planning / needs. Aegis Console Operator Track: Joanne Mckeon Appended by Joanne Mckeon on 03/15/2020 19:37 CDT: Salma is recommending inpatient psych when medically stable DCP- Discharge Planning Updated by [id number]: Joanne Mckeon on 03/13/20 4:[address] Patient resting when CM rounded. CM will come back later for d/c planning assessment. CM will continue to follow and assist as needed with discharge planning/ needs. DCPIA - Discharge Planning Initial Assessment Updated by [id number]: Joanne Mckeon on 03/15/20 7:17 pm * Is the patient Alert and Oriented? No * How many steps to enter\exit or inside your home? * PCP Clayton Byrd CNP * [facility]acy [facility] * Preadmission Environment Home with Family * ADLs Independent * Equipment None * List name and contact numbers for known caregivers / representatives who currently or will assist patient after discharge: Lillian Romero - mother - [phone] Aiyana Martinez - girlfriend - [phone] * Verbal permission to speak to the caregivers and representatives has been obtained from the patient. Yes * Community resources currently utilized None * Additional services required to return to the preadmission environment? No * Can the patient safely return to the preadmission environment? Yes * Has this patient been hospitalized within the prior 30 days at any hospital? No Coverage Notice Reviewer: [id number] - Joanne Mckeon Notice Issued Date-Time: 03/23/2020 11:53 Notice Type: Patient Choice Letter Notice Delivered To: Family Member Relationship to Patient: Mother Clinical Services Manager Name: Lillian Romero Delivery Method: PHONE - Phone Ratna Days: Prior Verbal Notification: Yes Recipient Understood Notice: Yes Recipient Signature: Med Rec Note Co-signed by Attending: Coverage Notice Comment: Last DP export: 04/03/20 11:55 am Patient Name: SMITA ROMERO Page [id number] at 1602 All edits/amendments must be made on the electronic document DICTATION DATE: 04/03/20 1602 BLOW MOLD MACHINE OPERATOR: FADY 04/03/20 1602 RPT#: [id number] DC DATE: STATUS: ADM IN [facility] [address] [place] [address] END OF REPORT
--- NOTE | 2020-04-03 16:13 | NUR ---
OT NOTE: PT PERFORMED WELL TODAY. HE WAS INITIALLY ASLEEP BUT EASILY AROUSED. EOB WITH SPV; AMB WITH NO AD AND CGA APPROX 75-100 FT. NOTICED HIS BED AND GOWN WAS WET..PT ABLE TO CLEAN PERINEAL AREA, UPPER AND LOWER BODY WITH WASHCLOTH AND SET UP; ABLE TO MANUELA NEW BRIEF WITH SET UP AND VC TO SIT DOWN TO MANUELA VS STANDING TO PREVENT FALLS. MIN ASSIST WITH GOWN. TYLER PUGA, OTR/L [phone]
--- NOTE | 2020-04-03 16:30 | MORECARE ---
CASE MANAGEMENT DISCHARGE SUMMARY PATIENT: SMITA ROMERO UNIT: [id number] ADM DATE: 03/12/20 AGE: 44 : [birth year] SEX: M ROOM/BED: D.2304 AUTHOR: LEODAN,DOC PHYSICIAN: REFERRING PHYSICIAN: LUIS ALBERTO CUELLO MD DATE OF SERVICE: 04/03/20 Discharge Plan Patient Name: SMITA ROMERO Facility: [facility]:[place] : 1975 Planned Disposition: Nursing Facility PAULINO Cert Anticipated Discharge Date: 03/16/20 Discharge Date: Expected LOS: 4 Initial Reviewer: [id number] Initial Review Date: 03/12/2020 Generated: 04/03/20 5:29 pm Comments DCP- Discharge Planning Updated by [id number]: Lana Magdaleno on 04/03/20 3:[address] Contacted EDNA Alfredo with [facility], regarding progress with DC to their facility. Per Mahad Alfredo is at the patient's mothers' home filling out paperwork for admission. Provided direct number for ICU to contact with time for transportation. Notified charge nurse of same. CM left a VM for Mahad Gonzalez, inquiring about patient's evaluation. Await CB. Per Agatha, with [facility]PS, there is no open case for this patient. CM was contacted by Mahad Gonzalez ([facility]) and states that the facility can accept that patient today, to a Medicaid FPC bed. Nursing contacted the patient's POA, regarding same and he is in agreement. Nurse is to call report to called to [phone]. CM notified patient's nurse and MD. DCP- Discharge Planning Updated by [id number]: Erlinda Gomez on 03/31/20 6:[address] LATE ENTRY CM TELEPHONED AND LEFT MESSAGE FOR APS WORKER TO CLARIFY IF AGATHA HAD SPOKEN WITH THE PATIENT AND THE STATUS OF APS INTERVENTION FOR DISCHARGE. NO CALL BACK OF 1629. 1430 CM TELEPHONED THE LANDLORD TO VERIFY IF PATIENT COULD RETURN TO HIS RESIDENCE. THE PATIENT LIVES WITH HIS MOTHER. HE STATES THEY ARE BOTH MENTALLY CHALLENGED. THE LANDLORD ASSIST THEM. HE HAS NOT KNOWN THE PATIENT TO EVER HAVE HOME HEALTH. HE HAS NOT KNOWN PATIENT TO HAVE ANY COMMUNITY SERVICS. HE WILL HAVE TO CHECK RESIDENCE FOR RETURN TO HOME. HE CAN SINK CUTTER PATIENT AT DISCHARGE. NURSE REPORTS THE PATIENT WILL HAVE TO FOLLOW UP WITH HIS PCP OR SEE DR CRESPO IN THE OFFICE POST DISCHARGE AND SHE WILL F/U REGARDING HOME HEALTH REFERRAL. CM FOLLOWING TO DETERMINE APS STATUS AND FACILITATE A SAFE DISCHARGE. DCP- Discharge Planning Updated by [id number]: Erlinda Gomez on 03/31/20 11:[address] REC CB FROM CON, CHARGE NURSE. DR LEAVITT STATES SHE WILL DISCHARGE THE PATIENT HIS INSURER HAS DENIED SKILLED SERVICES. CM NOTES AGATHA WITH APS IS ALSO FOLLOWING THIS PATIENT. TC TO AGATHA. LEFT VOICE MAIL MESSAGE. PATIENT'S MOTHER IS ALSO ASSISTING WITH DISCHARGE. TC TO THE MOTHER AND NO ANSWER. TC TO LEO, WARDROBE IMAGE CONSULTANT TO DISCUSS ABOVE. TC TO ADVISE CON OF PENDING CALLS AND VERFICATION OF PLAN WITH APS AND MOTHER. DCP- Discharge Planning Updated by [id number]: Erlinda Gomez on 03/31/20 10:[address] CM SPOKE BERE AT [facility] [place] [employer]. SHE CONFIRMED DENIAL. NO FORMAL DENIAL WILL BE SENT UNTIL PEER TO PEER REVIEW HAS BEEN COMPLETED IF ATTENDING DESIRES AN APPEAL. APPEAL MUST BE COMPLETED PRIOR TO FRIDAY APRIL 03, 2020 AT 1500 EST. MARY SPOKE Canelo/ CON IN ICU AND PROVIDED DECISION AND [facility]. CON WILL CALL DR CRESPO. DCP- Discharge Planning Updated by [id number]: Joanne Mckeon on 03/30/20 7:[address] CM refaxed CoVid results this am. Attempted to contact Mahad with [facility] several times today to find out status of admission. Spoke with Mahad late this afternoon and he stated they was still awaiting auth from [facility]. He stated that they should be able to admit patient in am. CM will continue to follow and assist as needed with discharge planning/ needs. DCP- Discharge Planning Updated by [id number]: Joanne Mckeon on 03/29/20 6:[address] CM spoke with Mahad @ [facility] this am and he requested COVID test within the last five days. Mahad came out and evaluated patient this afternoon. COVID results sent to facility this evening. Probable discharge . DCP- Discharge Planning Updated by [id number]: Joanne Mckeon on 03/27/20 5:[address] CM called Vickie to check status of discharge to SNF. Vickie stated that she has sent it to [facility] and will let CM know status as soon as she can. CM will check back again in am on status. DCP- Discharge Planning Updated by [id number]: Joanne Mckeon on 03/24/20 4:[address] CM received a call back from Princess at [facility] and they denied the patient. CM contacted Vickie with nursing consultants and she will check with her facilities to see if she can find placement. CM faxed records and awaiting determination of acceptance. CM will continue to follow and assist as needed with discharge planning needs. DCP- Discharge Planning Updated by [id number]: Joanne Mckeon on 03/24/20 2:[address] CM received JOSE approval back and sent referral to [facility] and received a call back from [facility] that they have denied the patient. CM has sent referral to [facility] and contacted [place] to let her know of the referral. CM awaiting determination from [facility]. CM will continue too follow and assist as needed with discharge planning / needs. DCP- Discharge Planning Updated by [id number]: Joanne Mckeon on 03/23/20 6:[address] CM called and spoke with Agatha with [facility]PS [phone]. She stated that it sounds like the patient needs rehab before returning to the home. She stated that she needed to talk to the patient on the phone again but would call back later to speak to him. Agatha also stated that the patient's landlord Efren Luther [phone] was the patient's payee (CM asked to clarify meaning the landlord oversees patient's money) CM called and spoke with patient's mother Lillian Romero [phone] about rehab in SNF . CHRIS completed for no preference in SNF. CM has completed JOSE for placement awaiting physician signature to send in. CM will send referrals in am to SNF. CM will continue to follow and assist as needed with discharge planning / needs. DCP- Discharge Planning Updated by [id number]: Joanne Mckeon on 03/22/20 5:[address] Psych has approved that patient can have outpatient psych care and does no longer need inpatient placement. CM has called Agatha with APS and left message to call CM. If patient needs SNF placement then he will need JOSE before placement and we will need family to complete CHRIS. CM will continue to follow and assist as needed with discharge planning / needs. DCP- Discharge Planning Updated by [id number]: Lana Yanglroy on 03/22/20 7:[address] Per Willie with [facility], the patient has been declined by every Psych facility. Savita was notified on 03/18 that no further placement was required. DCP- Discharge Planning Updated by [id number]: Joanne Mckeon on 03/20/20 3:[address] LATE ENTRY 03/18/20 FAXED UPDATED PACKET TO [facility] FOR PLACEMENT TO PSYCH FACILITY. DCP- Discharge Planning Updated by [id number]: Joselin Parker on 03/16/20 1:[address] Patient Name: SMITA ROMERO Admission Status: ER Accout number: [id number] Admission Date: 03-12-2020 : 1975 Admission Diagnosis:METABOLIC ENCEPHALOPATHY Attending: LUIS ALBERTO CUELLO Current LOS: 4 Anticipated DC Date: Planned Disposition: Psych facility Primary Insurance: [facility] [employer] Discharge Planning Comments: I SPOKE WITH CASIMIRO AT [facility] AND THEY HAVE DECLINCED PATIENT FOR ADMISSION. I CALLED OUR [facility] AND THEY ARE NOW WORKIN ON FINDING PLACEMENT. I CALLED CHANEL HANNA AND LET HER KNOW. Human Resources Team Member: Joselin Parker DCP- Discharge Planning Updated by [id number]: Joselin Parker on 03/16/20 11:[address] Patient Name: SMITA ROMERO Admission Status: ER Accout number: [id number] Admission Date: 03-12-2020 : 1975 Admission Diagnosis:METABOLIC ENCEPHALOPATHY Attending: LUIS ALBERTO CUELLO Current LOS: 4 Anticipated DC Date: Planned Disposition: Psych facility Primary Insurance: [facility] [employer] Discharge Planning Comments: REFERRAL FAXED TO [facility] AT FAX [phone], I SPOKE WITH CASIMIRO AT [phone] WITH [facility] ADMIT. WAITING SITE HEAD BACK TO SEE IF THEY ARE GOING TO ACCEPT PATIENT. Human Resources Team Member: Joselin Parker DCP- Discharge Planning Updated by [id number]: Joanne Mckeon on 03/15/20 6:[address] Patient Name: SMITA ROMERO Admission Status: ER Accout number: [id number] Admission Date: 03-12-2020 : 1975 Admission Diagnosis:METABOLIC ENCEPHALOPATHY Attending: LUIS ALBERTO CUELLO Current LOS: 3 Anticipated DC Date: Planned Disposition: Psych facility Primary Insurance: [facility] [employer] Discharge Planning Comments: CM met with patient at bedside after explaining CM role and obtaining verbal consent. Patient lives at home with his mother (Lillian) where he is independent with his care and plans to return there upon discharge. Patient is difficult to speak with he doesn't talk in sentences just a word at a time. CM called and spoke with patient's mother Lillian. Lillian stated that the patient lives with her CM discussed availability / needs of home health and medical equipment. Patient doesn't have any medical equipment or home health services. [facility] has been notified and has called wanting to speak to patient Agatha [phone] and fax records [phone]. CM will continue to follow and assist as needed with discharge planning / needs. Human Resources Team Member: Joanne Mckeon Appended by Joanne Mckeon on 03/15/2020 19:37 CDT: Salma is recommending inpatient psych when medically stable DCP- Discharge Planning Updated by [id number]: Joanne Mckeon on 03/13/20 4:[address] Patient resting when CM rounded. CM will come back later for d/c planning assessment. CM will continue to follow and assist as needed with discharge planning/ needs. DCPIA - Discharge Planning Initial Assessment Updated by [id number]: Joanne Mckeon on 03/15/20 7:17 pm * Is the patient Alert and Oriented? No * How many steps to enter\exit or inside your home? * PCP Clayton Byrd CNP * [facility]acy [facility] * Preadmission Environment Home with Family * ADLs Independent * Equipment None * List name and contact numbers for known caregivers / representatives who currently or will assist patient after discharge: Lillian Romero - mother - [phone] Aiyana Martinez - girlfriend - [phone] * Verbal permission to speak to the caregivers and representatives has been obtained from the patient. Yes * Community resources currently utilized None * Additional services required to return to the preadmission environment? No * Can the patient safely return to the preadmission environment? Yes * Has this patient been hospitalized within the prior 30 days at any hospital? No Coverage Notice Reviewer: [id number] Lynn Mckeon Notice Issued Date-Time: 03/23/2020 11:53 Notice Type: Patient Choice Letter Notice Delivered To: Family Member Relationship to Patient: Mother Automatic Driller And Reamer Name: Lillian Romero Delivery Method: PHONE - Phone Ratna Days: Prior Verbal Notification: Yes Recipient Understood Notice: Yes Recipient Signature: Med Rec Note Co-signed by Attending: Coverage Notice Comment: Last DP export: 04/03/20 3:02 pm Patient Name: SMITA ROMERO Page 53544 at 1630 All edits/amendments must be made on the electronic document DICTATION DATE: 04/03/201628 FLORAL DECORATOR: FADY 04/03/20 1629 RPT#: [id number] DC DATE: STATUS: ADM IN [facility] [address] [place] [address] END OF REPORT
--- NOTE | 2020-04-03 17:10 | NUR ---
REPORT CALLED TO [facility]
--- NOTE | 2020-04-03 18:27 | NUR ---
PT DC/D VIA WHEELCHAIR WITH YASMIN FROM [facility]
--- NOTE | 2020-04-04 09:32 | MORECARE ---
CASE MANAGEMENT DISCHARGE SUMMARY PATIENT: SMITA ROMERO UNIT: [id number] ADM DATE: 03/12/20 AGE: 44 : [birth year] SEX: M ROOM/BED: D.2304 AUTHOR: LEODAN,DOC PHYSICIAN: REFERRING PHYSICIAN: LUIS ALBERTO CUELLO MD DATE OF SERVICE: 04/04/20 Discharge Plan Patient Name: SMITA ROMERO Facility: [facility]:[place] : 1975 Planned Disposition: Nursing Facility PAULINO Cert Anticipated Discharge Date: 03/16/20 Discharge Date: 04/03/2020 Expected LOS: 4 Initial Reviewer: [id number] Initial Review Date: 03/12/2020 Generated: 04/04/20 10:32 am Comments DCP- Discharge Planning Updated by [id number]: Lana Magdaleno on 04/03/20 3:[address] Contacted EDNA Alfredo with [facility], regarding progress with DC to their facility. Per Mahad Alfredo is at the patient's mothers' home filling out paperwork for admission. Provided direct number for ICU to contact with time for transportation. Notified charge nurse of same. CM left a VM for Mahad Carlos, inquiring about patient's evaluation. Await CB. Per Agatha, with [facility]PS, there is no open case for this patient. CM was contacted by Mahad Gonzalez ([facility]) and states that the facility can accept that patient today, to a Medicaid terminal operations supervisor bed. Nursing contacted the patient's POA, regarding same and he is in agreement. Nurse is to call report to called to [phone]. CM notified patient's nurse and MD. DCP- Discharge Planning Updated by [id number]: Erlinda Gomez on 03/31/20 6:[address] LATE ENTRY CM TELEPHONED AND LEFT MESSAGE FOR APS WORKER TO CLARIFY IF AGATHA HAD SPOKEN WITH THE PATIENT AND THE STATUS OF APS INTERVENTION FOR DISCHARGE. NO CALL BACK OF 1629. 1430 CM TELEPHONED THE LANDLORD TO VERIFY IF PATIENT COULD RETURN TO HIS RESIDENCE. THE PATIENT LIVES WITH HIS MOTHER. HE STATES THEY ARE BOTH MENTALLY CHALLENGED. THE LANDLORD ASSIST THEM. HE HAS NOT KNOWN THE PATIENT TO EVER HAVE HOME HEALTH. HE HAS NOT KNOWN PATIENT TO HAVE ANY COMMUNITY SERVICS. HE WILL HAVE TO CHECK RESIDENCE FOR RETURN TO HOME. HE CAN TESTING LEAD PATIENT AT DISCHARGE. NURSE REPORTS THE PATIENT WILL HAVE TO FOLLOW UP WITH HIS PCP OR SEE DR CRESPO IN THE OFFICE POST DISCHARGE AND SHE WILL F/U REGARDING HOME HEALTH REFERRAL. CM FOLLOWING TO DETERMINE APS STATUS AND FACILITATE A SAFE DISCHARGE. DCP- Discharge Planning Updated by [id number]: Erlinda Gomez on 03/31/20 11:[address] REC CB FROM CON, CHARGE NURSE. DR LEAVITT STATES SHE WILL DISCHARGE THE PATIENT HIS INSURER HAS DENIED SKILLED SERVICES. CM NOTES AGATHA WITH APS IS ALSO FOLLOWING THIS PATIENT. TC TO AGATHA. LEFT VOICE MAIL MESSAGE. PATIENT'S MOTHER IS ALSO ASSISTING WITH DISCHARGE. TC TO THE MOTHER AND NO ANSWER. TC TO LEO, SUPERVISOR CONCRETE STONE FINISHING TO DISCUSS ABOVE. TC TO ADVISE CON OF PENDING CALLS AND VERFICATION OF PLAN WITH APS AND MOTHER. DCP- Discharge Planning Updated by [id number]: Erlinda Gomez on 03/31/20 10:[address] CM SPOKE BERE AT [facility] [employer]. SHE CONFIRMED DENIAL. NO FORMAL DENIAL WILL BE SENT UNTIL PEER TO PEER REVIEW HAS BEEN COMPLETED IF ATTENDING DESIRES AN APPEAL. APPEAL MUST BE COMPLETED PRIOR TO FRIDAY APRIL 03, 2020 AT 1500 EST. MARY SPOKE Canelo/ CON IN ICU AND PROVIDED DECISION AND CONTACT [facility] FOR PEER TO PEER. CON WILL CALL DR CRESPO. DCP- Discharge Planning Updated by [id number]: Joanne Mckeon on 03/30/20 7:[address] CM refaxed CoVid results this am. Attempted to contact Mahad with [facility] several times today to find out status of admission. Spoke with Mahad late this afternoon and he stated they was still awaiting auth from [facility]. He stated that they should be able to admit patient in am. CM will continue to follow and assist as needed with discharge planning/ needs. DCP- Discharge Planning Updated by [id number]: Joanne Mckeon on 03/29/20 6:[address] CM spoke with Mahad @ [facility] this am and he requested COVID test within the last five days. aMhad came out and evaluated patient this afternoon. COVID results sent to facility this evening. Probable discharge . DCP- Discharge Planning Updated by [id number]: Joanne Mckeon on 03/27/20 5:[address] CM called Vickie to check status of discharge to SNF. Vickie stated that she has sent it to [facility] and will let CM know status as soon as she can. CM will check back again in am on status. DCP- Discharge Planning Updated by [id number]: Joanne Mckeon on 03/24/20 4:[address] CM received a call back from Princess at [facility] and they denied the patient. CM contacted Vickie with nursing consultants and she will check with her facilities to see if she can find placement. CM faxed records and awaiting determination of acceptance. CM will continue to follow and assist as needed with discharge planning needs. DCP- Discharge Planning Updated by [email or web address]: Joanne Mckeon on 03/24/20 2:[address] CM received JOSE approval back and sent referral to [facility] and received a call back from [facility] that they have denied the patient. CM has sent referral to [facility] and contacted [facility] to let her know of the referral. CM awaiting determination from [facility]. CM will continue too follow and assist as needed with discharge planning / needs. DCP- Discharge Planning Updated by [id number]: Joanne Mckeon on 03/23/20 6:[address] CM called and spoke with Agatha with [facility] [phone]. She stated that it sounds like the patient needs rehab before returning to the home. She stated that she needed to talk to the patient on the phone again but would call back later to speak to him. Agatha also stated that the patient's landlord Efren Luther [phone] was the patient's payee (CM asked to clarify meaning the landlord oversees patient's money) CM called and spoke with patient's mother Lillian Romero [phone] about rehab in SNF . CHRIS completed for no preference in SNF. CM has completed JOSE for placement awaiting physician signature to send in. CM will send referrals in am to SNF. CM will continue to follow and assist as needed with discharge planning / needs. DCP- Discharge Planning Updated by [id number]: Joanne Mckeon on 03/22/20 5:[address] Psych has approved that patient can have outpatient psych care and does no longer need inpatient placement. CM has called Agatha with [facility]PS and left message to call CM. If patient needs SNF placement then he will need JOSE before placement and we will need family to complete CHRIS. CM will continue to follow and assist as needed with discharge planning / needs. DCP- Discharge Planning Updated by [id number]: Lana Yanglroy on 03/22/20 7:[address] Per Willie with [facility], the patient has been declined by every Psych facility. Savita was notified on 03/18 that no further placement was required. DCP- Discharge Planning Updated by [id number]: Joanne Mckeon on 03/20/20 3:[address] LATE ENTRY 03/18/20 FAXED UPDATED PACKET TO [facility] FOR PLACEMENT TO PSYCH FACILITY. DCP- Discharge Planning Updated by [id number]: Joselin Parker on 03/16/20 1:[address] Patient Name: SMITA ROMERO Admission Status: ER Accout number: [id number] Admission Date: 03-12-2020 : 1975 Admission Diagnosis:METABOLIC ENCEPHALOPATHY Attending: LUIS ALBERTO CUELLO Current LOS: 4 Anticipated DC Date: Planned Disposition: Psych facility Primary Insurance: [facility] Discharge Planning Comments: I SPOKE WITH CASIMIRO AT [facility] AND THEY HAVE DECLINCED PATIENT FOR ADMISSION. I CALLED OUR [facility] AND THEY ARE NOW WORKIN ON FINDING PLACEMENT. I CALLED CHANEL HANNA AND LET HER KNOW. Corridor Redevelopment Manager: Joselin Parker DCP- Discharge Planning Updated by [id number]: Joselin Parker on 03/16/20 11:[address] Patient Name: SMITA ROMERO Admission Status: ER Accout number: [id number] Admission Date: 03-12-2020 : 1975 Admission Diagnosis:METABOLIC ENCEPHALOPATHY Attending: LUIS ALBERTO CUELLO Current LOS: 4 Anticipated DC Date: Planned Disposition: Psych facility Primary Insurance: [facility] [employer]ICARE [employer]UTIONS Discharge Planning Comments: REFERRAL FAXED TO [facility] AT FAX [phone], I SPOKE WITH CASIMIRO AT [phone] WITH [facility] ADMIT. WAITING MEDICAL BILLING REPRESENTATIVE BACK TO SEE IF THEY ARE GOING TO ACCEPT PATIENT. Corridor Redevelopment Manager: Joselin Parker DCP- Discharge Planning Updated by [id number]: Joanne Mckeon on 03/15/20 6:[address] Patient Name: SMITA ROMERO Admission Status: ER Accout number: [id number] Admission Date: 03-12-2020 : 1975 Admission Diagnosis:METABOLIC ENCEPHALOPATHY Attending: LUIS ALBERTO CUELLO Current LOS: 3 Anticipated DC Date: Planned Disposition: Psych facility Primary Insurance: [facility] [employer] Discharge Planning Comments: CM met with patient at bedside after explaining CM role and obtaining verbal consent. Patient lives at home with his mother (Lillian) where he is independent with his care and plans to return there upon discharge. Patient is difficult to speak with he doesn't talk in sentences just a word at a time. CM called and spoke with patient's mother Lillian. Lillian stated that the patient lives with her CM discussed availability / needs of home health and medical equipment. Patient doesn't have any medical equipment or home health services. [facility] has been notified and has called wanting to speak to patient Agatha [phone] and fax records [phone]. CM will continue to follow and assist as needed with discharge planning / needs. Corridor Redevelopment Manager: Joanne Mckeon Appended by Joanne Mckeon on 03/15/2020 19:37 CDT: Salma is recommending inpatient psych when medically stable DCP- Discharge Planning Updated by [id number]: Joanne Mckeon on 03/13/20 4:[address] Patient resting when CM rounded. CM will come back later for d/c planning assessment. CM will continue to follow and assist as needed with discharge planning/ needs. DCPIA - Discharge Planning Initial Assessment Updated by [id number]: Joanne Mckeon on 03/15/20 7:17 pm * Is the patient Alert and Oriented? No * How many steps to enter\exit or inside your home? * PCP Clayton Byrd CNP * [facility]acy [facility] * Preadmission Environment Home with Family * ADLs Independent * Equipment None * List name and contact numbers for known caregivers / representatives who currently or will assist patient after discharge: Lillian Romero - mother - [phone] Aiyana Martinez - girlfriend - [phone] * Verbal permission to speak to the caregivers and representatives has been obtained from the patient. Yes * Community resources currently utilized None * Additional services required to return to the preadmission environment? No * Can the patient safely return to the preadmission environment? Yes * Has this patient been hospitalized within the prior 30 days at any hospital? No Coverage Notice Reviewer: [id number] Lynn Mckeon Notice Issued Date-Time: 03/23/2020 11:53 Notice Type: Patient Choice Letter Notice Delivered To: Family Member Relationship to Patient: Mother Community Worker Name: Lillian Romero Delivery Method: PHONE - Phone Ratna Days: Prior Verbal Notification: Yes Recipient Understood Notice: Yes Recipient Signature: Med Rec Note Co-signed by Attending: Coverage Notice Comment: Last DP export: 04/03/20 3:30 pm Patient Name: SMITA ROMERO Page 48781 at 0932 All edits/amendments must be made on the electronic document DICTATION DATE: 04/04/20931 COFFEE SHOP MANAGER: FADY 04/04/2032 RPT#: [id number] DC DATE:04/03/20 STATUS: DIS IN [facility] [address] [place] [address] END OF REPORT
== END 2020-04-03 18:28 | DRG 85 ==
LOC: D.ER 00:27 → D.ICU 10:07
PROVIDERS: Emergency Medicine; Family Medicine; Internal Medicine Nephrology; Surgery; ADMIT Family Medicine; ATTEND Family Medicine
DX: S02.85XA Fracture of orbit, unspecified, initial encounter for closed fracture (principal); J18.9 Pneumonia, unspecified organism; G93.41 Metabolic encephalopathy; F84.0 Autistic disorder; M62.82 Rhabdomyolysis; N39.0 Urinary tract infection, site not specified; I42.9 Cardiomyopathy, unspecified; Z91.14 Patient's other noncompliance with medication regimen; I10 Essential (primary) hypertension; F17.200 Nicotine dependence, unspecified, uncomplicated; S01.112A Laceration without foreign body of left eyelid and periocular area, initial encounter; W19.XXXA Unspecified fall, initial encounter; R55 Syncope and collapse; E87.6 Hypokalemia; F20.9 Schizophrenia, unspecified; I48.91 Unspecified atrial fibrillation; E86.0 Dehydration

== ENCOUNTER 2020-05-01 13:04 | Inpatient (IN) | payer MEDICARE, MEDICAID ==
[~2020-05-01] VITALS: Ht 175.3 cm; Wt 68.5 kg
[~2020-05-01 13:04] MED LIST changes: +CARDIZEM60 MG PO; +ZPAK PO
[2020-05-01 14:13] LABS: BASOPHILS 0.3 % (0-2); EOSINOPHILS 10.8 % (0-7); HEMATOCRIT 46.5 % (42.0-54.0); HEMOGLOBIN 15.5 g/dL (13.5-17.5); IMMATURE GRANULOCYTES 0.3 % (0-5); LYMPHOCYTES 26.2 % (15-50); MCH 31.4 pg (26.0-34.0); MCHC 33.3 g/dL (31.0-37.0); MCV 94.1 fL (80.0-100.0); MONOCYTES 6.2 % (2-11); NEUTROPHILS 56.2 % (40-80); RBC 4.94 10x6/uL (4.20-6.10); RDW 12.4 % (11.5-14.5); WBC 6.7 10x3/uL (4.8-10.8)
[2020-05-01 14:16] LABS: PLATELET COUNT 275 10x3/uL (130-400)
[2020-05-01 14:21] LABS: CALC OSMOLALITY 278 mosm/kg (275-300); CALCIUM 9.3 mg/dL (8.5-10.1); CARBON DIOXIDE 30.4 mmol/L (21.0-32.0); CHLORIDE - SERUM 102 mmol/L (98-107); CREATININE - SERUM 1.3 mg/dL (0.6-1.3); GLUCOSE 120 mg/dL (74-106); POTASSIUM - SERUM 3.9 mmol/L (3.5-5.1); SODIUM 138 mmol/L (136-145); UREA NITROGEN 19 mg/dL (7-18); eGFR NON AFRICAN AMERICAN 63 mL/min (90-120)
[2020-05-01 14:30] VITALS: BP 103/63
[2020-05-01 14:33] LABS: APTT 34.4 SECONDS (22.8-39.4); INR 1.05 (0.85-1.17); PROTIME 13.7 SECONDS (11.6-15.0)
[2020-05-01 14:36] LABS: ALBUMIN 3.7 g/dL (3.4-5.0); ALKALINE PHOSPHATASE 89 U/L (30-120); ALT (SGPT) 20 U/L (10-68); BILIRUBIN - TOTAL 0.47 mg/dL (0.2-1.3); CREATINE KINASE 76 UL (21-232); MAGNESIUM - SERUM 2.3 mg/dL (1.8-2.4); PROTEIN - SERUM 7.8 g/dL (6.4-8.2); THYROID STIMULATING HORMONE 0.88 uIU/mL (0.36-3.74)
[2020-05-01 14:37] LABS: TROPONIN-I < 0.017 ng/mL (0.000-0.060)
[2020-05-01 15:02] LABS: CKMB 2.1 U/L (0.0-3.6)
[2020-05-01 15:30] VITALS: BP 108/79
[2020-05-01 16:04] LABS: UDS - AMPHET NEGATIVE QUAL (NEGATIVE); UDS - BARB NEGATIVE QUAL (NEGATIVE); UDS - BENZO NEGATIVE QUAL (NEGATIVE); UDS - COCAINE NEGATIVE QUAL (NEGATIVE); UDS - OPIATE NEGATIVE QUAL (NEGATIVE); UDS - PCP NEGATIVE QUAL (NEGATIVE); UDS - THC NEGATIVE QUAL (NEGATIVE)
[2020-05-01 16:16] LABS: BILIRUBIN NEGATIVE (NEGATIVE); GLUCOSE NEGATIVE (NEGATIVE); KETONE NEGATIVE (NEGATIVE); NITRITE POSITIVE (NEGATIVE); UROBILINOGEN NORMAL (NORMAL)
[2020-05-01 16:17] LABS: BACTERIA MANY /hpf (NEGATIVE); RED CELLS - URINE OCC /hpf (0-5); WHITE CELLS - URINE 25-50 /hpf (NEGATIVE)
[2020-05-01 16:30] VITALS: BP 118/79
[2020-05-01] MEDS ORDERED: PALIPERIDONE (19:53)
[2020-05-01] MEDS ORDERED: GUAIFENESI100 MG/5 M PO (19:57)
[2020-05-01] MEDS ORDERED: KLONOPIN0.5 MG PO (19:58)
[2020-05-01 23:32] VITALS: BP 123/87; BMI 22.3
[2020-05-01 23:55] VITALS: BP 118/83
[2020-05-02 04:00] VITALS: BP 118/78
[2020-05-02 04:39] LABS: BASOPHILS 0.3 % (0-2); EOSINOPHILS 9.7 % (0-7); HEMATOCRIT 45.8 % (42.0-54.0); HEMOGLOBIN 15.1 g/dL (13.5-17.5); IMMATURE GRANULOCYTES 0.1 % (0-5); LYMPHOCYTES 24.2 % (15-50); MCH 31.1 pg (26.0-34.0); MCV 94.2 fL (80.0-100.0); MEAN PLATELET VOLUME 10.4 fL (7.4-10.4); MONOCYTES 8.3 % (2-11); NEUTROPHILS 57.4 % (40-80); PLATELET COUNT 283 10x3/uL (130-400); RBC 4.86 10x6/uL (4.20-6.10); RDW 12.5 % (11.5-14.5); WBC 7.1 10x3/uL (4.8-10.8)
[2020-05-02 04:57] LABS: ALBUMIN 3.7 g/dL (3.4-5.0); ALKALINE PHOSPHATASE 84 U/L (30-120); ALT (SGPT) 21 U/L (10-68); BILIRUBIN - TOTAL 0.41 mg/dL (0.2-1.3); CALC OSMOLALITY 283 mosm/kg (275-300); CALCIUM 8.9 mg/dL (8.5-10.1); CARBON DIOXIDE 32.3 mmol/L (21.0-32.0); CHLORIDE - SERUM 103 mmol/L (98-107); GLUCOSE 80 mg/dL (74-106); MAGNESIUM - SERUM 2.2 mg/dL (1.8-2.4); POTASSIUM - SERUM 4.1 mmol/L (3.5-5.1); PROTEIN - SERUM 6.9 g/dL (6.4-8.2); SODIUM 142 mmol/L (136-145); UREA NITROGEN 19 mg/dL (7-18); eGFR NON AFRICAN AMERICAN 86 mL/min (90-120)
--- NOTE | 2020-05-02 08:30 | NUR ---
ASSESSMENT PER FLOW SHEET. PATIENT IS WITHOUT DISTRESS. FALL PREVENTION IN PLACE WITH BED ALARM ON AND WORKING.DOOR OPEN
[2020-05-02 10:58] VITALS: Ht 175.3 cm; Wt 68.5 kg
[2020-05-02 14:25] VITALS: BP 109/73
--- NOTE | 2020-05-02 18:19 | NUR ---
ASSISTED TO BATHROOM. PATIENT IS WITHUT DISTRESS.WITHOUT CHANGE.CONT PLAN OF CARE
[2020-05-02 18:33] VITALS: BP 137/69
[2020-05-02 20:00] VITALS: BP 120/77
--- NOTE | 2020-05-02 20:55 | NUR ---
PATIENT IS SLEEPING COMFORTABLY IN BED. HE IS ALERT AND ORIENTED. NO COMPLAINTS AT THIS TIME.
--- NOTE | 2020-05-02 20:56 | NUR ---
CORRECTION: THE PATIENT IS CONFUSED TO TIME, EVENTS, AND PLACE. HE HAS NO COMPLAINTS AT THIS TIME
--- NOTE | 2020-05-02 22:56 | NUR ---
PATIENT PULLED IV OUT OF RIGHT FORE ARM. HE LEFT HIS ROOM AND WENT DOWN THE ROGERS. WE GOT HIM BACK IN HIS ROOM AND IN BED. BED ALARM IS ON. NEW IV PUT INB RIGHT HAND.
[2020-05-03 04:00] VITALS: BP 125/85
--- NOTE | 2020-05-03 04:29 | NUR ---
PATIENT IS SLEEPING COMFORTABLY IN BED. HE IS STILL CONFUSED. HE HAS TRIED TO GET OUT OF BED A COUPLE OF TIMES, AND BED ALARM WENT OFF. HE HAS A HISTORY OF MENTAL RETARDATION. WE WILL MONITOR HIS CONFUSION.
[2020-05-03 04:48] LABS: BASOPHILS 0.4 % (0-2); EOSINOPHILS 14.2 % (0-7); HEMATOCRIT 40.1 % (42.0-54.0); HEMOGLOBIN 13.6 g/dL (13.5-17.5); IMMATURE GRANULOCYTES 0.2 % (0-5); LYMPHOCYTES 37.8 % (15-50); MCH 31.6 pg (26.0-34.0); MCHC 33.9 g/dL (31.0-37.0); MEAN PLATELET VOLUME 10.2 fL (7.4-10.4); MONOCYTES 8.4 % (2-11); PLATELET COUNT 278 10x3/uL (130-400); RBC 4.31 10x6/uL (4.20-6.10); RDW 12.1 % (11.5-14.5); WBC 5.5 10x3/uL (4.8-10.8)
[2020-05-03 05:09] LABS: CALC OSMOLALITY 277 mosm/kg (275-300); CALCIUM 8.5 mg/dL (8.5-10.1); CARBON DIOXIDE 26.7 mmol/L (21.0-32.0); CHLORIDE - SERUM 106 mmol/L (98-107); CREATININE - SERUM 0.9 mg/dL (0.6-1.3); GLUCOSE 77 mg/dL (74-106); POTASSIUM - SERUM 3.7 mmol/L (3.5-5.1); SODIUM 139 mmol/L (136-145); UREA NITROGEN 15 mg/dL (7-18); eGFR NON AFRICAN AMERICAN > 90 mL/min (90-120)
--- NOTE | 2020-05-03 07:35 | NUR ---
ASSIST PT FROM BED TO BATHROOM X 1 ASSIST. PT REQUIRES MULTIPLE DIRECTION TO GET TO THE BATHROOM AND PROCESS. ORIENTED TO PERSON AND PLACE ONLY. RESP EVEN AND UNLABORED. IV TO RIGHT HAND WITH NS @ 100ML/HR INFUSING VIA PUMP. SITE WITHOUT REDNESS OR EDEMA. DENIES PAIN AT THIS TIME. ASSISTED PT BACK TO BED. BED ALARM ON. DENIES FURTHER NEEDS AT THIS TIME. CL WITHIN REACH. ENCOURAGED TO CALL WITH NEEDS. CONTINUE POC
[2020-05-03 09:50] VITALS: BP 129/87
--- NOTE | 2020-05-03 12:30 | NUR ---
IN AND OUT CATHETER PERFORMED PER STERILE TECHNIQUE PER MD ORDERS. 500ML URINE COLLECTED. URINE SPECIMEN TAKEN TO LAB FOR CULTURE
[2020-05-03] MEDS ORDERED: LEVOFLOXACIN500 MG PO (12:34)
[2020-05-03 13:28] VITALS: BP 133/95
--- NOTE | 2020-05-03 13:49 | MORECARE ---
CASE MANAGEMENT DISCHARGE SUMMARY PATIENT: SMITA ROMERO UNIT: [id number] ADM DATE: 05/01/20 AGE: 44 : 73 SEX: M ROOM/BED: D.2203 AUTHOR: MARY ALCOCER PHYSICIAN: REFERRING PHYSICIAN: BEA OMALLEY MD DATE OF SERVICE: 05/03/20 Discharge Plan Patient Name: SMITA ROMERO [facility] [facility] 1975 Planned Disposition: Care Home Facility Anticipated Discharge Date: Discharge Date: Expected LOS: Initial Reviewer: [email or web address] Initial Review Date: 05/01/2020 Generated: 05/03/20 2:48 pm Patient Name: SMITA ROMERO Page 80941 at 1349 All edits/amendments must be made on the electronic document DICTATION DATE: 05/03/20 1348 SHOTGUN SHELL LOADING MACHINE OPERATOR: FADY 05/03/20 1348 RPT#: [id number] DC DATE: STATUS: ADM IN [facility] [address] [place] [address] END OF REPORT
--- NOTE | 2020-05-03 13:55 | MORECARE ---
CASE MANAGEMENT DISCHARGE SUMMARY PATIENT: SMITA ROMERO UNIT: [id number] ADM DATE: 05/01/20 AGE: 44 : 73 SEX: M ROOM/BED: D.2203 AUTHOR: MARY ALCOCER PHYSICIAN: REFERRING PHYSICIAN: BEA OMALLEY MD DATE OF SERVICE: 05/03/20 Discharge Plan Patient Name: SMITA ROMERO Facility: [facility]:[place] : 1975 Planned Disposition: Snf Facility Anticipated Discharge Date: Discharge Date: Expected LOS: Initial Reviewer: [email or web address] Initial Review Date: 05/01/2020 Generated: 05/03/20 2:55 pm Comments DCP- Discharge Planning Updated by [id number]: Yamila Yusuf on 05/03/20 12:[address] I attempted to call his girlfriend, but there are calling restrictions on her phone. DCP- Discharge Planning Updated by [email or web address]: Yamila Yusuf on 05/03/20 12:[address] Patient Name: SMITA ROMERO Admission Status: ER Accout number: [id number] Admission Date: 05-01-2020 : 1975 Admission Diagnosis:ALTERED MENTAL STATUS, UNSPECIFIED Attending: BEA WAGGONER Current LOS: 2 Anticipated DC Date: Planned Disposition: Snf Facility Primary Insurance: [facility] MEDICARE SOLUTIONS Discharge Planning Comments: CM met with patient to complete initial dc planning assessment. CM educated patient on the CM role and verbal consent given by patient to complete assessment. Patient lives at home with his mother, but was currently at [facility] in a Skilled bed. At discharge patient plans to return to [facility] and feels this is a safe discharge. CM discussed availability of home health, rehab services, and medical equipment. Patient asked me to call his girlfriend to let her know. I spoke with Mahad acosta with [facility] and he stated that he will return to a Skilled Bed. Patient denied known discharge needs at this time. CM will continue to follow and will assist as needed with dc plans/needs. Air Quality Technician: Yamila Yusuf DCPIA - Discharge Planning Initial Assessment Updated by [email or web address]: Yamila Yusuf on 05/03/20 1:50 pm * Is the patient Alert and Oriented? Yes * How many steps to enter\exit or inside your home? * PCP Clayton Byrd * Pharm[facility] * Preadmission Environment Assisted Living * Facility Name [facility] * ADLs Independent * Equipment None * List name and contact numbers for known caregivers / representatives who currently or will assist patient after discharge: MARIBEL ROMERO (MOTHER) [phone] MILAGROS BERGER (GIRLFRIEND) [phone] * Verbal permission to speak to the caregivers and representatives has been obtained from the patient. N/A * Community resources currently utilized None * Additional services required to return to the preadmission environment? Yes * Can the patient safely return to the preadmission environment? Yes * Has this patient been hospitalized within the prior 30 days at any hospital? Yes Last DP export: 05/03/20 12:49 pm Patient Name: SMITA ROMERO Page 59205 at 1355 All edits/amendments must be made on the electronic document DICTATION DATE: 05/03/20 1355 POUNCING LATHE OPERATOR: FADY 05/03/20 1355 RPT#: [id number] DC DATE: STATUS: ADM IN [facility] [address] [place] [address] END OF REPORT
--- NOTE | 2020-05-03 14:03 | MORECARE ---
CASE MANAGEMENT DISCHARGE SUMMARY PATIENT: SMITA ROMERO UNIT: [id number] ADM DATE: 05/01/20 AGE: 44 : 73 SEX: M ROOM/BED: D.2203 AUTHOR: MARY ALCOCER PHYSICIAN: REFERRING PHYSICIAN: BEA OMALLEY MD DATE OF SERVICE: 05/03/20 Discharge Plan Patient Name: SMITA ROMERO Facility: [facility]:[place] : 1975 Planned Disposition: Mcc Facility Anticipated Discharge Date: Discharge Date: Expected LOS: Initial Reviewer: [email or web address] Initial Review Date: 05/01/2020 Generated: 05/03/20 3:02 pm Comments DCP- Discharge Planning Updated by [email or web address]: Yamila Yusuf on 05/03/20 12:[address] I attempted to call his girlfriend, but there are calling restrictions on her phone. DCP- Discharge Planning Updated by [email or web address]: Yamila Yusuf on 05/03/20 12:[address] Patient Name: SMITA ROMERO Admission Status: ER Accout number: [id number] Admission Date: 05-01-2020 : 1975 Admission Diagnosis:ALTERED MENTAL STATUS, UNSPECIFIED Attending: BEA WAGGONER Current LOS: 2 Anticipated DC Date: Planned Disposition: Mcc Facility Primary Insurance: [facility] MEDICARE SOLUTIONS Discharge Planning Comments: CM met with patient to complete initial dc planning assessment. CM educated patient on the CM role and verbal consent given by patient to complete assessment. Patient lives at home with his mother, but was currently at [facility] in a Skilled bed. At discharge patient plans to return to [facility] and feels this is a safe discharge. CM discussed availability of home health, rehab services, and medical equipment. Patient asked me to call his girlfriend to let her know. I spoke with Mahad acosta with [facility] and he stated that he will return to a Skilled Bed. Patient denied known discharge needs at this time. CM will continue to follow and will assist as needed with dc plans/needs. Photoengraving Finisher: Yamila Yusuf DCPIA - Discharge Planning Initial Assessment Updated by [email or web address]: Yamila Yusuf on 05/03/20 1:50 pm * Is the patient Alert and Oriented? Yes * How many steps to enter\exit or inside your home? * PCP Clayton Byrd * Pharmacy [facility] IN [place] * Preadmission Environment Assisted Living * Facility Name [facility] * ADLs Independent * Equipment None * List name and contact numbers for known caregivers / representatives who currently or will assist patient after discharge: MARIBEL ROMERO (MOTHER) [phone] MILAGROS BERGER (GIRLFRIEND) [phone] * Verbal permission to speak to the caregivers and representatives has been obtained from the patient. N/A * Community resources currently utilized None * Additional services required to return to the preadmission environment? Yes * Can the patient safely return to the preadmission environment? Yes * Has this patient been hospitalized within the prior 30 days at any hospital? Yes External Providers External Provider: [facility] Next Contact Date: Service Request Date: Service Type: Resolution: Reviewer: Comments: Last DP export: 05/03/20 12:55 pm Patient Name: SMITA ROMERO Page 57087 at 1403 All edits/amendments must be made on the electronic document DICTATION DATE: 05/03/201401 FIELD CLERK: FADY 05/03/201401 RPT#: [id number] DC DATE: STATUS: ADM IN [facility] [address] [place] [address] END OF REPORT
--- NOTE | 2020-05-03 17:17 | MORECARE ---
CASE MANAGEMENT DISCHARGE SUMMARY PATIENT: SMITA ROMERO UNIT: [id number] ADM DATE: 05/01/20 AGE: 44 : 73 SEX: M ROOM/BED: D.2203 AUTHOR: MARY ALCOCER PHYSICIAN: REFERRING PHYSICIAN: BEA OMALLEY MD DATE OF SERVICE: 05/03/20 Discharge Plan Patient Name: SMITA ROMERO Facility: [facility]:[place] : 1975 Planned Disposition: Intermediate Facility Anticipated Discharge Date: Discharge Date: 05/03/2020 Expected LOS: Initial Reviewer: [email or web address] Initial Review Date: 05/01/2020 Generated: 05/03/20 6:16 pm Comments DCP- Discharge Planning Updated by [email or web address]: Yamila Yusuf on 05/03/20 12:[address] I attempted to call his girlfriend, but there are calling restrictions on her phone. DCP- Discharge Planning Updated by [email or web address]: Yamila Yusuf on 05/03/20 12:[address] Patient Name: SMITA ROMERO Admission Status: ER Accout number: [id number] Admission Date: 05-01-2020 : 1975 Admission Diagnosis:ALTERED MENTAL STATUS, UNSPECIFIED Attending: BEA WAGGONER Current LOS: 2 Anticipated DC Date: Planned Disposition: Intermediate Facility Primary Insurance: [facility] MEDICARE SOLUTIONS Discharge Planning Comments: CM met with patient to complete initial dc planning assessment. CM educated patient on the CM role and verbal consent given by patient to complete assessment. Patient lives at home with his mother, but was currently at [facility] in a Skilled bed. At discharge patient plans to return to [facility] and feels this is a safe discharge. CM discussed availability of home health, rehab services, and medical equipment. Patient asked me to call his girlfriend to let her know. I spoke with Mahad acosta with [facility] and he stated that he will return to a Skilled Bed. Patient denied known discharge needs at this time. CM will continue to follow and will assist as needed with dc plans/needs. Sampler Tester: Yamila Yusuf DCPIA - Discharge Planning Initial Assessment Updated by [email or web address]: Yamila Yusuf on 05/03/20 1:50 pm * Is the patient Alert and Oriented? Yes * How many steps to enter\exit or inside your home? * PCP Clayton Byrd * Pharmacy [facility] * Preadmission Environment Assisted Living * Facility Name [facility] * ADLs Independent * Equipment None * List name and contact numbers for known caregivers / representatives who currently or will assist patient after discharge: MARIBEL ROMERO (MOTHER) [phone] MILAGROS BERGER (GIRLFRIEND) [phone] * Verbal permission to speak to the caregivers and representatives has been obtained from the patient. N/A * Community resources currently utilized None * Additional services required to return to the preadmission environment? Yes * Can the patient safely return to the preadmission environment? Yes * Has this patient been hospitalized within the prior 30 days at any hospital? Yes Last DP export: 05/03/20 1:03 pm Patient Name: SMITA ROMERO Page 29288 at 1717 All edits/amendments must be made on the electronic document DICTATION DATE: 05/03/201715 LEAD FRONT END DEVELOPER: FADY 05/03/201715 RPT#: [id number] DC DATE:05/03/20 STATUS: DIS IN [facility] [address] [place] [address] END OF REPORT
== END 2020-05-03 14:20 | DRG 689 ==
LOC: D.ER 13:04 → D.MS 16:47
PROVIDERS: Family Medicine; ADMIT Family Medicine Adult Medicine; ATTEND Family Medicine Adult Medicine
DX: N39.0 Urinary tract infection, site not specified (principal); G93.41 Metabolic encephalopathy; F84.0 Autistic disorder; F20.9 Schizophrenia, unspecified; F41.8 Other specified anxiety disorders; E11.65 Type 2 diabetes mellitus with hyperglycemia; I10 Essential (primary) hypertension

== ENCOUNTER 2020-05-30 09:55 | Inpatient (IN) | payer MEDICARE, MEDICAID ==
[~2020-05-30] VITALS: Ht 175.3 cm; Wt 69.4 kg
[~2020-05-30 09:55] MED LIST changes: +GUAIFENESI100 MG/5 M PO; +KLONOPIN0.5 MG PO; +LEVOFLOXACIN500 MG PO; +PALIPERIDONE
[2020-05-30 10:25] LABS: BASOPHILS 0.2 % (0-2); EOSINOPHILS 0.5 % (0-7); HEMATOCRIT 50.7 % (42.0-54.0); HEMOGLOBIN 16.5 g/dL (13.5-17.5); IMMATURE GRANULOCYTES 0.2 % (0-5); LYMPHOCYTES 16.2 % (15-50); MCH 31.3 pg (26.0-34.0); MCHC 32.5 g/dL (31.0-37.0); MCV 96.2 fL (80.0-100.0); MEAN PLATELET VOLUME 9.9 fL (7.4-10.4); MONOCYTES 9.3 % (2-11); NEUTROPHILS 73.6 % (40-80); RBC 5.27 10x6/uL (4.20-6.10); RDW 13.2 % (11.5-14.5); WBC 12.3 10x3/uL (4.8-10.8)
[2020-05-30 10:29] LABS: PLATELET COUNT 399 10x3/uL (130-400)
[2020-05-30 10:38] LABS: CALC OSMOLALITY 301 mosm/kg (275-300); CARBON DIOXIDE 27.1 mmol/L (21.0-32.0); CHLORIDE - SERUM 109 mmol/L (98-107); CREATININE - SERUM 1.5 mg/dL (0.6-1.3); POTASSIUM - SERUM 4.1 mmol/L (3.5-5.1); SODIUM 146 mmol/L (136-145); UREA NITROGEN 40 mg/dL (7-18); eGFR NON AFRICAN AMERICAN 54 mL/min (90-120)
[2020-05-30 10:39] LABS: GLUCOSE 122 mg/dL (74-106); INR 1.36 (0.85-1.17); PROTIME 16.6 SECONDS (11.6-15.0)
[2020-05-30 10:40] LABS: APTT 34.6 SECONDS (22.8-39.4)
[2020-05-30 10:48] LABS: UDS - AMPHET NEGATIVE QUAL (NEGATIVE); UDS - BARB NEGATIVE QUAL (NEGATIVE); UDS - BENZO NEGATIVE QUAL (NEGATIVE); UDS - COCAINE NEGATIVE QUAL (NEGATIVE); UDS - OPIATE NEGATIVE QUAL (NEGATIVE); UDS - PCP NEGATIVE QUAL (NEGATIVE); UDS - THC NEGATIVE QUAL (NEGATIVE)
[2020-05-30 11:01] LABS: ALBUMIN 3.4 g/dL (3.4-5.0); ALKALINE PHOSPHATASE 91 U/L (30-120); ALT (SGPT) 60 U/L (10-68); BILIRUBIN - TOTAL 0.68 mg/dL (0.2-1.3); CKMB 0.8 U/L (0.0-3.6); CREATINE KINASE 187 UL (21-232); MAGNESIUM - SERUM 2.7 mg/dL (1.8-2.4); PROTEIN - SERUM 8.6 g/dL (6.4-8.2); THYROID STIMULATING HORMONE 1.81 uIU/mL (0.36-3.74)
[2020-05-30 11:17] LABS: TROPONIN-I 0.071 ng/mL (0.000-0.060)
[2020-05-30 11:20] VITALS: BP 144/107
[2020-05-30 11:26] LABS: BILIRUBIN NEGATIVE (NEGATIVE); GLUCOSE NEGATIVE (NEGATIVE); KETONE SMALL mg/dL (NEGATIVE); NITRITE NEGATIVE (NEGATIVE)
[2020-05-30 11:29] LABS: AMORPHOUS SEDIMENT <1+ /lpf (NONE SEEN); BACTERIA FEW /hpf (NEGATIVE); RED CELLS - URINE >50 /hpf (0-5); WHITE CELLS - URINE 0-5 /hpf (NEGATIVE)
[2020-05-30 12:30] VITALS: BP 148/109
[2020-05-30 14:30] VITALS: BP 145/98
[2020-05-30] MEDS ORDERED: CIMETIDINE200 MG PO (14:53)
[2020-05-30] MEDS ORDERED: DEPAKOTE ER250 MG PO (14:54)
[2020-05-30] MEDS ORDERED: GUAIFENESI100 MG/5 M PO (14:55)
[2020-05-30] MEDS ORDERED: HALOPERIDOL0.5 MG PO (14:58)
[2020-05-30] MEDS ORDERED: REMERON15 MG PO (14:59)
[2020-05-30] MEDS ORDERED: PROVERA10 MG PO (15:01)
--- NOTE | 2020-05-30 16:30 | NUR ---
PATIENT AWAKE WITH STOIC EXPRESSION. RESPONDS INTERMITTANT TO VERBAL COMMANDS WITH SIMPLE ONE WORD RESPONSE. ABRAISION WITH STERISPRIPS NOTED TO LEFT EYEBROW. NO FACIAL GRIMACING OR DISTRESS NOTED.
[2020-05-30 16:35] VITALS: BP 140/96; BMI 22.6
[2020-05-30 18:38] LABS: CKMB 0.9 U/L (0.0-3.6); CREATINE KINASE 139 UL (21-232)
[2020-05-30 18:43] LABS: TROPONIN-I 0.073 ng/mL (0.000-0.060)
--- NOTE | 2020-05-30 19:30 | NUR ---
RECEIVED PT SITTING UP IN BED. STARING BLANKLY AHEAD. NONVERBAL. APPEARS CATATONIC. UNABLE TO FOLLOW COMMANDS. OFFGOING STAFF REPORTS HE HAS BEEN LIKE THIS AND ATTEMPTED TO FEED PT SUPPER BUT PT CHOKED. RESP SHALLOW, NONLABORED. INCONT OF BLADDER. STERISTRIPS NOTED TO LT EYE. SALINE LOCK NOTED TO LT HAND. NO ACUTE DISTRESS. SR ELEVATED X2. CL IN REACH. DIAN ALARM ON
[2020-05-30 20:00] VITALS: BP 148/106
--- NOTE | 2020-05-30 20:40 | NUR ---
NOTIFIED SULLY WATSON OF PT NOT BEING ABLE TO SWALLOW AND CHOKING ON SUPPER AND OF CURRENT CATATONIC CONDITION AND ELEVATED B/P. NEW ORDER NOTED FOR ST CONSULT AND APRESOLINE PRN.
[2020-05-30 20:42] VITALS: BP 140/96
--- NOTE | 2020-05-30 22:00 | NUR ---
PT GIVEN BED BATH AT THIS TIME. COMPLETE LINEN CHANGE PERFORMED
--- NOTE | 2020-05-30 23:15 | NUR ---
EKG PERFORMED. PT REMAINS NONVERBAL AND STARES STRAIGHT AHEAD. RESP SHALLOW, NONLABORED.
[2020-05-31] VITALS: BP 144/98
[2020-05-31 00:25] LABS: CREATINE KINASE 142 UL (21-232)
[2020-05-31 00:26] LABS: TROPONIN-I 0.082 ng/mL (0.000-0.060)
--- NOTE | 2020-05-31 02:25 | NUR ---
EKG PERFORMED AT THIS TIME. PT HAS REMAINED NONVERBAL AND STARING STRAIGHT AHEAD ALL NIGHT. DIAN ALARM IN USE. CL IN REACH.
--- NOTE | 2020-05-31 03:50 | NUR ---
INCONT OF URINE. PERICARE PERFORMED. CL IN REACH.
[2020-05-31 04:00] VITALS: BP 127/86
--- NOTE | 2020-05-31 05:29 | NUR ---
LYING IN BED. EYES OPEN. NONVERBAL. RESP SHALLOW. NO ACUTE DISTRESS. PT IS CLEAN AND DRY. CL IN REACH.
[2020-05-31 06:04] LABS: BASOPHILS 0.2 % (0-2); HEMATOCRIT 47.3 % (42.0-54.0); HEMOGLOBIN 15.4 g/dL (13.5-17.5); IMMATURE GRANULOCYTES 0.3 % (0-5); LYMPHOCYTES 16.1 % (15-50); MCHC 32.6 g/dL (31.0-37.0); MCV 95.4 fL (80.0-100.0); MEAN PLATELET VOLUME 10.2 fL (7.4-10.4); MONOCYTES 9.9 % (2-11); NEUTROPHILS 72.5 % (40-80); PLATELET COUNT 456 10x3/uL (130-400); RBC 4.96 10x6/uL (4.20-6.10); WBC 11.4 10x3/uL (4.8-10.8)
[2020-05-31 06:41] LABS: ALBUMIN 3.2 g/dL (3.4-5.0); ALKALINE PHOSPHATASE 86 U/L (30-120); ALT (SGPT) 52 U/L (10-68); BILIRUBIN - TOTAL 0.57 mg/dL (0.2-1.3); CALC OSMOLALITY 311 mosm/kg (275-300); CALCIUM 9.9 mg/dL (8.5-10.1); CARBON DIOXIDE 28.4 mmol/L (21.0-32.0); CHLORIDE - SERUM 115 mmol/L (98-107); CKMB 1.2 U/L (0.0-3.6); CREATINE KINASE 214 UL (21-232); CREATININE - SERUM 1.3 mg/dL (0.6-1.3); GLUCOSE 110 mg/dL (74-106); PROTEIN - SERUM 7.8 g/dL (6.4-8.2); SODIUM 152 mmol/L (136-145); TROPONIN-I 0.087 ng/mL (0.000-0.060); UREA NITROGEN 38 mg/dL (7-18); eGFR NON AFRICAN AMERICAN 63 mL/min (90-120)
[2020-05-31 09:10] VITALS: BP 130/94
--- NOTE | 2020-05-31 12:25 | NUR ---
WASHBURN CATH 16F PLACED PER ORDER WITH YOLIE URINE NOTED.
[2020-05-31 12:53] VITALS: BP 135/101
[2020-05-31 13:26] VITALS: Ht 175.3 cm; Wt 69.4 kg
[2020-05-31 17:05] VITALS: BP 118/90
--- NOTE | 2020-05-31 17:21 | NUR ---
OT NOTE: PT CUED FOR ATTENTION TO TASK AND EYE TRACKING , PT DID EXHIBIT SOME MINIMAL VISUAL TRACKING. PT DID GRASP WASH CLOTH WITH RUE. PT REQUIRED MAX A WITH FACE WASH. PT DID DISPLAY CUED AROM WITHIN A LIMITED ROM. [phone] THANK YOU,FRANCISCA TERAN
--- NOTE | 2020-05-31 19:15 | NUR ---
SITTING UP IN BED. EYES OPEN. RESP SHALLOW. EXPRESSIVE APHASIA NOTED. NONVERBAL MOST OF TIME BUT ATTEMPTS TO SAY WORDS. 1/2 NS @ 100 MLHR INFUSING IN LT HAND. WASHBURN CATH PATENT AND DRAINING DARK YELLOW URINE. DIAN ALARM ON. SR ELEVATED X2. CL IN REACH. STARES BLANKLY.
[2020-05-31 20:00] VITALS: BP 115/81
[2020-06-01] VITALS: BP 111/72
--- NOTE | 2020-06-01 03:41 | NUR ---
HAS RESTED WELL TONIGHT. RESP SHALLOW. NO DISTRESS. DIAN ON. CL IN REACH. HOB ELEVATED.
[2020-06-01 04:00] VITALS: BP 121/89
[2020-06-01 06:40] LABS: ALBUMIN 2.8 g/dL (3.4-5.0); ANION GAP 13.1 mmol/L (8-16); BILIRUBIN - TOTAL 0.33 mg/dL (0.2-1.3); CALCIUM 8.4 mg/dL (8.5-10.1); CARBON DIOXIDE 26.3 mmol/L (21.0-32.0); CREATININE - SERUM 1.2 mg/dL (0.6-1.3); POTASSIUM - SERUM 3.4 mmol/L (3.5-5.1); PROTEIN - SERUM 6.9 g/dL (6.4-8.2)
--- NOTE | 2020-06-01 07:53 | NUR ---
ALERT BUT NOT VERBALLY RESPONSIVE TO QUESTIONS. HEART SOUNDS S1 AND S2 HEARD IN ALL HERBERT. BOWEL SOUNDS ACTIVE X 4. WASHBURN PATENT. IV TO LEFT HAND PATENT WITHOUT REDNESS. BED ALARM ON. BED LOW. HOB AT 45 DEGREES. CALL HENRIQUEZ AND PERSONAL ITEMS IN REACH. WILL CONTINUE TO MONITOR.
[2020-06-01 09:36] VITALS: BP 146/100
--- NOTE | 2020-06-01 10:28 | NUR ---
PATIENT REFUSES TO TAKE PRN POTASSIUM. WILL NOT OPEN MOUTH TO TAKE BITE OF APPLE SAUCE WITH MEDICATIONS.
[2020-06-01 12:10] LABS: BASOPHILS 0.2 % (0-2); HEMATOCRIT 43.4 % (42.0-54.0); HEMOGLOBIN 13.7 g/dL (13.5-17.5); IMMATURE GRANULOCYTES 0.2 % (0-5); MCH 30.9 pg (26.0-34.0); MCHC 31.6 g/dL (31.0-37.0); MONOCYTES 8.7 % (2-11); NEUTROPHILS 63.9 % (40-80); PLATELET COUNT 414 10x3/uL (130-400); RBC 4.43 10x6/uL (4.20-6.10); RDW 13.3 % (11.5-14.5); WBC 11.7 10x3/uL (4.8-10.8)
--- NOTE | 2020-06-01 12:31 | NUR ---
OT NOTE: PT REMAINS ALERT WITH FIXED GAZE.. MOM AT BEDSIDE.. LONG DISCUSSION WITH MOTHER WHO REPORTS THAT HE HAS BEEN LIKE THIS SINCE HIS GIRLFRIEND IN APRIL..MOM GOES ON TO SAY THAT HE WAS DOING FINE UNTIL SOMEONE TOLD HIM OF HIS GIRLFRIENDS PASSING. MOM ALSO STATES THAT SHE IS GLAD HE IS DOING SO MUCH BETTER AND REPORTS THAT HE WAS ABLE TO SAY A FEW WORDS TO HER THIS MORNING.. I HAVE NOT WITNESSED ANY CHANGE AND PT REMAINS NON VERBAL WITH NUMEROUS ATTEMPTS TO HAVE PT SPEAK. PT REPOSITIONED IN BED WITH NO PHYSICAL ATTEMPTS TO MOVE.. CONTINUES TO BE UNABLE TO FOLLOW ANY COMMANDS. PERFORMED PROM TYLER PUGA, OTR/L [phone]
[2020-06-01 12:51] VITALS: BP 140/98
[2020-06-01 17:53] VITALS: BP 115/81
[2020-06-01 20:00] VITALS: BP 122/85
--- NOTE | 2020-06-01 20:30 | NUR ---
PT SITTING UP IN BED WITHOUT DISTRESS, RESTING WITH EYES CLOSED. WOKEN TO VERBAL STIMULI. OCCASIONAL COUGH. ON ROOM AIR. WASHBURN IN PLACE. GAVE HS MEDS CRUSHED IN PUDDING, PT TOOK WITHOUT DIFFICULTY. GAVE NECTAR THICK LIQUID UPON REQUEST. PT ABLE TO ANSWER SOME YES OR NO QUESTIONS. STATES MILK WHEN HE WANTS MILK TO DRINK. PT LEFT SITTING AT 50 DEGREES AFTER PUDDING AND MILK GIVEN.
[2020-06-02] VITALS: BP 125/86
--- NOTE | 2020-06-02 00:26 | NUR ---
PT LYING IN BED WITH EYES CLOSED, WITHOUT DISTRESS. DIAN ON, SCDS ON. WILL CTM
--- NOTE | 2020-06-02 02:00 | NUR ---
BED BATH GIVEN AT THIS TIME, LINENS CHANGED. POSITIONED ON LEFT SIDE. ROLLED WASH CLOTHS PLACED IN PALMS OF HANDS. LEGS PROPPED ON PILLOW. WILL CTM
--- NOTE | 2020-06-02 03:45 | NUR ---
PT SITTING UP IN BED AWAKE, UNMOVING BUT MAKING INCOMPREHENSIBLE SOUNDS. ASKED PT DIFFERENT YES OR NO QUESTIONS. HE DID NOT REPLY TO MOST EXCEPT WHEN ASKED IF HE WANTED MILK HE STATED BACK MILK. ASKED IF HE WANTED MILK AGAIN AND HE STATED YES. GAVE PT NECTAR THICKENED MILK. PT TRIED TO GULP DOWN DRINK VERY QUICKLY. ENCOURAGED PT TO TAKE SMALLER SLOWER SIPS. WILL CTM
[2020-06-02 04:00] VITALS: BP 118/86
[2020-06-02 07:44] LABS: ALBUMIN 2.6 g/dL (3.4-5.0); ALKALINE PHOSPHATASE 68 U/L (30-120); ALT (SGPT) 39 U/L (10-68); BILIRUBIN - TOTAL 0.57 mg/dL (0.2-1.3); CARBON DIOXIDE 22.7 mmol/L (21.0-32.0); CHLORIDE - SERUM 111 mmol/L (98-107); CREATININE - SERUM 0.9 mg/dL (0.6-1.3); GLUCOSE 87 mg/dL (74-106); SODIUM 147 mmol/L (136-145); eGFR NON AFRICAN AMERICAN > 90 mL/min (90-120)
[2020-06-02 07:45] LABS: CALC OSMOLALITY 293 mosm/kg (275-300); UREA NITROGEN 22 mg/dL (7-18)
--- NOTE | 2020-06-02 07:50 | NUR ---
ALERT AND RESPONDS "YES" OR "NO" TO QUESTIONS ASKED. STARES BLANKLY. LUNGS CLEAR BILATERALLY. HEART SOUNDS S1 AND S2 HEARD IN ALL HERBERT. BOWEL SOUNDS ACTIVE X 4. IV TO LEFT HAND PATENT WITHOUT REDNESS. DENIES NEEDS. BED LOW. CALL HENRIQUEZ AND PERSONAL ITEMS IN REACH. WILL CONTINUE TO MONITOR.
[2020-06-02 09:43] VITALS: BP 137/91
--- NOTE | 2020-06-02 11:13 | NUR ---
PATIENT PLACED IN CONTACT ISO PER MICROBIOLOGY.
--- NOTE | 2020-06-02 12:19 | NUR ---
OT NOTE: PT DOING BETTER TODAY. ABLE TO VERBALLY RESPOND ON SEVERAL OCCASSIONS; DID NOT ASSIST WITH FEEDING SELF, HOWEVER, WAS ALERT AND ABLE TO TAKE BITES TODAY. ABLE TO FOLLOW A FEW COMMANDS BUT LESS THAN 20%, HOWEVER, THIS IS MUCH BETTER THAN THE LAST SEVERAL DAYS. REMAINS AT [facility] FOR BED MOB. TYLER PUGA, OTR/L [phone]
--- NOTE | 2020-06-02 12:58 | NUR ---
Nutrition follow-up: Diet: AHA puree with nectar thick liquids PO intake ~50% average at meals Labs reviewed; Na, Cl elevated-pt needs to increase fluid intake Wt: 153# Recommend offering water often Will provide food choices with selective menus and honor food preferences within diet restrictions. RDN following.
[2020-06-02 13:29] VITALS: BP 121/92
--- NOTE | 2020-06-02 15:32 | NUR ---
OT NOTE: PT RESPONED TO VERBAL QUESTIONS AND ATTENDED TO TASKS. PT COMPLETED UE AAROM. PT COMPLETED FACE HYGIENE WITH MOD A. PT COMPLETED HAND HYGIENE WITH MOD A. PT REQUIRED EXTENSIVE CUES. [id number] THANK YOU,FRANCISCA TERAN
[2020-06-02 17:17] VITALS: BP 103/78
[2020-06-02 20:01] VITALS: BP 135/87
[2020-06-03 04:28] VITALS: BP 121/73
--- NOTE | 2020-06-03 04:34 | NUR ---
PLACED PT ON O2 AT BEGINNING OF SHIFT WITH PT O2 SAT AT 88, I WAS CALLED INTO PT ROOM AT 0430 AND PT SAT BETWEEN 80-82 ASKED PT TO TAKE A DEEP BREATH FOR ME AND PT STATED NO. CALLED RESPIRATORY FOR ASSISTANCE CONTINUE WITH PLAN OF CARE
--- NOTE | 2020-06-03 04:36 | NUR ---
I have reviewed this patient and I concur with the Shift Assessment completed by the Licensed Practical Nurse today this shift.
--- NOTE | 2020-06-03 04:48 | NUR ---
PT PLACED ON HIGH FLOW AT 6L O2 SAT STILL AT 89. PAGED NURSE PRACTITIONER
[2020-06-03 07:50] LABS: ALBUMIN 2.4 g/dL (3.4-5.0); ALKALINE PHOSPHATASE 61 U/L (30-120); ALT (SGPT) 37 U/L (10-68); BILIRUBIN - TOTAL 0.53 mg/dL (0.2-1.3); CALC OSMOLALITY 288 mosm/kg (275-300); CALCIUM 8.2 mg/dL (8.5-10.1); CARBON DIOXIDE 27.7 mmol/L (21.0-32.0); CHLORIDE - SERUM 109 mmol/L (98-107); CREATININE - SERUM 0.9 mg/dL (0.6-1.3); GLUCOSE 95 mg/dL (74-106); POTASSIUM - SERUM 3.8 mmol/L (3.5-5.1); SODIUM 144 mmol/L (136-145); UREA NITROGEN 18 mg/dL (7-18); eGFR NON AFRICAN AMERICAN > 90 mL/min (90-120)
[2020-06-03 09:49] VITALS: BP 137/97
--- NOTE | 2020-06-03 10:16 | NUR ---
FED PT BREAKFAST. GIVEN MORNING MEDS PER ORDERS. BREATH SOUNDS CLEAR BILAT, 10L O2 PER HFNC, SORES TO NOSE. DRESSING TO LEFT BROW. IV TO LEFT HAND, PATENT, DRESSING CDI. BED LOW, CALL LIGHT IN REACH. NO OTHER NEEDS AT THIS TIME.
[2020-06-03 10:54] LABS: BASOPHILS 0.2 % (0-2); EOSINOPHILS 0.8 % (0-7); HEMATOCRIT 38.3 % (42.0-54.0); HEMOGLOBIN 12.3 g/dL (13.5-17.5); IMMATURE GRANULOCYTES 0.2 % (0-5); LYMPHOCYTES 14.9 % (15-50); MCH 30.8 pg (26.0-34.0); MCHC 32.1 g/dL (31.0-37.0); MONOCYTES 7.7 % (2-11); NEUTROPHILS 76.2 % (40-80); PLATELET COUNT 300 10x3/uL (130-400); RBC 3.99 10x6/uL (4.20-6.10); RDW 12.8 % (11.5-14.5)
[2020-06-03 13:58] VITALS: BP 121/82
[2020-06-03 18:04] VITALS: BP 134/88
--- NOTE | 2020-06-03 19:25 | NUR ---
SITTING UP IN BED RECEIVING UD. ALERT AND ORIENTED TO SELF. EXPRESSIVE APHASIA NOTED. DIFF UNDERSTANDING SPEECH BUT ANSWERS SIMPLE QUESTIONS. RESP IRREG, O2 @ 8L/HFC. NONPROD COUGH NOTED. WASHBURN CATH PATENT AND DRAINING CLEAR YELLOW URINE. HOB ELEVATED. 1/2 NS @ 100 ML/HR INFUSING IN LT HAND. PT IS NPO DUE TO POSSIBLE ASPIRATION. CONTACT ISO IN USE. SR ELEVATED X2. CL IN REACH.
[2020-06-03 20:56] VITALS: BP 128/89
--- NOTE | 2020-06-03 22:20 | NUR ---
RT IN ROOM AND SAO2 WAS 99%. O2 DECREASED TO 6L/HFC.
--- NOTE | 2020-06-03 23:18 | NUR ---
RESTING QUIETLY WITH EYES CLOSED. RESP SHALLOW. NO DISTRESS. CL IN REACH.
--- NOTE | 2020-06-03 23:48 | NUR ---
SAO2 MAINTAINING WELL. O2 DECREASED TO 4L/HFC PER L.LIANA NINO.
[2020-06-04 00:01] VITALS: BP 138/99
[2020-06-04 05:45] LABS: BASOPHILS 0.3 % (0-2); EOSINOPHILS 4.2 % (0-7); HEMATOCRIT 37.6 % (42.0-54.0); HEMOGLOBIN 12.5 g/dL (13.5-17.5); IMMATURE GRANULOCYTES 0.1 % (0-5); LYMPHOCYTES 21.1 % (15-50); MCH 30.8 pg (26.0-34.0); MCHC 33.2 g/dL (31.0-37.0); MEAN PLATELET VOLUME 10.9 fL (7.4-10.4); MONOCYTES 9.1 % (2-11); NEUTROPHILS 65.2 % (40-80); PLATELET COUNT 275 10x3/uL (130-400); RBC 4.06 10x6/uL (4.20-6.10); RDW 12.4 % (11.5-14.5)
[2020-06-04 05:55] LABS: WBC 7.8 10x3/uL (4.8-10.8)
[2020-06-04 05:56] LABS: MCV 92.6 fL (80.0-100.0)
[2020-06-04 06:13] LABS: ALBUMIN 2.3 g/dL (3.4-5.0); ALKALINE PHOSPHATASE 57 U/L (30-120); ALT (SGPT) 38 U/L (10-68); BILIRUBIN - TOTAL 0.61 mg/dL (0.2-1.3); CALC OSMOLALITY 287 mosm/kg (275-300); CALCIUM 8.3 mg/dL (8.5-10.1); CARBON DIOXIDE 27.1 mmol/L (21.0-32.0); CHLORIDE - SERUM 108 mmol/L (98-107); CREATININE - SERUM 0.7 mg/dL (0.6-1.3); GLUCOSE 93 mg/dL (74-106); POTASSIUM - SERUM 3.4 mmol/L (3.5-5.1); PROTEIN - SERUM 6.1 g/dL (6.4-8.2); SODIUM 144 mmol/L (136-145); UREA NITROGEN 14 mg/dL (7-18); eGFR NON AFRICAN AMERICAN > 90 mL/min (90-120)
[2020-06-04 13:17] VITALS: BP 138/95
[2020-06-04 18:52] VITALS: BP 141/94
--- NOTE | 2020-06-04 19:45 | NUR ---
LYING IN BED. HOB ELEVATED. RT IN ROOM. ALERT AND ORIENTED TO SELF AND PLACE. EXPRESSIVE APHASIA NOTED. CONFUSED. DIAN ON FOR PT SAFETY. WASHBURN CATH PATENT AND DRAINING CLEAR YELLOW URINE. SCDS IN USE. O2 @ 3L/HFC. NONPROD COUGH. GEN EDEMA NOTED. STERISTRIPS NOTED TO LT EYEBROW. GEN EDEMA NOTED. PROCAL @ 50 MLHR AND 1/2 NS @ 100 MLHR INFUSING IN LT HAND. DENIES PAIN. NO DISTRESS. SR ELEVATED X2. CL IN REACH.
[2020-06-04 22:01] VITALS: BP 148/98
--- NOTE | 2020-06-05 03:01 | NUR ---
RESTING WITH EYES CLOSED. RESP SHALLOW, NONLABORED. NO DISTRESS. CL IN REACH.
[2020-06-05 03:55] VITALS: BP 149/100
[2020-06-05 05:12] LABS: BASOPHILS 0.2 % (0-2); EOSINOPHILS 3.1 % (0-7); HEMATOCRIT 37.1 % (42.0-54.0); HEMOGLOBIN 12.4 g/dL (13.5-17.5); IMMATURE GRANULOCYTES 0.4 % (0-5); LYMPHOCYTES 18.3 % (15-50); MCH 30.8 pg (26.0-34.0); MCHC 33.4 g/dL (31.0-37.0); MCV 92.1 fL (80.0-100.0); MONOCYTES 11.6 % (2-11); NEUTROPHILS 66.4 % (40-80); PLATELET COUNT 241 10x3/uL (130-400); RBC 4.03 10x6/uL (4.20-6.10); RDW 12.4 % (11.5-14.5); WBC 8.5 10x3/uL (4.8-10.8)
[2020-06-05 05:28] LABS: ALBUMIN 2.2 g/dL (3.4-5.0); ALKALINE PHOSPHATASE 63 U/L (30-120); BILIRUBIN - TOTAL 0.49 mg/dL (0.2-1.3); CALC OSMOLALITY 283 mosm/kg (275-300); CALCIUM 8.2 mg/dL (8.5-10.1); CARBON DIOXIDE 28.7 mmol/L (21.0-32.0); CHLORIDE - SERUM 106 mmol/L (98-107); CREATININE - SERUM 0.6 mg/dL (0.6-1.3); GLUCOSE 91 mg/dL (74-106); POTASSIUM - SERUM 3.9 mmol/L (3.5-5.1); PROTEIN - SERUM 5.5 g/dL (6.4-8.2); SODIUM 142 mmol/L (136-145); UREA NITROGEN 14 mg/dL (7-18); eGFR NON AFRICAN AMERICAN > 90 mL/min (90-120)
[2020-06-05 05:32] LABS: ALT (SGPT) 48 U/L (10-68)
--- NOTE | 2020-06-05 06:00 | NUR ---
LYING IN BED. ALERT. ASKING FOR MILK AND APPLE JUICE. PT IS NPO AT THIS TIME. NO DISTRESS. CL IN REACH.
[2020-06-05 09:10] VITALS: BP 134/72
[2020-06-05 11:54] VITALS: BP 133/97
--- NOTE | 2020-06-05 12:55 | NUR ---
SPOKE WITH LETI AGAIN ABOUT PATIENTS DIET. STATED HE IS NOT DOING BARIUM SWALLOW AGAIN BC HE JUST HAD ONE A WEEK AGO AND THAT THE PATIENT NEEDS TO BE ON A DIET PUREE WITH NECTAR THICK LIQUIDS. ASSIST WITH FEEDING, AND PATIENT TO BE AT 90 DEGREES.
--- NOTE | 2020-06-05 14:54 | NUR ---
OT NOTE: PT MORE ALERT. ABLE TO FOLLOW A FEW SIMPLE COMMANDS; ABLE TO PERFORM A/AROM EXS.. INCREASING VERBALIZATION; MOD ASSIST WITH BED MOB..WILL ATEMPT EOB SITTING TOMMOROW TYLER PUGA, OTR/L [phone]
[2020-06-05 16:22] VITALS: BP 128/98
--- NOTE | 2020-06-05 17:00 | NUR ---
PATIENT TOLERATED SOFTR PUREE DIET WITH NO PROBLEMS AT THIS TIME. IV INTACT. CALL LIGHT WITHIN REACH.
[2020-06-05 20:00] VITALS: BP 120/89
--- NOTE | 2020-06-05 22:16 | NUR ---
OT NOTE: PT INCREASED ALERTNESS. PT IS ANSWERING AND ASKING QUESTIONS. PT COMPLETED BED MOB TASKS WITH MOD A AND EXTENSIVE CUES. PT COMPLETED BUE AROM TOLERATED. PT COMPLETED FACE HYGIENE WITH MIN A. PT FUNCTIONAL PERFORMANCE IS MUCH IMPROVED. [phone] THANK YOU,FRANCISCA TERAN
[2020-06-06] VITALS: BP 118/61
--- NOTE | 2020-06-06 03:28 | NUR ---
ALERT AND CONFUSED , CAN TALK TO STAFF. LEFT HAND WITH 1/2 NS AND PROCAL PER ORDERS. HOB UP 30 DEGREES FSBSF AC AND HS WITH S/S. WASHBURN CATH IN PLACE AND PATEN. THICKENED LIQUIDS NO NEEDS AT THIS TIME.
[2020-06-06 04:00] VITALS: BP 110/71
[2020-06-06 05:58] LABS: BASOPHILS 0.2 % (0-2); HEMATOCRIT 36.2 % (42.0-54.0); HEMOGLOBIN 11.9 g/dL (13.5-17.5); IMMATURE GRANULOCYTES 0.2 % (0-5); LYMPHOCYTES 18.8 % (15-50); MCH 30.3 pg (26.0-34.0); MCHC 32.9 g/dL (31.0-37.0); MCV 92.1 fL (80.0-100.0); MEAN PLATELET VOLUME 11.1 fL (7.4-10.4); MONOCYTES 12.8 % (2-11); RBC 3.93 10x6/uL (4.20-6.10); RDW 12.6 % (11.5-14.5); WBC 8.4 10x3/uL (4.8-10.8)
[2020-06-06 06:09] LABS: PLATELET COUNT 301 10x3/uL (130-400)
[2020-06-06 08:00] VITALS: BP 118/73
[2020-06-06 13:31] VITALS: BP 110/79
--- NOTE | 2020-06-06 13:52 | MORECARE ---
CASE MANAGEMENT DISCHARGE SUMMARY PATIENT: SMITA ROMERO UNIT: [id number] ADM DATE: 05/30/20 AGE: 44 : 73 SEX: M ROOM/BED: D.2212 AUTHOR: MARY ALCOCER PHYSICIAN: REFERRING PHYSICIAN: NIYA REGALADO MD DATE OF SERVICE: 06/06/20 Discharge Plan Patient Name: SMITA ROMERO Facility: [facility]:[place] : 1975 Planned Disposition: Penitentiary Facility Anticipated Discharge Date: Discharge Date: Expected LOS: Initial Reviewer: [email or web address] Initial Review Date: 05/30/2020 Generated: 06/06/20 2:51 pm Comments DCP- Discharge Planning Updated by [email or web address]: Yamila Yusuf on 06/06/20 12:[address] PER NURSE ASSESSMENT, PATIENT IS CONFUSED HE WAS ADMITTED FROM [facility] WHERE HE WAS IN A SKILLED BED. [facility] WITH [facility] WILL ACCEPT HIM BACK WHEN HE IS ABLE TO BE DISCHARGED. I ATTEMPTED TO CALL HIS MOTHER TO GET A DISCHARGE PLAN, BUT I DID NOT GET AN ANSWER. CM WILL CONTINUE TO FOLLOW AND ASSIST NEEDED Patient Name: SMITA ROMERO Page [id number] at 1352 All edits/amendments must be made on the electronic document DICTATION DATE: 06/06/20 1352 SUPERINTENDENT SALES: FADY 06/06/20 1352 RPT#: [id number] DC DATE: STATUS: ADM IN [facility] [address] [place] [address] END OF REPORT
--- NOTE | 2020-06-06 14:51 | NUR ---
Nutrition follow-up: Pt receiving a regular puree diet with nectar thick liquids ProcalAmine PPN infusing @ 75 ml/hr Labs reviewed WT: 153# Pt confused per nurse and needs assistance with meals RDN following.
--- NOTE | 2020-06-06 15:01 | NUR ---
OT NOTE: PT MORE ALERT TODAY. ASSISTED PT TO EOB WITH MAX ASSIST; MOD ASSIST X 2 FOR SIT TO STAND AND STANDING FOR APPROX 20-30 SECONDS EACH TIME X 5-6 ATTEMPTS. UNABLE TO TAKE STEPS FORWARD OR TO THE SIDE. STANDING BALANCE WAS POOR; TOLERATED SITTING UP ON EOB FOR APPROX 8 MIN WITH MIN ASSIST FOR BALANCE. REQUIRED EXT ASSIST WITH ADLS; PT WITH LARGE BM IN BED. MAX ASSIST WITH PERINEAL CARE. INFORMED NURSING THAT PT HAS A PRESSURE AREA ON BUTTOCKS. PROVIDED PT WITH CLEAN LINENS.. PT ABLE TO PERFORM ROLLING FROM SIDE TO SIDE WITH MAX ASSIST. PT ATTEMPTING VERBALIZATION THROUGHOUT TMT, HOWEVER, UNABLE TO UNDERSTAND WHAT HE WAS SAYING. TYLER PUGA, OTR/L [phone]
--- NOTE | 2020-06-06 16:36 | NUR ---
OT NOTE: PT EXHIBITED INCREASED AWARENESS AND PARTICIPATION. PT COMPLETED SIDE ROLLING AND BED MOB WITH MIN/MOD A. PT COMPLETED LB HYGIENE WITH TOTAL A. [phone] THANK YOU,FRANCISCA TERAN
[2020-06-06 16:46] VITALS: BP 116/78
[2020-06-06 20:00] VITALS: BP 115/73
[2020-06-07 04:00] VITALS: BP 124/73
[2020-06-07 05:19] LABS: BASOPHILS 0.4 % (0-2); EOSINOPHILS 5.4 % (0-7); HEMATOCRIT 38.1 % (42.0-54.0); HEMOGLOBIN 12.9 g/dL (13.5-17.5); LYMPHOCYTES 27.1 % (15-50); MCH 31.1 pg (26.0-34.0); MCHC 33.9 g/dL (31.0-37.0); MCV 91.8 fL (80.0-100.0); MEAN PLATELET VOLUME 11.8 fL (7.4-10.4); MONOCYTES 11.1 % (2-11); PLATELET COUNT 261 10x3/uL (130-400); RBC 4.15 10x6/uL (4.20-6.10); RDW 12.9 % (11.5-14.5); WBC 8.3 10x3/uL (4.8-10.8)
[2020-06-07 06:47] LABS: CREATININE - SERUM 0.6 mg/dL (0.6-1.3)
--- NOTE | 2020-06-07 07:39 | NUR ---
CONFUSED, RESTING IN BED WITH EYES OPEN. NO C/O PAIN. NO S/S OF ACUTE DISTRESS NOTED. ON CONTACT ISOLATION FOR ENTEROBACTER IN URINE. WASHBURN CATHETER PRESENT. NECTAR THICK LIQUIDS. FEEDER. HOB 30 DEGREES AT ALL TIMES. SCDS ON. TURN Q2 HOURS. IV TO RIGHT FOREARM, PROCAL INFUSING @ 75ML/HR AND 1/2 NS INFUSING @ 30ML/HR. SITE PATENT WITHOUT REDNESS OR SWELLING. MEDS 1 @ TIME WITH PUDDING. DENIES ANY NEEDS AT THIS TIME. CALL LIGHT IN REACH. WILL CONTINUE TO MONITOR.
[2020-06-07 10:09] VITALS: BP 126/88
[2020-06-07 11:16] LABS: CALC OSMOLALITY 286 mosm/kg (275-300); CALCIUM 8.4 mg/dL (8.5-10.1); CARBON DIOXIDE 25.4 mmol/L (21.0-32.0); CHLORIDE - SERUM 107 mmol/L (98-107); GLUCOSE 92 mg/dL (74-106); POTASSIUM - SERUM 3.9 mmol/L (3.5-5.1); SODIUM 144 mmol/L (136-145); UREA NITROGEN 13 mg/dL (7-18)
[2020-06-07 13:36] VITALS: BP 104/80
--- NOTE | 2020-06-07 16:07 | NUR ---
PATIENT IS WITHOUT NEEDS AT PRESENT. CALL LIGHT IN REACH
[2020-06-07 18:41] VITALS: BP 111/72
--- NOTE | 2020-06-07 18:52 | NUR ---
RESTING IN BED WATCHING TV. NO C/O PAIN. NO S/S OF ACUTE DISTRESS NOTED. CALL LIGHT IN REACH.
--- NOTE | 2020-06-07 19:00 | NUR ---
PATIENT ALERT AND ORIENTED TO SELF ONLY. ANSWERS YES AND NO QUESTIONS AND IS ABLE TO COMMUNICATE NEEDS APPRORIATELY. ASKED FOR ORANGE JUICE AND PROVIDED TO PATIENT. HEAD OF BED IS AT A 30 DEGREE ANGLE PER ORDER. WASHBURN IS APPEARS PATENT DRAINING YELLOW URINE. ASSESSMENT PERFORMED AND COMPLETED, SEE CHART. DENIES NEEDS AT THIS TIME. DENIES PAIN AT THIS TIME. CALL LIGHT CLOSE. FALL PRECAUTIONS IN PLACE. ISOLATION PRECAUTIONS REMAIN IN PLACE AT THIS TIME. CPOC.
[2020-06-07 20:00] VITALS: BP 103/61
--- NOTE | 2020-06-07 21:22 | NUR ---
OT NOTE: PT REQUIRED MOD A WITH SIDE ROLLING. PT COMPLETED POSITIONING WITH MAX A. PT REQUIRED TOTAL A WITH LB HYGIENE SECONDARY TO BM. PT COMPLETED UB HYGIENE TASKS WITH EXTENSIVE V/CS AND MIN A. PT EXHIBITED IMCREASED ALERTNESS. [phone] THANK YOU,FRANCISCA TERAN
--- NOTE | 2020-06-07 22:02 | NUR ---
ADMINISTERED HS MEDICATIONS. PATIENT TOLERATED WELL. TAKES MEDICINE WHOLE IN PUDDING. PATIENT ATE ENTIRE PUDDING CUP. ABX INFUSING PER ORDER. PATIENT DOES NOT APPEAR IN ANY DISTRESSS. HEAD OF BED REMAINS ELEVATED PER ORDER. FALL PRECAUTIONS REMAIN IN PLACE. CPOC.
[2020-06-08 04:00] VITALS: BP 114/80
--- NOTE | 2020-06-08 08:00 | NUR ---
LYING IN BED,WITHOUT NEEDS.CALL LIGHT IN REACH
[2020-06-08 08:13] LABS: BASOPHILS 0.4 % (0-2); EOSINOPHILS 3.8 % (0-7); HEMATOCRIT 38.8 % (42.0-54.0); HEMOGLOBIN 13.2 g/dL (13.5-17.5); IMMATURE GRANULOCYTES 0.3 % (0-5); LYMPHOCYTES 28.8 % (15-50); MCV 91.1 fL (80.0-100.0); MEAN PLATELET VOLUME 11.1 fL (7.4-10.4); MONOCYTES 10.8 % (2-11); NEUTROPHILS 55.9 % (40-80); PLATELET COUNT 262 10x3/uL (130-400); RBC 4.26 10x6/uL (4.20-6.10); RDW 12.7 % (11.5-14.5); WBC 7.4 10x3/uL (4.8-10.8)
[2020-06-08 08:16] LABS: CALC OSMOLALITY 281 mosm/kg (275-300); CALCIUM 8.5 mg/dL (8.5-10.1); CARBON DIOXIDE 26.3 mmol/L (21.0-32.0); CHLORIDE - SERUM 107 mmol/L (98-107); CREATININE - SERUM 0.7 mg/dL (0.6-1.3); GLUCOSE 94 mg/dL (74-106); MAGNESIUM - SERUM 1.9 mg/dL (1.8-2.4); POTASSIUM - SERUM 4.2 mmol/L (3.5-5.1); SODIUM 142 mmol/L (136-145); UREA NITROGEN 11 mg/dL (7-18); eGFR NON AFRICAN AMERICAN > 90 mL/min (90-120)
[2020-06-08 10:12] LABS: IMMUNOGLOBULIN E 313 IU/mL (6-495)
[2020-06-08 10:13] VITALS: BP 114/66
[2020-06-08 14:34] VITALS: BP 116/87; BP 161/70
--- NOTE | 2020-06-08 16:03 | NUR ---
OT NOTE: PT ALERT IN AM. EXPLAINED TO PT THAT WE WERE GOING TO ATTEMPT TO SIT UP IN CHAIR TODAY. PT ABLE TO PERFORM BED MOB WITH MOD VERBAL AND TACTILE CUES. GOOD STATIC SITTING BALANCE ON EOB TODAY. PT PROVIDED WITH WASHCLOTH AND BASIN AND WAS ABLE TO WASH FACE, HANDS, CHEST, ARMS, AND UPPER LEGS WITH MIN ASSIST AND MOD VERBAL CUES. SIT TO STAND WITH MOD ASSIST; REUQIRED TOTAL ASSIST WITH TOILET HYGIENE FOLLOWING BM. APPLIED BEUDREAUX TO BUTTOCKS. TRANSFERRED TO CHAIR WITH WALKER AND MIN ASSIST. TOLERATED SITTING UP IN CHAIR FOR GREATER THAN 2 HRS. PT FED SELF LUNCH BUT ONLY WANTED THE CRANBERRY GEL. HE ATTEMPTED BITES OF REMAINDER OF MEAL BUT DID NOT WANT IT. PT IS DOING SO MUCH BETTER.. HIS SPEECH WAS ALSO MORE INTELLIGABLE TODAY. TYLER PUGA, OTR/L [phone]
--- NOTE | 2020-06-08 18:25 | MORECARE ---
CASE MANAGEMENT DISCHARGE SUMMARY PATIENT: SMITA ROMERO UNIT: [id number] ADM DATE: 05/30/20 AGE: 44 : [birth year] SEX: M ROOM/BED: D.2212 AUTHOR: MARY ALCOCER PHYSICIAN: REFERRING PHYSICIAN: NIYA REGALADO MD DATE OF SERVICE: 06/08/20 Discharge Plan Patient Name: SMITA ROMERO Facility: [facility]:[place] : 1975 Planned Disposition: [facility] Facility Anticipated Discharge Date: Discharge Date: Expected LOS: Initial Reviewer: [email or web address] Initial Review Date: 05/30/2020 Generated: 06/08/20 7:25 pm Comments DCP- Discharge Planning Updated by [id number]: Yamila Yusuf on 06/08/20 5:[address] I spoke with lito at [facility] today and gave him the heads up that I anticipate him to be discharged tomorrow. I have faxed clinical to [facility]. DCP- Discharge Planning Updated by [id number]: Yamila Yusuf on 06/06/20 12:[address] PER NURSE ASSESSMENT, PATIENT IS CONFUSED HE WAS ADMITTED FROM [facility] WHERE HE WAS IN A SKILLED BED. LITO WITH [facility] WILL ACCEPT HIM BACK WHEN HE IS ABLE TO BE DISCHARGED. I ATTEMPTED TO CALL HIS MOTHER TO GET A DISCHARGE PLAN, BUT I DID NOT GET AN ANSWER. CM WILL CONTINUE TO FOLLOW AND ASSIST NEEDED External Providers External Provider: [facility] Next Contact Date: Service Request Date: Service Type: Resolution: Reviewer: Comments: Last DP export: 06/06/20 12:52 p Patient Name: SMITA RMOERO Page [phone] at 1825 All edits/amendments must be made on the electronic document DICTATION DATE: 06/08/201824 MORTGAGE BROKER: FADY 06/08/201824 RPT#: [id number] DC DATE: STATUS: ADM IN [facility] [address] [place] [address] END OF REPORT
[2020-06-08 18:44] VITALS: BP 119/61
--- NOTE | 2020-06-08 18:45 | NUR ---
RESTING IN BED WITH EYES OPEN. NO C/O PAIN. NO S/S OF ACUTE DISTRESS NOTED. DENIES ANY NEEDS AT THIS TIME. CALL LIGHT IN REACH. WILL CONTINUE TO MONITOR.
[2020-06-08 20:00] VITALS: BP 114/78
[2020-06-09 04:00] VITALS: BP 107/68
--- NOTE | 2020-06-09 04:29 | NUR ---
ASSESSED AT THE BEGINNING OF THE SHIFT. PT IS ALERT AND IS ABLE TO VERBALIZE NEEDS. HE WAS ABLE TO SWALLOW HIS MEDS ONE AT A TIME WITHOUT PROBLEM AND HE HAS BEEN QUIET IN BED MOST OF THE NIGHT. HE ASKED FOR ORANGE JUICE TWICE DURING THE NIGHT AND HAD NO PROBLEM DRINKING IT. THE HOB IS UP 30 %
--- NOTE | 2020-06-09 06:32 | NUR ---
ASLEEP WITH EASY RESPITATIONS AND AWAKENED FOR BLOOD SUGAR. NO INSULIN NEEDED AND PT BACK TO SLEEP
[2020-06-09 07:17] LABS: CALC OSMOLALITY 283 mosm/kg (275-300); CALCIUM 8.7 mg/dL (8.5-10.1); CARBON DIOXIDE 24.8 mmol/L (21.0-32.0); CHLORIDE - SERUM 109 mmol/L (98-107); CREATININE - SERUM 0.7 mg/dL (0.6-1.3); GLUCOSE 100 mg/dL (74-106); SODIUM 143 mmol/L (136-145); UREA NITROGEN 10 mg/dL (7-18); eGFR NON AFRICAN AMERICAN > 90 mL/min (90-120)
[2020-06-09 11:02] VITALS: BP 106/70
[2020-06-09 11:02] LABS: BASOPHILS 0.3 % (0-2); EOSINOPHILS 4.4 % (0-7); HEMATOCRIT 36.7 % (42.0-54.0); HEMOGLOBIN 12.1 g/dL (13.5-17.5); IMMATURE GRANULOCYTES 0.1 % (0-5); LYMPHOCYTES 30.2 % (15-50); MCH 30.7 pg (26.0-34.0); MCV 93.1 fL (80.0-100.0); MEAN PLATELET VOLUME 11.2 fL (7.4-10.4); MONOCYTES 14.5 % (2-11); NEUTROPHILS 50.5 % (40-80); PLATELET COUNT 295 10x3/uL (130-400); RBC 3.94 10x6/uL (4.20-6.10); RDW 12.9 % (11.5-14.5); WBC 7.1 10x3/uL (4.8-10.8)
[2020-06-09] MEDS ORDERED: ATROVENT 0.02%2.5 ML UPD (12:19)
[2020-06-09] MEDS ORDERED: BACTRIM DS TAB1 EAC1 PO (12:19)
[2020-06-09] MEDS ORDERED: PULMICORT0.5 MG/21 UPD (12:20)
[2020-06-09] MEDS ORDERED: TESSALON PERLE100 MG PO (12:21)
--- NOTE | 2020-06-09 12:43 | NUR ---
OT NOTE: PT EXHIBITED INCREASED FUNCTIONAL INDEPENDENCE WITH BED MOB AND TSF. PT COMPLETED BED MOB WITH SBA/CGA. PT COMPLETED SIT TO STAND WITH CGA. PT COMPLETED ADL MOB WITH RW REQUIRED CGA. PT COMPLETED BUE AROM WITH FUNCTIONAL TASKS WITH NO C/O PAIN. [phone] THANK YOU,FRANCISCA TERAN
[2020-06-09 13:02] VITALS: BP 110/75
--- NOTE | 2020-06-09 13:46 | NUR ---
OT NOTE: PT SEEN IN PM. PT WAS INITIALLY LETHARGIC BUT EASILY AROUSED; BED MOB WITH MIN/CGA; SIT TO STAND WITH WALKER AND MIN ASSIST; SIMPLE GROOMING WITH SET UP; AMB AROUND ROOM WITH WALKER AND MIN ASSIST. BACK TO BED WITH ASSIST WITH ALARM. TYLER PUGA, OTR/L [phone]
--- NOTE | 2020-06-09 14:20 | NUR ---
CALLED REPORT TO [facility].
--- NOTE | 2020-06-09 16:55 | MORECARE ---
CASE MANAGEMENT DISCHARGE SUMMARY PATIENT: SMITA ROMERO UNIT: [id number] ADM DATE: 05/30/20 AGE: 44 : 73 SEX: M ROOM/BED: D.2212 AUTHOR: MARY ALCOCER PHYSICIAN: REFERRING PHYSICIAN: NIYA REGALADO MD DATE OF SERVICE: 06/09/20 Discharge Plan Patient Name: SMITA ROMERO Facility: [facility]:[place] : 1975 Planned Disposition: Penitentiary Facility Anticipated Discharge Date: Discharge Date: 06/09/2020 Expected LOS: Initial Reviewer: [email or web address] Initial Review Date: 05/30/2020 Generated: 06/09/20 5:55 pm Comments DCP- Discharge Planning Updated by [id number]: Yamila Yusuf on 06/09/20 3:[address] patient dc to [facility] to a skilled bed, he was already gone when I went to see him DCP- Discharge Planning Updated by [id number]: Yamila Yusuf on 06/08/20 5:[address] I spoke with liot at [facility] today and gave him the heads up that I anticipate him to be discharged tomorrow. I have faxed clinical to [facility]. DCP- Discharge Planning Updated by [id number]: Yamila Yusuf on 06/06/20 12:[address] PER NURSE ASSESSMENT, PATIENT IS CONFUSED HE WAS ADMITTED FROM [facility] WHERE HE WAS IN A SKILLED BED. LITO WITH [facility] WILL ACCEPT HIM BACK WHEN HE IS ABLE TO BE DISCHARGED. I ATTEMPTED TO CALL HIS MOTHER TO GET A DISCHARGE PLAN, BUT I DID NOT GET AN ANSWER. CM WILL CONTINUE TO FOLLOW AND ASSIST NEEDED Last DP export: 06/08/20 5:25 p Patient Name: SMITA ROMERO Page [phone] at 1655 All edits/amendments must be made on the electronic document DICTATION DATE: 06/09/201654 HOT WIRE GLASS TUBE CUTTER: FADY 06/09/201654 RPT#: [id number] DC DATE:06/09/20 STATUS: DIS IN [facility] [address] [place] [address] END OF REPORT
--- NOTE | 2020-06-12 14:28 | MORECARE ---
CASE MANAGEMENT DISCHARGE SUMMARY PATIENT: SMITA ROMERO UNIT: [id number] ADM DATE: 05/30/20 AGE: 44 : 73 SEX: M ROOM/BED: D.2212 AUTHOR: MARY ALCOCER PHYSICIAN: REFERRING PHYSICIAN: NIYA REGALADO MD DATE OF SERVICE: 06/12/20 Discharge Plan Patient Name: SMITA ROMERO Facility: [facility]:[place] : 1975 Planned Disposition: [facility] Facility Anticipated Discharge Date: Discharge Date: 06/09/2020 Expected LOS: Initial Reviewer: [email or web address] Initial Review Date: 05/30/2020 Generated: 06/12/20 3:27 pm Comments DCP- Discharge Planning Updated by [email or web address]: Yamila Yusuf on 06/09/20 3:[address] patient dc to [facility] to a skilled bed, he was already gone when I went to see him DCP- Discharge Planning Updated by [email or web address]: Yamila Yusuf on 06/08/20 5:[address] I spoke with lito at [facility] today and gave him the heads up that I anticipate him to be discharged tomorrow. I have faxed clinical to [facility]. DCP- Discharge Planning Updated by [id number]: Yamila Yusuf on 06/06/20 12:[address] PER NURSE ASSESSMENT, PATIENT IS CONFUSED HE WAS ADMITTED FROM [facility] WHERE HE WAS IN A SKILLED BED. LITO WITH [facility] WILL ACCEPT HIM BACK WHEN HE IS ABLE TO BE DISCHARGED. I ATTEMPTED TO CALL HIS MOTHER TO GET A DISCHARGE PLAN, BUT I DID NOT GET AN ANSWER. CM WILL CONTINUE TO FOLLOW AND ASSIST NEEDED Last DP export: 06/09/20 3:55 p Patient Name: SMITA ROMERO Page [phone] at 1428 All edits/amendments must be made on the electronic document DICTATION DATE: 06/12/201427 MAINTENANCE TECHNICIAN 3RD SHIFT: FADY 06/12/201427 RPT#: [id number] DC DATE:06/09/20 STATUS: DIS IN [facility] [address] [place] [address] END OF REPORT
== END 2020-06-09 15:15 | DRG 70 ==
LOC: D.ER 09:55 → D.MS 14:26
PROVIDERS: Family Medicine; Internal Medicine Pulmonary Disease; ADMIT Family Medicine; ATTEND Family Medicine
DX: G93.41 Metabolic encephalopathy (principal); I21.A1 Myocardial infarction type 2; J18.9 Pneumonia, unspecified organism; N39.0 Urinary tract infection, site not specified; I16.1 Hypertensive emergency; N17.9 Acute kidney failure, unspecified; I48.20 Chronic atrial fibrillation, unspecified; J96.10 Chronic respiratory failure, unspecified whether with hypoxia or hypercapnia; F84.0 Autistic disorder; E87.0 Hyperosmolality and hypernatremia; E11.65 Type 2 diabetes mellitus with hyperglycemia; R00.0 Tachycardia, unspecified; I25.10 Atherosclerotic heart disease of native coronary artery without angina pectoris; F41.8 Other specified anxiety disorders; F20.9 Schizophrenia, unspecified; D64.9 Anemia, unspecified

== ENCOUNTER 2021-04-20 18:41 | Emergency (ER) | payer MEDICARE, MEDICAID ==
[~2021-04-20] VITALS: Ht 175.3 cm; Wt 109.1 kg
[~2021-04-20 18:41] MED LIST changes: +ATROVENT 0.02%2.5 ML UPD; +BACTRIM DS TAB1 EAC1 PO; +CIMETIDINE200 MG PO; +DEPAKOTE ER250 MG PO; +HALOPERIDOL0.5 MG PO; +PROVERA10 MG PO; +PULMICORT0.5 MG/21 UPD; +REMERON15 MG PO; +TESSALON PERLE100 MG PO
[2021-04-20 18:44] VITALS: Ht 175.3 cm; Wt 109.1 kg
--- NOTE | 2021-04-20 20:27 | NUR ---
DR. ROSS NOTIFIED AND SITTER ORDERED. SITTER IN LINE OF SIGHT. NOTIFIED CHARGE NURSE AND ATTENDING IN REGARDS TO ASSESSMENT FINDINGS. RESOURCES GIVEN TO PT AND SAFETY PLAN INTIATED.
[2021-04-20 20:34] LABS: BASOPHILS 0.6 % (0-2); EOSINOPHILS 4.3 % (0-7); HEMATOCRIT 42.7 % (42.0-54.0); HEMOGLOBIN 14.4 g/dL (13.5-17.5); LYMPHOCYTES 36.6 % (15-50); MCH 32.3 pg (26.0-34.0); MCHC 33.7 g/dL (31.0-37.0); MCV 95.9 fL (80.0-100.0); MEAN PLATELET VOLUME 8.7 fL (7.4-10.4); MONOCYTES 9.9 % (2-11); NEUTROPHILS 48.6 % (40-80); PLATELET COUNT 243 10x3/uL (130-400); RBC 4.45 10x6/uL (4.20-6.10); RDW 13.5 % (11.5-14.5); WBC 8.5 10x3/uL (4.8-10.8)
[2021-04-20 20:36] LABS: BILIRUBIN NEGATIVE (NEGATIVE); KETONE SMALL mg/dL (NEGATIVE); NITRITE NEGATIVE (NEGATIVE); UROBILINOGEN NORMAL mg/dL (< 2)
[2021-04-20 20:37] LABS: BACTERIA FEW HPF (NONE SEEN); SQUAMOUS EPITHELIAL 0-5 HPF (0-4); UDS - AMPHET NEGATIVE QUAL (NEGATIVE); UDS - BARB NEGATIVE QUAL (NEGATIVE); UDS - BENZO NEGATIVE QUAL (NEGATIVE); UDS - COCAINE NEGATIVE QUAL (NEGATIVE); UDS - OPIATE NEGATIVE QUAL (NEGATIVE); UDS - PCP NEGATIVE QUAL (NEGATIVE); UDS - THC NEGATIVE QUAL (NEGATIVE); WHITE CELLS - URINE 0-5 HPF (0-1)
[2021-04-20 20:38] LABS: GRANULAR CAST 0-5 LPF (NONE SEEN)
[2021-04-20 20:45] LABS: CALC OSMOLALITY 280 mosm/kg (275-300); CALCIUM 8.7 mg/dL (8.5-10.1); CARBON DIOXIDE 27.4 mmol/L (21.0-32.0); CHLORIDE - SERUM 104 mmol/L (98-107); GLUCOSE 118 mg/dL (74-106); POTASSIUM - SERUM 3.9 mmol/L (3.5-5.1); SODIUM 140 mmol/L (136-145); UREA NITROGEN 16 mg/dL (7-18); eGFR NON AFRICAN AMERICAN 85 mL/min (90-120)
[2021-04-20 20:52] LABS: ALBUMIN 3.6 g/dL (3.4-5.0); ALKALINE PHOSPHATASE 62 U/L (30-120); ALT (SGPT) 32 U/L (10-68); BILIRUBIN - TOTAL 0.36 mg/dL (0.2-1.3); MAGNESIUM - SERUM 2.1 mg/dL (1.8-2.4); PROTEIN - SERUM 7.2 g/dL (6.4-8.2)
[2021-04-20 20:53] LABS: ACETAMINOPHEN > 10.0 ug/mL (10.0-30.0)
[2021-04-21 01:08] LABS: SARS-CoV-2 ANTIGEN NEGATIVE- SARS-COV-2 (NEGATIVE)
[2021-04-21 15:50] VITALS: BP 132/78
== END 2021-04-21 15:52 ==
LOC: D.ER 18:41
PROVIDERS: Emergency Medicine; Family Medicine
DX: R44.0 Auditory hallucinations (principal); R45.851 Suicidal ideations; R45.850 Homicidal ideations; F20.9 Schizophrenia, unspecified; E11.9 Type 2 diabetes mellitus without complications; Z79.82 Long term (current) use of aspirin